=== PATIENT | male | born 1985 | race Caucasian/White ===

== ENCOUNTER 2018-04-30 00:55 | Inpatient (IN) ==
[2018-04-30] MEDS ORDERED: Sod Chloride 0.9% Inj 1,000 ML IV.SIG ONE (01:22)
[2018-04-30] MEDS ORDERED: Vancomycin Inj 1 GM/200 ML PIGGYBACK IV.SIG ONE (02:00)
[2018-04-30] MEDS ORDERED: Piperacil/Tazo 3.375 GM Premix 50 ML IV.SIG ONE (02:00)
[2018-04-30 02:09] LABS: Baso % (Auto) 0.2 % (0.0-2.0); Eos % (Auto) 0.1 % (0.0-4.0); Hematocrit 26.9 % (39.0-51.0); Hemoglobin 9.3 gm/dL (13.0-17.0); Lymph # (Auto) 0.7 th/mm3 (1.0-4.8); Mean Corpuscular HGB Conc 34.5 % (32.0-36.0); Mean Platelet Volume 7.9 fL (7.0-11.0); Mono # (Auto) 0.4 th/mm3 (0.0-0.9); Mono % (Auto) 4.8 % (0.0-8.0); Neut # (Auto) 7.7 th/mm3 (1.8-7.7); Neut % (Auto) 86.9 % (16.0-70.0); Platelet Count 139 th/mm3 (150-450); Red Blood Count 3.32 mil/mm3 (4.50-5.90); Red Cell Distribution Width 17.1 % (11.6-17.2); White Blood Count 8.9 th/mm3 (4.0-11.0)
--- NOTE | 2018-04-30 02:09 | ED ---
HPI General Chief complaint: Back Pain/Injury Stated complaint: back pain Time Seen by Provider: 04/30/18 01:20 Source: patient Mode of arrival: EMS Limitations: no limitations History of Present Illness HPI narrative: The patient is a 32 year old male who presents to the [facility] emergency department with a history of right-sided chest pain, left- sided low back pain that he reports began at approximately the same time, 2-3 days after detoxing from opiate use in [facility]. He reports that he was in incarcerated on April 11 and last used heroin and opiates on April 10. He reports that approximately 2 days into his incarceration he began to have detox symptoms which mainly included numerous episodes of diarrhea. Since then he developed this right-sided lower chest wall pain anteriorly and left-sided low back pain just above the left buttock. He reports that he has had a cough productive of green sputum. He reports that he has had fevers with a T-max in alf of 101. He is not currently on any antibiotic. He has been taking ibuprofen and Flexeril at the alf. He denies having any prior history of hepatitis or HIV. He denies having any prior history of endocarditis. He reports that he has had skin infections and abscesses in the past related to staph from IV drug use. He denies having any rashes currently. On review of systems otherwise, the patient denies having any neck pain, shortness of breath , abdominal pain, vomiting,urinary symptoms, or neurologic symptoms. The patient last moved his bowels earlier today with a formed stool. He denies having any numbness or tingling to his extremities. He denies having any weakness of his extremities. He reports that he has generalized weakness. He was also noted at the alf to have incontinence of urine. Related Data Home Medications Medication Instructions Recorded Confirmed cyclobenzaprine 10 mg PO BID 04/30/18 04/30/18 ibuprofen 600 mg PO BID 04/30/18 04/30/18 Allergies Allergy/AdvReac Type Severity Reaction Status Date / Time acetaminophen Allergy Intermediate STOMACH Verified 07/08/17 16:38 UPSET Review of Systems ROS: all other systems reviewed are negative (Except for that which was mentioned in the HPI) [facility] Medical History Medical History Back pain (Acute) IV drug abuse (Acute) Right foot injury (Acute) Surgical History Surgical History H/O foot surgery (Acute) Social History Social History Substance History: Past History Second Hand Smoke Exposure: No Smoking Status: Current every day smoker Tobacco Type: Cigarettes Packs Per Day: 1 Cigarettes Per Day: 20.0 How Often Do You Have a Drink Containing Alcohol: Never Recent Travel in [facility] within the Last 8 Weeks: No Recent Out of Country Travel within the Last 8 Weeks: No Immunization History Tetanus Immunization: <5 Years Hx Influenza Vaccine This Season: No Exam Const General: cooperative, no acute distress and well developed Nutritional Appearance: well nourished Orientation: alert, awake and oriented x3 HENMT Head: normocephalic and atraumatic Nose: no nasal discharge and no epistaxis Mouth: moist mucous membranes Throat: posterior oropharynx normal and uvula midline Eyes Sclera: normal sclerae Pupils: PERRL Neck Neck: no meningeal signs, trachea midline and no JVD Chest Chest: normal inspection of the chest Resp Effort & Inspection: no use of accessory muscles Auscultation: other (The patient has decreased breath sounds in the right posterior lung field. No rhonchi or crackles. No wheezes audible. No accessory muscle use noted. No tripoding. No conversational dyspnea.) Cardio Rate: tachycardic (Sinus tachycardia in the low 100s, no pulse deficits to the extremities on simultaneous auscultation and palpation of his radial artery) Rhythm: regular rhythm Heart Sounds: no gallops, no murmurs and no rubs GI Inspection: non-distended Palpation: soft, no hepatosplenomegaly, no guarding, not rigid and tender in the epigastrum; not in the LLQ, not in the RLQ, not in the LUQ, not in the RUQ, not at McBurney's point, not suprapubicly, Ramirez's sign negative and with no rebound tenderness Auscultation: normal bowel sounds Back/Spine/Pelvis Back: no CVA tenderness Cervical Spine: No cervical spinal tenderness Thoracic/Lumbar Spine: No thoracic spinal tenderness and No lumbar spinal tenderness Skin General: dry skin (warm) Neuro General: alert, awake and oriented x3 Cranial Nerves: CN's II-XI intact bilaterally Speech: speech normal Motor: no movement abnormalities noted and strength abnormal (Strength is 4/5 in all 4 extremities with visualized generalized weakness.) Sensory Exam: no sensory deficits noted Extrem General: normal to inspection (No calf tenderness on palpation. 2+ pulses in all 4 extremities.), no clubbing, no cyanosis and no edema Psych Mood: congruent mood Affect: normal affect Judgment: judgment good Course Reevaluation(s) Reevaluation #1: The patient on reexamination was resting comfortably. The patient appeared to be in no acute distress. Consultations Consultation #1: The patient's case including history, pertinent physical examination findings, and laboratory studies were discussed with Dr. Hale. It was agreed that the patient would be admitted to the petrophysicist's service. Initial Documented Vital Signs Temperature 98.9 F 04/30/18 01:14 Pulse Rate 114 H 04/30/18 01:14 Respiratory Rate 18 04/30/18 01:14 Blood Pressure 114/67 04/30/18 01:14 Pulse Oximetry 97 04/30/18 01:14 Last Documented Vital Signs Temperature 98.9 F 04/30/18 01:14 Pulse Rate 97 H 04/30/18 03:20 Respiratory Rate 16 04/30/18 03:20 Blood Pressure 102/64 04/30/18 03:20 Pulse Oximetry 97 04/30/18 03:20 Critical Care Time Critical Care Time: Yes Total Critical Care Time: 41 Attestation: Aggregate critical care time was 41 minutes. Time to perform other separately billable procedures was not included in the critical care time. My time did not include minutes spent treating any other patients simultaneously or on activities that did not directly contribute to the patient's treatment. The services I provided to this patient were to treat and/or prevent clinically significant deterioration that could result in: Cardiovascular collapse related to sepsis, versus fluid overload from crystalloid resuscitation, versus cardiac arrhythmia I provided critical care services requiring my management, as noted below: Chart data review, documentation time, medication orders and management, vital sign assessments/reviewing monitor data, ordering and reviewing lab tests, ordering and interpreting/reviewing x-rays and diagnostic studies, care of the patient and discussion of the patient with the admitting physicians. Medical Decision Making MDM Narrative Medical decision making narrative: 27.1, chemistry is remarkable forDuring the course of the patient's emergency department visit, the patient's history, examination, and differential diagnosis were reviewed with the patient. The patient was placed on a cardiac cath technologist with oximetry and frequent blood pressure monitoring. The patient had IV access obtained and blood work sent for analysis. A diagnostic evaluation has been started regarding the patient's right-sided chest pain, back pain on the left side, fever, with cough. The patient was initially provided normal saline 1 L IV fluid bolus, broad- spectrum antibiotic was started due to a concern for sepsis in this patient with a history of IV drug use. The patient's diagnostic evaluation is remarkable for a white count of 8.9 with a left shift, neutrophil percent 78, platelets were low at 139, hemoglobin was noted to be 9.3. PT 12.7, INR 1.3, PTT 27.1. Chemistries are remarkable for troponin I of 7.33, given the patient's elevated troponin the patient was given nitroglycerin 1 inch to the chest wall, aspirin 324 mg p.o. 1. Chemistries were otherwise remarkable for a total protein 5.7, sodium 134, protein corrected calcium 7.7, GFR 76, CK-MB percent is 3.1, C-reactive protein elevated at 15.8, BUN 27, AST 103, albumin 1.4. Chest x-ray revealed a right basilar pleural-parenchymal density. CT scan with IV contrast was ordered to evaluate for possible septic emboli as an underlying cause. CT scan of the chest with IV contrast reveals numerous bilateral pulmonary nodules many of which are cavitated likely septic emboli. Small moderate right pleural effusion with partial loculation, CT scan of the abdomen and pelvis shows areas of low density that are seen in the spleen which could be lacerations versus infarctions. No hemoperitoneum, bilateral renal low- densities are seen, likely benign, right pleural effusion. Based on the patient 's examination and lack of trauma, splenic lacerations are unlikely, however septic embolization with infarcts are likely the cause of the patient's splenic abnormalities. CT scan of the T-spine and L-spine showed no acute abnormality other than disc bulges at L3-4 L4-5 L5-S1. The patient's case was discussed with Dr. Hale, the petrophysicist who did agree to admit the patient for continued evaluation and treatment. Medical Screen Exam Complete: Yes Emergency Medical Condition: Yes Differential Diagnosis Differential Diagnosis: Discitis, versus osteomyelitis, versus pneumonia, versus septic emboli, versus endocarditis, versus, versus pyelonephritis Medical Records Medical records reviewed: Yes I reviewed the patient's medical records. Lab Data Lab results reviewed: Yes I reviewed the patient's lab results. Result diagrams: 04/30/18 01:55 04/30/18 01:55 Lab Results 04/30/18 04/30/18 04/30/18 Range/Units 01:55 01:55 01:55 WBC 8.9 (4.0-11.0) th/mm3 RBC 3.32 L (4.50-5.90) mil/mm3 Hgb 9.3 L (13.0-17.0) gm/dL Hct 26.9 L (39.0-51.0) % MCV 81.0 (80.0-100.0) fL MCH 28.0 (27.0-34.0) pg MCHC 34.5 (32.0-36.0) % RDW 17.1 (11.6-17.2) % Plt Count 139 L (150-450) th/mm3 MPV 7.9 (7.0-11.0) fL Prelim Diff (Auto) Slide review pending Neut % (Auto) 86.9 H (16.0-70.0) % Lymph % (Auto) 8.0 L (9.0-44.0) % Candler % (Auto) 4.8 (0.0-8.0) % Eos % (Auto) 0.1 (0.0-4.0) % Baso % (Auto) 0.2 (0.0-2.0) % Neut # (Auto) 7.7 (1.8-7.7) th/mm3 Lymph # (Auto) 0.7 L (1.0-4.8) th/mm3 Candler # (Auto) 0.4 (0.0-0.9) th/mm3 Eos # (Auto) 0.0 (0.0-0.4) th/mm3 Baso # (Auto) 0.0 (0.0-0.2) th/mm3 WBC Differential Manual diff final Seg Neuts % (Manual) 78 H (16-70) % Band Neuts % (Manual) 12 H (0-6) % Lymphocytes % (Manual) 5 L (9-44) % Monocytes % (Manual) 5 (0-8) % Abs Neuts (Manual) 8.0 H (1.8-7.7) th/mm3 Differential Comment . Platelet Estimate Low L (Normal) Platelet Morphology Normal (Normal) Ovalocytes 1+ H (None) Helmet Cells Occ H (None) ESR 43 H (0-15) mm/hr PT 12.7 H (9.8-11.6) sec INR 1.3 Ratio APTT 27.1 (24.3-30.1) sec Sodium (136-145) meq/L Potassium (3.5-5.1) meq/L Chloride (98-107) meq/L Carbon Dioxide (21.0-32.0) meq/L Anion Gap (5-15) meq/L BUN (7-18) mg/dL Creatinine (0.60-1.30) mg/dL Estimated GFR (>89) mL/min Random Glucose (74-106) mg/dL Lactic Acid (0.4-2.0) mmol/L Calcium (8.5-10.1) mg/dL Prot Corrected Calcium (8.5-10.1) mg/dL Magnesium 2.2 (1.5-2.5) mg/dL Total Bilirubin (0.2-1.0) mg/dL AST (15-37) U/L ALT (12-78) U/L Alkaline Phosphatase (45-117) U/L Total Creatine Kinase 242 (39-308) U/L CK-MB (CK-2) 7.5 H (0.5-3.6) ng/mL CK-MB (CK-2) % 3.1 (0.0-4.0) % Troponin I 7.33 H* (0.02-0.05) ng/mL C-Reactive Protein 15.80 H (0.00-0.30) mg/dL B-Natriuretic Peptide (0-100) pg/mL Total Protein (6.4-8.2) g/dL Albumin (3.4-5.0) g/dL Lipase 85 (73-393) U/L 04/30/18 04/30/18 04/30/18 Range/Units 01:55 01:55 01:55 WBC (4.0-11.0) th/mm3 RBC (4.50-5.90) mil/mm3 Hgb (13.0-17.0) gm/dL Hct (39.0-51.0) % MCV (80.0-100.0) fL MCH (27.0-34.0) pg MCHC (32.0-36.0) % RDW (11.6-17.2) % Plt Count (150-450) th/mm3 MPV (7.0-11.0) fL Prelim Diff (Auto) Neut % (Auto) (16.0-70.0) % Lymph % (Auto) (9.0-44.0) % Candler % (Auto) (0.0-8.0) % Eos % (Auto) (0.0-4.0) % Baso % (Auto) (0.0-2.0) % Neut # (Auto) (1.8-7.7) th/mm3 Lymph # (Auto) (1.0-4.8) th/mm3 Candler # (Auto) (0.0-0.9) th/mm3 Eos # (Auto) (0.0-0.4) th/mm3 Baso # (Auto) (0.0-0.2) th/mm3 WBC Differential Seg Neuts % (Manual) (16-70) % Band Neuts % (Manual) (0-6) % Lymphocytes % (Manual) (9-44) % Monocytes % (Manual) (0-8) % Abs Neuts (Manual) (1.8-7.7) th/mm3 Differential Comment Platelet Estimate (Normal) Platelet Morphology (Normal) Ovalocytes (None) Helmet Cells (None) ESR (0-15) mm/hr PT (9.8-11.6) sec INR Ratio APTT (24.3-30.1) sec Sodium 134 L (136-145) meq/L Potassium 3.9 (3.5-5.1) meq/L Chloride 103 (98-107) meq/L Carbon Dioxide 20.5 L (21.0-32.0) meq/L Anion Gap 11 (5-15) meq/L BUN 27 H (7-18) mg/dL Creatinine 1.11 (0.60-1.30) mg/dL Estimated GFR 76 L (>89) mL/min Random Glucose 90 (74-106) mg/dL Lactic Acid 1.1 (0.4-2.0) mmol/L Calcium 7.0 L* (8.5-10.1) mg/dL Prot Corrected Calcium 7.7 L (8.5-10.1) mg/dL Magnesium (1.5-2.5) mg/dL Total Bilirubin 0.6 (0.2-1.0) mg/dL AST 103 H (15-37) U/L ALT 43 (12-78) U/L Alkaline Phosphatase 79 (45-117) U/L Total Creatine Kinase (39-308) U/L CK-MB (CK-2) (0.5-3.6) ng/mL CK-MB (CK-2) % (0.0-4.0) % Troponin I (0.02-0.05) ng/mL C-Reactive Protein (0.00-0.30) mg/dL B-Natriuretic Peptide 87 (0-100) pg/mL Total Protein 5.7 L (6.4-8.2) g/dL Albumin 1.4 L (3.4-5.0) g/dL Lipase (73-393) U/L Imaging Data Radiologist's impression: Chest X-Ray 04/30/18 01:23 CONCLUSION: Right basilar pleural-parenchymal density. Abdomen/Pelvis CT 04/30/18 01:58 CONCLUSION: 1. Areas of low-density are seen in the spleen could be lacerations versus infarcts. No hemoperitoneum. 2. Bilateral renal low-density likely benign. 3. Right pleural effusion. Lumbar Spine CT 04/30/18 01:58 CONCLUSION: 1. Disc bulges at L3-4, L4-5 and L5-S1 levels. No canal stenosis. 2. No fracture or spondylolisthesis. Thoracic Spine CT 04/30/18 01:58 CONCLUSION: 1. Unremarkable thoracic spine. Chest CT 04/30/18 03:09 CONCLUSION: 1. Numerous bilateral pulmonary nodules many of which are cavitated, likely septic emboli. 2. Small moderate right pleural effusion with partial loculation. ECG Data Attestation: I personally reviewed and interpreted this ECG as follows: Interpretation: The patient had an EKG done on arrival that shows a sinus tachycardia rate of 116, QRS duration 85 ms, QTC [address] segment elevation. Nonspecific ST-T wave abnormalities noted, T waves are inverted in lead III. Discharge Plan Discharge Disposition Patient Disposition: 30 Still Patient Discharge Details Diagnosis: Acute septic pulmonary embolism Physicians Team ED Provider: Lorrie Orozco Primary Care Provider: Primary Care Tammie Peña Attending Provider: Aurelio Hale Other Providers: Zia Mesa ; Zena Raines ; Daljit Centeno Discharge Interventions Interventions: ED Discharge Assessment Last Done: 04/30/18 05:49 Status ED Status: Left Department Discharge Information Discharge Date/Time: 04/30/18 05:50
[2018-04-30 02:23] LABS: Activated Partial Thrombo Time 27.1 sec (24.3-30.1); INR 1.3 Ratio; Prothrombin Time 12.7 sec (9.8-11.6)
[2018-04-30 02:25] LABS: C-Reactive Protein 15.8 mg/dL (0.00-0.30); Magnesium 2.2 mg/dL (1.5-2.5)
--- NOTE | 2018-04-30 02:26 | XR ---
EXAM DATE: 04/30/2018 1:58 AM EDT AGE/SEX: 32 years / Male INDICATIONS: Chest pain, fever, and shortness of breath. CLINICAL DATA: This is the patient's initial encounter. Patient reports that signs and symptoms have been present for 2 days and indicates a pain score of 5/10. MEDICAL/SURGICAL HISTORY: None. None. COMPARISON: No prior exams available for comparison. FINDINGS: A single AP view of the chest demonstrates right basilar pleural-parenchymal density noted laterally. Left lung clear. Heart normal in size. The cardiomediastinal contours are unremarkable. Osseous st ructures are intact. CONCLUSION: Right basilar pleural-parenchymal density. Electronically signed by: Austen Alejandra MD 04/30/2018 2:24 AM EDT
[2018-04-30 02:30] LABS: Erythrocyte Sedimentation Rate 43 mm/hr (0-15)
[2018-04-30] MEDS ORDERED: Vancomycin Inj 1,000 MG in Sodium Chlor 0.9% Inj 250 ML IV.SIG ONE (02:45)
[2018-04-30 02:55] LABS: Lymphocytes 5 % (9-44); Monocytes 5 % (0-8); Platelet Morphology Normal (Normal)
[2018-04-30 02:57] LABS: Helmet Cells Occ; Ovalocytes 1+
[2018-04-30 03:14] LABS: Troponin I 7.33 ng/mL (0.02-0.05)
[2018-04-30 03:34] LABS: Creatine Kinase MB 7.5 ng/mL (0.5-3.6)
[2018-04-30 03:36] LABS: Albumin 1.4 g/dL (3.4-5.0); Carbon Dioxide 20.5 meq/L (21.0-32.0); Potassium 3.9 meq/L (3.5-5.1); Total Protein 5.7 g/dL (6.4-8.2)
[2018-04-30 03:43] LABS: CKMB Percent 3.1 % (0.0-4.0)
--- NOTE | 2018-04-30 04:25 | P.HPCC ---
History of Present Illness Primary Care Physician: No Primary Care Physician History of Present Illness: 32 year old male presents with a history of right-sided chest pain, left-sided low back pain that he reports began at approximately the same time, 2-3 days after detoxing from heroin/opiate use in care home. He reports that he was in incarcerated on April 11 and last used heroin and opiates on April 10. He reports that approximately 2 days into his incarceration he began to have detox symptoms which mainly included numerous episodes of diarrhea. Since then he developed this right-sided lower chest wall pain anteriorly and left-sided low back pain just above the left buttock. He reports that he has had a cough productive of green sputum. He also has had fevers with a T-max in care home of 101. He is not currently on any antibiotic. He has been taking ibuprofen and Flexeril at the care home. He denies having any prior history of hepatitis or HIV. He denies having any prior history of endocarditis. He reports that he has had skin infections and abscesses in the past related to staph from IV drug use. He denies having any rashes currently. On review of systems otherwise, the patient denies having any neck pain, shortness of breath, abdominal pain, vomiting,urinary symptoms, or neurologic symptoms. The patient last moved his bowels earlier today with a formed stool. He denies having any numbness or tingling to his extremities. He denies having any weakness of his extremities. He reports that he has generalized weakness. He was also noted at the care home to have incontinence of urine. Inpatient Certification: I certify that the inpatient services were ordered in accordance with Medicare regulations governing the order. 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 - Medical History Medical History: Medical History (Last Reviewed 04/30/18 @ 02:05 by Lorrie Orozco MD) Back pain IV drug abuse Right foot injury - Surgical History Surgical History: Surgical History (Last Updated 04/30/18 @ 02:05 by Lorrie Orozco MD) H/O foot surgery - Tobacco History Second Hand Smoke Exposure: No Tobacco Use In Past 30 Days: Yes Smoking Status: Current every day smoker Tobacco Type: Cigarettes Packs Per Day: 1 Cigarettes Per Day: 20.0 - Alcohol History How Often Do You Have a Drink Containing Alcohol: Never - Substance Use History Substance History: Past History - Travel History Recent Travel in the [place] Within the Last 8 Weeks: No Recent Travel Out of the Country Within the Last 8 Weeks: No - Immunization History Tetanus Immunization: <5 Years Hx Influenza Vaccine This Season: No Medications and Allergies Allergies Allergy/AdvReac Type Severity Reaction Status Date / Time acetaminophen Allergy Intermediate STOMACH Verified 07/08/17 16:38 UPSET Home Medications Medication Instructions Recorded Confirmed Type cyclobenzaprine 10 mg PO BID 04/30/18 04/30/18 History ibuprofen 600 mg PO BID 04/30/18 04/30/18 History Results - Labs CBC & Chem 7: 04/30/18 01:55 04/30/18 01:55 Labs: Short CBC 04/30/18 Range/Units 01:55 WBC 8.9 (4.0-11.0) th/mm3 Hgb 9.3 L (13.0-17.0) gm/dL Hct 26.9 L (39.0-51.0) % Plt Count 139 L (150-450) th/mm3 BMP 04/30/18 01:35 Sodium 134 L Potassium 3.9 Chloride 103 Carbon Dioxide 20.5 L BUN 27 H Creatinine 1.11 Calcium 7.0 L* Cardiac Enzymes 04/30/18 Range/Units 01:55 Total Creatine Kinase 242 (39-308) U/L CK-MB (CK-2) 7.5 H (0.5-3.6) ng/mL Troponin I 7.33 H* (0.02-0.05) ng/mL Liver Function 04/30/18 Range/Units 01:35 Total Bilirubin 0.6 (0.2-1.0) mg/dL AST 103 H (15-37) U/L ALT 43 (12-78) U/L Alkaline Phosphatase 79 (45-117) U/L Albumin 1.4 L (3.4-5.0) g/dL - Imaging Impressions Chest X-Ray 04/30/18 01:23 CONCLUSION: Right basilar pleural-parenchymal density. Exam Vital signs: Vital Signs 04/30/18 01:14 04/30/18 02:01 Temperature 98.9 F Pulse Rate 114 H 102 H Respiratory Rate 18 Blood Pressure 114/67 Pulse Oximetry 97 97 Intake & Output 04/29/18 04/29/18 04/30/18 06:59 18:59 06:59 Weight 58.967 kg - Constitutional mild distress - Routine HEENT Exam Head: Present: normocephalic, atraumatic Eye: Present: PERRL ENT: Present: mucous membranes moist - Routine Neck Exam Present: supple, full ROM. Absent: JVD, carotid bruit - Routine Respiratory Exam Present: rhonchi, crackles. Absent: accessory muscle use, respiratory distress , stridor, wheezes - Routine Cardiovascular Exam Present: RRR, S1, S2, murmur - Routine Abdominal Exam Present: soft, normoactive bowel sounds. Absent: tenderness, distended, rebound - Routine Extremities Exam Absent: cyanosis, clubbing, edema - Routine Skin Exam Present: intact. Absent: cyanosis, erythema - Routine Neurological Exam Present: alert, oriented X3, CN II-XII intact. Absent: sensory deficit, motor deficit Caprini VTE Risk Assessment Caprini VTE Risk Assessment: Moderate/High Risk (score >= 2) Caprini Risk Assessment Model: Point Value = 1 Point Value = 2 Point Value = 3 Point Value = 5 Age 41-60 Minor surgery BMI > 25 kg/m2 Swollen legs Varicose veins or History of unexplained or recurrent spontaneous Oral contraceptives or hormone replacement Sepsis (< 1 month) Serious lung disease, including pneumonia (< 1 month) Abnormal pulmonary function Acute myocardial infarction Congestive heart failure (< 1 month) History of inflammatory bowel disease Medical patient at bed rest Age 61-74 Arthroscopic surgery Major open surgery (> 45 min) Laparoscopic surgery (> 45 min) Malignancy Confined to bed (> 72 hours) Immobilizing plaster cast Central venous access Age >= 75 History of VTE Family history of VTE Factor V Leiden Prothrombin [id number] Lupus anticoagulant Anticardiolipin antibodies Elevated serum homocysteine Heparin-induced thrombocytopenia Other congenital or acquired thrombophilia Stroke (< 1 month) Elective arthroplasty Hip, pelvis, or leg fracture Acute spinal cord injury (< 1 month) Prophylaxis Regimen: Total Risk Factor Score Risk Level Prophylaxis Regimen 0-1 Low Early ambulation 2 Moderate Order ONE of the following: *Sequential Compression Device (SCD) *Heparin 5000 units SQ BID 3-4 Higher Order ONE of the following medications: *Heparin 5000 units SQ TID *Enoxaparin/Lovenox 40 mg SQ daily (WT < 150 kg, CrCl > 30 mL/min) *Enoxaparin/Lovenox 30 mg SQ daily (WT < 150 kg, CrCl > 10-29 mL/min) *Enoxaparin/Lovenox 30 mg SQ BID (WT < 150 kg, CrCl > 30 mL/min) AND/OR *Sequential Compression Device (SCD) 5 or more Highest Order ONE of the following medications: *Heparin 5000 units SQ TID (Preferred with Epidurals) *Enoxaparin/Lovenox 40 mg SQ daily (WT < 150 kg, CrCl > 30 mL/min) *Enoxaparin/Lovenox 30 mg SQ daily (WT < 150 kg, CrCl > 10-29 mL/min) *Enoxaparin/Lovenox 30 mg SQ BID (WT < 150 kg, CrCl > 30 mL/min) AND *Sequential Compression Device (SCD) Assessment and Plan - Assessment and Plan Plan: Elevated troponin with atypical chest pain -Possible endocarditis -Consult cardiology and infectious disease -SARAH pending -Blood cultures to follow -Vancomycin, gentamicin, Zosyn empirically -Unable to use anticoagulation due to severe thrombocytopenia -Follow-up series of troponins and EKGs Elevated LFTs -History of IVDU -Hepatitis profile -Gastroenterology consultation IVDU -Opiate dependency -Status post successful detoxification at [facility] facility -Avoid opioids and narcotics -Tylenol as needed for pain or fever Pulmonary emboli -Broad-spectrum antibiotic Multiple infarcts of spleen -Likely infectious emboli -IV antibiotics Thrombocytopenia -Due to sepsis and liver failure -Monitor trend and transfuse for platelet count less than 20 or if any signs of bleeding DVT GI prophylaxis -Teds SCDs -No pharmacological DVT prophylaxis due to thrombocytopenia -IV Pepcid Critical Care: The total critical care time was 35 minutes. Time to perform other separately billable procedures was not included in the critical care time.
[2018-04-30] MEDS ORDERED: Bisacodyl 10 MG Supp RECTAL PRN (04:41)
[2018-04-30] MEDS ORDERED: Vancomycin Consult Pharmacy OTHER ONE (04:49)
[2018-04-30] MEDS ORDERED: Gentamicin Consult Pharmacy OTHER ONE (04:49)
--- NOTE | 2018-04-30 04:50 | CT ---
EXAM DATE: 04/30/2018 4:09 AM EDT AGE/SEX: 32 years / Male INDICATIONS: Abdomen pain. CLINICAL DATA: This is the patient's initial encounter. Patient reports that signs and symptoms have been present for 1 day and indicates a pain score of 6/10. MEDICAL/SURGICAL HISTORY: . IV drug use. None. ORAL CONTRAST: No oral contrast ingested. RADIATION DOSE: 9.96 CTDI (mGy) ; Combined studies COMPARISON: No prior exams available for comparison. TECHNIQUE: Multiple contiguous axial images were obtained through the abdomen and pelvis following b olus infusion of 100 ml Omnipaque 350 (iohexol) nonionic water-soluble contrast as a cumulative dos e for multiple exams. No oral contrast ingested. Using automated exposure control and adjustment of the mA and/or kV according to patient size, radiation dose was kept as low as reasonably achievable t o obtain optimal diagnostic quality images. DICOM format image data is available electronically for review and comparison. FINDINGS: Lower Lungs: There is right pleural effusion. Liver: The liver has a homogeneous density without space-occupying lesion. There is no dilation of th e biliary tree. Spleen: There is a low-density in the spleen are seen in several locations.. Pancreas: Unremarkable without mass or calcification. Kidneys: Normal in size and shape. No evidence of mass or hydronephrosis. Bilateral renal low densit ies are seen Adrenal Glands: Unremarkable. Aorta: The aorta and proximal iliac vessels are grossly unremarkable without aneurysmal dilation. Bowel/Mesentery: The bowel loops are grossly unremarkable. The cecum and sigmoid colon have a normal configuration. Abdominal Wall: Intact. Retroperitoneum: No evidence of adenopathy in the retrocrural, para-aortic, or deep pelvic regions. Bladder: Contours are smooth. Reproductive Organs: No abnormal masses or calcifications seen. Inguinal: The inguinal region is unremarkable without evidence of adenopathy. Bony Structures: Unremarkable. CONCLUSION: 1. Areas of low-density are seen in the spleen could be lacerations versus infarcts. No hemoperitone um. 2. Bilateral renal low-density likely benign. 3. Right pleural effusion. Electronically signed by: Austen Alejandra MD 04/30/2018 4:49 AM EDT
--- NOTE | 2018-04-30 04:53 | CT ---
EXAM DATE: 04/30/2018 4:13 AM EDT AGE/SEX: 32 years / Male INDICATIONS: Back pain. CLINICAL DATA: This is the patient's initial encounter. Patient reports that signs and symptoms have been present for 1 day and indicates a pain score of 6/10. MEDICAL/SURGICAL HISTORY: . IV Drug use. None. RADIATION DOSE: 0 CTDI (mGy) ; Reconstructed from previous dataset, no dose COMPARISON: No prior exams available for comparison. TECHNIQUE: Contiguous axial images were acquired with a multirow detector CT scanner after intraveno us administration of 100 ml Omnipaque 350 (iohexol) nonionic water-soluble contrast as a cumulative dose for multiple exams. Multiplanar reconstructions in the sagittal and coronal plane were also per formed. Using automated exposure control and adjustment of the mA and/or kV according to patient size , radiation dose was kept as low as reasonably achievable to obtain optimal diagnostic quality images . DICOM format image data is available electronically for review and comparison. FINDINGS: Vertebrae: Normal vertebral body height. Disc spaces are maintained. Bilateral renal low densities. Alignment: Normal. No subluxation. Post Contrast: No abnormal areas of enhancement are seen in the cord, dural or paraspinal regions. T12-L1: The thecal sac has a normal diameter. No evidence of disc bulge or protrusion. The neural foramina are patent bilaterally. L1-L2: The thecal sac has a normal diameter. No evidence of disc bulge or protrusion. The neural f oramina are patent bilaterally. L2-L3: The thecal sac has a normal diameter. No evidence of disc bulge or protrusion. The neural f oramina are patent bilaterally. L3-L4: Mild broad-based disc bulge abuts ventral thecal sac without canal stenosis. The neural fora carmina are patent bilaterally. L4-L5: Mild broad-based disc bulge abuts ventral thecal sac without canal stenosis. The neural fora carmina are patent bilaterally. L5-S1: Mild broad-based disc bulge abuts ventral thecal sac without canal stenosis. The neural fora carmina are patent bilaterally. CONCLUSION: 1. Disc bulges at L3-4, L4-5 and L5-S1 levels. No canal stenosis. 2. No fracture or spondylolisthesis. Electronically signed by: Austen Alejandra MD 04/30/2018 4:52 AM EDT
--- NOTE | 2018-04-30 04:55 | CT ---
EXAM DATE: 04/30/2018 4:07 AM EDT AGE/SEX: 32 years / Male INDICATIONS: Chest pain. CLINICAL DATA: This is the patient's initial encounter. Patient reports that signs and symptoms have been present for 1 day and indicates a pain score of 10/10. MEDICAL/SURGICAL HISTORY: . IV Drug use. None. RADIATION DOSE: 9.96 CTDI (mGy) COMPARISON: No prior exams available for comparison. TECHNIQUE: Multiple contiguous axial images were obtained through the chest during bolus infusion of 100 ml Omnipaque 350 (iohexol) nonionic water-soluble contrast as a cumulative dose for multiple ex ams. Images were obtained in suspended respiration using multiple row detector helical technique. Using automated exposure control and adjustment of the mA and/or kV according to patient size, radiat ion dose was kept as low as reasonably achievable to obtain optimal diagnostic quality images. DICOM format image data is available electronically for review and comparison. FINDINGS: Lungs: Numerous bilateral pulmonary nodules many of which are cavitated. These range in size from 3 mm to 24 mm.. Mediastinum: There is good visualization of the great vessels of the middle mediastinum. No evidenc e of mediastinal or hilar adenopathy/mass. Pleurae: No evidence of focal thickening or pleural effusion on the left. Bxbvo-[id number] partiall y loculated right pleural effusion.. Axillae: Unremarkable. Bony Structures: Unremarkable. Miscellaneous: The examination was extended to include the upper abdomen, and both adrenal glands ar e normal in size and configuration. CONCLUSION: 1. Numerous bilateral pulmonary nodules many of which are cavitated, likely septic emboli. 2. Small moderate right pleural effusion with partial loculation. Electronically signed by: Austen Alejandra MD 04/30/2018 4:54 AM EDT
--- NOTE | 2018-04-30 04:57 | CT ---
EXAM DATE: 04/30/2018 4:15 AM EDT AGE/SEX: 32 years / Male INDICATIONS: Back pain CLINICAL DATA: This is the patient's initial encounter. Patient reports that signs and symptoms have been present for 1 day and indicates a pain score of 6/10. MEDICAL/SURGICAL HISTORY: . IV Drug Abuse. None. RADIATION DOSE: 0 CTDI (mGy) ; Reconstructed from previous dataset, no dose COMPARISON: No prior exams available for comparison. TECHNIQUE: Contiguous axial images were acquired using a multirow detector CT scanner after intraven ous administration of 100 ml Omnipaque 350 (iohexol) nonionic water-soluble contrast as a cumulative dose for multiple exams. Multiplanar reconstruction in the sagittal and coronal planes was perform ed. Using automated exposure control and adjustment of the mA and/or kV according to patient size, r adiation dose was kept as low as reasonably achievable to obtain optimal diagnostic quality images. DICOM format image data is available electronically for review and comparison. FINDINGS: Vertebrae: Normal vertebral body height. Right pleural effusion and bilateral cavitary nodules. Alignment: Normal. No subluxation. Post Contrast: No abnormal areas of enhancement are seen in the cord, dural or paraspinal regions. T1 - T2: Normal. T2 - T3: The thecal sac has a normal diameter. No evidence of disc bulge or protrusion. T3 - T4: The thecal sac has a normal diameter. No evidence of disc bulge or protrusion. T4 - T5: The thecal sac has a normal diameter. No evidence of disc bulge or protrusion. T5 - T6: The thecal sac has a normal diameter. No evidence of disc bulge or protrusion. T6 - T7: The thecal sac has a normal diameter. No evidence of disc bulge or protrusion. T7 - T8: The thecal sac has a normal diameter. No evidence of disc bulge or protrusion. T8 - T9: The thecal sac has a normal diameter. No evidence of disc bulge or protrusion. T9 - T10: The thecal sac has a normal diameter. No evidence of disc bulge or protrusion. T10 - T11: The thecal sac has a normal diameter. No evidence of disc bulge or protrusion. T11 - T12: The thecal sac has a normal diameter. No evidence of disc bulge or protrusion. T12 - L1: The thecal sac has a normal diameter. No evidence of disc bulge or protrusion. CONCLUSION: 1. Unremarkable thoracic spine. Electronically signed by: Austen Alejandra MD 04/30/2018 4:56 AM EDT
[2018-04-30] MEDS ORDERED: HYDROmorphone PF Inj 2 MG/ML Vial IV.PUSH PRN (05:15)
[2018-04-30] MEDS ORDERED: Vancomycin Consult Pharmacy OTHER PRN (05:34)
[2018-04-30] MEDS ORDERED: Gentamicin Consult Pharmacy OTHER PRN (05:35)
[2018-04-30] MEDS ORDERED: GENTAMICIN IV.SIG ONE (06:00)
[2018-04-30] MEDS ORDERED: SODIUM CHLOR 0.9% IV.SIG ONE (06:00)
[2018-04-30] MEDS: Sod Chloride 0.9% Inj 1,000 ML IV.CONT SCH ×2 (07:29→16:33)
[2018-04-30 07:37] LABS: Bacteria,Urine Rare /hpf; Bilirubin,Urine Negative (Negative); Clarity,Urine Clear (Clear); Color,Urine Yellow (Yellw/Straw); Glucose,Urine (UA) Negative (Negative); Leukocyte Esterase,Urine Negative (Negative); Nitrite,Urine Negative (Negative); Specific Gravity,Urine 1.033 (1.002-1.035)
[2018-04-30] MEDS ORDERED: Piperacil/Tazo 4.5 GM Premix 4.5 GM/100 ML BAG IV.SIG SCH (08:00)
--- NOTE | 2018-04-30 08:41 | ECG ---
Date Performed: 04/30/2018 Time Performed: 01:05:00 PTAGE: 32 years EKG: SINUS TACHYCARDIA POSSIBLE LEFT ATRIAL ENLARGEMENT NONSPECIFIC T-WAVE ABNORMALITY ABNORMAL ECG NO PREVIOUS TRACING DOCTOR: Zia Mesa Interpretating Date/Time 04/30/2018 08:40:32
--- NOTE | 2018-04-30 08:52 | P.CONGI ---
History of Present Illness Consult date: 04/30/18 Consult reason: ? Hepatitis C Chief complaint: Pneumonia, Elevated Troponin, r/o Endocarditis History of Present Illness: This is a 32 yo M who was incarcerated on April 11 and was undergoing detox from heroin and opiate use while in the facility. Pt reports during his detoxification he experienced nausea, vomiting, abdominal cramping and diarrhea. At this time he denies any continuation of those symptoms. Denies noticing any BRB in his stool, melena, hematemesis, or coffee ground emesis. Pt currently admitted to [facility] with complaints of chest pain secondary to suspected endocarditis. Our service has been consulted to evaluate pt for possible Hepatitis C. Pt denies any known history of liver issues or hepatitis. Pt does report IV drug use, last use was on April 10 but states that he was very careful not to share needles. Pt also has over 10 tattoos, states all of them were done in tattoo parlors. Admits to high risk sexual behaviors. Denies any known family history of liver issues. Denies ETOH in over 8 years. Only medication pt currently takes is Flexeril, denies taking anything OTC including herbs and supplements. 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 - Medical History Medical History: Medical History (Last Updated 04/30/18 @ 10:21 by Zena Raines MD) Back pain IV drug abuse Right foot injury Skin abscess - Surgical History Surgical History: Surgical History (Last Reviewed 04/30/18 @ 06:32 by Maria Fernanda Russo) H/O foot surgery - Tobacco History Second Hand Smoke Exposure: Yes Tobacco Use In Past 30 Days: Yes Smoking Status: Current every day smoker Tobacco Type: Cigarettes Packs Per Day: 1 Cigarettes Per Day: 20.0 - Alcohol History How Often Do You Have a Drink Containing Alcohol: Never - Substance Use History Substance History: Past History - Travel History Recent Travel in the [facility] Within the Last 8 Weeks: No Recent Travel Out of the Country Within the Last 8 Weeks: No - Immunization History Tetanus Immunization: <5 Years Hx Influenza Vaccine This Season: No <HermelindoCee bishop - Last Filed: 04/30/18 14:25> - Medical History Medical History: Medical History (Last Updated 04/30/18 @ 10:21 by Zena Raines MD) Back pain IV drug abuse Right foot injury Skin abscess - Surgical History Surgical History: Surgical History (Last Reviewed 04/30/18 @ 06:32 by Maria Fernanda Russo) H/O foot surgery <Daljit Centeno - Last Filed: 05/01/18 12:05> Medications and Allergies Active Medications: Active Medications Acetaminophen (Tylenol) 650 mg PO Q6H PRN PRN Reason: FEVER >101F Al Hydroxide/Mg Hydroxide (Milk Of Magnesia Liq) 30 ml PO Q12H PRN PRN Reason: Mild Constipation Albuterol (Duoneb Neb (Prn)) 1 ampul NEB Q2HR NEB PRN PRN Reason: WHEEZING Bisacodyl (Dulcolax Supp) 10 mg RECTAL DAILY PRN PRN Reason: SEVERE CONSITIPATION Chlorhexidine Gluconate (Chlorhexidine 2% Cloth) 3 pack TOPICAL DAILY@0400 [facility] Stop: 05/06/18 03:59 Chlorhexidine Gluconate (Chlorhexidine 2% Cloth) 3 pack TOPICAL DAILY@0400 PRN PRN Reason: Extra cloth needed Stop: 05/06/18 03:59 Famotidine (Pepcid Pf Inj) 20 mg IV.PUSH Q12HR [facility] Sodium Chloride (Ns Inj) 1,000 mls @ 84 mls/hr IV.CONT .[id number] [facility] Last Admin: 04/30/18 07:29 Dose: 84 mls/hr Piperacillin/Tazobactam/Dextrose (Zosyn 4.5 Gm Premix) 4.5 gm in 100 mls @ 200 mls/hr IV.SIG Q6H [facility] Lactulose (Lactulose Liq) 30 ml PO DAILY PRN PRN Reason: SEVERE CONSITIPATION Metoclopramide HCl (Reglan Inj) 5 mg IV.PUSH Q6HR [facility]; Protocol Last Admin: 04/30/18 06:30 Dose: 5 mg Ondansetron HCl (Zofran Inj) 4 mg IV.PUSH Q6H PRN PRN Reason: NAUSEA OR VOMITING Pharmacy Profile Note (Vancomycin Consult Pharmacy) 1 each OTHER UNSCH PRN PRN Reason: CONSULT Pharmacy Profile Note (Gentamicin Consult Pharmacy) 1 each OTHER UNSCH PRN PRN Reason: CONSULT Senna/Docusate Sodium (Magi-Colace) 1 tab PO BID [facility] Sennosides (Senokot) 17.2 mg PO Q12H PRN PRN Reason: Moderate Constipation Sodium Chloride (Ns Flush) 2 ml IV.FLUSH BID [facility] Sodium Chloride (Ns Flush) 2 ml IV.FLUSH PRN PRN PRN Reason: FLUSH AFTER USING IV ACCESS Temazepam (Restoril) 15 mg PO HS PRN PRN Reason: INSOMNIA <Cee Sales - Last Filed: 04/30/18 14:25> Active Medications: Active Medications Acetaminophen (Tylenol) 650 mg PO Q6H PRN PRN Reason: FEVER >101F Last Admin: 05/01/18 01:28 Dose: 650 mg Al Hydroxide/Mg Hydroxide (Milk Of [place]) 30 ml PO Q12H PRN PRN Reason: Mild Constipation Albuterol (Duoneb Neb (Prn)) 1 ampul NEB Q2HR NEB PRN PRN Reason: WHEEZING Bisacodyl (Dulcolax Supp) 10 mg RECTAL DAILY PRN PRN Reason: SEVERE CONSITIPATION Chlorhexidine Gluconate (Chlorhexidine 2% Cloth) 3 pack TOPICAL DAILY@0400 [facility] Stop: 05/06/18 03:59 Last Admin: 05/01/18 03:15 Dose: 3 pack Chlorhexidine Gluconate (Chlorhexidine 2% Cloth) 3 pack TOPICAL DAILY@0400 PRN PRN Reason: Extra cloth needed Stop: 05/06/18 03:59 Famotidine (Pepcid Pf Inj) 20 mg IV.PUSH Q12HR [facility] Last Admin: 05/01/18 09:35 Dose: 20 mg Sodium Chloride (Ns Inj) 1,000 mls @ 84 mls/hr IV.CONT .[id number] [facility] Last Admin: 05/01/18 05:24 Dose: 84 mls/hr Vancomycin HCl 1,250 mg/ (Sodium Chloride) 262.5 mls @ 250 mls/hr IV.SIG Q12H [facility] Last Infusion: 05/01/18 04:15 Dose: Infused Cefepime HCl 2,000 mg/ Sodium (Chloride) 100 mls @ 200 mls/hr IV.SIG Q8H [facility] Last Admin: 05/01/18 11:13 Dose: 200 mls/hr Lactulose (Lactulose Liq) 30 ml PO DAILY PRN PRN Reason: SEVERE CONSITIPATION Metoclopramide HCl (Reglan Inj) 5 mg IV.PUSH Q6HR [facility]; Protocol Last Admin: 05/01/18 11:13 Dose: 5 mg Miscellaneous Information ([facility] [place] [place] Pharmacy Ordered Lab Info) 0 each OTHER ONCE ONE Stop: 05/01/18 14:46 Ondansetron HCl (Zofran Inj) 4 mg IV.PUSH Q6H PRN PRN Reason: NAUSEA OR VOMITING Pharmacy Profile Note (Vancomycin Consult Pharmacy) 1 each OTHER UNSCH PRN PRN Reason: CONSULT Senna/Docusate Sodium (Magi-Colace) 1 tab PO BID [facility] Last Admin: 05/01/18 09:35 Dose: 1 tab Sennosides (Senokot) 17.2 mg PO Q12H PRN PRN Reason: Moderate Constipation Sodium Chloride (Ns Flush) 2 ml IV.FLUSH BID [facility] Last Admin: 05/01/18 09:35 Dose: 2 ml Sodium Chloride (Ns Flush) 2 ml IV.FLUSH PRN PRN PRN Reason: FLUSH AFTER USING IV ACCESS Temazepam (Restoril) 15 mg PO HS PRN PRN Reason: INSOMNIA Last Admin: 04/30/18 21:01 Dose: 15 mg <Daljit Centeno - Last Filed: 05/01/18 12:05> Allergies Allergy/AdvReac Type Severity Reaction Status Date / Time acetaminophen Allergy Intermediate STOMACH Verified 07/08/17 16:38 UPSET Home Medications Medication Instructions Recorded Confirmed Type cyclobenzaprine 10 mg PO BID 04/30/18 04/30/18 History ibuprofen 600 mg PO BID 04/30/18 04/30/18 History Exam Vital signs: Vital Signs 04/30/18 01:14 04/30/18 02:01 04/30/18 03:20 Temperature 98.9 F Pulse Rate 114 H 102 H 97 H Respiratory Rate 18 16 Blood Pressure 114/67 102/64 Pulse Oximetry 97 97 97 04/30/18 06:59 Temperature 97.8 F Pulse Rate 101 H Respiratory Rate 16 Blood Pressure 97/55 L Pulse Oximetry 99 Intake & Output 04/29/18 04/30/18 04/30/18 18:59 06:59 18:59 Output Total 500 / 500 Balance -500 / -500 Weight 61.7 kg Output: Urine 500 / 500 Other: # Voids 1 Weight On Admission 27.987 kg - Constitutional no acute distress - Routine HEENT Exam Head: Present: normocephalic, atraumatic - Routine Respiratory Exam Absent: accessory muscle use - Routine Abdominal Exam Present: soft, normoactive bowel sounds. Absent: tenderness, distended Comments: splenomegaly - Routine Skin Exam Present: dry, warm - Routine Neurological Exam Present: alert, oriented X3 <Cee Sales - Last Filed: 04/30/18 14:25> Vital signs: Vital Signs 04/30/18 16:00 04/30/18 17:45 04/30/18 20:00 Temperature 102.4 F H 103.3 F H Pulse Rate 130 H 133 H Respiratory Rate 22 Blood Pressure 138/83 Pulse Oximetry 99 05/01/18 00:00 05/01/18 04:00 05/01/18 08:00 Temperature 102.3 F H 97.7 F Pulse Rate 136 H 108 H 102 H Respiratory Rate 24 23 Blood Pressure 138/81 115/71 Pulse Oximetry 94 L 98 05/01/18 09:00 Temperature Pulse Rate 102 H Respiratory Rate Blood Pressure Pulse Oximetry Intake & Output 04/30/18 05/01/18 05/01/18 18:59 06:59 18:59 Intake Total 3402.5 / 3402.5 1462.5 / 1462.5 Output Total 1100 / 1100 825 / 825 Balance 2302.5 / 2302.5 637.5 / 637.5 Weight 65.6 kg Intake: IV 1962.5 / 1962.5 1462.5 / 1462.5 NS Inj 1,000 ML @ 84 mls/hr IV. 1000 / 1000 1100 / 1100 CONT .[id number] [facility] Rx#:[id number] Maxipime Inj 2,000 MG In NS Inj 200 / 200 100 / 100 100 ML @ 200 mls/hr IV.SIG Q8H [facility] Rx#:[id number] NS Inj 500 ML @ Wide Open IV. 500 / 500 SIG BOLUS ONE Rx#:[id number] Vancomycin Inj 1,250 MG In NS 262.5 / 262.5 262.5 / 262.5 Inj 250 ML @ 250 mls/hr IV.SIG Q12H [facility] Rx#:[id number] Oral 1440 / 1440 Output: Urine 1100 / 1100 825 / 825 Other: # Voids 2 # Bowel Movements 0 <Daljit Centeno - Last Filed: 05/01/18 12:05> Results - Labs CBC & Chem 7: 04/30/18 01:55 04/30/18 01:55 Labs: Laboratory Results - last 24 hr 04/30/18 04/30/18 04/30/18 01:55 01:55 01:55 WBC 8.9 RBC 3.32 L Hgb 9.3 L Hct 26.9 L MCV 81.0 MCH 28.0 MCHC 34.5 RDW 17.1 Plt Count 139 L MPV 7.9 Prelim Diff (Auto) Slide review pending Neut % (Auto) 86.9 H Lymph % (Auto) 8.0 L [place] % (Auto) 4.8 Eos % (Auto) 0.1 Baso % (Auto) 0.2 Neut # (Auto) 7.7 Lymph # (Auto) 0.7 L [place] # (Auto) 0.4 Eos # (Auto) 0.0 Baso # (Auto) 0.0 WBC Differential Manual diff final Seg Neuts % (Manual) 78 H Band Neuts % (Manual) 12 H Lymphocytes % (Manual) 5 L Monocytes % (Manual) 5 Abs Neuts (Manual) 8.0 H Differential Comment . Platelet Estimate Low L Platelet Morphology Normal Ovalocytes 1+ H Helmet Cells Occ H ESR 43 H PT 12.7 H INR 1.3 APTT 27.1 Sodium Potassium Chloride Carbon Dioxide Anion Gap BUN Creatinine Estimated GFR Random Glucose Lactic Acid Calcium Prot Corrected Calcium Magnesium 2.2 Total Bilirubin AST ALT Alkaline Phosphatase Total Creatine Kinase 242 CK-MB (CK-2) 7.5 H CK-MB (CK-2) % 3.1 Troponin I 7.33 H* C-Reactive Protein 15.80 H B-Natriuretic Peptide Total Protein Albumin Lipase 85 Urine Color Urine Clarity Urine pH Ur Specific [place] Urine Protein Urine Glucose (UA) Urine Ketones Urine Occult Blood Urine Nitrate Urine Bilirubin Urine Urobilinogen Ur Leukocyte Esterase Urine RBC Urine WBC Urine Bacteria Micro UA Comment Urine Culture Comments 04/30/18 04/30/18 04/30/18 01:55 01:55 01:55 WBC RBC Hgb Hct MCV MCH MCHC RDW Plt Count MPV Prelim Diff (Auto) Neut % (Auto) Lymph % (Auto) [place] % (Auto) Eos % (Auto) Baso % (Auto) Neut # (Auto) Lymph # (Auto) [place] # (Auto) Eos # (Auto) Baso # (Auto) WBC Differential Seg Neuts % (Manual) Band Neuts % (Manual) Lymphocytes % (Manual) Monocytes % (Manual) Abs Neuts (Manual) Differential Comment Platelet Estimate Platelet Morphology Ovalocytes Helmet Cells ESR PT INR APTT Sodium 134 L Potassium 3.9 Chloride 103 Carbon Dioxide 20.5 L Anion Gap 11 BUN 27 H Creatinine 1.11 Estimated GFR 76 L Random Glucose 90 Lactic Acid 1.1 Calcium 7.0 L* Prot Corrected Calcium 7.7 L Magnesium Total Bilirubin 0.6 AST 103 H ALT 43 Alkaline Phosphatase 79 Total Creatine Kinase CK-MB (CK-2) CK-MB (CK-2) % Troponin I C-Reactive Protein B-Natriuretic Peptide 87 Total Protein 5.7 L Albumin 1.4 L Lipase Urine Color Urine Clarity Urine pH Ur Specific [place] Urine Protein Urine Glucose (UA) Urine Ketones Urine Occult Blood Urine Nitrate Urine Bilirubin Urine Urobilinogen Ur Leukocyte Esterase Urine RBC Urine WBC Urine Bacteria Micro UA Comment Urine Culture Comments 04/30/18 06:15 WBC RBC Hgb Hct MCV MCH MCHC RDW Plt Count MPV Prelim Diff (Auto) Neut % (Auto) Lymph % (Auto) [place] % (Auto) Eos % (Auto) Baso % (Auto) Neut # (Auto) Lymph # (Auto) [place] # (Auto) Eos # (Auto) Baso # (Auto) WBC Differential Seg Neuts % (Manual) Band Neuts % (Manual) Lymphocytes % (Manual) Monocytes % (Manual) Abs Neuts (Manual) Differential Comment Platelet Estimate Platelet Morphology Ovalocytes Helmet Cells ESR PT INR APTT Sodium Potassium Chloride Carbon Dioxide Anion Gap BUN Creatinine Estimated GFR Random Glucose Lactic Acid Calcium Prot Corrected Calcium Magnesium Total Bilirubin AST ALT Alkaline Phosphatase Total Creatine Kinase CK-MB (CK-2) CK-MB (CK-2) % Troponin I C-Reactive Protein B-Natriuretic Peptide Total Protein Albumin Lipase Urine Color Yellow Urine Clarity Clear Urine pH 5.0 Ur Specific [place] 1.033 Urine Protein Negative Urine Glucose (UA) Negative Urine Ketones Negative Urine Occult Blood Small H Urine Nitrate Negative Urine Bilirubin Negative Urine Urobilinogen 2.0 H Ur Leukocyte Esterase Negative Urine RBC 2 Urine WBC 3 Urine Bacteria Rare H Micro UA Comment Culture not ind Urine Culture Comments Culture not ind - Imaging Impressions Chest X-Ray 04/30/18 01:23 CONCLUSION: Right basilar pleural-parenchymal density. Abdomen/Pelvis CT 04/30/18 01:58 CONCLUSION: 1. Areas of low-density are seen in the spleen could be lacerations versus infarcts. No hemoperitoneum. 2. Bilateral renal low-density likely benign. 3. Right pleural effusion. Lumbar Spine CT 04/30/18 01:58 CONCLUSION: 1. Disc bulges at L3-4, L4-5 and L5-S1 levels. No canal stenosis. 2. No fracture or spondylolisthesis. Thoracic Spine CT 04/30/18 01:58 CONCLUSION: 1. Unremarkable thoracic spine. Chest CT 04/30/18 03:09 CONCLUSION: 1. Numerous bilateral pulmonary nodules many of which are cavitated, likely septic emboli. 2. Small moderate right pleural effusion with partial loculation. <Cee Sales - Last Filed: 04/30/18 14:25> - Labs CBC & Chem 7: 05/01/18 04:43 05/01/18 04:43 Labs: Laboratory Results - last 24 hr 04/30/18 04/30/18 04/30/18 11:41 11:41 19:15 WBC RBC Hgb Hct MCV MCH MCHC RDW Plt Count MPV Neut % (Auto) Lymph % (Auto) [place] % (Auto) Eos % (Auto) Baso % (Auto) Neut # (Auto) Lymph # (Auto) [place] # (Auto) Eos # (Auto) Baso # (Auto) WBC Differential Differential Comment PT INR APTT Sodium Potassium Chloride Carbon Dioxide Anion Gap BUN Creatinine Estimated GFR Random Glucose Lactic Acid Calcium Prot Corrected Calcium Phosphorus Magnesium Total Bilirubin AST ALT Alkaline Phosphatase Troponin I 3.85 H* 3.50 H* Total Protein Albumin Hepatitis A IgM Ab Nonreactive Hep Bs Antigen Nonreactive Hep B Core IgM Ab Nonreactive Hep C IgG Ab Reactive H 05/01/18 05/01/18 05/01/18 04:43 04:43 04:43 WBC 10.2 RBC 3.42 L Hgb 9.4 L Hct 28.1 L MCV 82.2 MCH 27.4 MCHC 33.4 RDW 16.9 Plt Count 149 L MPV 8.0 Neut % (Auto) 84.8 H Lymph % (Auto) 9.2 [place] % (Auto) 5.6 Eos % (Auto) 0.1 Baso % (Auto) 0.3 Neut # (Auto) 8.7 H Lymph # (Auto) 0.9 L [place] # (Auto) 0.6 Eos # (Auto) 0.0 Baso # (Auto) 0.0 WBC Differential . Differential Comment Auto diff final PT 12.3 H INR 1.2 APTT 30.0 Sodium 134 L Potassium 3.8 Chloride 105 Carbon Dioxide 21.1 Anion Gap 8 BUN 20 H Creatinine 0.87 Estimated GFR Greater than 89 Random Glucose 88 Lactic Acid Calcium 7.0 L* Prot Corrected Calcium 7.6 L Phosphorus 2.8 Magnesium 2.0 Total Bilirubin 0.9 AST 77 H ALT 38 Alkaline Phosphatase 85 Troponin I Total Protein 5.9 L Albumin 1.2 L Hepatitis A IgM Ab Hep Bs Antigen Hep B Core IgM Ab Hep C IgG Ab 05/01/18 04:43 WBC RBC Hgb Hct MCV MCH MCHC RDW Plt Count MPV Neut % (Auto) Lymph % (Auto) [place] % (Auto) Eos % (Auto) Baso % (Auto) Neut # (Auto) Lymph # (Auto) [place] # (Auto) Eos # (Auto) Baso # (Auto) WBC Differential Differential Comment PT INR APTT Sodium Potassium Chloride Carbon Dioxide Anion Gap BUN Creatinine Estimated GFR Random Glucose Lactic Acid 1.1 Calcium Prot Corrected Calcium Phosphorus Magnesium Total Bilirubin AST ALT Alkaline Phosphatase Troponin I Total Protein Albumin Hepatitis A IgM Ab Hep Bs Antigen Hep B Core IgM Ab Hep C IgG Ab <Daljit Centeno - Last Filed: 05/01/18 12:05> Assessment and Plan - Plan Assessment: - Elevated LFTs (04/30) AST-103 ALT-43 Alk phos-79 T bili-0.6 Pt denies any known history of liver issues or hepatitis. Pt does report IV drug use, last use was on April 10 but states that he was very careful not to share needles. Pt also has over 10 tattoos, states all of them were done in tattoo parlors. Admits to high risk sexual behaviors. Denies any known family history of liver issues. Denies ETOH in over 8 years. Only medication pt currently takes is Flexeril, denies taking anything OTC including herbs and supplements. CT abdomen and pelvis W IV contrast (04/30) Areas of low-density are seen in the spleen could be lacerations versus infarcts. No hemoperitoneum. Bilateral renal low-density likely benign. Right pleural effusion. Mild thrombocytopenia (plts-139) hypoalbuminemia (albumin-1.4) No coagulopathy (INR-1.3) Incarcerated on April 11 and was undergoing detox from heroin and opiate use while in the facility. Pt reports during his detoxification he experienced nausea, vomiting, abdominal cramping and diarrhea. At this time he denies any continuation of those symptoms. Denies noticing any BRB in his stool, melena, hematemesis, or coffee ground emesis. - Chest pain, elevated troponin- suspected endocarditis chart reviewed later in the day, hepatitis profile is back, Hep C genotype positive, will add quant and genotype Plan: Hep C genotype and quant Avoid hepatotoxins Endocarditis work up per cardiology and ID Further recommendations to follow Pt has been seen and examined by myself and Dr. 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
[2018-04-30] MEDS ORDERED: GENTAMICIN IV.SIG SCH (10:00)
[2018-04-30] MEDS ORDERED: SODIUM CHLOR 0.9% IV.SIG SCH (10:00)
[2018-04-30] MEDS: Famotidine PF Inj 20 MG/2 ML Vial IV.PUSH SCH ×2 (10:05→21:01)
[2018-04-30] MEDS: Senna/Docusate Sodium 8.6/50 MG Tablet PO SCH ×2 (10:06→21:01)
--- NOTE | 2018-04-30 10:09 | P.CONID ---
History of Present Illness Service: Infectious disease Consult date: 04/30/18 Requesting Physician: Aurelio Hale Reason for Consult: Evaluate patient with possible endocarditis Primary Care Provider: No Primary Care Physician Family Provider: No Primary Care Physician History of Present Illness: Patient seen and examined. Records reviewed. Patient is a 32-year-old male, brought into the hospital for further evaluation of chest pain. Patient is under custody and has been in [facility] since [facility]. According to the patient several days into his incarceration, he started experiencing lower chest pain that is pleuritic in nature. He also started complaining of pain on his lumbar region more on the left side. He has not been coughing. He apparently has been having fevers. Patient has known IV drug use, and the last time he used it was the day before he got incarcerated. Has not any nausea or vomiting. Denies any diarrhea or urinary complaints. He has no prior history of endocarditis, but has had problem with skin abscesses. There is also mention that he has had previous HIV and hepatitis testing and they were both negative and this was from last year. Patient is afebrile. His hemodynamics are stable. His WBC is normal. Patient had CT of the chest which is showing multiple bilateral pulmonary nodules some of which are cavitating. CT of the abdomen and pelvis is showing some findings possibly of splenic infarcts. His blood cultures are currently pending. Infectious disease consultation has been requested to evaluate the patient with possible endocarditis. Review of Systems Constitutional: Reports chills, Reports fever(s), Reports night sweats Eyes: Denies discharge Ears, Nose, Mouth, and Throat: Denies difficulty swallowing, Denies ear pain, Denies nasal discharge, Denies sore throat Cardiovascular: Reports chest pain, Denies shortness of breath Respiratory: Reports pain on inspiration, Denies chest congestion, Denies cough , Denies shortness of breath Gastrointestinal: Denies abdominal pain, Denies difficulty swallowing, Denies loose stools, Denies nausea, Denies pain with swallowing, Denies vomiting Genitourinary: Denies painful urination Musculoskeletal: Reports back pain, Denies joint pain, Denies joint swelling Skin/Breast: Denies rash Neurologic: Denies headache(s), Denies localized weakness Psychiatric: Denies confusion PMF - History History Provided By: Patient, Community Health 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 / EMT - Medical History Medical History: Medical History (Last Updated 04/30/18 @ 10:21 by Zena Raines MD) Back pain IV drug abuse Right foot injury Skin abscess - Surgical History Surgical History: Surgical History (Last Reviewed 04/30/18 @ 06:32 by Maria Fernanda Russo) H/O foot surgery - Tobacco History Second Hand Smoke Exposure: Yes Tobacco Use In Past 30 Days: Yes Smoking Status: Current every day smoker Tobacco Type: Cigarettes Packs Per Day: 1 Cigarettes Per Day: 20.0 - Alcohol History How Often Do You Have a Drink Containing Alcohol: Never - Substance Use History Substance History: Past History - Travel History Recent Travel in the [facility] Within the Last 8 Weeks: No Recent Travel Out of the Country Within the Last 8 Weeks: No - Immunization History Tetanus Immunization: <5 Years Hx Influenza Vaccine This Season: No Medications and Allergies Active Medications: Active Medications Acetaminophen (Tylenol) 650 mg PO Q6H PRN PRN Reason: FEVER >101F Al Hydroxide/Mg Hydroxide (Milk Of Jose Liq) 30 ml PO Q12H PRN PRN Reason: Mild Constipation Albuterol (Duoneb Neb (Prn)) 1 ampul NEB Q2HR NEB PRN PRN Reason: WHEEZING Bisacodyl (Dulcolax Supp) 10 mg RECTAL DAILY PRN PRN Reason: SEVERE CONSITIPATION Chlorhexidine Gluconate (Chlorhexidine 2% Cloth) 3 pack TOPICAL DAILY@0400 FORD Stop: 05/06/18 03:59 Chlorhexidine Gluconate (Chlorhexidine 2% Cloth) 3 pack TOPICAL DAILY@0400 PRN PRN Reason: Extra cloth needed Stop: 05/06/18 03:59 Famotidine (Pepcid Pf Inj) 20 mg IV.PUSH Q12HR [facility] Last Admin: 04/30/18 10:05 Dose: 20 mg Sodium Chloride (Ns Inj) 1,000 mls @ 84 mls/hr IV.CONT .[id number] [facility] Last Admin: 04/30/18 07:29 Dose: 84 mls/hr Piperacillin/Tazobactam/Dextrose (Zosyn 4.5 Gm Premix) 4.5 gm in 100 mls @ 200 mls/hr IV.SIG Q6H FORD Last Admin: 04/30/18 10:06 Dose: 200 mls/hr Gentamicin Sulfate 60 mg/ (Sodium Chloride) 101.5 mls @ 100 mls/hr IV.SIG Q8H [facility] Last Admin: 04/30/18 10:05 Dose: 100 mls/hr Vancomycin HCl 1,250 mg/ (Sodium Chloride) 262.5 mls @ 250 mls/hr IV.SIG Q12H [facility] Lactulose (Lactulose Liq) 30 ml PO DAILY PRN PRN Reason: SEVERE CONSITIPATION Metoclopramide HCl (Reglan Inj) 5 mg IV.PUSH Q6HR [facility]; Protocol Last Admin: 04/30/18 06:30 Dose: 5 mg Miscellaneous Information ([facility] Ordered Lab Info) 0 each OTHER ONCE ONE Stop: 05/01/18 14:46 Miscellaneous Information ([facility] Ordered Lab Info) 0 each OTHER ONCE ONE Stop: 05/01/18 09:46 Miscellaneous Information ([facility] Ordered Lab Info) 0 each OTHER ONCE ONE Stop: 05/01/18 11:31 Ondansetron HCl (Zofran Inj) 4 mg IV.PUSH Q6H PRN PRN Reason: NAUSEA OR VOMITING Pharmacy Profile Note (Vancomycin Consult Pharmacy) 1 each OTHER UNSCH PRN PRN Reason: CONSULT Pharmacy Profile Note (Gentamicin Consult Pharmacy) 1 each OTHER UNSCH PRN PRN Reason: CONSULT Senna/Docusate Sodium (Magi-Colace) 1 tab PO BID [facility] Last Admin: 04/30/18 10:06 Dose: Not Given Sennosides (Senokot) 17.2 mg PO Q12H PRN PRN Reason: Moderate Constipation Sodium Chloride (Ns Flush) 2 ml IV.FLUSH BID [facility] Last Admin: 04/30/18 10:06 Dose: 2 ml Sodium Chloride (Ns Flush) 2 ml IV.FLUSH PRN PRN PRN Reason: FLUSH AFTER USING IV ACCESS Temazepam (Restoril) 15 mg PO HS PRN PRN Reason: INSOMNIA Allergies Allergy/AdvReac Type Severity Reaction Status Date / Time acetaminophen Allergy Intermediate STOMACH Verified 07/08/17 16:38 UPSET Home Medications Medication Instructions Recorded Confirmed Type cyclobenzaprine 10 mg PO BID 04/30/18 04/30/18 History ibuprofen 600 mg PO BID 04/30/18 04/30/18 History Exam Vital signs: Vital Signs 04/30/18 01:14 04/30/18 02:01 04/30/18 03:20 Temperature 98.9 F Pulse Rate 114 H 102 H 97 H Respiratory Rate 18 16 Blood Pressure 114/67 102/64 Pulse Oximetry 97 97 97 04/30/18 06:59 04/30/18 08:00 Temperature 97.8 F 97.9 F Pulse Rate 101 H 104 H Respiratory Rate 16 25 H Blood Pressure 97/55 L 108/67 Pulse Oximetry 99 98 Intake & Output 04/29/18 04/30/18 04/30/18 18:59 06:59 18:59 Output Total 500 / 500 Balance -500 / -500 Weight 61.7 kg Output: Urine 500 / 500 Other: # Voids 1 Weight On Admission 27.987 kg Narrative: Physical Examination GENERAL: Patient is a thin, well-developed patient, awake and alert, not in respiratory distress. SKIN: Warm and dry. No generalized rash, no ecchymoses and no evidence of embolic lesions. HEAD: Atraumatic. Normocephalic. No temporal wasting, or tenderness. EYES: [place] conjunctiva. Has small petechia L lower eyelid. Pupils equal, round and reactive to light. Extraocular movements full and intact. No scleral icterus. No injection or drainage. EARS, NOSE AND THROAT: Nose without bleeding or purulent nasal discharge. No sinus tenderness. Mucous membranes pink and moist. No oral lesions noted. NECK: Trachea midline. Supple and not tender, no meningeal signs CARDIOVASCULAR: Regular rate and rhythm. Tachycardic. No murmurs, rubs or gallops heard RESPIRATORY: Clear to auscultation. Breath sounds equal bilaterally. No rales , wheezing or rhonchi ABDOMEN: Soft, flat, non-tender, nondistended. Bowel sounds present and normoactive. No guarding. No rebound. No organomegaly. EXTREMITIES: No clubbing, cyanosis, or edema. Has some mild ankle edema. Has good ROM. No calf tenderness. Well perfused and warm. NEUROLOGICAL: Awake and alert. Cranial nerves grossly intact. Motor grossly within normal limits. PSYCHIATRIC: Normal affect, calm and cooperative. LINE: No evidence of infection Results - Labs CBC & Chem 7: 04/30/18 01:55 04/30/18 01:55 Labs: Laboratory Results - last 24 hr 04/30/18 04/30/18 04/30/18 01:55 01:55 01:55 WBC 8.9 RBC 3.32 L Hgb 9.3 L Hct 26.9 L MCV 81.0 MCH 28.0 MCHC 34.5 RDW 17.1 Plt Count 139 L MPV 7.9 Prelim Diff (Auto) Slide review pending Neut % (Auto) 86.9 H Lymph % (Auto) 8.0 L [place] % (Auto) 4.8 Eos % (Auto) 0.1 Baso % (Auto) 0.2 Neut # (Auto) 7.7 Lymph # (Auto) 0.7 L [place] # (Auto) 0.4 Eos # (Auto) 0.0 Baso # (Auto) 0.0 WBC Differential Manual diff final Seg Neuts % (Manual) 78 H Band Neuts % (Manual) 12 H Lymphocytes % (Manual) 5 L Monocytes % (Manual) 5 Abs Neuts (Manual) 8.0 H Differential Comment . Platelet Estimate Low L Platelet Morphology Normal Ovalocytes 1+ H Helmet Cells Occ H ESR 43 H PT 12.7 H INR 1.3 APTT 27.1 Sodium Potassium Chloride Carbon Dioxide Anion Gap BUN Creatinine Estimated GFR Random Glucose Lactic Acid Calcium Prot Corrected Calcium Magnesium 2.2 Total Bilirubin AST ALT Alkaline Phosphatase Total Creatine Kinase 242 CK-MB (CK-2) 7.5 H CK-MB (CK-2) % 3.1 Troponin I 7.33 H* C-Reactive Protein 15.80 H B-Natriuretic Peptide Total Protein Albumin Lipase 85 Urine Color Urine Clarity Urine pH Ur Specific [place] Urine Protein Urine Glucose (UA) Urine Ketones Urine Occult Blood Urine Nitrate Urine Bilirubin Urine Urobilinogen Ur Leukocyte Esterase Urine RBC Urine WBC Urine Bacteria Micro UA Comment Urine Culture Comments Nasal Screen MRSA (PCR) 04/30/18 04/30/18 04/30/18 01:55 01:55 01:55 WBC RBC Hgb Hct MCV MCH MCHC RDW Plt Count MPV Prelim Diff (Auto) Neut % (Auto) Lymph % (Auto) [place] % (Auto) Eos % (Auto) Baso % (Auto) Neut # (Auto) Lymph # (Auto) [place] # (Auto) Eos # (Auto) Baso # (Auto) WBC Differential Seg Neuts % (Manual) Band Neuts % (Manual) Lymphocytes % (Manual) Monocytes % (Manual) Abs Neuts (Manual) Differential Comment Platelet Estimate Platelet Morphology Ovalocytes Helmet Cells ESR PT INR APTT Sodium 134 L Potassium 3.9 Chloride 103 Carbon Dioxide 20.5 L Anion Gap 11 BUN 27 H Creatinine 1.11 Estimated GFR 76 L Random Glucose 90 Lactic Acid 1.1 Calcium 7.0 L* Prot Corrected Calcium 7.7 L Magnesium Total Bilirubin 0.6 AST 103 H ALT 43 Alkaline Phosphatase 79 Total Creatine Kinase CK-MB (CK-2) CK-MB (CK-2) % Troponin I C-Reactive Protein B-Natriuretic Peptide 87 Total Protein 5.7 L Albumin 1.4 L Lipase Urine Color Urine Clarity Urine pH Ur Specific [place] Urine Protein Urine Glucose (UA) Urine Ketones Urine Occult Blood Urine Nitrate Urine Bilirubin Urine Urobilinogen Ur Leukocyte Esterase Urine RBC Urine WBC Urine Bacteria Micro UA Comment Urine Culture Comments Nasal Screen MRSA (PCR) 04/30/18 04/30/18 06:15 06:15 WBC RBC Hgb Hct MCV MCH MCHC RDW Plt Count MPV Prelim Diff (Auto) Neut % (Auto) Lymph % (Auto) [place] % (Auto) Eos % (Auto) Baso % (Auto) Neut # (Auto) Lymph # (Auto) [place] # (Auto) Eos # (Auto) Baso # (Auto) WBC Differential Seg Neuts % (Manual) Band Neuts % (Manual) Lymphocytes % (Manual) Monocytes % (Manual) Abs Neuts (Manual) Differential Comment Platelet Estimate Platelet Morphology Ovalocytes Helmet Cells ESR PT INR APTT Sodium Potassium Chloride Carbon Dioxide Anion Gap BUN Creatinine Estimated GFR Random Glucose Lactic Acid Calcium Prot Corrected Calcium Magnesium Total Bilirubin AST ALT Alkaline Phosphatase Total Creatine Kinase CK-MB (CK-2) CK-MB (CK-2) % Troponin I C-Reactive Protein B-Natriuretic Peptide Total Protein Albumin Lipase Urine Color Yellow Urine Clarity Clear Urine pH 5.0 Ur Specific [place] 1.033 Urine Protein Negative Urine Glucose (UA) Negative Urine Ketones Negative Urine Occult Blood Small H Urine Nitrate Negative Urine Bilirubin Negative Urine Urobilinogen 2.0 H Ur Leukocyte Esterase Negative Urine RBC 2 Urine WBC 3 Urine Bacteria Rare H Micro UA Comment Culture not ind Urine Culture Comments Culture not ind Nasal Screen MRSA (PCR) Mrsa detected - Imaging Impressions Chest X-Ray 04/30/18 01:23 CONCLUSION: Right basilar pleural-parenchymal density. Abdomen/Pelvis CT 04/30/18 01:58 CONCLUSION: 1. Areas of low-density are seen in the spleen could be lacerations versus infarcts. No hemoperitoneum. 2. Bilateral renal low-density likely benign. 3. Right pleural effusion. Lumbar Spine CT 04/30/18 01:58 CONCLUSION: 1. Disc bulges at L3-4, L4-5 and L5-S1 levels. No canal stenosis. 2. No fracture or spondylolisthesis. Thoracic Spine CT 04/30/18 01:58 CONCLUSION: 1. Unremarkable thoracic spine. Chest CT 04/30/18 03:09 CONCLUSION: 1. Numerous bilateral pulmonary nodules many of which are cavitated, likely septic emboli. 2. Small moderate right pleural effusion with partial loculation. 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 CT lumbar spine ok, no evidence of infection Recommendation IV cefepime for GNR and PSAE coverage Continue IV Vanco Stop Zosyn and Gentamicin Patient is for SARAH today Follow C/S Repeat BC if he spikes a fever If back pain worsens, may need to do MRI Monitor progress I will determine course of Abx once work-up is completed I will follow along with you Thank you for this consultation D/W AVRIL
[2018-04-30] MEDS ORDERED: Phenylephrine/NS 1000 MCG/10ML Syringe IV.PUSH ONE (12:01)
[2018-04-30] MEDS ORDERED: Lidocaine PF 1% Inj 5 ML Syringe INFILTRATN ONE (12:01)
[2018-04-30 13:54] LABS: Hepatitis A IgM Antibody Nonreactive (Nonreactive); Hepatitits B Surface Antigen Nonreactive (Nonreactive)
[2018-04-30] MEDS: Vancomycin Inj 1,250 MG in Sodium Chlor 0.9% Inj 250 ML IV.SIG SCH (16:33)
[2018-04-30] MEDS: Acetaminophen 325 MG Tablet PO PRN (16:50)
[2018-04-30] MEDS ORDERED: Sodium Chlor 0.9% Inj 500 ML IV.SIG ONE (18:00)
[2018-04-30] MEDS: Temazepam 15 MG Capsule PO PRN (21:01)
--- NOTE | 2018-04-30 22:00 | ECHRPT ---
Indication: SEPSIS ENDOCARDITIS CONCLUSIONS The left ventricular systolic function is grossly normal on limited imaging. Moderate size mobile echodensity on the anterior mitral valve, consistent with endocarditis (1.3cm x 1.5cm). Mild mitral valve regurgitation. Large mobile density on the tricuspid valve, consistent with endocarditis (3.5cm x 2.3cm) Diffucult to determine, but at least moderate tricuspid regurgitation. BP: / HR: Rhythm: Sinus MEASUREMENTS (Male / Female) Normal Values Technical Quality:Good DOPPLER TR Peak Velocity 306.0 cm/s TR Peak Gradient 37.5 mmHg Medications Complications Proc. Components Anesthesia at bedside for sedation FINDINGS LEFT VENTRICLE Normal left ventricular size. The left ventricular systolic function is grossly normal on limited imaging. RIGHT VENTRICLE The right ventricular size is normal. The right ventricular systoilc function is normal. LEFT ATRIUM The left atrial size is upper limits of normal. RIGHT ATRIUM The right atrium is not well visualized. ATRIAL APPENDAGES Normal left atrial appendage size with no evidence of thrombus formation. ATRIAL SEPTUM Normal atrial septal thickness without atrial level shunting by limited color doppler interrogation. AORTA Descending aorta with no dissections noted MITRAL VALVE Structurally normal mitral valve. Mild mitral valve regurgitation. Moderate size mobile echodensity on the anterior mitral valve, consistent with endocarditis (1.3cm x 1.5cm) AORTIC VALVE Trileaflet aortic valve. No aortic valve stenosis or regurgitation. TRICUSPID VALVE Large mobile density on the tricuspid valve, consistent with endocarditis (3.5cm x 2.3cm) Diffucult to determine, but at least moderate tricuspid regurgitation. VESSELS The pulmonary valve is not well visualized. No pulmonary valve regurgitation or stenosis. Cruzito Espinal DO (Electronically Signed) Final Date:30 April 2018 21:59
[2018-05-01] MEDS: Acetaminophen 325 MG Tablet PO PRN ×3 (01:28→21:57)
[2018-05-01] MEDS: Vancomycin Inj 1,250 MG in Sodium Chlor 0.9% Inj 250 ML IV.SIG SCH ×2 (03:14→14:37)
[2018-05-01] MEDS: Chlorhexidine Gluconate 2% 1 Pack (2 Cloths) TOPICAL SCH (03:15)
[2018-05-01] MEDS ORDERED: Chlorhexidine Gluconate 2% 1 Pack (2 Cloths) TOPICAL PRN (04:00)
[2018-05-01 05:05] LABS: Baso % (Auto) 0.3 % (0.0-2.0); Eos % (Auto) 0.1 % (0.0-4.0); Hematocrit 28.1 % (39.0-51.0); Hemoglobin 9.4 gm/dL (13.0-17.0); Lymph # (Auto) 0.9 th/mm3 (1.0-4.8); Lymph % (Auto) 9.2 % (9.0-44.0); Mean Corpuscular HGB Conc 33.4 % (32.0-36.0); Mean Corpuscular Hemoglobin 27.4 pg (27.0-34.0); Mean Corpuscular Volume 82.2 fL (80.0-100.0); Mono # (Auto) 0.6 th/mm3 (0.0-0.9); Mono % (Auto) 5.6 % (0.0-8.0); Neut # (Auto) 8.7 th/mm3 (1.8-7.7); Neut % (Auto) 84.8 % (16.0-70.0); Platelet Count 149 th/mm3 (150-450); Red Blood Count 3.42 mil/mm3 (4.50-5.90); Red Cell Distribution Width 16.9 % (11.6-17.2); White Blood Count 10.2 th/mm3 (4.0-11.0)
[2018-05-01 05:13] LABS: INR 1.2 Ratio; Prothrombin Time 12.3 sec (9.8-11.6)
[2018-05-01] MEDS: Sod Chloride 0.9% Inj 1,000 ML IV.CONT SCH ×2 (05:24→18:11)
[2018-05-01 05:37] LABS: Alanine Aminotransferase 38 U/L (12-78); Albumin 1.2 g/dL (3.4-5.0); Alkaline Phosphatase 85 U/L (45-117); Anion Gap 8 meq/L (5-15); Aspartate Aminotransferase 77 U/L (15-37); Blood Urea Nitrogen 20 mg/dL (7-18); Carbon Dioxide 21.1 meq/L (21.0-32.0); Chloride 105 meq/L (98-107); Glomerular Filtration Rate Greater Than 89 mL/min (>89); Glucose,Random 88 mg/dL (74-106); Phosphorus 2.8 mg/dL (2.5-4.9); Potassium 3.8 meq/L (3.5-5.1); Sodium 134 meq/L (136-145); Total Protein 5.9 g/dL (6.4-8.2)
--- NOTE | 2018-05-01 08:36 | P.PN ---
Subjective Interval history: Medical Claims Specialist Notes: 32 year old male presents with a history of right-sided chest pain, left-sided low back pain that he reports began at approximately the same time, 2-3 days after detoxing from heroin/opiate use in [facility]. He reports that he was in incarcerated on April 11 and last used heroin and opiates on April 10. He reports that approximately 2 days into his incarceration he began to have detox symptoms which mainly included numerous episodes of diarrhea. Since then he developed this right-sided lower chest wall pain anteriorly and left-sided low back pain just above the left buttock. He reports that he has had a cough productive of green sputum. He also has had fevers with a T-max in [facility] of 101. He is not currently on any antibiotic. He has been taking ibuprofen and Flexeril at the [facility]. He denies having any prior history of hepatitis or HIV. He denies having any prior history of endocarditis. He reports that he has had skin infections and abscesses in the past related to staph from IV drug use. He denies having any rashes currently. On review of systems otherwise, the patient denies having any neck pain, shortness of breath, abdominal pain, vomiting,urinary symptoms, or neurologic symptoms. The patient last moved his bowels earlier today with a formed stool. He denies having any numbness or tingling to his extremities. He denies having any weakness of his extremities. He reports that he has generalized weakness. He was also noted at the [facility] to have incontinence of urine. Hospitalist Notes: 05/01: Seen in his bedroom, discussed with nurse, no complaint of generalized pain, has Endocarditis, ID specialist and real estate management specialist following. Physical Exam Vital signs: Vital Signs 04/30/18 09:00 04/30/18 12:00 04/30/18 16:00 Temperature 98.6 F 102.4 F H Pulse Rate 118 H 124 H 130 H Respiratory Rate 24 22 Blood Pressure 120/77 138/83 Pulse Oximetry 98 99 04/30/18 17:45 04/30/18 20:00 05/01/18 00:00 Temperature 103.3 F H 102.3 F H Pulse Rate 133 H 136 H Respiratory Rate 24 Blood Pressure 138/81 Pulse Oximetry 94 L 05/01/18 04:00 Temperature 97.7 F Pulse Rate 108 H Respiratory Rate 23 Blood Pressure 115/71 Pulse Oximetry 98 Intake & Output 04/30/18 05/01/18 05/01/18 18:59 06:59 18:59 Intake Total 3402.5 / 3402.5 1462.5 / 1462.5 Output Total 1100 / 1100 825 / 825 Balance 2302.5 / 2302.5 637.5 / 637.5 Weight 65.6 kg Intake: IV 1962.5 / 1962.5 1462.5 / 1462.5 NS Inj 1,000 ML @ 84 mls/hr IV. 1000 / 1000 1100 / 1100 CONT .[id number] FORD Rx#:[id number] Maxipime Inj 2,000 MG In NS Inj 200 / 200 100 / 100 100 ML @ 200 mls/hr IV.SIG Q8H FORD Rx#:[id number] NS Inj 500 ML @ Wide Open IV. 500 / 500 SIG BOLUS ONE Rx#:[id number] Vancomycin Inj 1,250 MG In NS 262.5 / 262.5 262.5 / 262.5 Inj 250 ML @ 250 mls/hr IV.SIG Q12H FORD Rx#:[id number] Oral 1440 / 1440 Output: Urine 1100 / 1100 825 / 825 Other: # Voids 2 # Bowel Movements 0 Narrative: GENERAL: NAD, AAOx3 SKIN: Warm and dry. HEAD: Atraumatic. Normocephalic. EYES: Pupils equal and round. No scleral icterus. No injection or drainage. ENT: No nasal bleeding or discharge. Mucous membranes pink and moist. NECK: Trachea midline. No JVD. CARDIOVASCULAR: Regular rhythm, tachycardic RESPIRATORY: breath sounds bilateral, no wheezing or crackles. GASTROINTESTINAL: Abdomen soft, non-tender MUSCULOSKELETAL: Extremities without clubbing, cyanosis, or edema. NEUROLOGICAL: Awake and alert. No obvious cranial nerve deficits. PSYCHIATRIC: Appropriate mood and affect Results - Labs CBC & Chem 7: 05/01/18 04:43 05/01/18 04:43 Laboratory Results - last 24 hr 04/30/18 04/30/18 04/30/18 06:15 11:41 11:41 WBC RBC Hgb Hct MCV MCH MCHC RDW Plt Count MPV Neut % (Auto) Lymph % (Auto) [place] % (Auto) Eos % (Auto) Baso % (Auto) Neut # (Auto) Lymph # (Auto) [place] # (Auto) Eos # (Auto) Baso # (Auto) WBC Differential Differential Comment PT INR APTT Sodium Potassium Chloride Carbon Dioxide Anion Gap BUN Creatinine Estimated GFR Random Glucose Lactic Acid Calcium Prot Corrected Calcium Phosphorus Magnesium Total Bilirubin AST ALT Alkaline Phosphatase Troponin I 3.85 H* Total Protein Albumin Nasal Screen MRSA (PCR) Mrsa detected Hepatitis A IgM Ab Nonreactive Hep Bs Antigen Nonreactive Hep B Core IgM Ab Nonreactive Hep C IgG Ab Reactive H 04/30/18 05/01/18 05/01/18 19:15 04:43 04:43 WBC 10.2 RBC 3.42 L Hgb 9.4 L Hct 28.1 L MCV 82.2 MCH 27.4 MCHC 33.4 RDW 16.9 Plt Count 149 L MPV 8.0 Neut % (Auto) 84.8 H Lymph % (Auto) 9.2 [place] % (Auto) 5.6 Eos % (Auto) 0.1 Baso % (Auto) 0.3 Neut # (Auto) 8.7 H Lymph # (Auto) 0.9 L [place] # (Auto) 0.6 Eos # (Auto) 0.0 Baso # (Auto) 0.0 WBC Differential . Differential Comment Auto diff final PT 12.3 H INR 1.2 APTT 30.0 Sodium Potassium Chloride Carbon Dioxide Anion Gap BUN Creatinine Estimated GFR Random Glucose Lactic Acid Calcium Prot Corrected Calcium Phosphorus Magnesium Total Bilirubin AST ALT Alkaline Phosphatase Troponin I 3.50 H* Total Protein Albumin Nasal Screen MRSA (PCR) Hepatitis A IgM Ab Hep Bs Antigen Hep B Core IgM Ab Hep C IgG Ab 05/01/18 05/01/18 04:43 04:43 WBC RBC Hgb Hct MCV MCH MCHC RDW Plt Count MPV Neut % (Auto) Lymph % (Auto) [place] % (Auto) Eos % (Auto) Baso % (Auto) Neut # (Auto) Lymph # (Auto) [place] # (Auto) Eos # (Auto) Baso # (Auto) WBC Differential Differential Comment PT INR APTT Sodium 134 L Potassium 3.8 Chloride 105 Carbon Dioxide 21.1 Anion Gap 8 BUN 20 H Creatinine 0.87 Estimated GFR Greater than 89 Random Glucose 88 Lactic Acid 1.1 Calcium 7.0 L* Prot Corrected Calcium 7.6 L Phosphorus 2.8 Magnesium 2.0 Total Bilirubin 0.9 AST 77 H ALT 38 Alkaline Phosphatase 85 Troponin I Total Protein 5.9 L Albumin 1.2 L Nasal Screen MRSA (PCR) Hepatitis A IgM Ab Hep Bs Antigen Hep B Core IgM Ab Hep C IgG Ab Microbiology 04/30/18 01:55 Blood - Peripheral Aerobic Blood Culture - Preliminary Staphylococcus aureus 04/30/18 01:55 Blood - Peripheral Anaerobic Blood Culture - Preliminary gram positive cocci 04/30/18 02:00 Blood - Peripheral Aerobic Blood Culture - Preliminary gram positive cocci 04/30/18 02:00 Blood - Peripheral Anaerobic Blood Culture - Preliminary gram positive cocci - Imaging Chest X-Ray 04/30/18 01:23 CONCLUSION: Right basilar pleural-parenchymal density. Abdomen/Pelvis CT 04/30/18 01:58 CONCLUSION: 1. Areas of low-density are seen in the spleen could be lacerations versus infarcts. No hemoperitoneum. 2. Bilateral renal low-density likely benign. 3. Right pleural effusion. Lumbar Spine CT 04/30/18 01:58 CONCLUSION: 1. Disc bulges at L3-4, L4-5 and L5-S1 levels. No canal stenosis. 2. No fracture or spondylolisthesis. Thoracic Spine CT 04/30/18 01:58 CONCLUSION: 1. Unremarkable thoracic spine. Chest CT 04/30/18 03:09 CONCLUSION: 1. Numerous bilateral pulmonary nodules many of which are cavitated, likely septic emboli. 2. Small moderate right pleural effusion with partial loculation. Assessment and Plan - Plan 1. Elevated Troponin with atypical chest pain, Pleuritic in nature, findings suggestive of septic Emboli in the lungs, questionable Infective endocarditis, ID specialist following, patient is IDU, Prior history of MRSA, skin abscess, CT lumbar no evidence of lesion, recommended IV Cefepime for GNR and PSAE coverage, IV Vancomycin, awaiting SARAH result, complaint of Lumbar pain asked for MRI of the lumbar spine. was unable to anticoagulate due to severe thrombocytopenia 2. Elevated troponin Secondary to endocarditis, septic emboli and overall illness Cardiology following, has large vegetation on tricuspid valve and moderate to large on mitral valve, Moderate TR CT surgery consulted by real estate management specialist. 3. IDU, Opiate dependency, avoid opioids and narcotics, 4. AtOH dependence 5. Multiple infarcts of spleen likely infectious emboli, continue IV antibiotics. 6. Elevated LFTs history of IDU, CT abd and Pelvis with contrast, (04/30) Areas of low-density are seen in the spleen could be lacerations versus infarcts. No hemoperitoneum. Bilateral renal low-density likely benign. Hepatitis C genotype and quantitative, DVT GI prophylaxis -Teds SCDs -No pharmacological DVT prophylaxis due to thrombocytopenia -IV Pepcid Code Status: Full code. Discussed Condition With: Patient, Guard present all times while I was on the room. Discharge Planning: Once cleared by specialists.
[2018-05-01] MEDS: Senna/Docusate Sodium 8.6/50 MG Tablet PO SCH ×2 (09:35→20:44)
[2018-05-01] MEDS: Famotidine PF Inj 20 MG/2 ML Vial IV.PUSH SCH ×2 (09:35→20:44)
[2018-05-01] MEDS ORDERED: Pharmacy Ordered Lab Info OTHER ONE ×3 (09:45→14:45)
--- NOTE | 2018-05-01 12:15 | P.PNGI ---
Subjective Interval history: Pt with no GI complaints. Complaining of back pain and feels weak today. Physical Exam Vital signs: Vital Signs 04/30/18 16:00 04/30/18 17:45 04/30/18 20:00 Temperature 102.4 F H 103.3 F H Pulse Rate 130 H 133 H Respiratory Rate 22 Blood Pressure 138/83 Pulse Oximetry 99 05/01/18 00:00 05/01/18 04:00 05/01/18 08:00 Temperature 102.3 F H 97.7 F Pulse Rate 136 H 108 H 102 H Respiratory Rate 24 23 Blood Pressure 138/81 115/71 Pulse Oximetry 94 L 98 05/01/18 09:00 Temperature Pulse Rate 102 H Respiratory Rate Blood Pressure Pulse Oximetry Intake & Output 04/30/18 05/01/18 05/01/18 18:59 06:59 18:59 Intake Total 3402.5 / 3402.5 1462.5 / 1462.5 Output Total 1100 / 1100 825 / 825 Balance 2302.5 / 2302.5 637.5 / 637.5 Weight 65.6 kg Intake: IV 1962.5 / 1962.5 1462.5 / 1462.5 NS Inj 1,000 ML @ 84 mls/hr IV. 1000 / 1000 1100 / 1100 CONT .[id number] [facility] Rx#:[id number] Maxipime Inj 2,000 MG In NS Inj 200 / 200 100 / 100 100 ML @ 200 mls/hr IV.SIG Q8H [facility] Rx#:[id number] NS Inj 500 ML @ Wide Open IV. 500 / 500 SIG BOLUS ONE Rx#:[id number] Vancomycin Inj 1,250 MG In NS 262.5 / 262.5 262.5 / 262.5 Inj 250 ML @ 250 mls/hr IV.SIG Q12H [facility] Rx#:[id number] Oral 1440 / 1440 Output: Urine 1100 / 1100 825 / 825 Other: # Voids 2 # Bowel Movements 0 - Constitutional no acute distress - Routine HEENT Exam Head: Present: normocephalic, atraumatic - Routine Respiratory Exam Absent: accessory muscle use - Routine Abdominal Exam Present: soft, normoactive bowel sounds. Absent: tenderness, distended - Routine Skin Exam Present: dry, warm - Routine Neurological Exam Present: alert, oriented X3 Results - Labs CBC & Chem 7: 05/01/18 04:43 05/01/18 04:43 Laboratory Results - last 24 hr 04/30/18 04/30/18 04/30/18 11:41 11:41 19:15 WBC RBC Hgb Hct MCV MCH MCHC RDW Plt Count MPV Neut % (Auto) Lymph % (Auto) Traill % (Auto) Eos % (Auto) Baso % (Auto) Neut # (Auto) Lymph # (Auto) Traill # (Auto) Eos # (Auto) Baso # (Auto) WBC Differential Differential Comment PT INR APTT Sodium Potassium Chloride Carbon Dioxide Anion Gap BUN Creatinine Estimated GFR Random Glucose Lactic Acid Calcium Prot Corrected Calcium Phosphorus Magnesium Total Bilirubin AST ALT Alkaline Phosphatase Troponin I 3.85 H* 3.50 H* Total Protein Albumin Hepatitis A IgM Ab Nonreactive Hep Bs Antigen Nonreactive Hep B Core IgM Ab Nonreactive Hep C IgG Ab Reactive H 05/01/18 05/01/18 05/01/18 04:43 04:43 04:43 WBC 10.2 RBC 3.42 L Hgb 9.4 L Hct 28.1 L MCV 82.2 MCH 27.4 MCHC 33.4 RDW 16.9 Plt Count 149 L MPV 8.0 Neut % (Auto) 84.8 H Lymph % (Auto) 9.2 Traill % (Auto) 5.6 Eos % (Auto) 0.1 Baso % (Auto) 0.3 Neut # (Auto) 8.7 H Lymph # (Auto) 0.9 L Traill # (Auto) 0.6 Eos # (Auto) 0.0 Baso # (Auto) 0.0 WBC Differential . Differential Comment Auto diff final PT 12.3 H INR 1.2 APTT 30.0 Sodium 134 L Potassium 3.8 Chloride 105 Carbon Dioxide 21.1 Anion Gap 8 BUN 20 H Creatinine 0.87 Estimated GFR Greater than 89 Random Glucose 88 Lactic Acid Calcium 7.0 L* Prot Corrected Calcium 7.6 L Phosphorus 2.8 Magnesium 2.0 Total Bilirubin 0.9 AST 77 H ALT 38 Alkaline Phosphatase 85 Troponin I Total Protein 5.9 L Albumin 1.2 L Hepatitis A IgM Ab Hep Bs Antigen Hep B Core IgM Ab Hep C IgG Ab 05/01/18 04:43 WBC RBC Hgb Hct MCV MCH MCHC RDW Plt Count MPV Neut % (Auto) Lymph % (Auto) Traill % (Auto) Eos % (Auto) Baso % (Auto) Neut # (Auto) Lymph # (Auto) Traill # (Auto) Eos # (Auto) Baso # (Auto) WBC Differential Differential Comment PT INR APTT Sodium Potassium Chloride Carbon Dioxide Anion Gap BUN Creatinine Estimated GFR Random Glucose Lactic Acid 1.1 Calcium Prot Corrected Calcium Phosphorus Magnesium Total Bilirubin AST ALT Alkaline Phosphatase Troponin I Total Protein Albumin Hepatitis A IgM Ab Hep Bs Antigen Hep B Core IgM Ab Hep C IgG Ab Microbiology 04/30/18 02:00 Blood - Peripheral Aerobic Blood Culture - Preliminary Staphylococcus aureus 04/30/18 02:00 Blood - Peripheral Anaerobic Blood Culture - Preliminary Staphylococcus aureus 04/30/18 01:55 Blood - Peripheral Aerobic Blood Culture - Preliminary Staphylococcus aureus 04/30/18 01:55 Blood - Peripheral Anaerobic Blood Culture - Preliminary Staphylococcus aureus Assessment and Plan - Plan Assessment: - Elevated LFTs (04/30) AST-103 ALT-43 Alk phos-79 T bili-0.6 Hepatitis C antibody positive Pt denies any known history of liver issues or hepatitis. Pt does report IV drug use, last use was on April 10 but states that he was very careful not to share needles. Pt also has over 10 tattoos, states all of them were done in tattoo parlors. Admits to high risk sexual behaviors. Denies any known family history of liver issues. Denies ETOH in over 8 years. Only medication pt currently takes is Flexeril, denies taking anything OTC including herbs and supplements. CT abdomen and pelvis W IV contrast (04/30) Areas of low-density are seen in the spleen could be lacerations versus infarcts. No hemoperitoneum. Bilateral renal low-density likely benign. Right pleural effusion. Mild thrombocytopenia (plts-139) hypoalbuminemia (albumin-1.4) No coagulopathy (INR-1.3) Incarcerated on April 11 and was undergoing detox from heroin and opiate use while in the facility. Pt reports during his detoxification he experienced nausea, vomiting, abdominal cramping and diarrhea. At this time he denies any continuation of those symptoms. Denies noticing any BRB in his stool, melena, hematemesis, or coffee ground emesis. - Chest pain, elevated troponin- suspected endocarditis (05/01) Pt with no GI complaints. Complaining of back pain and weakness. AST trending down some today. Hep C genotype and quant pending. Discussed with pt will need outpatient treatment and needs to be free of drugs and alcohol Plan: Hep C genotype and quant Avoid hepatotoxins Endocarditis work up per cardiology and ID Our service will sign off Have pt follow up OP for Hep C treatment Pt has been seen and examined by myself and Dr. Centeno and this note is written on his behalf
[2018-05-01] MEDS ORDERED: Metoprolol Inj 5 MG/5 ML Vial ONE (13:11)
--- NOTE | 2018-05-01 13:18 | P.PNID ---
Subjective Remarks: Patient is a 32-year-old male, brought into the hospital for further evaluation of chest pain. Patient is under custody and has been in long term since April 11. According to the patient several days into his incarceration, he started experiencing lower chest pain that is pleuritic in nature. He also started complaining of pain on his lumbar region more on the left side. He has not been coughing. He apparently has been having fevers. Patient has known IV drug use, and the last time he used it was the day before he got incarcerated. Has not any nausea or vomiting. Denies any diarrhea or urinary complaints. He has no prior history of endocarditis, but has had problem with skin abscesses. There is also mention that he has had previous HIV and hepatitis testing and they were both negative and this was from last year. Patient is afebrile. His hemodynamics are stable. His WBC is normal. Patient had CT of the chest which is showing multiple bilateral pulmonary nodules some of which are cavitating. CT of the abdomen and pelvis is showing some findings possibly of splenic infarcts. His blood cultures are currently pending. Infectious disease consultation has been requested to evaluate the patient with possible endocarditis. Notes reviewed D/W RN Currently having rigors Tmax 103.3 last night BP ok Tachycardic Still with CP BC with Staph aureus SARAH with MV vegetations and large TV vegetation, and possible mod TR Antibiotics: Cefepime Vancomycin Past Medical History: Back pain IV drug abuse Right foot injury Skin abscess H/O foot surgery Allergies/Adverse Reactions: Allergies acetaminophen Allergy (Intermediate, Verified 07/08/17 16:38) STOMACH UPSET Objective Vital Signs 04/30/18 16:00 04/30/18 17:45 04/30/18 20:00 Temperature 102.4 F H 103.3 F H Pulse Rate 130 H 133 H Respiratory Rate 22 Blood Pressure 138/83 Pulse Oximetry 99 05/01/18 00:00 05/01/18 04:00 05/01/18 08:00 Temperature 102.3 F H 97.7 F Pulse Rate 136 H 108 H 102 H Respiratory Rate 24 23 Blood Pressure 138/81 115/71 Pulse Oximetry 94 L 98 05/01/18 09:00 05/01/18 12:00 Temperature Pulse Rate 102 H Respiratory Rate 24 Blood Pressure Pulse Oximetry Intake & Output 04/30/18 05/01/18 05/01/18 18:59 06:59 18:59 Intake Total 3402.5 / 3402.5 1462.5 / 1462.5 Output Total 1100 / 1100 825 / 825 Balance 2302.5 / 2302.5 637.5 / 637.5 Weight 65.6 kg Intake: IV 1962.5 / 1962.5 1462.5 / 1462.5 NS Inj 1,000 ML @ 84 mls/hr IV. 1000 / 1000 1100 / 1100 CONT .[id number] [facility] Rx#:[id number] Maxipime Inj 2,000 MG In NS Inj 200 / 200 100 / 100 100 ML @ 200 mls/hr IV.SIG Q8H [facility] Rx#:[id number] NS Inj 500 ML @ Wide Open IV. 500 / 500 SIG BOLUS ONE Rx#:[id number] Vancomycin Inj 1,250 MG In NS 262.5 / 262.5 262.5 / 262.5 Inj 250 ML @ 250 mls/hr IV.SIG Q12H [facility] Rx#:[id number] Oral 1440 / 1440 Output: Urine 1100 / 1100 825 / 825 Other: # Voids 2 # Bowel Movements 0 04/30/18 02:00 Blood - Peripheral Aerobic Blood Culture - Preliminary Staphylococcus aureus 04/30/18 02:00 Blood - Peripheral Anaerobic Blood Culture - Preliminary Staphylococcus aureus 04/30/18 01:55 Blood - Peripheral Aerobic Blood Culture - Preliminary Staphylococcus aureus 04/30/18 01:55 Blood - Peripheral Anaerobic Blood Culture - Preliminary Staphylococcus aureus Lab - Hematology Results 04/30/18 05/01/18 01:55 04:43 WBC 8.9 10.2 RBC 3.32 L 3.42 L Hgb 9.3 L 9.4 L Hct 26.9 L 28.1 L MCV 81.0 82.2 MCH 28.0 27.4 MCHC 34.5 33.4 RDW 17.1 16.9 Plt Count 139 L 149 L MPV 7.9 8.0 Prelim Diff (Auto) Slide review pending Neut % (Auto) 86.9 H 84.8 H Lymph % (Auto) 8.0 L 9.2 Esmeralda % (Auto) 4.8 5.6 Eos % (Auto) 0.1 0.1 Baso % (Auto) 0.2 0.3 Neut # (Auto) 7.7 8.7 H Lymph # (Auto) 0.7 L 0.9 L Esmeralda # (Auto) 0.4 0.6 Eos # (Auto) 0.0 0.0 Baso # (Auto) 0.0 0.0 WBC Differential Manual diff final . Seg Neuts % (Manual) 78 H Band Neuts % (Manual) 12 H Lymphocytes % (Manual) 5 L Monocytes % (Manual) 5 Abs Neuts (Manual) 8.0 H Differential Comment . Auto diff final Platelet Estimate Low L Platelet Morphology Normal Ovalocytes 1+ H Helmet Cells Occ H ESR 43 H Lab - Chemistry Results 04/30/18 04/30/18 04/30/18 01:55 01:55 01:55 Sodium 134 L Potassium 3.9 Chloride 103 Carbon Dioxide 20.5 L Anion Gap 11 BUN 27 H Creatinine 1.11 Estimated GFR 76 L Random Glucose 90 Lactic Acid 1.1 Calcium 7.0 L* Prot Corrected Calcium 7.7 L Phosphorus Magnesium 2.2 Total Bilirubin 0.6 AST 103 H ALT 43 Alkaline Phosphatase 79 Total Creatine Kinase 242 CK-MB (CK-2) 7.5 H CK-MB (CK-2) % 3.1 Troponin I 7.33 H* C-Reactive Protein 15.80 H B-Natriuretic Peptide Total Protein 5.7 L Albumin 1.4 L Lipase 85 04/30/18 04/30/18 04/30/18 01:55 11:41 19:15 Sodium Potassium Chloride Carbon Dioxide Anion Gap BUN Creatinine Estimated GFR Random Glucose Lactic Acid Calcium Prot Corrected Calcium Phosphorus Magnesium Total Bilirubin AST ALT Alkaline Phosphatase Total Creatine Kinase CK-MB (CK-2) CK-MB (CK-2) % Troponin I 3.85 H* 3.50 H* C-Reactive Protein B-Natriuretic Peptide 87 Total Protein Albumin Lipase 05/01/18 05/01/18 04:43 04:43 Sodium 134 L Potassium 3.8 Chloride 105 Carbon Dioxide 21.1 Anion Gap 8 BUN 20 H Creatinine 0.87 Estimated GFR Greater than 89 Random Glucose 88 Lactic Acid 1.1 Calcium 7.0 L* Prot Corrected Calcium 7.6 L Phosphorus 2.8 Magnesium 2.0 Total Bilirubin 0.9 AST 77 H ALT 38 Alkaline Phosphatase 85 Total Creatine Kinase CK-MB (CK-2) CK-MB (CK-2) % Troponin I C-Reactive Protein B-Natriuretic Peptide Total Protein 5.9 L Albumin 1.2 L Lipase Imaging: ITS Impressions Chest X-Ray 04/30/18 01:23 CONCLUSION: Right basilar pleural-parenchymal density. Abdomen/Pelvis CT 04/30/18 01:58 CONCLUSION: 1. Areas of low-density are seen in the spleen could be lacerations versus infarcts. No hemoperitoneum. 2. Bilateral renal low-density likely benign. 3. Right pleural effusion. Lumbar Spine CT 04/30/18 01:58 CONCLUSION: 1. Disc bulges at L3-4, L4-5 and L5-S1 levels. No canal stenosis. 2. No fracture or spondylolisthesis. Thoracic Spine CT 04/30/18 01:58 CONCLUSION: 1. Unremarkable thoracic spine. Chest CT 04/30/18 03:09 CONCLUSION: 1. Numerous bilateral pulmonary nodules many of which are cavitated, likely septic emboli. 2. Small moderate right pleural effusion with partial loculation. Physical Exam: GENERAL: Patient is a thin, well-developed patient, awake and alert, in distress haviing severe rigors SKIN: Warm and dry. No generalized rash HEAD: Atraumatic. Normocephalic. No temporal wasting, or tenderness. EYES: [place] conjunctiva. Has small petechia L lower eyelid. Pupils equal, round and reactive to light. Extraocular movements full and intact. No scleral icterus. No injection or drainage. EARS, NOSE AND THROAT: Nose without bleeding or purulent nasal discharge. Mucous membranes pink and moist. No oral lesions noted. NECK: Trachea midline. Supple and not tender, no meningeal signs CARDIOVASCULAR: Tachycardic. No murmurs, rubs or gallops heard RESPIRATORY: Clear to auscultation. Breath sounds equal bilaterally. No rales , wheezing or rhonchi ABDOMEN: Soft, flat, non-tender, nondistended. Bowel sounds present and normoactive. No guarding. No rebound. No organomegaly. EXTREMITIES: No clubbing, cyanosis, or edema. Has some mild ankle edema. Has good ROM. No calf tenderness. Well perfused and warm. NEUROLOGICAL: Awake and alert. Cranial nerves grossly intact. Motor grossly within normal limits. PSYCHIATRIC: Normal affect, calm and cooperative. LINE: No evidence of infection Assessment and Plan - Plan Impressions Chest pain, pleuritic, with findings suggestive of septic emboli in lungs TV and MV IE, BC with Staph aureus Hx multiple skin abscesses Prior Hx MRSA infection in his skin abscess Active IVDU Back pain, CT lumbar spine ok, no evidence of infection Recommendation Change cefepime to IV Ancef Continue IV Vanco Repeat BC to document clearing Follow C/S, if not MRSA, stop IV vanco If back pain worsens, may need to do MRI Monitor progress D/W RN
[2018-05-01] MEDS ORDERED: Sod Chloride 0.9% Inj 1,000 ML IV.SIG ONE (13:23)
[2018-05-01] MEDS ORDERED: ceFAZolin Inj 2,000 MG in Sodium Chlor 0.9% Inj 80 ML IV.SIG SCH (14:00)
[2018-05-01] MEDS ORDERED: Metoprolol Inj 5 MG/5 ML Vial IV.PUSH ONE (14:00)
--- NOTE | 2018-05-01 14:46 | P.PNCA ---
Subjective Interval history: Consult done, not transcribed. Fever overnight Mildly tachycardiac, but hemodynamically stable Physical Exam Vital signs: Vital Signs 04/30/18 16:00 04/30/18 17:45 04/30/18 20:00 Temperature 102.4 F H 103.3 F H Pulse Rate 130 H 133 H Respiratory Rate 22 Blood Pressure 138/83 Pulse Oximetry 99 05/01/18 00:00 05/01/18 04:00 05/01/18 08:00 Temperature 102.3 F H 97.7 F 97.8 F Pulse Rate 136 H 108 H 96 H Respiratory Rate 24 23 19 Blood Pressure 138/81 115/71 125/85 Pulse Oximetry 94 L 98 100 05/01/18 09:00 05/01/18 12:00 Temperature 98.1 F Pulse Rate 102 H 116 H Respiratory Rate 29 H Blood Pressure 131/93 H Pulse Oximetry 98 Intake & Output 04/30/18 05/01/18 05/01/18 18:59 06:59 18:59 Intake Total 3402.5 / 3402.5 1462.5 / 1462.5 1100 / 1100 Output Total 1100 / 1100 825 / 825 Balance 2302.5 / 2302.5 637.5 / 637.5 1100 / 1100 Weight 65.6 kg Intake: IV 1962.5 / 1962.5 1462.5 / 1462.5 1100 / 1100 NS Inj 1,000 ML @ 84 mls/hr IV. 1000 / 1000 1100 / 1100 CONT .[id number] [facility] Rx#:[id number] Maxipime Inj 2,000 MG In NS Inj 200 / 200 100 / 100 100 / 100 100 ML @ 200 mls/hr IV.SIG Q8H [facility] Rx#:[id number] NS Inj 1,000 ML @ Wide Open IV. 1000 / 1000 SIG [facility]OL[facility] ONE Rx#:[id number] NS Inj 500 ML @ Wide Open IV. 500 / 500 SIG [facility]OLUS ONE Rx#:[id number] Vancomycin Inj 1,250 MG In NS 262.5 / 262.5 262.5 / 262.5 Inj 250 ML @ 250 mls/hr IV.SIG Q12H [facility] Rx#:[id number] Oral 1440 / 1440 Output: Urine 1100 / 1100 825 / 825 Other: # Voids 2 # Bowel Movements 0 Narrative: GENERAL: NAD, AAOx3 SKIN: Warm and dry. HEAD: Atraumatic. Normocephalic. EYES: Pupils equal and round. No scleral icterus. No injection or drainage. ENT: No nasal bleeding or discharge. Mucous membranes pink and moist. NECK: Trachea midline. No JVD. CARDIOVASCULAR: Regular rhythm, tachycardic RESPIRATORY: No accessory muscle use. Coarse breath sounds bilaterally GASTROINTESTINAL: Abdomen soft, non-tender, nondistended. Hepatic and splenic margins not palpable. MUSCULOSKELETAL: Extremities without clubbing, cyanosis, or edema. No obvious deformities. NEUROLOGICAL: Awake and alert. No obvious cranial nerve deficits. Motor grossly within normal limits. Five out of 5 muscle strength in the arms and legs. Normal speech. PSYCHIATRIC: Appropriate mood and affect; insight and judgment normal. Assessment and Plan - Assessment (1) Endocarditis Code(s): I38 - Endocarditis, valve unspecified Status: Acute (2) Elevated troponin Code(s): R74.8 - Abnormal levels of other serum enzymes Status: Acute (3) Acute septic pulmonary embolism Code(s): I26.90 - Septic pulmonary embolism without acute cor pulmonale Status : Acute - Plan 1) IVDA 2) Endocarditis Large vegetation on tricuspid valve and moderate to large on mitral valve Moderate TR at least Mild MR ID/CT surgery consulted 3) Elevated troponin Secondary to endocarditis, septic emboli and overall illness No plan for ischemic evaluation at this time 4) Will be out of town, please call the office for covering physician if any questions
[2018-05-01] MEDS ORDERED: ceFAZolin 2 GM Premix Inj 2 GM/100 ML BAG IV.SIG SCH (15:00)
[2018-05-01] MEDS ORDERED: Gadobutrol PF 7.5 MMOL/7.5 ML Vial (for RAD) IV.SIG ONE (16:10)
--- NOTE | 2018-05-01 16:30 | MR ---
EXAM DATE: 05/01/2018 4:23 PM EDT AGE/SEX: 32 years / Male INDICATIONS: Discitis. Evaluate discitis, infectious process, or spine pathology. CLINICAL DATA: This is the patient's initial encounter. Patient reports that signs and symptoms have been present for 1 day and indicates a pain score of 8/10. MEDICAL/SURGICAL HISTORY: None. None. COMPARISON: [facility] – [place], CT LUMBAR SPINE W CONTRAST, 04/30/2018. . TECHNIQUE: Multiplanar, multisequence MRI examination of the lumbar spine was performed without and with 7 ml Gadavist (gadobutrol) contrast as a single exam dose. FINDINGS: The most caudal-appearing lumbar vertebra is numbered as L5. Vertebra: Homogeneous signal. Normal alignment. Conus: Normal level and configuration. Post Contrast: No abnormal areas of contrast enhancement are seen. T12-L1: The thecal sac has a normal diameter. No evidence of disc bulge or protrusion. The neural foramina are patent bilaterally. L1-L2: The thecal sac has a normal diameter. No evidence of disc bulge or protrusion. The neural foramina are patent bilaterally. L2-L3: The thecal sac has a normal diameter. No evidence of disc bulge or protrusion. The neural foramina are patent bilaterally. L3-L4: The thecal sac has a normal diameter. No evidence of disc bulge or protrusion. The neural foramina are patent bilaterally. L4-L5: Mild disc dehydration. Slight broad central disc protrusion mildly indenting ventral thecal sac. Canal and foramina are adequate. L5-S1: The thecal sac has a normal diameter. No evidence of disc bulge or protrusion. The neural foramina are patent bilaterally. CONCLUSION: 1. No evidence of discitis or other acute process in the lumbar spine. 2. Areas of focally altered peripheral signal intensity and enhancement in the kidneys which may be areas of focal pyelonephritis or renal cortical infarctions Electronically signed by: Iftikhar Valdez MD 05/01/2018 4:28 PM EDT
[2018-05-01] MEDS: ceFAZolin Inj 2,000 MG in Sodium Chlor 0.9% Inj 80 ML IV.SIG SCH ×2 (16:36→20:43)
[2018-05-02] MEDS: ceFAZolin Inj 2,000 MG in Sodium Chlor 0.9% Inj 80 ML IV.SIG SCH ×4 (02:35→21:42)
[2018-05-02] MEDS ORDERED: Pharmacy Ordered Lab Info OTHER ONE (02:45)
[2018-05-02] MEDS: Chlorhexidine Gluconate 2% 1 Pack (2 Cloths) TOPICAL SCH (04:30)
[2018-05-02] MEDS: Vancomycin Inj 1,250 MG in Sodium Chlor 0.9% Inj 250 ML IV.SIG SCH (04:30)
[2018-05-02] MEDS: Sod Chloride 0.9% Inj 1,000 ML IV.CONT SCH ×3 (07:11→21:43)
[2018-05-02] MEDS: Senna/Docusate Sodium 8.6/50 MG Tablet PO SCH ×2 (08:43→21:43)
[2018-05-02] MEDS: Famotidine PF Inj 20 MG/2 ML Vial IV.PUSH SCH ×2 (08:43→21:41)
--- NOTE | 2018-05-02 09:57 | MB ---
cc: Allison Lizarraga DATE: 05/02/2012 HISTORY OF PRESENT ILLNESS: A 32-year-old male with longstanding history of illicit drug use, recently incarcerated on 04/11/2018. He states his last use was either that day or the day before where he shot up some heroin into his forearms and also was on opiates. During the incarceration, he started having detoxification symptoms which included diarrhea. Then, he developed some right-sided chest discomfort, pain over his diaphragm. Also had a cough and fever of 101. The patient's blood cultures grew Staphylococcus aureus on 04/30/2018. He is being currently treated with cefazolin and vancomycin. The patient underwent transesophageal echocardiogram on 04/30/2018 which showed a moderate size mobile echodensity in the anterior mitral valve consistent with endocarditis. Also, a large mobile density in the tricuspid valve consistent with endocarditis. We were consulted in regard to endocarditis and mitral and tricuspid valve endocarditis. PAST MEDICAL HISTORY: The patient has no past medical history. PAST SURGICAL HISTORY: Only includes reconstructive surgery on his right foot as a child from a lawnmower accident. ALLERGIES: INCLUDE ACETAMINOPHEN. MEDICATIONS: No home medications. FAMILY HISTORY: His mother , unknown causes. Father still alive. He is not aware of his health factors. SOCIAL HISTORY: The patient is single. He does have 1 child. He has been smoking 1 pack of cigarettes for the past 20 years, occasional alcohol. He has used any type of drugs that have been available, but he started using IV drugs 2-3 years ago and he injects them in the forearms, and he has been doing illicit drugs for over 20 years. REVIEW OF SYSTEMS: GENERAL: Positive for recent night sweats, fever, chills. HEENT: No blurred vision, hearing loss. RESPIRATORY: Positive for shortness of breath with exertion. \ CARDIOVASCULAR: He has got chest discomfort, mainly when taking a deep breath. GASTROINTESTINAL: He has had recent diarrhea. GENITOURINARY: No burning, frequency, urgency. CENTRAL NERVOUS SYSTEM: No history of TIA, CVA or seizure disorder. ENDOCRINOLOGY: No history of diabetes or hypothyroidism. PHYSICAL EXAMINATION: VITAL SIGNS: Blood pressure 130/80, temp max last night was 102.3, heart rate of 122. GENERAL: The patient is awake, alert, slightly tachypneic. HEENT: Head is normocephalic, atraumatic. Pupils are equal and reactive. Oral mucosa pink, moist. NECK: Supple. No JVD. No audible rubs or gallops. LUNGS: Diminished in the bases, equal. Slight expiratory wheeze. ABDOMEN: Soft, flat, nontender. No masses or organomegaly. EXTREMITIES: No cyanosis, clubbing, or edema. No Janeway lesions. NEUROLOGIC: Awake and alert. PSYCHIATRIC: Normal affect, calm. Note that he has 2 guards at the bedside. LABORATORY DATA: Shows hemoglobin 9.4, hematocrit of 28, white cell count of 10, platelet count of 149. Sodium 134, potassium 3.8, BUN of 20, creatinine 0.87, magnesium 2.0. Troponin 3.85. Albumin 1.2. INR 1.2. Urinalysis unremarkable. Nasal screen, MRSA detected. He is hepatitis C positive. 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 I discussed in detail risk factors, including his continued illicit drug use and ongoing lifestyle, where he has again recently been incarcerated. The patient is not a candidate for surgery at this time with his ongoing use of IV drug use. Recommend the patient continued on IV antibiotics. Evaluated with a drug rehabilitation program and to remain free of drugs greater than 6 months with a urine drug screen and then can be evaluated in our office for reevaluation for potential candidate for possible surgery. PATRICIA John/anuradha , 08:57 AM , 09:06 AM
--- NOTE | 2018-05-02 11:09 | P.PN ---
Subjective Interval history: 32 year old male presents with a history of right-sided chest pain, left-sided low back pain that he reports began at approximately the same time, 2-3 days after detoxing from [facility]opiate [facility] in [facility]. He reports that he was in incarcerated on April 11 and last used heroin and opiates on April 10. He reports that approximately 2 days into his incarceration he began to have detox symptoms which mainly included numerous episodes of diarrhea. Since then he developed this right-sided lower chest wall pain anteriorly and left-sided low back pain just above the left buttock. He reports that he has had a cough productive of green sputum. He also has had fevers with a T-max in [facility] of 101. He is not currently on any antibiotic. He has been taking ibuprofen and Flexeril at the [facility]. He denies having any prior history of hepatitis or HIV. He denies having any prior history of endocarditis. He reports that he has had skin infections and abscesses in the past related to staph from IV drug use. He denies having any rashes currently. On review of systems otherwise, the patient denies having any neck pain, shortness of breath, abdominal pain, vomiting,urinary symptoms, or neurologic symptoms. The patient last moved his bowels earlier today with a formed stool. He denies having any numbness or tingling to his extremities. He denies having any weakness of his extremities. He reports that he has generalized weakness. He was also noted at the [facility] to have incontinence of urine. Hospitalist Notes: 05/01: Seen in his bedroom, discussed with nurse, no complaint of generalized pain, has Endocarditis, ID specialist and surgical instrument repair specialist following. 05/02: Seen in his bedroom in the presence of two [employer], as per ID switch from Cefepime to Ancef and continued IV Vancomycin, following Blood cultures if no MRSA to remove Vancomycin. complaint of generalized pain, not eating well. NO nausea, vomit or diarrhea. Physical Exam Vital signs: Vital Signs 05/01/18 12:00 05/01/18 16:00 05/01/18 20:00 Temperature 98.1 F 99.3 F 98.4 F Pulse Rate 116 H 112 H 118 H Respiratory Rate 29 H 28 H 32 H Blood Pressure 131/93 H 114/71 132/82 Pulse Oximetry 98 97 95 05/02/18 00:00 05/02/18 04:00 Temperature 102.3 F H 100.1 F H Pulse Rate 122 H 116 H Respiratory Rate 30 H 33 H Blood Pressure 141/89 H 130/82 Pulse Oximetry 95 94 L Intake & Output 05/01/18 05/02/18 05/02/18 18:59 06:59 18:59 Intake Total 3182.5 / 3182.5 2160 / 2160 1501.5 / 1501.5 Output Total 1175 / 1175 1900 / 1900 Balance 2006.5 / 2006.5 260 / 260 1501.5 / 1501.5 Weight 67 kg Intake: IV 2462.5 / 2462.5 1200 / 1200 1501.5 / 1501.5 NS Inj 1,000 ML @ 84 mls/hr IV. 1000 / 1000 1000 / 1000 CONT .[id number] [facility] Rx#:[id number] Maxipime Inj 2,000 MG In NS Inj 100 / 100 100 ML @ 200 mls/hr IV.SIG Q8H [facility] Rx#:[id number] NS Inj 1,000 ML @ Wide Open IV. 1000 / 1000 SIG BOLUS ONE Rx#:[id number] Vancomycin Inj 1,250 MG In NS 262.5 / 262.5 Inj 250 ML @ 250 mls/hr IV.SIG Q12H [facility] Rx#:[id number] Ancef Inj 2,000 MG In NS Inj 80 100 / 100 200 / 200 100 / 100 ML @ 200 mls/hr IV.SIG Q6H [facility] Rx#:[id number] Oral 720 / 720 960 / 960 Output: Urine 1175 / 1175 1900 / 1900 Other: # Voids 2 Narrative: GENERAL: NAD, AAOx3 SKIN: Warm and dry. HEAD: Atraumatic. Normocephalic. EYES: Pupils equal and round. No scleral icterus. No injection or drainage. ENT: No nasal bleeding or discharge. Mucous membranes pink and moist. NECK: Trachea midline. No JVD. CARDIOVASCULAR: Regular rhythm, tachycardic RESPIRATORY: breath sounds bilateral, no wheezing or crackles. GASTROINTESTINAL: Abdomen soft, non-tender MUSCULOSKELETAL: Extremities without clubbing, cyanosis, or edema. NEUROLOGICAL: Awake and alert. No obvious cranial nerve deficits. PSYCHIATRIC: Appropriate mood and affect Results - Labs CBC & Chem 7: 05/01/18 04:43 05/01/18 04:43 Laboratory Results - last 24 hr 05/02/18 03:30 Vancomycin Trough 9.5 Microbiology 05/01/18 14:25 Blood - Peripheral Aerobic Blood Culture - Preliminary gram positive cocci 05/01/18 14:25 Blood - Peripheral Anaerobic Blood Culture - Preliminary No growth in 1 day 05/01/18 14:15 Blood - Peripheral Aerobic Blood Culture - Preliminary gram positive cocci 05/01/18 14:15 Blood - Peripheral Anaerobic Blood Culture - Preliminary No growth in 1 day 04/30/18 01:55 Blood - Peripheral Aerobic Blood Culture - Final Staphylococcus aureus Staphylococcus coag negative 04/30/18 01:55 Blood - Peripheral Anaerobic Blood Culture - Final Staphylococcus aureus Staphylococcus coag negative 04/30/18 02:00 Blood - Peripheral Aerobic Blood Culture - Final Staphylococcus aureus 04/30/18 02:00 Blood - Peripheral Anaerobic Blood Culture - Final Staphylococcus aureus - Imaging Impressions Lumbar Spine MRI 05/01/18 00:00 CONCLUSION: 1. No evidence of discitis or other acute process in the lumbar spine. 2. Areas of focally altered peripheral signal intensity and enhancement in the kidneys which may be areas of focal pyelonephritis or renal cortical infarctions Assessment and Plan - Plan 1. Elevated Troponin with atypical chest pain, Pleuritic in nature, findings suggestive of septic Emboli in the lungs, questionable Infective endocarditis, ID specialist following, patient is IDU, Prior history of MRSA, skin abscess, CT lumbar no evidence of lesion, recommended IV Cefepime for GNR and PSAE coverage, IV Vancomycin, awaiting SARAH result, due to Lumbar pain that continued was performed Lumbar MRI as recommended by ID specialist no evidence of discitis or other acute process, areas of focally altered peripheral signal intensity and enhancement in the kidneys which may be areas of focal Pyelonephritis or renal cortical infarctions. was unable to anticoagulate due to severe thrombocytopenia 2. Elevated troponin Secondary to endocarditis, septic emboli and overall illness Cardiology following, has large vegetation on tricuspid valve and moderate to large on mitral valve, Moderate TR CT surgery consulted by surgical instrument repair specialist. 3. IDU, Opiate dependency, avoid opioids and narcotics, 4. AtOH dependence 5. Multiple infarcts of spleen likely infectious emboli, continue IV antibiotics. 6. Elevated LFTs history of IDU, CT abd and Pelvis with contrast, (04/30) Areas of low-density are seen in the spleen could be lacerations versus infarcts. No hemoperitoneum. Bilateral renal low-density likely benign. Hepatitis C genotype and quantitative, DVT GI prophylaxis -Teds SCDs -No pharmacological DVT prophylaxis due to thrombocytopenia -IV Pepcid Code Status: Full Code. Discussed Condition With: Patient and Guards in the room. Discharge Planning: Once cleared by specialists.
--- NOTE | 2018-05-02 13:01 | ECG ---
Date Performed: 04/30/2018 Time Performed: 10:42:16 PTAGE: 32 years EKG: SINUS TACHYCARDIA ABNORMAL ECG Compared to PREVIOUS TRACING , nonspecific ST-T wave changes are more prominent. PREVIOUS TRACING DOCTOR: Keny Orozco Interpretating Date/Time 05/02/2018 12:59:55
[2018-05-02] MEDS ORDERED: Gentamicin Inj 300 MG in Sodium Chlor 0.9% Inj 100 ML IV.SIG ONE (13:32)
--- NOTE | 2018-05-02 13:40 | P.PNID ---
Subjective Remarks: Patient is a 32-year-old male, brought into the hospital for further evaluation of chest pain. Patient is under custody and has been in [facility] since April 11. According to the patient several days into his incarceration, he started experiencing lower chest pain that is pleuritic in nature. He also started complaining of pain on his lumbar region more on the left side. He has not been coughing. He apparently has been having fevers. Patient has known IV drug use, and the last time he used it was the day before he got incarcerated. Has not any nausea or vomiting. Denies any diarrhea or urinary complaints. He has no prior history of endocarditis, but has had problem with skin abscesses. There is also mention that he has had previous HIV and hepatitis testing and they were both negative and this was from last year. Patient is afebrile. His hemodynamics are stable. His WBC is normal. Patient had CT of the chest which is showing multiple bilateral pulmonary nodules some of which are cavitating. CT of the abdomen and pelvis is showing some findings possibly of splenic infarcts. His blood cultures are currently pending. Infectious disease consultation has been requested to evaluate the patient with possible endocarditis. Notes reviewed Still having fevers C/O multiple joint pains but mostly in his L knee All BC with MSSA BP ok Tachycardic Still with CP SARAH with MV vegetations and large TV vegetation, and possible mod TR CTS evaluation noted Antibiotics: Ancef Vancomycin Past Medical History: Back pain IV drug abuse Right foot injury Skin abscess H/O foot surgery Allergies/Adverse Reactions: Allergies acetaminophen Allergy (Intermediate, Verified 07/08/17 16:38) STOMACH UPSET Objective Vital Signs 05/01/18 16:00 05/01/18 20:00 05/02/18 00:00 Temperature 99.3 F 98.4 F 102.3 F H Pulse Rate 112 H 118 H 122 H Respiratory Rate 28 H 32 H 30 H Blood Pressure 114/71 132/82 141/89 H Pulse Oximetry 97 95 95 05/02/18 04:00 Temperature 100.1 F H Pulse Rate 116 H Respiratory Rate 33 H Blood Pressure 130/82 Pulse Oximetry 94 L Intake & Output 05/01/18 05/02/18 05/02/18 18:59 06:59 18:59 Intake Total 3182.5 / 3182.5 2160 / 2160 1501.5 / 1501.5 Output Total 1175 / 1175 1900 / 1900 Balance 2006. / 2006. 260 / 260 1501.5 / 1501.5 Weight 67 kg Intake: IV 2462.5 / 2462.5 1200 / 1200 1501.5 / 1501.5 NS Inj 1,000 ML @ 84 mls/hr IV. 1000 / 1000 1000 / 1000 CONT .[id number] [facility] Rx#:[id number] Maxipime Inj 2,000 MG In NS Inj 100 / 100 100 ML @ 200 mls/hr IV.SIG Q8H [facility] Rx#:[id number] NS Inj 1,000 ML @ Wide Open IV. 1000 / 1000 SIG BOLUS ONE Rx#:[id number] Vancomycin Inj 1,250 MG In NS 262.5 / 262.5 Inj 250 ML @ 250 mls/hr IV.SIG Q12H [facility] Rx#:[id number] Ancef Inj 2,000 MG In NS Inj 80 100 / 100 200 / 200 100 / 100 ML @ 200 mls/hr IV.SIG Q6H [facility] Rx#:[id number] Oral 720 / 720 960 / 960 Output: Urine 1175 / 1175 1900 / 1900 Other: # Voids 2 05/01/18 14:25 Blood - Peripheral Aerobic Blood Culture - Preliminary gram positive cocci 05/01/18 14:25 Blood - Peripheral Anaerobic Blood Culture - Preliminary No growth in 1 day 05/01/18 14:15 Blood - Peripheral Aerobic Blood Culture - Preliminary gram positive cocci 05/01/18 14:15 Blood - Peripheral Anaerobic Blood Culture - Preliminary No growth in 1 day 04/30/18 01:55 Blood - Peripheral Aerobic Blood Culture - Final Staphylococcus aureus Staphylococcus coag negative 04/30/18 01:55 Blood - Peripheral Anaerobic Blood Culture - Final Staphylococcus aureus Staphylococcus coag negative 04/30/18 02:00 Blood - Peripheral Aerobic Blood Culture - Final Staphylococcus aureus 04/30/18 02:00 Blood - Peripheral Anaerobic Blood Culture - Final Staphylococcus aureus 05/02/18 04:46 Blood - Peripheral Aerobic Blood Culture - Pending 05/02/18 04:46 Blood - Peripheral Anaerobic Blood Culture - Pending Lab - Hematology Results 05/01/18 04:43 WBC 10.2 RBC 3.42 L Hgb 9.4 L Hct 28.1 L MCV 82.2 MCH 27.4 MCHC 33.4 RDW 16.9 Plt Count 149 L MPV 8.0 Neut % (Auto) 84.8 H Lymph % (Auto) 9.2 [place] % (Auto) 5.6 Eos % (Auto) 0.1 Baso % (Auto) 0.3 Neut # (Auto) 8.7 H Lymph # (Auto) 0.9 L [place] # (Auto) 0.6 Eos # (Auto) 0.0 Baso # (Auto) 0.0 WBC Differential . Differential Comment Auto diff final Lab - Chemistry Results 04/30/18 05/01/18 05/01/18 19:15 04:43 04:43 Sodium 134 L Potassium 3.8 Chloride 105 Carbon Dioxide 21.1 Anion Gap 8 BUN 20 H Creatinine 0.87 Estimated GFR Greater than 89 Random Glucose 88 Lactic Acid 1.1 Calcium 7.0 L* Prot Corrected Calcium 7.6 L Phosphorus 2.8 Magnesium 2.0 Total Bilirubin 0.9 AST 77 H ALT 38 Alkaline Phosphatase 85 Troponin I 3.50 H* Total Protein 5.9 L Albumin 1.2 L Imaging: ITS Impressions Chest X-Ray 04/30/18 01:23 CONCLUSION: Right basilar pleural-parenchymal density. Abdomen/Pelvis CT 04/30/18 01:58 CONCLUSION: 1. Areas of low-density are seen in the spleen could be lacerations versus infarcts. No hemoperitoneum. 2. Bilateral renal low-density likely benign. 3. Right pleural effusion. Lumbar Spine CT 04/30/18 01:58 CONCLUSION: 1. Disc bulges at L3-4, L4-5 and L5-S1 levels. No canal stenosis. 2. No fracture or spondylolisthesis. Thoracic Spine CT 04/30/18 01:58 CONCLUSION: 1. Unremarkable thoracic spine. Chest CT 04/30/18 03:09 CONCLUSION: 1. Numerous bilateral pulmonary nodules many of which are cavitated, likely septic emboli. 2. Small moderate right pleural effusion with partial loculation. Lumbar Spine MRI 05/01/18 00:00 CONCLUSION: 1. No evidence of discitis or other acute process in the lumbar spine. 2. Areas of focally altered peripheral signal intensity and enhancement in the kidneys which may be areas of focal pyelonephritis or renal cortical infarctions Physical Exam: GENERAL: Patient is a thin, well-developed patient, awake and alert, in distress haviing severe rigors SKIN: Warm and dry. No generalized rash HEAD: Atraumatic. Normocephalic. No temporal wasting, or tenderness. EYES: [place] conjunctiva. Has small petechia L lower eyelid. Pupils equal, round and reactive to light. Extraocular movements full and intact. No scleral icterus. No injection or drainage. EARS, NOSE AND THROAT: Nose without bleeding or purulent nasal discharge. Mucous membranes pink and moist. No oral lesions noted. NECK: Trachea midline. Supple and not tender, no meningeal signs CARDIOVASCULAR: Tachycardic. No murmurs, rubs or gallops heard RESPIRATORY: Clear to auscultation. Breath sounds equal bilaterally. No rales , wheezing or rhonchi ABDOMEN: Soft, flat, non-tender, nondistended. Bowel sounds present and normoactive. No guarding. No rebound. No organomegaly. EXTREMITIES: No clubbing, cyanosis. Seems to have suprapatellar effusion. Pain on flexion both knee joints worse on L than R. No calf tenderness. Well perfused and warm. NEUROLOGICAL: Awake and alert. Cranial nerves grossly intact. Motor grossly within normal limits. PSYCHIATRIC: Normal affect, calm and cooperative. LINE: No evidence of infection Assessment and Plan - Plan Impressions Chest pain, pleuritic, with findings suggestive of septic emboli in lungs TV and MV IE, BC with Staph aureus MSSA Knee pain, ?seeding Hx multiple skin abscesses Prior Hx MRSA infection in his skin abscess Active IVDU Back pain, CT lumbar spine ok, no evidence of infection Recommendation Continue IV Ancef Stop IV Vanco Add Gentamicin for synergy - follow creatinine Xray both knees, may need MRI L knee Repeat BC to document clearing If back pain worsens, MRI back lumbar spine Follow C/S Monitor progress Dr Abraham Arce covering this weekend
[2018-05-02] MEDS ORDERED: Gentamicin Consult Pharmacy 1 EACH OTHER SCH (14:00)
[2018-05-02] MEDS: Gentamicin/NS 80 mg Premix 100 ML IV.SIG SCH ×2 (14:44→21:41)
[2018-05-02] MEDS ORDERED: Vancomycin Inj 1,500 MG in Sodium Chlor 0.9% Inj 500 ML IV.SIG SCH (15:00)
--- NOTE | 2018-05-02 16:14 | XR ---
EXAM DATE: 05/02/2018 3:48 PM EDT AGE/SEX: 32 years / Male INDICATIONS: Right knee pain. CLINICAL DATA: This is the patient's initial encounter. Patient reports that signs and symptoms have been present for 1 day and indicates a pain score of 7/10. MEDICAL/SURGICAL HISTORY: None. None. COMPARISON: No prior exams available for comparison. FINDINGS: Bony structures are intact and in normal alignment. Joints are intact without dislocation or signifi cant arthropathy. Osseous density is normal. Soft tissues are unremarkable. No radiopaque foreign bodies seen. CONCLUSION: Negative examination Electronically signed by: Morales Umanzor MD 05/02/2018 4:13 PM EDT
--- NOTE | 2018-05-02 16:17 | XR ---
EXAM DATE: 05/02/2018 3:49 PM EDT AGE/SEX: 32 years / Male INDICATIONS: Left knee pain. CLINICAL DATA: This is the patient's initial encounter. Patient reports that signs and symptoms have been present for 1 day and indicates a pain score of 7/10. MEDICAL/SURGICAL HISTORY: None. None. COMPARISON: No prior exams available for comparison. FINDINGS: No acute fracture or dislocation. No bony destructive changes. No significant joint effusion. CONCLUSION: No acute findings. Electronically signed by: Max Garcia MD 05/02/2018 4:16 PM EDT
[2018-05-02] MEDS: Acetaminophen 325 MG Tablet PO PRN (20:12)
[2018-05-02] MEDS: Temazepam 15 MG Capsule PO PRN (21:50)
[2018-05-03] MEDS: ceFAZolin Inj 2,000 MG in Sodium Chlor 0.9% Inj 80 ML IV.SIG SCH ×4 (04:20→20:17)
[2018-05-03] MEDS: Chlorhexidine Gluconate 2% 1 Pack (2 Cloths) TOPICAL SCH (05:24)
[2018-05-03] MEDS ORDERED: [UNRECOGNIZED DRUG - OTHER] OTHER ONE (05:45)
[2018-05-03 05:47] LABS: Anion Gap 10 meq/L (5-15); Blood Urea Nitrogen 16 mg/dL (7-18); Calcium 7.4 mg/dL (8.5-10.1); Chloride 102 meq/L (98-107); Glomerular Filtration Rate Greater Than 89 mL/min (>89); Glucose,Random 86 mg/dL (74-106); Potassium 4.3 meq/L (3.5-5.1); Sodium 133 meq/L (136-145)
[2018-05-03] MEDS: Gentamicin/NS 80 mg Premix 100 ML IV.SIG SCH ×3 (05:49→21:34)
[2018-05-03 06:00] LABS: Total Protein 6.2 g/dL (6.4-8.2)
[2018-05-03] MEDS ORDERED: [UNRECOGNIZED DRUG - OTHER] OTHER ONE (07:00)
[2018-05-03] MEDS: Sod Chloride 0.9% Inj 1,000 ML IV.CONT SCH ×2 (08:06→17:00)
[2018-05-03] MEDS: Senna/Docusate Sodium 8.6/50 MG Tablet PO SCH ×2 (09:40→20:18)
[2018-05-03] MEDS: Famotidine PF Inj 20 MG/2 ML Vial IV.PUSH SCH ×2 (09:40→20:18)
--- NOTE | 2018-05-03 10:23 | P.PN ---
Subjective Interval history: 32 year old male presents with a history of right-sided chest pain, left-sided low back pain that he reports began at approximately the same time, 2-3 days after detoxing from heroin/opiate use in [facility]. He reports that he was in incarcerated on April 11 and last used heroin and opiates on April 10. He reports that approximately 2 days into his incarceration he began to have detox symptoms which mainly included numerous episodes of diarrhea. Since then he developed this right-sided lower chest wall pain anteriorly and left-sided low back pain just above the left buttock. He reports that he has had a cough productive of green sputum. He also has had fevers with a T-max in [facility] of 101. He is not currently on any antibiotic. He has been taking ibuprofen and Flexeril at the [facility]. He denies having any prior history of hepatitis or HIV. He denies having any prior history of endocarditis. He reports that he has had skin infections and abscesses in the past related to staph from IV drug use. He denies having any rashes currently. On review of systems otherwise, the patient denies having any neck pain, shortness of breath, abdominal pain, vomiting,urinary symptoms, or neurologic symptoms. The patient last moved his bowels earlier today with a formed stool. He denies having any numbness or tingling to his extremities. He denies having any weakness of his extremities. He reports that he has generalized weakness. He was also noted at the [facility] to have incontinence of urine. Hospitalist Notes: 05/01: Seen in his bedroom, discussed with nurse, no complaint of generalized pain, has Endocarditis, ID specialist and office services specialist following. 05/02: Seen in his bedroom in the presence of two [employer], as per ID switch from Cefepime to Ancef and continued IV Vancomycin, following Blood cultures if no MRSA to remove Vancomycin. complaint of generalized pain, not eating well. 05/03: Stable in his bedroom in the presence of two Guards, seen by ID specialist question about the possibility of Knee pain seeding, to continue Ancef, stopped Vancomycin, Added Gentamicin for synergy, X ray of both knees and may need MRI of the Knees, continue present care, no nausea, vomit or diarrhea. discussed with nurse Miss Javier and Miss Huffman he continue with some tachycardia she will contact Cardiology for recommendations. Physical Exam Vital signs: Vital Signs 05/02/18 12:00 05/02/18 16:00 05/02/18 20:00 Temperature 100.6 F H 98.2 F 102.8 F H Pulse Rate 122 H 133 H 140 H Respiratory Rate 31 H 32 H 35 H Blood Pressure 130/82 133/83 136/74 Pulse Oximetry 93 L 96 95 05/02/18 21:25 05/03/18 00:00 05/03/18 04:00 Temperature 98.8 F 98.9 F 99.0 F Pulse Rate 116 H 127 H Respiratory Rate 33 H 30 H Blood Pressure 126/82 159/90 H Pulse Oximetry 98 98 Intake & Output 05/02/18 05/03/18 05/03/18 18:59 06:59 18:59 Intake Total 2921.5 / 2921.5 2247 / 2247 Output Total 1800 / 1800 2049 Balance 1121.5 / 1121.5 197 / 197 Weight 66.9 kg Intake: IV 2201.5 / 2201.5 1767 / 1767 NS Inj 1,000 ML @ 84 mls/hr IV. 500 / 500 1367 / 1367 CONT .[id number] [facility] Rx#:[id number] Gentamicin/NS 80 mg Premix 100 100 / 100 200 / 200 ML @ 200 mls/hr IV.SIG Q8H [facility] Rx#:[id number] Ancef Inj 2,000 MG In NS Inj 80 200 / 200 200 / 200 ML @ 200 mls/hr IV.SIG Q6H [facility] Rx#:[id number] Oral 720 / 720 480 / 480 Output: Urine 1800 / 1800 2049 Other: # Voids 4 Date of Last Bowel Movement 05/02/18 05/02/18 # Bowel Movements 1 1 Narrative: GENERAL: NAD, AAOx3 SKIN: Warm and dry. HEAD: Atraumatic. Normocephalic. EYES: Pupils equal and round. No scleral icterus. No injection or drainage. ENT: No nasal bleeding or discharge. Mucous membranes pink and moist. NECK: Trachea midline. No JVD. CARDIOVASCULAR: Regular rhythm, tachycardic RESPIRATORY: breath sounds bilateral, no wheezing or crackles. GASTROINTESTINAL: Abdomen soft, non-tender MUSCULOSKELETAL: Extremities without clubbing, cyanosis, or edema. NEUROLOGICAL: Awake and alert. No obvious cranial nerve deficits. PSYCHIATRIC: Appropriate mood and affect Results - Labs CBC & Chem 7: 05/01/18 04:43 05/03/18 04:42 Laboratory Results - last 24 hr 05/03/18 05/03/18 05/03/18 04:42 05:30 06:50 Sodium 133 L Potassium 4.3 Chloride 102 Carbon Dioxide 21.0 Anion Gap 10 BUN 16 Creatinine 0.82 Estimated GFR Greater than 89 Random Glucose 86 Calcium 7.4 L* Prot Corrected Calcium 7.9 L Total Protein 6.2 L Gentamicin Peak 2.8 L Gentamicin Trough 0.7 Microbiology 05/01/18 14:25 Blood - Peripheral Aerobic Blood Culture - Preliminary gram positive cocci 05/01/18 14:25 Blood - Peripheral Anaerobic Blood Culture - Preliminary No growth in 1 day 05/01/18 14:15 Blood - Peripheral Aerobic Blood Culture - Preliminary gram positive cocci 05/01/18 14:15 Blood - Peripheral Anaerobic Blood Culture - Preliminary No growth in 1 day 04/30/18 01:55 Blood - Peripheral Aerobic Blood Culture - Final Staphylococcus aureus Staphylococcus coag negative 04/30/18 01:55 Blood - Peripheral Anaerobic Blood Culture - Final Staphylococcus aureus Staphylococcus coag negative 04/30/18 02:00 Blood - Peripheral Aerobic Blood Culture - Final Staphylococcus aureus 04/30/18 02:00 Blood - Peripheral Anaerobic Blood Culture - Final Staphylococcus aureus - Imaging Impressions Knee X-Ray 05/02/18 00:00 CONCLUSION: Negative examination Knee X-Ray 05/02/18 00:00 CONCLUSION: No acute findings. Assessment and Plan - Plan 1. Elevated Troponin with atypical chest pain, Pleuritic in nature, findings suggestive of septic Emboli in the lungs, questionable Infective endocarditis, ID specialist following, patient is IDU, Prior history of MRSA, skin abscess, CT lumbar no evidence of lesion, recommended IV Cefepime for GNR and PSAE coverage, IV Vancomycin, awaiting SARAH result, due to Lumbar pain that continued was performed Lumbar MRI as recommended by ID specialist no evidence of discitis or other acute process, areas of focally altered peripheral signal intensity and enhancement in the kidneys which may be areas of focal Pyelonephritis or renal cortical infarctions. was unable to anticoagulate due to severe thrombocytopenia 2. Infective Endocarditis and Bacteremia secondary to MSSA seen by ID specialist question about the possibility of Knee pain seeding, to continue Ancef, stopped Vancomycin, Added Gentamicin for synergy, X ray of both knees and may need MRI of the Knees. 3. Elevated troponin continue with Tachycardia Cardiology following. Secondary to endocarditis, septic emboli and overall illness Cardiology following, has large vegetation on tricuspid valve and moderate to large on mitral valve, Moderate TR CT surgery consulted by office services specialist. 4. IDU, Opiate dependency, avoid opioids and narcotics, 5. AtOH dependence 6. Multiple infarcts of spleen likely infectious emboli, continue IV antibiotics. 7. Elevated LFTs history of IDU, CT abd and Pelvis with contrast, (/) Areas of low-density are seen in the spleen could be lacerations versus infarcts. No hemoperitoneum. Bilateral renal low-density likely benign. Hepatitis C genotype and quantitative, DVT GI prophylaxis -Teds SCDs -No pharmacological DVT prophylaxis due to thrombocytopenia -IV Pepcid Code Status: Full code. Discussed Condition With: Patient, nurse Miss Huffman and Miss Javier, also two [employer] in the room. Discharge Planning: Once cleared by specialists.
--- NOTE | 2018-05-03 12:19 | P.PNID ---
Subjective Remarks: Patient is a 32-year-old male, brought into the hospital for further evaluation of chest pain. Patient is under custody and has been in prison since April 11. According to the patient several days into his incarceration, he started experiencing lower chest pain that is pleuritic in nature. He also started complaining of pain on his lumbar region more on the left side. He has not been coughing. He apparently has been having fevers. Patient has known IV drug use, and the last time he used it was the day before he got incarcerated. Has not any nausea or vomiting. Denies any diarrhea or urinary complaints. He has no prior history of endocarditis, but has had problem with skin abscesses. There is also mention that he has had previous HIV and hepatitis testing and they were both negative and this was from last year. Patient is afebrile. His hemodynamics are stable. His WBC is normal. Patient had CT of the chest which is showing multiple bilateral pulmonary nodules some of which are cavitating. CT of the abdomen and pelvis is showing some findings possibly of splenic infarcts. His blood cultures are currently pending. Infectious disease consultation has been requested to evaluate the patient with possible endocarditis. Overnight events reviewed. Notes reviewed Still having fevers despite Vanco IV stopped and directed therapy. Concern for ongoing septic emboli and coag neg staph as additional bacteremia. C/O multiple joint pains but mostly in his L knee All BC with MSSA BP ok Tachycardic Still with CP SARAH with MV vegetations and large TV vegetation, and possible mod TR CTS evaluation noted Denies B/B incontinence. Reports LE priscilla thigh weakness since 2 weeks. MRI L spine noted. Denies any back pain or neck pain. Using a walker. Antibiotics: Ancef Vancomycin Past Medical History: Back pain IV drug abuse Right foot injury Skin abscess H/O foot surgery Allergies/Adverse Reactions: Allergies acetaminophen Allergy (Intermediate, Verified 07/08/17 16:38) STOMACH UPSET Objective Vital Signs 05/02/18 16:00 05/02/18 20:00 05/02/18 21:25 Temperature 98.2 F 102.8 F H 98.8 F Pulse Rate 133 H 140 H Respiratory Rate 32 H 35 H Blood Pressure 133/83 136/74 Pulse Oximetry 96 95 05/03/18 00:00 05/03/18 04:00 05/03/18 08:00 Temperature 98.9 F 99.0 F Pulse Rate 116 H 127 H 119 H Respiratory Rate 33 H 30 H Blood Pressure 126/82 159/90 H Pulse Oximetry 98 98 05/03/18 09:00 Temperature Pulse Rate 112 H Respiratory Rate Blood Pressure Pulse Oximetry Intake & Output 05/02/18 05/03/18 05/03/18 18:59 06:59 18:59 Intake Total 2921.5 / 2921.5 2247 / 2247 100 / 100 Output Total 1800 / 1800 2049 Balance 1121.5 / 1121.5 197 / 197 100 / 100 Weight 66.9 kg Intake: IV 2201.5 / 2201.5 1767 / 1767 100 / 100 NS Inj 1,000 ML @ 84 mls/hr IV. 500 / 500 1367 / 1367 CONT .[id number] [facility] Rx#:[id number] Gentamicin/NS 80 mg Premix 100 100 / 100 200 / 200 ML @ 200 mls/hr IV.SIG Q8H [facility] Rx#:[id number] Ancef Inj 2,000 MG In NS Inj 80 200 / 200 200 / 200 100 / 100 ML @ 200 mls/hr IV.SIG Q6H [facility] Rx#:[id number] Oral 720 / 720 480 / 480 Output: Urine 1800 / 1800 2049 Other: # Voids 4 Date of Last Bowel Movement 05/02/18 05/02/18 # Bowel Movements 1 1 05/02/18 04:46 Blood - Peripheral Aerobic Blood Culture - Preliminary No growth in 1 day 05/02/18 04:46 Blood - Peripheral Anaerobic Blood Culture - Preliminary No growth in 1 day 05/01/18 14:25 Blood - Peripheral Aerobic Blood Culture - Preliminary gram positive cocci 05/01/18 14:25 Blood - Peripheral Anaerobic Blood Culture - Preliminary No growth in 2 days 05/01/18 14:15 Blood - Peripheral Aerobic Blood Culture - Preliminary gram positive cocci 05/01/18 14:15 Blood - Peripheral Anaerobic Blood Culture - Preliminary No growth in 2 days 05/03/18 04:42 Blood - Peripheral Aerobic Blood Culture - Pending 05/03/18 04:42 Blood - Peripheral Anaerobic Blood Culture - Pending 04/30/18 01:55 Blood - Peripheral Aerobic Blood Culture - Final Staphylococcus aureus Staphylococcus coag negative 04/30/18 01:55 Blood - Peripheral Anaerobic Blood Culture - Final Staphylococcus aureus Staphylococcus coag negative 04/30/18 02:00 Blood - Peripheral Aerobic Blood Culture - Final Staphylococcus aureus 04/30/18 02:00 Blood - Peripheral Anaerobic Blood Culture - Final Staphylococcus aureus Lab - Chemistry Results 05/03/18 04:42 Sodium 133 L Potassium 4.3 Chloride 102 Carbon Dioxide 21.0 Anion Gap 10 BUN 16 Creatinine 0.82 Estimated GFR Greater than 89 Random Glucose 86 Calcium 7.4 L* Prot Corrected Calcium 7.9 L Total Protein 6.2 L Imaging: ITS Impressions Chest X-Ray 04/30/18 01:23 CONCLUSION: Right basilar pleural-parenchymal density. Abdomen/Pelvis CT 04/30/18 01:58 CONCLUSION: 1. Areas of low-density are seen in the spleen could be lacerations versus infarcts. No hemoperitoneum. 2. Bilateral renal low-density likely benign. 3. Right pleural effusion. Lumbar Spine CT 04/30/18 01:58 CONCLUSION: 1. Disc bulges at L3-4, L4-5 and L5-S1 levels. No canal stenosis. 2. No fracture or spondylolisthesis. Thoracic Spine CT 04/30/18 01:58 CONCLUSION: 1. Unremarkable thoracic spine. Chest CT 04/30/18 03:09 CONCLUSION: 1. Numerous bilateral pulmonary nodules many of which are cavitated, likely septic emboli. 2. Small moderate right pleural effusion with partial loculation. Lumbar Spine MRI 05/01/18 00:00 CONCLUSION: 1. No evidence of discitis or other acute process in the lumbar spine. 2. Areas of focally altered peripheral signal intensity and enhancement in the kidneys which may be areas of focal pyelonephritis or renal cortical infarctions Knee X-Ray 05/02/18 00:00 CONCLUSION: No acute findings. Physical Exam: GENERAL: Patient is a thin, well-developed patient, awake and alert, in distress haviing severe rigors SKIN: Warm and dry. No generalized rash HEAD: Atraumatic. Normocephalic. No temporal wasting, or tenderness. EYES: [place] conjunctiva. Has small petechia L lower eyelid. Pupils equal, round and reactive to light. Extraocular movements full and intact. No scleral icterus. No injection or drainage. EARS, NOSE AND THROAT: Nose without bleeding or purulent nasal discharge. Mucous membranes pink and moist. No oral lesions noted. NECK: Trachea midline. Supple and not tender, no meningeal signs CARDIOVASCULAR: Tachycardic. No murmurs, rubs or gallops heard RESPIRATORY: Clear to auscultation. Breath sounds equal bilaterally. No rales , wheezing or rhonchi ABDOMEN: Soft, flat, non-tender, nondistended. Bowel sounds present and normoactive. No guarding. No rebound. No organomegaly. EXTREMITIES: No clubbing, cyanosis. Seems to have suprapatellar effusion. Pain on flexion both knee joints worse on L than R. No calf tenderness. Well perfused and warm. Left ankle with edema but no erythema, pain or effusion. NEUROLOGICAL: Awake and alert. Cranial nerves grossly intact. LE moves at ankle joint, power bilateral thigh muscles 2 ? element of pain. PSYCHIATRIC: Normal affect, calm and cooperative. LINE: No evidence of infection Assessment and Plan - Plan Impressions Chest pain, pleuritic, with findings suggestive of septic emboli in lungs TV and MV IE, BC with Staph aureus MSSA ? Infective discitis. Bilateral renal infarcts ? pyelo. Knee pain, ?seeding Hx multiple skin abscesses Prior Hx MRSA infection in his skin abscess Active IVDU Back pain, CT lumbar spine ok, no evidence of infection Recommendation Continue IV Ancef Start Teflaro IV (covers CGNS bacteremia if real and causative. Will avoid vanco as had fevers on Vanco would like to sort out if vanco fever or fever from sepsis) Continue IV Gentamicin for synergy - follow creatinine, UO. X rays both knees with no effusions. Clinically not swollen or erythematous follow clinically. MRI L spine with no discitis at present time but may need repeat imaging if symptoms persist or worsen. LE weakness is concerning for discitis infectious. Repeat BC to document clearing If back pain worsens, MRI back lumbar spine Follow C/S Monitor progress dw Patient in presence of prison personnel. Patient was shackled. He was made aware of his diagnosis of sepsis, endocarditis and concern for ongoing seeding of septic emboli.
[2018-05-03] MEDS: Acetaminophen 325 MG Tablet PO PRN (17:43)
[2018-05-04] MEDS ORDERED: Pharmacy Ordered Lab Info OTHER ONE (02:45)
[2018-05-04] MEDS: Chlorhexidine Gluconate 2% 1 Pack (2 Cloths) TOPICAL SCH (03:35)
[2018-05-04] MEDS: ceFAZolin Inj 2,000 MG in Sodium Chlor 0.9% Inj 80 ML IV.SIG SCH ×4 (03:39→22:43)
[2018-05-04 03:49] LABS: Hepatitis C RNA (PCR) IUs/ml 173000 IU/mL; Hepatitis C RNA (PCR) log IUs 5.24
[2018-05-04] MEDS: Gentamicin/NS 80 mg Premix 100 ML IV.SIG SCH ×3 (05:18→22:44)
[2018-05-04] MEDS: Sod Chloride 0.9% Inj 1,000 ML IV.CONT SCH ×2 (05:18→18:09)
[2018-05-04] MEDS: Famotidine PF Inj 20 MG/2 ML Vial IV.PUSH SCH ×2 (09:38→22:42)
[2018-05-04] MEDS: Senna/Docusate Sodium 8.6/50 MG Tablet PO SCH ×2 (09:38→22:44)
--- NOTE | 2018-05-04 13:24 | P.PNID ---
Subjective Remarks: Patient is a 32-year-old male, brought into the hospital for further evaluation of chest pain. Patient is under custody and has been in [facility] since April 11. According to the patient several days into his incarceration, he started experiencing lower chest pain that is pleuritic in nature. He also started complaining of pain on his lumbar region more on the left side. He has not been coughing. He apparently has been having fevers. Patient has known IV drug use, and the last time he used it was the day before he got incarcerated. Has not any nausea or vomiting. Denies any diarrhea or urinary complaints. He has no prior history of endocarditis, but has had problem with skin abscesses. There is also mention that he has had previous HIV and hepatitis testing and they were both negative and this was from last year. Patient is afebrile. His hemodynamics are stable. His WBC is normal. Patient had CT of the chest which is showing multiple bilateral pulmonary nodules some of which are cavitating. CT of the abdomen and pelvis is showing some findings possibly of splenic infarcts. His blood cultures are currently pending. Infectious disease consultation has been requested to evaluate the patient with possible endocarditis. Overnight events reviewed. Notes reviewed Still having low grade fevers despite Vanco IV stopped but now defervescing since Teflaro IV added. Concern for ongoing septic emboli and coag neg staph as additional bacteremia. C/O multiple joint pains but mostly in his L knee All BC with MSSA BP ok Tachycardic Still with CP SARAH with MV vegetations and large TV vegetation, and possible mod TR CTS evaluation noted Denies B/B incontinence. Reports LE priscilla thigh weakness since 2 weeks. MRI L spine noted. Denies any back pain or neck pain. Using a walker. Antibiotics: Ancef Teflaro IV Genta IV Past Medical History: Back pain IV drug abuse Right foot injury Skin abscess H/O foot surgery Allergies/Adverse Reactions: Allergies acetaminophen Allergy (Intermediate, Verified 07/08/17 16:38) STOMACH UPSET Objective Vital Signs 05/03/18 16:00 05/03/18 20:00 05/04/18 00:00 Temperature 100.2 F H 97.7 F 99.8 F H Pulse Rate 120 H 119 H 124 H Respiratory Rate 30 H 26 H 26 H Blood Pressure 138/87 123/67 151/93 H Pulse Oximetry 98 95 95 05/04/18 04:00 Temperature 98.1 F Pulse Rate 123 H Respiratory Rate 26 H Blood Pressure 145/81 H Pulse Oximetry 94 L Intake & Output 05/03/18 05/04/18 05/04/18 18:59 06:59 18:59 Intake Total 2473 / 2473 1500 / 1500 Output Total 2950 / 2950 1999 Balance -477 / -477 -500 / -500 Weight 68.7 kg Intake: IV 1033 / 1033 500 / 500 NS Inj 1,000 ML @ 84 mls/hr IV. 633 / 633 CONT .[id number] [facility] Rx#:[id number] Teflaro Inj 600 MG In NS Inj 100 / 100 200 / 200 100 ML @ 100 mls/hr IV.SIG Q8H [facility] Rx#:[id number] Gentamicin/NS 80 mg Premix 100 100 / 100 100 / 100 ML @ 200 mls/hr IV.SIG Q8H [facility] Rx#:[id number] Ancef Inj 2,000 MG In NS Inj 80 200 / 200 200 / 200 ML @ 200 mls/hr IV.SIG Q6H [facility] Rx#:[id number] Oral 1440 / 1440 1000 / 1000 Output: Urine 2950 / 2950 1999 Other: Date of Last Bowel Movement 05/02/18 05/02/18 05/03/18 04:42 Blood - Peripheral Aerobic Blood Culture - Preliminary No growth in 1 day 05/03/18 04:42 Blood - Peripheral Anaerobic Blood Culture - Preliminary No growth in 1 day 05/02/18 04:46 Blood - Peripheral Aerobic Blood Culture - Preliminary gram positive cocci 05/02/18 04:46 Blood - Peripheral Anaerobic Blood Culture - Preliminary No growth in 2 days 05/01/18 14:25 Blood - Peripheral Aerobic Blood Culture - Final Staphylococcus aureus 05/01/18 14:25 Blood - Peripheral Anaerobic Blood Culture - Preliminary No growth in 3 days 05/01/18 14:15 Blood - Peripheral Aerobic Blood Culture - Final Staphylococcus aureus 05/01/18 14:15 Blood - Peripheral Anaerobic Blood Culture - Preliminary No growth in 3 days 04/30/18 01:55 Blood - Peripheral Aerobic Blood Culture - Final Staphylococcus aureus Staphylococcus coag negative 04/30/18 01:55 Blood - Peripheral Anaerobic Blood Culture - Final Staphylococcus aureus Staphylococcus coag negative 04/30/18 02:00 Blood - Peripheral Aerobic Blood Culture - Final Staphylococcus aureus 04/30/18 02:00 Blood - Peripheral Anaerobic Blood Culture - Final Staphylococcus aureus Lab - Chemistry Results 05/03/18 04:42 Sodium 133 L Potassium 4.3 Chloride 102 Carbon Dioxide 21.0 Anion Gap 10 BUN 16 Creatinine 0.82 Estimated GFR Greater than 89 Random Glucose 86 Calcium 7.4 L* Prot Corrected Calcium 7.9 L Total Protein 6.2 L Imaging: ITS Impressions Chest X-Ray 04/30/18 01:23 CONCLUSION: Right basilar pleural-parenchymal density. Abdomen/Pelvis CT 04/30/18 01:58 CONCLUSION: 1. Areas of low-density are seen in the spleen could be lacerations versus infarcts. No hemoperitoneum. 2. Bilateral renal low-density likely benign. 3. Right pleural effusion. Lumbar Spine CT 04/30/18 01:58 CONCLUSION: 1. Disc bulges at L3-4, L4-5 and L5-S1 levels. No canal stenosis. 2. No fracture or spondylolisthesis. Thoracic Spine CT 04/30/18 01:58 CONCLUSION: 1. Unremarkable thoracic spine. Chest CT 04/30/18 03:09 CONCLUSION: 1. Numerous bilateral pulmonary nodules many of which are cavitated, likely septic emboli. 2. Small moderate right pleural effusion with partial loculation. Lumbar Spine MRI 05/01/18 00:00 CONCLUSION: 1. No evidence of discitis or other acute process in the lumbar spine. 2. Areas of focally altered peripheral signal intensity and enhancement in the kidneys which may be areas of focal pyelonephritis or renal cortical infarctions Knee X-Ray 05/02/18 00:00 CONCLUSION: No acute findings. Physical Exam: GENERAL: Patient is a thin, well-developed patient, awake and alert, in distress haviing severe rigors SKIN: Warm and dry. No generalized rash HEAD: Atraumatic. Normocephalic. No temporal wasting, or tenderness. EYES: [employer] [employer] conjunctiva. Has small petechia L lower eyelid. Pupils equal, round and reactive to light. Extraocular movements full and intact. No scleral icterus. No injection or drainage. EARS, NOSE AND THROAT: Nose without bleeding or purulent nasal discharge. Mucous membranes pink and moist. No oral lesions noted. NECK: Trachea midline. Supple and not tender, no meningeal signs CARDIOVASCULAR: Tachycardic. No murmurs, rubs or gallops heard RESPIRATORY: Clear to auscultation. Breath sounds equal bilaterally. No rales , wheezing or rhonchi ABDOMEN: Soft, flat, non-tender, nondistended. Bowel sounds present and normoactive. No guarding. No rebound. No organomegaly. EXTREMITIES: No clubbing, cyanosis. Seems to have suprapatellar effusion. Pain on flexion both knee joints worse on L than R. No calf tenderness. Well perfused and warm. Left ankle with edema but no erythema, pain or effusion. NEUROLOGICAL: Awake and alert. Cranial nerves grossly intact. LE moves at ankle joint, power bilateral thigh muscles 2 ? element of pain. PSYCHIATRIC: Normal affect, calm and cooperative. LINE: No evidence of infection Assessment and Plan - Plan Impressions Chest pain, pleuritic, with findings suggestive of septic emboli in lungs TV and MV IE, BC with Staph aureus MSSA ? Infective discitis. Bilateral renal infarcts ? pyelo. Knee pain, ?seeding Hx multiple skin abscesses Prior Hx MRSA infection in his skin abscess Active IVDU Back pain, CT lumbar spine ok, no evidence of infection Recommendation Continue IV Ancef Continue Teflaro IV (covers CGNS bacteremia if real and causative. Will avoid vanco as had fevers on Vanco would like to sort out if vanco fever or fever from sepsis) Continue IV Gentamicin for synergy - follow creatinine, UO. X rays both knees with no effusions. Clinically not swollen or erythematous follow clinically. MRI L spine with no discitis at present time but may need repeat imaging if symptoms persist or worsen. LE weakness is concerning for discitis infectious. Repeat BC to document clearing If back pain worsens, MRI back lumbar spine Follow C/S Monitor progress dw Patient to resume care in am.
[2018-05-04 13:28] LABS: Baso % (Auto) 0.2 % (0.0-2.0); Eos % (Auto) 0.3 % (0.0-4.0); Hematocrit 26.7 % (39.0-51.0); Hemoglobin 8.9 gm/dL (13.0-17.0); Lymph # (Auto) 1.2 th/mm3 (1.0-4.8); Lymph % (Auto) 7.5 % (9.0-44.0); Mean Corpuscular HGB Conc 33.3 % (32.0-36.0); Mean Corpuscular Hemoglobin 27.6 pg (27.0-34.0); Mean Corpuscular Volume 83.1 fL (80.0-100.0); Mean Platelet Volume 7.2 fL (7.0-11.0); Mono # (Auto) 0.9 th/mm3 (0.0-0.9); Mono % (Auto) 5.6 % (0.0-8.0); Neut % (Auto) 86.4 % (16.0-70.0); Platelet Count 250 th/mm3 (150-450); Red Blood Count 3.22 mil/mm3 (4.50-5.90); Red Cell Distribution Width 16.4 % (11.6-17.2); White Blood Count 16.2 th/mm3 (4.0-11.0)
[2018-05-04 14:02] LABS: Alanine Aminotransferase 36 U/L (12-78); Albumin 1.2 g/dL (3.4-5.0); Alkaline Phosphatase 87 U/L (45-117); Anion Gap 8 meq/L (5-15); Aspartate Aminotransferase 74 U/L (15-37); Blood Urea Nitrogen 15 mg/dL (7-18); Calcium 7.3 mg/dL (8.5-10.1); Carbon Dioxide 22.3 meq/L (21.0-32.0); Chloride 99 meq/L (98-107); Glomerular Filtration Rate Greater Than 89 mL/min (>89); Glucose,Random 87 mg/dL (74-106); Potassium 4.2 meq/L (3.5-5.1); Sodium 129 meq/L (136-145); Total Protein 6.6 g/dL (6.4-8.2)
--- NOTE | 2018-05-04 17:49 | P.PN ---
Subjective Interval history: 32 year old male presents with a history of right-sided chest pain, left-sided low back pain that he reports began at approximately the same time, 2-3 days after detoxing from heroin/opiate use in long-term. He reports that he was in incarcerated on April 11 and last used heroin and opiates on April 10. He reports that approximately 2 days into his incarceration he began to have detox symptoms which mainly included numerous episodes of diarrhea. Since then he developed this right-sided lower chest wall pain anteriorly and left-sided low back pain just above the left buttock. He reports that he has had a cough productive of green sputum. He also has had fevers with a T-max in long-term of 101. He is not currently on any antibiotic. He has been taking ibuprofen and Flexeril at the long-term. He denies having any prior history of hepatitis or HIV. He denies having any prior history of endocarditis. He reports that he has had skin infections and abscesses in the past related to staph from IV drug use. He denies having any rashes currently. On review of systems otherwise, the patient denies having any neck pain, shortness of breath, abdominal pain, vomiting,urinary symptoms, or neurologic symptoms. The patient last moved his bowels earlier today with a formed stool. He denies having any numbness or tingling to his extremities. He denies having any weakness of his extremities. He reports that he has generalized weakness. He was also noted at the long-term to have incontinence of urine. Hospitalist Notes: 05/01: Seen in his bedroom, discussed with nurse, no complaint of generalized pain, has Endocarditis, ID specialist and agronomy specialist following. 05/02: Seen in his bedroom in the presence of two Assisted Guards, as per ID switch from Cefepime to Ancef and continued IV Vancomycin, following Blood cultures if no MRSA to remove Vancomycin. complaint of generalized pain, not eating well. 05/03: Stable in his bedroom in the presence of two Guards, seen by ID specialist question about the possibility of Knee pain seeding, to continue Ancef, stopped Vancomycin, Added Gentamicin for synergy, X ray of both knees and may need MRI of the Knees, continue present care, no nausea, vomit or diarrhea. discussed with nurse Miss Javier and Miss Huffman he continue with some tachycardia she will contact Cardiology for recommendations. 05/04: Seen in his bedroom, two Assisted Guards present on my examination and took my Identification, nurse present also no nausea, vomit or diarrhea, continue with Generalized pain and difficulty to move his legs. No nausea, vomit or diarrhea. Physical Exam Vital signs: Vital Signs 05/03/18 20:00 05/04/18 00:00 05/04/18 04:00 Temperature 97.7 F 99.8 F H 98.1 F Pulse Rate 119 H 124 H 123 H Respiratory Rate 26 H 26 H 26 H Blood Pressure 123/67 151/93 H 145/81 H Pulse Oximetry 95 95 94 L 05/04/18 08:00 05/04/18 09:00 05/04/18 12:00 Temperature 99.8 F H 98.3 F Pulse Rate 121 H 117 H 119 H Respiratory Rate 26 H 24 Blood Pressure 136/81 134/81 Pulse Oximetry 94 L 94 L 05/04/18 14:00 Temperature Pulse Rate Respiratory Rate 23 Blood Pressure Pulse Oximetry Intake & Output 05/03/18 05/04/18 05/04/18 18:59 06:59 18:59 Intake Total 2473 / 2473 1600 / 1600 540 / 540 Output Total 2950 / 2950 1999 Balance -477 / -477 -400 / -400 -1460 / -1460 Weight 68.7 kg Intake: IV 1033 / 1033 600 / 600 100 / 100 NS Inj 1,000 ML @ 84 mls/hr IV. 633 / 633 CONT .[id number] [facility] Rx#:[id number] Teflaro Inj 600 MG In NS Inj 100 / 100 200 / 200 100 ML @ 100 mls/hr IV.SIG Q8H [facility] Rx#:[id number] Gentamicin/NS 80 mg Premix 100 100 / 100 200 / 200 ML @ 200 mls/hr IV.SIG Q8H [facility] Rx#:[id number] Ancef Inj 2,000 MG In NS Inj 80 200 / 200 200 / 200 100 / 100 ML @ 200 mls/hr IV.SIG Q6H [facility] Rx#:[id number] Oral 1440 / 1440 1000 / 1000 440 / 440 Output: Urine 2950 / 2950 1999 Other: Date of Last Bowel Movement 05/02/18 05/02/18 05/02/18 Narrative: GENERAL: NAD, AAOx3 SKIN: Warm and dry. HEAD: Atraumatic. Normocephalic. EYES: Pupils equal and round. No scleral icterus. No injection or drainage. ENT: No nasal bleeding or discharge. Mucous membranes pink and moist. NECK: Trachea midline. No JVD. CARDIOVASCULAR: Regular rhythm, tachycardic RESPIRATORY: breath sounds bilateral, no wheezing or crackles. GASTROINTESTINAL: Abdomen soft, non-tender MUSCULOSKELETAL: Extremities without clubbing, cyanosis, or edema. NEUROLOGICAL: Awake and alert. No obvious cranial nerve deficits. PSYCHIATRIC: Appropriate mood and affect Results - Labs CBC & Chem 7: 05/04/18 12:41 05/04/18 12:41 Laboratory Results - last 24 hr 04/30/18 05/04/18 05/04/18 19:15 12:41 12:41 WBC 16.2 H RBC 3.22 L Hgb 8.9 L Hct 26.7 L MCV 83.1 MCH 27.6 MCHC 33.3 RDW 16.4 Plt Count 250 D MPV 7.2 Neut % (Auto) 86.4 H Lymph % (Auto) 7.5 L [place] % (Auto) 5.6 Eos % (Auto) 0.3 Baso % (Auto) 0.2 Neut # (Auto) 14.0 H Lymph # (Auto) 1.2 [place] # (Auto) 0.9 Eos # (Auto) 0.0 Baso # (Auto) 0.0 WBC Differential . Differential Comment Auto diff final Sodium 129 L Potassium 4.2 Chloride 99 Carbon Dioxide 22.3 Anion Gap 8 BUN 15 Creatinine 0.78 Estimated GFR Greater than 89 Random Glucose 87 Calcium 7.3 L* Prot Corrected Calcium 7.6 L Total Bilirubin 0.3 AST 74 H ALT 36 Alkaline Phosphatase 87 Total Protein 6.6 Albumin 1.2 L HCV RNA (PCR) IUs/ml 181203 H HCV RNA PCR log IUs/ml 5.24 H Microbiology 05/03/18 04:42 Blood - Peripheral Aerobic Blood Culture - Preliminary No growth in 1 day 05/03/18 04:42 Blood - Peripheral Anaerobic Blood Culture - Preliminary No growth in 1 day 05/02/18 04:46 Blood - Peripheral Aerobic Blood Culture - Preliminary gram positive cocci 05/02/18 04:46 Blood - Peripheral Anaerobic Blood Culture - Preliminary No growth in 2 days 05/01/18 14:25 Blood - Peripheral Aerobic Blood Culture - Final Staphylococcus aureus 05/01/18 14:25 Blood - Peripheral Anaerobic Blood Culture - Preliminary No growth in 3 days 05/01/18 14:15 Blood - Peripheral Aerobic Blood Culture - Final Staphylococcus aureus 05/01/18 14:15 Blood - Peripheral Anaerobic Blood Culture - Preliminary No growth in 3 days Assessment and Plan - Plan 1. Elevated Troponin with atypical chest pain, Pleuritic in nature, findings suggestive of septic Emboli in the lungs, questionable Infective endocarditis, ID specialist following, patient is IDU, Prior history of MRSA, skin abscess, CT lumbar no evidence of lesion, recommended IV Cefepime for GNR and PSAE coverage, IV Vancomycin, awaiting SARAH result, due to Lumbar pain that continued was performed Lumbar MRI as recommended by ID specialist no evidence of discitis or other acute process, areas of focally altered peripheral signal intensity and enhancement in the kidneys which may be areas of focal Pyelonephritis or renal cortical infarctions. was unable to anticoagulate due to severe thrombocytopenia 2. 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 LE weakness is concerning for discitis infectious. Repeat BC to document clearing 3. Elevated troponin continue with Tachycardia Cardiology following. Secondary to endocarditis, septic emboli and overall illness Cardiology following, has large vegetation on tricuspid valve and moderate to large on mitral valve, Moderate TR CT surgery consulted by agronomy specialist. 4. IDU, Opiate dependency, avoid opioids and narcotics, 5. AtOH dependence no signs of withdrawal. 6. Multiple infarcts of spleen likely infectious emboli, continue IV antibiotics. 7. Elevated LFTs history of IDU, CT abd and Pelvis with contrast, (04/30) Areas of low-density are seen in the spleen could be lacerations versus infarcts. No hemoperitoneum. Bilateral renal low-density likely benign. Hepatitis C genotype and quantitative, ID following. DVT GI prophylaxis -Teds SCDs -No pharmacological DVT prophylaxis due to thrombocytopenia -IV Pepcid Code Status: Full Code. Discussed Condition With: patient, Guards present to hear discussion with patient and nurse present. Discharge Planning: Once cleared by specialists.
[2018-05-04] MEDS ORDERED: Morphine Inj 4 MG/ML Vial IV.PUSH ONE (21:58)
[2018-05-05] MEDS: ceFAZolin Inj 2,000 MG in Sodium Chlor 0.9% Inj 80 ML IV.SIG SCH ×4 (03:31→22:04)
[2018-05-05 03:51] LABS: HCV Genotype 1a (Not Detecte)
[2018-05-05] MEDS: Chlorhexidine Gluconate 2% 1 Pack (2 Cloths) TOPICAL SCH (04:02)
[2018-05-05] MEDS: Sod Chloride 0.9% Inj 1,000 ML IV.CONT SCH ×4 (04:02→21:56)
[2018-05-05] MEDS: Gentamicin/NS 80 mg Premix 100 ML IV.SIG SCH ×2 (06:03→13:41)
--- NOTE | 2018-05-05 08:21 | P.PN ---
Subjective Interval history: 32 year old male presents with a history of right-sided chest pain, left-sided low back pain that he reports began at approximately the same time, 2-3 days after detoxing from heroin/opiate use in [facility]. He reports that he was in incarcerated on April 11 and last used heroin and opiates on April 10. He reports that approximately 2 days into his incarceration he began to have detox symptoms which mainly included numerous episodes of diarrhea. Since then he developed this right-sided lower chest wall pain anteriorly and left-sided low back pain just above the left buttock. He reports that he has had a cough productive of green sputum. He also has had fevers with a T-max in [facility] of 101. He is not currently on any antibiotic. He has been taking ibuprofen and Flexeril at the [facility]. He denies having any prior history of hepatitis or HIV. He denies having any prior history of endocarditis. He reports that he has had skin infections and abscesses in the past related to staph from IV drug use. He denies having any rashes currently. On review of systems otherwise, the patient denies having any neck pain, shortness of breath, abdominal pain, vomiting,urinary symptoms, or neurologic symptoms. The patient last moved his bowels earlier today with a formed stool. He denies having any numbness or tingling to his extremities. He denies having any weakness of his extremities. He reports that he has generalized weakness. He was also noted at the [facility] to have incontinence of urine. Hospitalist Notes: 05/01: Seen in his bedroom, discussed with nurse, no complaint of generalized pain, has Endocarditis, ID specialist and counseling specialist following. 05/02: Seen in his bedroom in the presence of two [facility], as per ID switch from Cefepime to Ancef and continued IV Vancomycin, following Blood cultures if no MRSA to remove Vancomycin. complaint of generalized pain, not eating well. 05/03: Stable in his bedroom in the presence of two Guards, seen by ID specialist question about the possibility of Knee pain seeding, to continue Ancef, stopped Vancomycin, Added Gentamicin for synergy, X ray of both knees and may need MRI of the Knees, continue present care, no nausea, vomit or diarrhea. discussed with nurse Miss Javier and Miss Huffman he continue with some tachycardia she will contact Cardiology for recommendations. 05/04: Seen in his bedroom, two [facility] present on my examination and took my Identification, continue with Generalized pain and difficulty to move his legs. 05/05: Patient today more conversant, better mood, discussed with him about the need for antibiotics probable for some weeks, awaiting final recommendations by ID specialist, no nausea, vomit or diarrhea. Physical Exam Vital signs: Vital Signs 05/04/18 09:00 05/04/18 12:00 05/04/18 14:00 Temperature 98.3 F Pulse Rate 117 H 119 H Respiratory Rate 24 23 Blood Pressure 134/81 Pulse Oximetry 94 L 05/04/18 16:00 05/04/18 20:00 05/05/18 00:00 Temperature 97.8 F 98.5 F 102.1 F H Pulse Rate 120 H 125 H 126 H Respiratory Rate 19 17 18 Blood Pressure 142/99 H 150/75 H 142/74 H Pulse Oximetry 97 94 L 93 L 05/05/18 04:00 Temperature 100.0 F H Pulse Rate 120 H Respiratory Rate 17 Blood Pressure 135/81 Pulse Oximetry 94 L Intake & Output 05/04/18 05/05/18 05/05/18 18:59 06:59 18:59 Intake Total 1840 / 1840 400 / 400 200 / 200 Output Total 1999 2700 / 2700 Balance -160 / -160 -2300 / -2300 200 / 200 Weight 68 kg Intake: IV 1400 / 1400 400 / 400 200 / 200 NS Inj 1,000 ML @ 84 mls/hr IV. 1000 / 1000 CONT .[id number] [facility] Rx#:[id number] Teflaro Inj 600 MG In NS Inj 100 / 100 100 / 100 100 / 100 100 ML @ 100 mls/hr IV.SIG Q8H [facility] Rx#:[id number] Gentamicin/NS 80 mg Premix 100 100 / 100 100 / 100 100 / 100 ML @ 200 mls/hr IV.SIG Q8H [facility] Rx#:[id number] Ancef Inj 2,000 MG In NS Inj 80 200 / 200 200 / 200 ML @ 200 mls/hr IV.SIG Q6H [facility] Rx#:[id number] Oral 440 / 440 Output: Urine 1999 2700 / 2700 Other: Date of Last Bowel Movement 05/03/18 Narrative: GENERAL: NAD, AAOx3 SKIN: Warm and dry. HEAD: Atraumatic. Normocephalic. EYES: Pupils equal and round. No scleral icterus. No injection or drainage. ENT: No nasal bleeding or discharge. Mucous membranes pink and moist. NECK: Trachea midline. No JVD. CARDIOVASCULAR: Regular rhythm, tachycardic RESPIRATORY: breath sounds bilateral, no wheezing or crackles. GASTROINTESTINAL: Abdomen soft, non-tender MUSCULOSKELETAL: Extremities without clubbing, cyanosis, or edema. NEUROLOGICAL: Awake and alert. No obvious cranial nerve deficits. PSYCHIATRIC: Appropriate mood and affect Results - Labs CBC & Chem 7: 05/04/18 12:41 05/04/18 12:41 Laboratory Results - last 24 hr 04/30/18 05/04/18 05/04/18 19:15 12:41 12:41 WBC 16.2 H RBC 3.22 L Hgb 8.9 L Hct 26.7 L MCV 83.1 MCH 27.6 MCHC 33.3 RDW 16.4 Plt Count 250 D MPV 7.2 Neut % (Auto) 86.4 H Lymph % (Auto) 7.5 L [place] % (Auto) 5.6 Eos % (Auto) 0.3 Baso % (Auto) 0.2 Neut # (Auto) 14.0 H Lymph # (Auto) 1.2 [place] # (Auto) 0.9 Eos # (Auto) 0.0 Baso # (Auto) 0.0 WBC Differential . Differential Comment Auto diff final Sodium 129 L Potassium 4.2 Chloride 99 Carbon Dioxide 22.3 Anion Gap 8 BUN 15 Creatinine 0.78 Estimated GFR Greater than 89 Random Glucose 87 Calcium 7.3 L* Prot Corrected Calcium 7.6 L Total Bilirubin 0.3 AST 74 H ALT 36 Alkaline Phosphatase 87 Total Protein 6.6 Albumin 1.2 L HCV RNA Genotype 1a Microbiology 05/03/18 04:42 Blood - Peripheral Aerobic Blood Culture - Preliminary No growth in 1 day 05/03/18 04:42 Blood - Peripheral Anaerobic Blood Culture - Preliminary No growth in 1 day 05/02/18 04:46 Blood - Peripheral Aerobic Blood Culture - Preliminary gram positive cocci 05/02/18 04:46 Blood - Peripheral Anaerobic Blood Culture - Preliminary No growth in 2 days 05/01/18 14:25 Blood - Peripheral Aerobic Blood Culture - Final Staphylococcus aureus 05/01/18 14:25 Blood - Peripheral Anaerobic Blood Culture - Preliminary No growth in 3 days 05/01/18 14:15 Blood - Peripheral Aerobic Blood Culture - Final Staphylococcus aureus 05/01/18 14:15 Blood - Peripheral Anaerobic Blood Culture - Preliminary No growth in 3 days Assessment and Plan - Plan 1. Elevated Troponin with atypical chest pain, Pleuritic in nature, findings suggestive of septic Emboli in the lungs, questionable Infective endocarditis, ID specialist following, patient is IDU, Prior history of MRSA, skin abscess, CT lumbar no evidence of lesion, recommended IV Cefepime for GNR and PSAE coverage, IV Vancomycin, awaiting SARAH result, due to Lumbar pain that continued was performed Lumbar MRI as recommended by ID specialist no evidence of discitis or other acute process, areas of focally altered peripheral signal intensity and enhancement in the kidneys which may be areas of focal Pyelonephritis or renal cortical infarctions. was unable to anticoagulate due to severe thrombocytopenia 2. 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 LE weakness is concerning for discitis infectious. Repeat BC to document clearing 3. Elevated troponin continue with Tachycardia Cardiology following. Secondary to endocarditis, septic emboli and overall illness Cardiology following, has large vegetation on tricuspid valve and moderate to large on mitral valve, Moderate TR CT surgery consulted by counseling specialist. 4. IDU, Opiate dependency, avoid opioids and narcotics, 5. AtOH dependence no signs of withdrawal. 6. Multiple infarcts of spleen likely infectious emboli, continue IV antibiotics. 7. Elevated LFTs history of IDU, CT abd and Pelvis with contrast, (04/30) Areas of low-density are seen in the spleen could be lacerations versus infarcts. No hemoperitoneum. Bilateral renal low-density likely benign. Hepatitis C genotype and quantitative, ID following. DVT GI prophylaxis -Teds SCDs -No pharmacological DVT prophylaxis due to thrombocytopenia -IV Pepcid No changes to anterior assessment. Code Status: Full code Discussed Condition With: Patient and nurse. Discharge Planning: Once cleared by specialists.
[2018-05-05] MEDS: Famotidine PF Inj 20 MG/2 ML Vial IV.PUSH SCH ×2 (08:32→21:46)
[2018-05-05] MEDS: Senna/Docusate Sodium 8.6/50 MG Tablet PO SCH ×2 (08:32→21:53)
[2018-05-05] MEDS: GENTAMICIN IV.SIG SCH (21:47)
[2018-05-05] MEDS: SODIUM CHLOR 0.9% IV.SIG SCH (21:47)
[2018-05-05] MEDS: Acetaminophen 325 MG Tablet PO PRN (23:00)
[2018-05-06] MEDS: ceFAZolin Inj 2,000 MG in Sodium Chlor 0.9% Inj 80 ML IV.SIG SCH ×4 (03:55→22:06)
[2018-05-06] MEDS: Sod Chloride 0.9% Inj 1,000 ML IV.CONT SCH ×2 (04:28→14:46)
[2018-05-06 05:07] LABS: Baso % (Auto) 0.2 % (0.0-2.0); Eos # (Auto) 0.1 th/mm3 (0.0-0.4); Eos % (Auto) 0.7 % (0.0-4.0); Hematocrit 28.2 % (39.0-51.0); Hemoglobin 9.2 gm/dL (13.0-17.0); Lymph # (Auto) 1.3 th/mm3 (1.0-4.8); Lymph % (Auto) 8.4 % (9.0-44.0); Mean Corpuscular HGB Conc 32.7 % (32.0-36.0); Mean Corpuscular Hemoglobin 27.4 pg (27.0-34.0); Mean Corpuscular Volume 83.7 fL (80.0-100.0); Mean Platelet Volume 6.9 fL (7.0-11.0); Mono # (Auto) 0.9 th/mm3 (0.0-0.9); Mono % (Auto) 5.9 % (0.0-8.0); Neut # (Auto) 12.9 th/mm3 (1.8-7.7); Neut % (Auto) 84.8 % (16.0-70.0); Platelet Count 347 th/mm3 (150-450); Red Blood Count 3.37 mil/mm3 (4.50-5.90); Red Cell Distribution Width 16.7 % (11.6-17.2); White Blood Count 15.3 th/mm3 (4.0-11.0)
[2018-05-06 05:30] LABS: Anion Gap 7 meq/L (5-15); Blood Urea Nitrogen 16 mg/dL (7-18); Calcium 8.1 mg/dL (8.5-10.1); Carbon Dioxide 23.5 meq/L (21.0-32.0); Chloride 102 meq/L (98-107); Glomerular Filtration Rate Greater Than 89 mL/min (>89); Glucose,Random 94 mg/dL (74-106); Potassium 4.2 meq/L (3.5-5.1); Sodium 132 meq/L (136-145)
[2018-05-06] MEDS: SODIUM CHLOR 0.9% IV.SIG SCH ×3 (05:34→22:06)
[2018-05-06] MEDS: GENTAMICIN IV.SIG SCH ×3 (05:34→22:06)
[2018-05-06] MEDS: Senna/Docusate Sodium 8.6/50 MG Tablet PO SCH ×2 (08:14→22:07)
[2018-05-06] MEDS: Famotidine PF Inj 20 MG/2 ML Vial IV.PUSH SCH ×2 (08:14→22:06)
--- NOTE | 2018-05-06 10:58 | P.PN ---
Subjective Interval history: 32 year old male presents with a history of right-sided chest pain, left-sided low back pain that he reports began at approximately the same time, 2-3 days after detoxing from heroin[facility]opiate use in [facility]. He reports that he was in incarcerated on April 11 and last used heroin and opiates on April 10. He reports that approximately 2 days into his incarceration he began to have detox symptoms which mainly included numerous episodes of diarrhea. Since then he developed this right-sided lower chest wall pain anteriorly and left-sided low back pain just above the left buttock. He reports that he has had a cough productive of green sputum. He also has had fevers with a T-max in [facility] of 101. He is not currently on any antibiotic. He has been taking ibuprofen and Flexeril at the [facility]. He denies having any prior history of hepatitis or HIV. He denies having any prior history of endocarditis. He reports that he has had skin infections and abscesses in the past related to staph from IV drug use. He denies having any rashes currently. On review of systems otherwise, the patient denies having any neck pain, shortness of breath, abdominal pain, vomiting,urinary symptoms, or neurologic symptoms. The patient last moved his bowels earlier today with a formed stool. He denies having any numbness or tingling to his extremities. He denies having any weakness of his extremities. He reports that he has generalized weakness. He was also noted at the [facility] to have incontinence of urine. Hospitalist Notes: 05/01: Seen in his bedroom, discussed with nurse, no complaint of generalized pain, has Endocarditis, ID specialist and market development specialist following. 05/02: Seen in his bedroom in the presence of two Long-Term Guards, as per ID switch from Cefepime to Ancef and continued IV Vancomycin, following Blood cultures if no MRSA to remove Vancomycin. complaint of generalized pain, not eating well. 05/03: Stable in his bedroom in the presence of two Guards, seen by ID specialist question about the possibility of Knee pain seeding, to continue Ancef, stopped Vancomycin, Added Gentamicin for synergy, X ray of both knees and may need MRI of the Knees, continue present care, no nausea, vomit or diarrhea. discussed with nurse Miss Javier and Miss Huffman he continue with some tachycardia she will contact Cardiology for recommendations. 05/04: Seen in his bedroom, two [employer]-Term Guards present on my examination and took my Identification, continue with Generalized pain and difficulty to move his legs. 05/05: Patient today more conversant, better mood, discussed with him about the need for antibiotics probable for some weeks, awaiting final recommendations by ID specialist. 05/06: Patient continue to complaint of generalized pain, but encourage to increase activity, no nausea, vomit or diarrhea continue antibiotics. latest blood culture no growth in 2 days from 05/03 and last one from 05/05. Physical Exam Vital signs: Vital Signs 05/05/18 12:00 05/05/18 16:00 05/05/18 20:00 Temperature 97.9 F 98.6 F 98.8 F Pulse Rate 113 H 122 H 123 H Respiratory Rate 17 17 17 Blood Pressure 138/75 123/99 H 139/69 Pulse Oximetry 94 L 94 L 95 05/06/18 00:00 05/06/18 00:31 05/06/18 04:00 Temperature 101.1 F H 99.8 F H 97.9 F Pulse Rate 120 H 99 H Respiratory Rate 17 17 Blood Pressure 143/79 H 130/78 Pulse Oximetry 93 L 97 05/06/18 08:00 Temperature 99.2 F Pulse Rate 115 H Respiratory Rate 18 Blood Pressure 133/71 Pulse Oximetry 95 Intake & Output 05/05/18 05/06/18 05/06/18 18:59 06:59 18:59 Intake Total 300 / 300 2604.250 / 2604.250 100 / 100 Output Total 3000 / 3000 Balance 300 / 300 -395.750 / -395.750 100 / 100 Intake: IV 300 / 300 2004.250 / 2004.250 100 / 100 NS Inj 1,000 ML @ 84 mls/hr IV. 1000 / 1000 CONT .[id number] FORD Rx#:[id number] Teflaro Inj 600 MG In NS Inj 100 / 100 300 / 300 100 ML @ 100 mls/hr IV.SIG Q8H FORD Rx#:[id number] Gentamicin Inj 85 MG In NS Inj 204.250 / 204.250 100 ML @ 200 mls/hr IV.SIG Q8H FORD Rx#:[id number] Gentamicin/NS 80 mg Premix 100 100 / 100 100 / 100 ML @ 200 mls/hr IV.SIG Q8H FORD Rx#:[id number] Ancef Inj 2,000 MG In NS Inj 80 100 / 100 300 / 300 100 / 100 ML @ 200 mls/hr IV.SIG Q6H FORD Rx#:[id number] Oral 600 / 600 Output: Urine 3000 / 3000 Other: Date of Last Bowel Movement 05/03/18 05/04/18 Narrative: GENERAL: NAD, AAOx3 SKIN: Warm and dry. HEAD: Atraumatic. Normocephalic. EYES: Pupils equal and round. No scleral icterus. No injection or drainage. ENT: No nasal bleeding or discharge. Mucous membranes pink and moist. NECK: Trachea midline. No JVD. CARDIOVASCULAR: Regular rhythm, tachycardic RESPIRATORY: breath sounds bilateral, no wheezing or crackles. GASTROINTESTINAL: Abdomen soft, non-tender MUSCULOSKELETAL: Extremities without clubbing, cyanosis, or edema. NEUROLOGICAL: Awake and alert. No obvious cranial nerve deficits. PSYCHIATRIC: Appropriate mood and affect Results - Labs CBC & Chem 7: 05/06/18 03:55 05/06/18 03:55 Laboratory Results - last 24 hr 05/06/18 05/06/18 03:55 03:55 WBC 15.3 H RBC 3.37 L Hgb 9.2 L Hct 28.2 L MCV 83.7 MCH 27.4 MCHC 32.7 RDW 16.7 Plt Count 347 D MPV 6.9 L Neut % (Auto) 84.8 H Lymph % (Auto) 8.4 L [place] % (Auto) 5.9 Eos % (Auto) 0.7 Baso % (Auto) 0.2 Neut # (Auto) 12.9 H Lymph # (Auto) 1.3 [place] # (Auto) 0.9 Eos # (Auto) 0.1 Baso # (Auto) 0.0 WBC Differential . Differential Comment Auto diff final Sodium 132 L Potassium 4.2 Chloride 102 Carbon Dioxide 23.5 Anion Gap 7 BUN 16 Creatinine 0.83 Estimated GFR Greater than 89 Random Glucose 94 Calcium 8.1 L D Microbiology 05/02/18 04:46 Blood - Peripheral Aerobic Blood Culture - Final Staphylococcus aureus 05/02/18 04:46 Blood - Peripheral Anaerobic Blood Culture - Preliminary No growth in 3 days 05/03/18 04:42 Blood - Peripheral Aerobic Blood Culture - Preliminary No growth in 2 days 05/03/18 04:42 Blood - Peripheral Anaerobic Blood Culture - Preliminary No growth in 2 days 05/01/18 14:25 Blood - Peripheral Aerobic Blood Culture - Final Staphylococcus aureus 05/01/18 14:25 Blood - Peripheral Anaerobic Blood Culture - Preliminary No growth in 4 days 05/01/18 14:15 Blood - Peripheral Aerobic Blood Culture - Final Staphylococcus aureus 05/01/18 14:15 Blood - Peripheral Anaerobic Blood Culture - Preliminary No growth in 4 days Assessment and Plan - Plan 1. Elevated Troponin with atypical chest pain, Pleuritic in nature, findings suggestive of septic Emboli in the lungs, questionable Infective endocarditis, ID specialist following, patient is IDU, Prior history of MRSA, skin abscess, CT lumbar no evidence of lesion, recommended IV Cefepime for GNR and PSAE coverage, IV Vancomycin, awaiting SARAH result, due to Lumbar pain that continued was performed Lumbar MRI as recommended by ID specialist no evidence of discitis or other acute process, areas of focally altered peripheral signal intensity and enhancement in the kidneys which may be areas of focal Pyelonephritis or renal cortical infarctions. was unable to anticoagulate due to severe thrombocytopenia 2. 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 LE weakness is concerning for discitis infectious. Repeat BC to document clearing, negative blood cultures from 05/03 and 05/05. 3. Elevated troponin continue with Tachycardia Cardiology following. Secondary to endocarditis, septic emboli and overall illness Cardiology following, has large vegetation on tricuspid valve and moderate to large on mitral valve, Moderate TR CT surgery consulted by market development specialist. 4. IDU, Opiate dependency, avoid opioids and narcotics, 5. AtOH dependence no signs of withdrawal. 6. Multiple infarcts of spleen likely infectious emboli, continue IV antibiotics. 7. Elevated LFTs history of IDU, CT abd and Pelvis with contrast, (04/30) Areas of low-density are seen in the spleen could be lacerations versus infarcts. No hemoperitoneum. Bilateral renal low-density likely benign. Hepatitis C genotype and quantitative, ID following. DVT GI prophylaxis -Teds SCDs -No pharmacological DVT prophylaxis due to thrombocytopenia -IV Pepcid Encourage activity. Code Status: Full code. Discussed Condition With: Patient, Nurse Miss Jhaveri and one guardian ad litem in the room. Discharge Planning: Once cleared by specialists.
--- NOTE | 2018-05-06 11:46 | MB ---
cc: Cruzito Espinal DO DATE: 04/30/2018 REASON FOR CONSULTATION: Septic emboli. HISTORY OF PRESENT ILLNESS: Dena Barrios is a 32-year-old male coming in complaining of chest pain and low back pain. He has been detoxing from heroin and opiate use while in [facility] for the past 2-3 days. He was incarcerated on 04/11/2018 and his last heroin and opiate use was 04/10/2018. He started going through symptoms of detoxification including numerous episodes of diarrhea. He started noticing chest wall pain as well as left-sided low back pain just above his buttocks. He has also had a cough productive of green sputum. While in [facility], he had a temperature of 101. On arrival here, a CTA was done showing possible septic emboli and I was asked to see him for consideration of a transesophageal echocardiogram to further evaluate for possible endocarditis. In seeing him, he is tachycardic, but otherwise hemodynamically stable. PAST MEDICAL HISTORY: 1. IV drug abuse. 2. Right foot injury. 3. Back pain. PAST SURGICAL HISTORY: Foot surgery. ALLERGIES: TYLENOL. MEDICATIONS: 1. Flexeril 10 mg b.i.d. 2. Ibuprofen 600 mg b.i.d. FAMILY HISTORY: Denies premature coronary artery disease or sudden cardiac within the family. SOCIAL HISTORY: The patient smokes a pack of cigarettes a day. He denies alcohol. He does use IV drugs with the last time being 04/10/2018. REVIEW OF SYSTEMS: Fourteen systems were reviewed including osteopathic. Pertinent positives and negatives above, otherwise negative. PHYSICAL EXAMINATION: VITAL SIGNS: Temperature 97.9, heart rate 104, blood pressure 108/67, respirations 25, pulse oximetry 98% on room air. GENERAL: The patient appears in no acute distress. Alert, awake and oriented x 3. HEENT: Extraocular muscles intact. Mucous membranes moist. NECK: Supple. No JVD at 45 degrees. No carotid bruits heard bilaterally. Carotid upstroke is brisk in nature. HEART: Tachycardic, but regular rhythm. There is a 2/6 holosystolic murmur along the right sternal border. LUNGS: Coarse breath sounds throughout. ABDOMEN: Soft, nontender, nondistended. No organomegaly noted. EXTREMITIES: Show no clubbing, cyanosis or edema. Femoral and distal pulses are intact bilaterally. NEUROLOGIC: No focal deficits. SKIN: Warm, dry and intact. OSTEOPATHIC: No kyphoscoliosis or lordosis. LABORATORY DATA: Hemoglobin 9.3, hematocrit 26.9, platelets 139, potassium 3.9, BUN 27, creatinine 1.11. Troponin 3.85. C-reactive protein 15.8. IMPRESSION: 1. IV drug abuse with heroin, last use 04/10/2018. 2. Elevated troponins. 3. Septic emboli. 4. Elevated liver function tests. 5. Tobacco abuse. RECOMMENDATIONS: 1. Mr. Barrios presented after IV drug abuse and symptoms concerning for possible septic emboli. 2. CT was done of his chest showing septic emboli throughout the lungs. There are also possible emboli seen in the spleen. 3. Because of this and the high risk of endocarditis, he will be recommended transesophageal echocardiogram. Risks, benefits and alternatives have been explained to him and he consented to such. 4. He does have an elevated troponin, but this is most likely secondary to his overall illness as well as probable endocarditis and septic emboli. 5. Further recommendations will be made after transesophageal echocardiogram. Thank you for allowing me to see Dena Hess. If there are any questions, please do not hesitate to call. DO SAW CaceresP/juan , 09:37 PM , 09:49 PM
--- NOTE | 2018-05-06 13:46 | P.PNID ---
Subjective Remarks: Patient is a 32-year-old male, brought into the hospital for further evaluation of chest pain. Patient is under custody and has been in long term since April 11. According to the patient several days into his incarceration, he started experiencing lower chest pain that is pleuritic in nature. He also started complaining of pain on his lumbar region more on the left side. He has not been coughing. He apparently has been having fevers. Patient has known IV drug use, and the last time he used it was the day before he got incarcerated. Has not any nausea or vomiting. Denies any diarrhea or urinary complaints. He has no prior history of endocarditis, but has had problem with skin abscesses. There is also mention that he has had previous HIV and hepatitis testing and they were both negative and this was from last year. Patient is afebrile. His hemodynamics are stable. His WBC is normal. Patient had CT of the chest which is showing multiple bilateral pulmonary nodules some of which are cavitating. CT of the abdomen and pelvis is showing some findings possibly of splenic infarcts. His blood cultures are currently pending. Infectious disease consultation has been requested to evaluate the patient with possible endocarditis. Notes reviewed Still with intermittent fevers No new (+) BC NO new complaint Joint pains better CP better No rash or itching No or GI complaints SARAH with MV vegetations and large TV vegetation, and possible mod TR CTS evaluation noted. MRI L spine noted. Denies any back pain or neck pain. Antibiotics: Ancef Teflaro IV Genta IV Past Medical History: Back pain IV drug abuse Right foot injury Skin abscess H/O foot surgery Allergies/Adverse Reactions: Allergies acetaminophen Allergy (Intermediate, Verified 07/08/17 16:38) STOMACH UPSET Objective Vital Signs 05/05/18 16:00 05/05/18 20:00 05/06/18 00:00 Temperature 98.6 F 98.8 F 101.1 F H Pulse Rate 122 H 123 H 120 H Respiratory Rate 17 17 17 Blood Pressure 123/99 H 139/69 143/79 H Pulse Oximetry 94 L 95 93 L 05/06/18 00:31 05/06/18 04:00 05/06/18 08:00 Temperature 99.8 F H 97.9 F 99.2 F Pulse Rate 99 H 115 H Respiratory Rate 17 18 Blood Pressure 130/78 133/71 Pulse Oximetry 97 95 05/06/18 12:00 Temperature 99.3 F Pulse Rate 111 H Respiratory Rate 22 Blood Pressure 135/71 Pulse Oximetry 95 Intake & Output 05/05/18 05/06/18 05/06/18 18:59 06:59 18:59 Intake Total 300 / 300 2604.250 / 2604.250 1100 / 1100 Output Total 3000 / 3000 Balance 300 / 300 -395.750 / -847.532 6149 / 1100 Intake: IV 300 / 300 2004.250 / 2004.250 1100 / 1100 NS Inj 1,000 ML @ 84 mls/hr IV. 1000 / 1000 1000 / 1000 CONT .[id number] [facility] Rx#:[id number] Teflaro Inj 600 MG In NS Inj 100 / 100 300 / 300 100 ML @ 100 mls/hr IV.SIG Q8H FORD Rx#:[id number] Gentamicin Inj 85 MG In NS Inj 204.250 / 204.250 100 ML @ 200 mls/hr IV.SIG Q8H FORD Rx#:[id number] Gentamicin/NS 80 mg Premix 100 100 / 100 100 / 100 ML @ 200 mls/hr IV.SIG Q8H FORD Rx#:[id number] Ancef Inj 2,000 MG In NS Inj 80 100 / 100 300 / 300 100 / 100 ML @ 200 mls/hr IV.SIG Q6H FORD Rx#:[id number] Oral 600 / 600 Output: Urine 3000 / 3000 Other: Date of Last Bowel Movement 05/03/18 05/04/18 05/05/18 14:55 Blood - Peripheral Aerobic Blood Culture - Preliminary No growth in 1 day 05/05/18 14:55 Blood - Peripheral Anaerobic Blood Culture - Preliminary No growth in 1 day 05/03/18 04:42 Blood - Peripheral Aerobic Blood Culture - Preliminary No growth in 3 days 05/03/18 04:42 Blood - Peripheral Anaerobic Blood Culture - Preliminary No growth in 3 days 05/02/18 04:46 Blood - Peripheral Aerobic Blood Culture - Final Staphylococcus aureus 05/02/18 04:46 Blood - Peripheral Anaerobic Blood Culture - Preliminary No growth in 4 days 05/01/18 14:25 Blood - Peripheral Aerobic Blood Culture - Final Staphylococcus aureus 05/01/18 14:25 Blood - Peripheral Anaerobic Blood Culture - Final No growth in 5 days 05/01/18 14:15 Blood - Peripheral Aerobic Blood Culture - Final Staphylococcus aureus 05/01/18 14:15 Blood - Peripheral Anaerobic Blood Culture - Final No growth in 5 days Lab - Hematology Results 05/06/18 03:55 WBC 15.3 H RBC 3.37 L Hgb 9.2 L Hct 28.2 L MCV 83.7 MCH 27.4 MCHC 32.7 RDW 16.7 Plt Count 347 D MPV 6.9 L Neut % (Auto) 84.8 H Lymph % (Auto) 8.4 L [place] % (Auto) 5.9 Eos % (Auto) 0.7 Baso % (Auto) 0.2 Neut # (Auto) 12.9 H Lymph # (Auto) 1.3 [place] # (Auto) 0.9 Eos # (Auto) 0.1 Baso # (Auto) 0.0 WBC Differential . Differential Comment Auto diff final Lab - Chemistry Results 05/04/18 05/06/18 12:41 03:55 Sodium 129 L 132 L Potassium 4.2 4.2 Chloride 99 102 Carbon Dioxide 22.3 23.5 Anion Gap 8 7 BUN 15 16 Creatinine 0.78 0.83 Estimated GFR Greater than 89 Greater than 89 Random Glucose 87 94 Calcium 7.3 L* 8.1 L D Prot Corrected Calcium 7.6 L Total Bilirubin 0.3 AST 74 H ALT 36 Alkaline Phosphatase 87 Total Protein 6.6 Albumin 1.2 L Imaging: ITS Impressions Chest X-Ray 04/30/18 01:23 CONCLUSION: Right basilar pleural-parenchymal density. Abdomen/Pelvis CT 04/30/18 01:58 CONCLUSION: 1. Areas of low-density are seen in the spleen could be lacerations versus infarcts. No hemoperitoneum. 2. Bilateral renal low-density likely benign. 3. Right pleural effusion. Lumbar Spine CT 04/30/18 01:58 CONCLUSION: 1. Disc bulges at L3-4, L4-5 and L5-S1 levels. No canal stenosis. 2. No fracture or spondylolisthesis. Thoracic Spine CT 04/30/18 01:58 CONCLUSION: 1. Unremarkable thoracic spine. Chest CT 04/30/18 03:09 CONCLUSION: 1. Numerous bilateral pulmonary nodules many of which are cavitated, likely septic emboli. 2. Small moderate right pleural effusion with partial loculation. Lumbar Spine MRI 05/01/18 00:00 CONCLUSION: 1. No evidence of discitis or other acute process in the lumbar spine. 2. Areas of focally altered peripheral signal intensity and enhancement in the kidneys which may be areas of focal pyelonephritis or renal cortical infarctions Knee X-Ray 05/02/18 00:00 CONCLUSION: No acute findings. Physical Exam: GENERAL: awake and alert, NAD SKIN: Warm and dry. No generalized rash HEAD: Atraumatic. Normocephalic. No temporal wasting, or tenderness. EYES: [place] conjunctiva. Has small petechia L lower eyelid. Pupils equal, round and reactive to light. Extraocular movements full and intact. No scleral icterus. No injection or drainage. EARS, NOSE AND THROAT: Nose without bleeding or purulent nasal discharge. Mucous membranes pink and moist. No oral lesions noted. NECK: Trachea midline. Supple and not tender, no meningeal signs CARDIOVASCULAR: Tachycardic. No murmurs, rubs or gallops heard RESPIRATORY: Clear to auscultation. Breath sounds equal bilaterally. No rales , wheezing or rhonchi ABDOMEN: Soft, flat, non-tender, nondistended. Bowel sounds present and normoactive. No guarding. No rebound. No organomegaly. EXTREMITIES: No clubbing, cyanosis. Swelling in both knees better. Good ROM No calf tenderness. Well perfused and warm. NEUROLOGICAL: Awake and alert. Cranial nerves grossly intact. Motor symmetrical PSYCHIATRIC: Normal affect, calm and cooperative. LINE: No evidence of infection Assessment and Plan - Plan Impressions Chest pain, pleuritic, with findings suggestive of septic emboli in lungs TV and MV IE, BC with Staph aureus MSSA ? Infective discitis. Bilateral renal infarcts ? pyelo. Knee pain, ?seeding Hx multiple skin abscesses Prior Hx MRSA infection in his skin abscess Active IVDU Back pain, CT lumbar spine ok, no evidence of infection Fevers Recommendation Continue IV Ancef Stop Teflaro IV Continue IV Gentamicin for synergy - follow creatinine, UO. Follow C/S Follow temps Repeat UA and C/S Monitor progress
[2018-05-06 16:48] LABS: Bacteria,Urine Occasional /hpf; Bilirubin,Urine Negative (Negative); Clarity,Urine Hazy (Clear); Color,Urine Yellow (Yellw/Straw); Glucose,Urine (UA) Negative (Negative); Leukocyte Esterase,Urine Negative (Negative); Nitrite,Urine Negative (Negative); Specific Gravity,Urine 1.013 (1.002-1.035)
[2018-05-06] MEDS ORDERED: Pharmacy Ordered Lab Info OTHER ONE ×2 (21:45→23:00)
[2018-05-07] MEDS: ceFAZolin Inj 2,000 MG in Sodium Chlor 0.9% Inj 80 ML IV.SIG SCH ×4 (05:11→23:43)
[2018-05-07] MEDS: SODIUM CHLOR 0.9% IV.SIG SCH ×2 (05:12→14:15)
[2018-05-07] MEDS: Sod Chloride 0.9% Inj 1,000 ML IV.CONT SCH ×3 (05:12→15:50)
[2018-05-07] MEDS: GENTAMICIN IV.SIG SCH ×2 (05:12→14:15)
[2018-05-07] MEDS: Famotidine PF Inj 20 MG/2 ML Vial IV.PUSH SCH ×2 (10:37→23:40)
[2018-05-07] MEDS: Senna/Docusate Sodium 8.6/50 MG Tablet PO SCH ×2 (10:38→23:53)
--- NOTE | 2018-05-07 11:56 | P.PN ---
Subjective Interval history: 32 year old male presents with a history of right-sided chest pain, left-sided low back pain that he reports began at approximately the same time, 2-3 days after detoxing from heroin/opiate use in [facility]. He reports that he was in incarcerated on April 11 and last used heroin and opiates on April 10. He reports that approximately 2 days into his incarceration he began to have detox symptoms which mainly included numerous episodes of diarrhea. Since then he developed this right-sided lower chest wall pain anteriorly and left-sided low back pain just above the left buttock. He reports that he has had a cough productive of green sputum. He also has had fevers with a T-max in [facility] of 101. He is not currently on any antibiotic. He has been taking ibuprofen and Flexeril at the [facility]. He denies having any prior history of hepatitis or HIV. He denies having any prior history of endocarditis. He reports that he has had skin infections and abscesses in the past related to staph from IV drug use. He denies having any rashes currently. On review of systems otherwise, the patient denies having any neck pain, shortness of breath, abdominal pain, vomiting,urinary symptoms, or neurologic symptoms. The patient last moved his bowels earlier today with a formed stool. He denies having any numbness or tingling to his extremities. He denies having any weakness of his extremities. He reports that he has generalized weakness. He was also noted at the [facility] to have incontinence of urine. Hospitalist Notes: 05/01: Seen in his bedroom, discussed with nurse, no complaint of generalized pain, has Endocarditis, ID specialist and provisioning specialist following. 05/02: Seen in his bedroom in the presence of two [employer], as per ID switch from Cefepime to Ancef and continued IV Vancomycin, following Blood cultures if no MRSA to remove Vancomycin. complaint of generalized pain, not eating well. 05/03: Stable in his bedroom in the presence of two Guards, seen by ID specialist question about the possibility of Knee pain seeding, to continue Ancef, stopped Vancomycin, Added Gentamicin for synergy, X ray of both knees and may need MRI of the Knees, continue present care, no nausea, vomit or diarrhea. discussed with nurse Miss Javier and Miss Huffman he continue with some tachycardia she will contact Cardiology for recommendations. 05/04: Seen in his bedroom, two [employer] present on my examination and took my Identification, continue with Generalized pain and difficulty to move his legs. 05/05: Patient today more conversant, better mood, discussed with him about the need for antibiotics probable for some weeks, awaiting final recommendations by ID specialist. 05/06: Patient continue to complaint of generalized pain, but encourage to increase activity, continue antibiotics. latest blood culture no growth in 2 days from 05/03 and last one from 05/05. 05/07: Seen by ID specialist recommended to continue Ancef, Stopped Teflaro, continue IV Gentamicin for Synergy, seen in his bedroom, continue same complaint of generalized pain, encourage ambulation. Physical Exam Vital signs: Vital Signs 05/06/18 12:00 05/06/18 16:00 05/06/18 20:00 Temperature 99.3 F 98.9 F 98.8 F Pulse Rate 111 H 120 H 119 H Respiratory Rate 22 20 21 Blood Pressure 135/71 136/76 127/73 Pulse Oximetry 95 93 L 94 L 05/07/18 00:00 05/07/18 01:39 05/07/18 04:00 Temperature 100.9 F H 99.3 F Pulse Rate 111 H 104 H Respiratory Rate 20 17 19 Blood Pressure 138/47 L 131/77 Pulse Oximetry 95 94 L 05/07/18 08:00 Temperature 99.1 F Pulse Rate 111 H Respiratory Rate 22 Blood Pressure 125/77 Pulse Oximetry 96 Intake & Output 05/06/18 05/07/18 05/07/18 18:59 06:59 18:59 Intake Total 4610.125 / 4610.125 2904.250 / 2904.250 100 / 100 Output Total 1400 / 1400 Balance 3210.125 / 3210.125 2904.250 / 2904.250 100 / 100 Weight 68.4 kg Intake: IV 1302.125 / 0837.300 2899.250 / 1404.250 100 / 100 NS Inj 1,000 ML @ 84 mls/hr IV. 1000 / 1000 1000 / 1000 CONT .[id number] [facility] Rx#:[id number] Gentamicin Inj 85 MG In NS Inj 102.125 / 102.125 204.250 / 204.250 100 ML @ 200 mls/hr IV.SIG Q8H [facility] Rx#:[id number] Ancef Inj 2,000 MG In NS Inj 80 200 / 200 200 / 200 100 / 100 ML @ 200 mls/hr IV.SIG Q6H [facility] Rx#:[id number] Oral 1800 / 1800 1500 / 1500 Other 1508 / 1508 Output: Urine 1400 / 1400 Other: Other Intake Source Saline Solution # Voids 4 Date of Last Bowel Movement 05/06/18 05/05/18 Narrative: GENERAL: NAD, AAOx3 SKIN: Warm and dry. HEAD: Atraumatic. Normocephalic. EYES: Pupils equal and round. No scleral icterus. No injection or drainage. ENT: No nasal bleeding or discharge. Mucous membranes pink and moist. NECK: Trachea midline. No JVD. CARDIOVASCULAR: Regular rhythm, tachycardic RESPIRATORY: breath sounds bilateral, no wheezing or crackles. GASTROINTESTINAL: Abdomen soft, non-tender MUSCULOSKELETAL: Extremities without clubbing, cyanosis, or edema. NEUROLOGICAL: Awake and alert. No obvious cranial nerve deficits. PSYCHIATRIC: Appropriate mood and affect Results - Labs CBC & Chem 7: 05/06/18 03:55 05/06/18 03:55 Laboratory Results - last 24 hr 05/06/18 05/06/18 05/06/18 15:00 21:45 23:20 Urine Color Yellow Urine Clarity Hazy H Urine pH 5.0 Ur Specific Wilson 1.013 Urine Protein Negative Urine Glucose (UA) Negative Urine Ketones Negative Urine Occult Blood Small H Urine Nitrate Negative Urine Bilirubin Negative Urine Urobilinogen Less than 2 Ur Leukocyte Esterase Negative Urine RBC 1 Urine WBC 9 H Urine WBC Clumps Rare H Urine Bacteria Occasional H Micro UA Comment Culture indicated Urine Culture Comments Culture indicated Gentamicin Peak 4.5 Gentamicin Trough 1.1 Microbiology 05/05/18 14:55 Blood - Peripheral Aerobic Blood Culture - Preliminary No growth in 2 days 05/05/18 14:55 Blood - Peripheral Anaerobic Blood Culture - Preliminary No growth in 2 days 05/03/18 04:42 Blood - Peripheral Aerobic Blood Culture - Preliminary No growth in 4 days 05/03/18 04:42 Blood - Peripheral Anaerobic Blood Culture - Preliminary No growth in 4 days 05/02/18 04:46 Blood - Peripheral Aerobic Blood Culture - Final Staphylococcus aureus 05/02/18 04:46 Blood - Peripheral Anaerobic Blood Culture - Final No growth in 5 days 05/01/18 14:25 Blood - Peripheral Aerobic Blood Culture - Final Staphylococcus aureus 05/01/18 14:25 Blood - Peripheral Anaerobic Blood Culture - Final No growth in 5 days 05/01/18 14:15 Blood - Peripheral Aerobic Blood Culture - Final Staphylococcus aureus 05/01/18 14:15 Blood - Peripheral Anaerobic Blood Culture - Final No growth in 5 days Assessment and Plan - Plan 1. Elevated Troponin with atypical chest pain, Pleuritic in nature, findings suggestive of septic Emboli in the lungs, questionable Infective endocarditis, ID specialist following, patient is IDU, Prior history of MRSA, skin abscess, CT lumbar no evidence of lesion, recommended IV Cefepime for GNR and PSAE coverage, IV Vancomycin, awaiting SARAH result, due to Lumbar pain that continued was performed Lumbar MRI as recommended by ID specialist no evidence of discitis or other acute process, areas of focally altered peripheral signal intensity and enhancement in the kidneys which may be areas of focal Pyelonephritis or renal cortical infarctions. was unable to anticoagulate due to severe thrombocytopenia 2. 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 LE weakness is concerning for discitis infectious. Repeat BC to document clearing, negative blood cultures from 05/03 and 05/05. ID specialist recommended to continue Ancef, Stopped Teflaro, continue IV Gentamicin for Synergy. 3. Elevated troponin continue with Tachycardia Cardiology following. Secondary to endocarditis, septic emboli and overall illness Cardiology following, has large vegetation on tricuspid valve and moderate to large on mitral valve, Moderate TR CT surgery consulted by provisioning specialist. 4. IDU, Opiate dependency, avoid opioids and narcotics, 5. AtOH dependence no signs of withdrawal. 6. Multiple infarcts of spleen likely infectious emboli, continue IV antibiotics. 7. Elevated LFTs history of IDU, CT abd and Pelvis with contrast, (04/30) Areas of low-density are seen in the spleen could be lacerations versus infarcts. No hemoperitoneum. Bilateral renal low-density likely benign. Hepatitis C genotype and quantitative, ID following. DVT GI prophylaxis -Teds SCDs -No pharmacological DVT prophylaxis due to thrombocytopenia -IV Pepcid Encourage activity. Code Status: Full Code Discussed Condition With: Patient and nurse and two [employer] in the room. Discharge Planning: Once cleared by specialists.
[2018-05-07] MEDS: Gentamicin/NS 80 mg Premix 100 ML IV.SIG SCH (23:53)
[2018-05-08] MEDS: ceFAZolin Inj 2,000 MG in Sodium Chlor 0.9% Inj 80 ML IV.SIG SCH ×4 (03:32→20:32)
[2018-05-08] MEDS: Sod Chloride 0.9% Inj 1,000 ML IV.CONT SCH ×3 (03:33→20:33)
[2018-05-08] MEDS: Gentamicin/NS 80 mg Premix 100 ML IV.SIG SCH ×3 (05:36→22:50)
[2018-05-08] MEDS: Famotidine PF Inj 20 MG/2 ML Vial IV.PUSH SCH ×2 (09:44→20:35)
[2018-05-08] MEDS: Senna/Docusate Sodium 8.6/50 MG Tablet PO SCH ×2 (09:44→20:41)
--- NOTE | 2018-05-08 12:53 | P.PNID ---
Subjective Remarks: Patient is a 32-year-old male, brought into the hospital for further evaluation of chest pain. Patient is under custody and has been in [facility] since April 11. According to the patient several days into his incarceration, he started experiencing lower chest pain that is pleuritic in nature. He also started complaining of pain on his lumbar region more on the left side. He has not been coughing. He apparently has been having fevers. Patient has known IV drug use, and the last time he used it was the day before he got incarcerated. Has not any nausea or vomiting. Denies any diarrhea or urinary complaints. He has no prior history of endocarditis, but has had problem with skin abscesses. There is also mention that he has had previous HIV and hepatitis testing and they were both negative and this was from last year. Patient is afebrile. His hemodynamics are stable. His WBC is normal. Patient had CT of the chest which is showing multiple bilateral pulmonary nodules some of which are cavitating. CT of the abdomen and pelvis is showing some findings possibly of splenic infarcts. His blood cultures are currently pending. Infectious disease consultation has been requested to evaluate the patient with possible endocarditis. Notes reviewed Temps better Last (+) BC 05/02 NO new complaint Not getting pain meds No rash or itching No or GI complaints SARAH with MV vegetations and large TV vegetation, and possible mod TR CTS evaluation noted. MRI L spine noted. Denies any back pain or neck pain. Antibiotics: Ancef Genta IV Past Medical History: Back pain IV drug abuse Right foot injury Skin abscess H/O foot surgery Allergies/Adverse Reactions: Allergies acetaminophen Allergy (Intermediate, Verified 07/08/17 16:38) STOMACH UPSET Objective Vital Signs 05/07/18 16:00 05/07/18 20:00 05/08/18 00:00 Temperature 98.7 F 98.0 F 98.8 F Pulse Rate 112 H 118 H 119 H Respiratory Rate 24 21 20 Blood Pressure 130/75 131/71 135/74 Pulse Oximetry 94 L 95 94 L 05/08/18 00:35 05/08/18 03:29 05/08/18 04:00 Temperature 98.4 F Pulse Rate 119 H 114 H Respiratory Rate 22 18 20 Blood Pressure 136/71 Pulse Oximetry 95 05/08/18 08:00 Temperature 98.6 F Pulse Rate 111 H Respiratory Rate 18 Blood Pressure 127/76 Pulse Oximetry 95 Intake & Output 05/07/18 05/08/18 05/08/18 18:59 06:59 18:59 Intake Total 2702.125 / 2702.125 1999 100 / 100 Output Total 3100 / 3100 Balance -397.875 / -157.916 0521 / 2000 100 / 100 Weight 68.8 kg Intake: IV 1302.125 / 1302.125 400 / 400 100 / 100 NS Inj 1,000 ML @ 84 mls/hr IV. 1000 / 1000 CONT .[id number] [facility] Rx#:[id number] Gentamicin Inj 85 MG In NS Inj 102.125 / 102.125 100 ML @ 200 mls/hr IV.SIG Q8H [facility] Rx#:[id number] Gentamicin/NS 80 mg Premix 100 200 / 200 ML @ 200 mls/hr IV.SIG Q8H [facility] Rx#:[id number] Ancef Inj 2,000 MG In NS Inj 80 200 / 200 200 / 200 100 / 100 ML @ 200 mls/hr IV.SIG Q6H [facility] Rx#:[id number] Oral 1400 / 1400 1600 / 1600 Output: Urine 3100 / 3100 Other: # Voids 2 1,800 Date of Last Bowel Movement 05/05/18 05/06/18 05/05/18 14:55 Blood - Peripheral Aerobic Blood Culture - Preliminary No growth in 3 days 05/05/18 14:55 Blood - Peripheral Anaerobic Blood Culture - Preliminary No growth in 3 days 05/03/18 04:42 Blood - Peripheral Aerobic Blood Culture - Final No growth in 5 days 05/03/18 04:42 Blood - Peripheral Anaerobic Blood Culture - Final No growth in 5 days 05/06/18 15:00 Clean Catch Urine Urine Culture - Final No growth in 48 hours 05/02/18 04:46 Blood - Peripheral Aerobic Blood Culture - Final Staphylococcus aureus 05/02/18 04:46 Blood - Peripheral Anaerobic Blood Culture - Final No growth in 5 days 05/01/18 14:25 Blood - Peripheral Aerobic Blood Culture - Final Staphylococcus aureus 05/01/18 14:25 Blood - Peripheral Anaerobic Blood Culture - Final No growth in 5 days 05/01/18 14:15 Blood - Peripheral Aerobic Blood Culture - Final Staphylococcus aureus 05/01/18 14:15 Blood - Peripheral Anaerobic Blood Culture - Final No growth in 5 days Imaging: ITS Impressions Chest X-Ray 04/30/18 01:23 CONCLUSION: Right basilar pleural-parenchymal density. Abdomen/Pelvis CT 04/30/18 01:58 CONCLUSION: 1. Areas of low-density are seen in the spleen could be lacerations versus infarcts. No hemoperitoneum. 2. Bilateral renal low-density likely benign. 3. Right pleural effusion. Lumbar Spine CT 04/30/18 01:58 CONCLUSION: 1. Disc bulges at L3-4, L4-5 and L5-S1 levels. No canal stenosis. 2. No fracture or spondylolisthesis. Thoracic Spine CT 04/30/18 01:58 CONCLUSION: 1. Unremarkable thoracic spine. Chest CT 04/30/18 03:09 CONCLUSION: 1. Numerous bilateral pulmonary nodules many of which are cavitated, likely septic emboli. 2. Small moderate right pleural effusion with partial loculation. Lumbar Spine MRI 05/01/18 00:00 CONCLUSION: 1. No evidence of discitis or other acute process in the lumbar spine. 2. Areas of focally altered peripheral signal intensity and enhancement in the kidneys which may be areas of focal pyelonephritis or renal cortical infarctions Knee X-Ray 05/02/18 00:00 CONCLUSION: No acute findings. Physical Exam: GENERAL: awake and alert, NAD SKIN: Warm and dry. No generalized rash HEAD: Atraumatic. Normocephalic. No temporal wasting, or tenderness. EYES: [place] conjunctiva. Has small petechia L lower eyelid. Pupils equal, round and reactive to light. Extraocular movements full and intact. No scleral icterus. No injection or drainage. EARS, NOSE AND THROAT: Nose without bleeding or purulent nasal discharge. Mucous membranes pink and moist. No oral lesions noted. NECK: Trachea midline. Supple and not tender, no meningeal signs CARDIOVASCULAR: Tachycardic. No murmurs, rubs or gallops heard RESPIRATORY: Clear to auscultation. Breath sounds equal bilaterally. No rales , wheezing or rhonchi ABDOMEN: Soft, flat, non-tender, nondistended. Bowel sounds present and normoactive. No guarding. No rebound. No organomegaly. EXTREMITIES: No clubbing, cyanosis. Swelling in both knees better. Good ROM No calf tenderness. Well perfused and warm. NEUROLOGICAL: Awake and alert. Cranial nerves grossly intact. Motor symmetrical PSYCHIATRIC: Normal affect, calm and cooperative. LINE: No evidence of infection Assessment and Plan - Plan Impressions Chest pain, pleuritic, with findings suggestive of septic emboli in lungs TV and MV IE, BC with Staph aureus MSSA ? Infective discitis. Bilateral renal infarcts ? pyelo. Knee pain, ?seeding Hx multiple skin abscesses Prior Hx MRSA infection in his skin abscess Active IVDU Back pain, CT lumbar spine ok, no evidence of infection Fevers Recommendation Continue IV Ancef Continue IV Gentamicin for synergy - follow creatinine, UO. - give 7 days Follow C/S Follow temps Monitor progress Will need 6 weeks IV Abx from first neg BC
--- NOTE | 2018-05-08 16:56 | P.PN ---
Subjective Interval history: 32 year old male presents with a history of right-sided chest pain, left-sided low back pain that he reports began at approximately the same time, 2-3 days after detoxing [facility]op[place] use [place] [facility]. He reports that he was in incarcerated on April 11 and last used heroin and opiates on April 10. He reports that approximately 2 days into his incarceration he began to have detox symptoms which mainly included numerous episodes of diarrhea. Since then he developed this right-sided lower chest wall pain anteriorly and left-sided low back pain just above the left buttock. He reports that he has had a cough productive of green sputum. He also has had fevers with a T-max in [facility] of 101. He is not currently on any antibiotic. He has been taking ibuprofen and Flexeril at the [facility]. He denies having any prior history of hepatitis or HIV. He denies having any prior history of endocarditis. He reports that he has had skin infections and abscesses in the past related to staph from IV drug use. He denies having any rashes currently. On review of systems otherwise, the patient denies having any neck pain, shortness of breath, abdominal pain, vomiting,urinary symptoms, or neurologic symptoms. The patient last moved his bowels earlier today with a formed stool. He denies having any numbness or tingling to his extremities. He denies having any weakness of his extremities. He reports that he has generalized weakness. He was also noted at the [facility] to have incontinence of urine. Hospitalist Notes: 05/01: Seen in his bedroom, discussed with nurse, no complaint of generalized pain, has Endocarditis, ID specialist and landing support specialist following. 05/02: Seen in his bedroom in the presence of two [employer], as per ID switch from Cefepime to Ancef and continued IV Vancomycin, following Blood cultures if no MRSA to remove Vancomycin. complaint of generalized pain, not eating well. 05/03: Stable in his bedroom in the presence of two Guards, seen by ID specialist question about the possibility of Knee pain seeding, to continue Ancef, stopped Vancomycin, Added Gentamicin for synergy, X ray of both knees and may need MRI of the Knees, continue present care, no nausea, vomit or diarrhea. discussed with nurse Miss Javier and Miss Huffman he continue with some tachycardia she will contact Cardiology for recommendations. 05/04: Seen in his bedroom, two [employer] [employer] present on my examination and took my Identification, continue with Generalized pain and difficulty to move his legs. 05/05: Patient today more conversant, better mood, discussed with him about the need for antibiotics probable for some weeks, awaiting final recommendations by ID specialist. 05/06: Patient continue to complaint of generalized pain, but encourage to increase activity, continue antibiotics. latest blood culture no growth in 2 days from 05/03 and last one from 05/05. 05/07: Seen by ID specialist recommended to continue Ancef, Stopped Teflaro, continue IV Gentamicin for Synergy, seen in his bedroom, continue same complaint of generalized pain, encourage ambulation. 05/08: Stable in his bedroom, seen in the presence of guardian ad litem, no nausea, vomit or diarrhea, ID specialist asking to continue antibiotics six weeks from first negative blood culture will try to get everything set starting tomorrow for transfer to his facility if okay with ID specialist. Physical Exam Vital signs: Vital Signs 05/07/18 20:00 05/08/18 00:00 05/08/18 00:35 Temperature 98.0 F 98.8 F Pulse Rate 118 H 119 H 119 H Respiratory Rate 21 20 22 Blood Pressure 131/71 135/74 Pulse Oximetry 95 94 L 05/08/18 03:29 05/08/18 04:00 05/08/18 08:00 Temperature 98.4 F 98.6 F Pulse Rate 114 H 111 H Respiratory Rate 18 20 18 Blood Pressure 136/71 127/76 Pulse Oximetry 95 95 05/08/18 12:00 Temperature 97.5 F L Pulse Rate 112 H Respiratory Rate 18 Blood Pressure 139/77 Pulse Oximetry 96 Intake & Output 05/07/18 05/08/18 05/08/18 18:59 06:59 18:59 Intake Total 2702.125 / 2702.125 1999 200 / 200 Output Total 3100 / 3100 800 / 800 Balance -397.875 / -363.144 4138 / 2000 -600 / -600 Weight 68.8 kg Intake: IV 1302.125 / 1302.125 400 / 400 200 / 200 NS Inj 1,000 ML @ 84 mls/hr IV. 1000 / 1000 CONT .[id number] [facility] Rx#:[id number] Gentamicin Inj 85 MG In NS Inj 102.125 / 102.125 100 ML @ 200 mls/hr IV.SIG Q8H [facility] Rx#:[id number] Gentamicin/NS 80 mg Premix 100 200 / 200 100 / 100 ML @ 200 mls/hr IV.SIG Q8H [facility] Rx#:[id number] Ancef Inj 2,000 MG In NS Inj 80 200 / 200 200 / 200 100 / 100 ML @ 200 mls/hr IV.SIG Q6H [facility] Rx#:[id number] Oral 1400 / 1400 1600 / 1600 Output: Urine 3100 / 3100 800 / 800 Other: # Voids 2 1,800 2 Date of Last Bowel Movement 05/05/18 05/06/18 Narrative: GENERAL: NAD, AAOx3 SKIN: Warm and dry. HEAD: Atraumatic. Normocephalic. EYES: Pupils equal and round. No scleral icterus. No injection or drainage. ENT: No nasal bleeding or discharge. Mucous membranes pink and moist. NECK: Trachea midline. No JVD. CARDIOVASCULAR: Regular rhythm, tachycardic RESPIRATORY: breath sounds bilateral, no wheezing or crackles. GASTROINTESTINAL: Abdomen soft, non-tender MUSCULOSKELETAL: Extremities without clubbing, cyanosis, or edema. left foot drop NEUROLOGICAL: Awake and alert. No obvious cranial nerve deficits. left foot drop and pain on palpation. PSYCHIATRIC: Appropriate mood and affect Results - Labs CBC & Chem 7: 05/06/18 03:55 05/06/18 03:55 Microbiology 05/05/18 14:55 Blood - Peripheral Aerobic Blood Culture - Preliminary No growth in 3 days 05/05/18 14:55 Blood - Peripheral Anaerobic Blood Culture - Preliminary No growth in 3 days 05/03/18 04:42 Blood - Peripheral Aerobic Blood Culture - Final No growth in 5 days 05/03/18 04:42 Blood - Peripheral Anaerobic Blood Culture - Final No growth in 5 days 05/06/18 15:00 Clean Catch Urine Urine Culture - Final No growth in 48 hours Assessment and Plan - Plan 1. Elevated Troponin with atypical chest pain, Pleuritic in nature, findings suggestive of septic Emboli in the lungs, questionable Infective endocarditis, ID specialist following, patient is IDU, Prior history of MRSA, skin abscess, CT lumbar no evidence of lesion, recommended IV Cefepime for GNR and PSAE coverage, IV Vancomycin, awaiting SARAH result, due to Lumbar pain that continued was performed Lumbar MRI as recommended by ID specialist no evidence of discitis or other acute process, areas of focally altered peripheral signal intensity and enhancement in the kidneys which may be areas of focal Pyelonephritis or renal cortical infarctions. was unable to anticoagulate due to severe thrombocytopenia 2. 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 LE weakness is concerning for discitis infectious. Repeat BC to document clearing, negative blood cultures from 05/03 and 05/05. ID specialist recommended to continue Ancef, Stopped Teflaro, continue IV Gentamicin for Synergy. for six weeks starting with the first blood culture negative. 3. Elevated troponin continue with Tachycardia Cardiology following. Secondary to endocarditis, septic emboli and overall illness Cardiology following, has large vegetation on tricuspid valve and moderate to large on mitral valve, Moderate TR CT surgery consulted by landing support specialist. Non surgical candidate. 4. IDU, Opiate dependency, avoid opioids and narcotics, 5. AtOH dependence no signs of withdrawal. 6. Multiple infarcts of spleen likely infectious emboli, continue IV antibiotics. 7. Elevated LFTs history of IDU, CT abd and Pelvis with contrast, (04/30) Areas of low-density are seen in the spleen could be lacerations versus infarcts. No hemoperitoneum. Bilateral renal low-density likely benign. Hepatitis C genotype and quantitative, ID following. DVT GI prophylaxis -Teds SCDs -No pharmacological DVT prophylaxis due to thrombocytopenia -IV Pepcid Encourage activity. Code Status: Full code. Discussed Condition With: Patient, nurse, MDR and horticultural manager. Discharge Planning: Expected by tomorrow.
[2018-05-08] MEDS ORDERED: Pharmacy Ordered Lab Info OTHER ONE ×2 (21:45→23:00)
[2018-05-09] MEDS: ceFAZolin Inj 2,000 MG in Sodium Chlor 0.9% Inj 80 ML IV.SIG SCH ×4 (02:56→21:58)
[2018-05-09] MEDS: Gentamicin/NS 80 mg Premix 100 ML IV.SIG SCH ×3 (06:16→21:58)
[2018-05-09] MEDS: Sod Chloride 0.9% Inj 1,000 ML IV.CONT SCH ×2 (06:18→15:42)
[2018-05-09 07:41] LABS: Glomerular Filtration Rate Greater Than 89 mL/min (>89)
[2018-05-09] MEDS: Famotidine PF Inj 20 MG/2 ML Vial IV.PUSH SCH ×2 (08:45→21:58)
[2018-05-09] MEDS: Senna/Docusate Sodium 8.6/50 MG Tablet PO SCH ×2 (08:47→21:58)
--- NOTE | 2018-05-09 10:15 | P.PN ---
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 He reports that he was in incarcerated on April 11 and last used heroin and opiates on April 10. He reports that approximately 2 days into his incarceration he began to have detox symptoms which mainly included numerous episodes of diarrhea. Since then he developed this right-sided lower chest wall pain anteriorly and left-sided low back pain just above the left buttock. He reports that he has had a cough productive of green sputum. He also has had fevers with a T-max in retirement of 101. He is not currently on any antibiotic. He has been taking ibuprofen and Flexeril at the retirement. He denies having any prior history of hepatitis or HIV. He denies having any prior history of endocarditis. He reports that he has had skin infections and abscesses in the past related to staph from IV drug use. He denies having any rashes currently. On review of systems otherwise, the patient denies having any neck pain, shortness of breath, abdominal pain, vomiting,urinary symptoms, or neurologic symptoms. The patient last moved his bowels earlier today with a formed stool. He denies having any numbness or tingling to his extremities. He denies having any weakness of his extremities. He reports that he has generalized weakness. He was also noted at the retirement to have incontinence of urine. Hospitalist Notes: 05/01: Seen in his bedroom, discussed with nurse, no complaint of generalized pain, has Endocarditis, ID specialist and program research specialist following. 05/02: Seen in his bedroom in the presence of two Assisted Guards, as per ID switch from Cefepime to Ancef and continued IV Vancomycin, following Blood cultures if no MRSA to remove Vancomycin. complaint of generalized pain, not eating well. 05/03: Stable in his bedroom in the presence of two Guards, seen by ID specialist question about the possibility of Knee pain seeding, to continue Ancef, stopped Vancomycin, Added Gentamicin for synergy, X ray of both knees and may need MRI of the Knees, continue present care, no nausea, vomit or diarrhea. discussed with nurse Miss Javier and Miss Huffman he continue with some tachycardia she will contact Cardiology for recommendations. 05/04: Seen in his bedroom, two Assisted Guards present on my examination and took my Identification, continue with Generalized pain and difficulty to move his legs. 05/05: Patient today more conversant, better mood, discussed with him about the need for antibiotics probable for some weeks, awaiting final recommendations by ID specialist. 05/06: Patient continue to complaint of generalized pain, but encourage to increase activity, continue antibiotics. latest blood culture no growth in 2 days from 05/03 and last one from 05/05. 05/07: Seen by ID specialist recommended to continue Ancef, Stopped Teflaro, continue IV Gentamicin for Synergy, seen in his bedroom, continue same complaint of generalized pain, encourage ambulation. 05/08: Stable in his bedroom, seen in the presence of school crossing guard, no nausea, vomit or diarrhea, ID specialist asking to continue antibiotics six weeks from first negative blood culture will try to get everything set starting tomorrow for transfer to his facility if okay with ID specialist. 05/09: Awaiting final today for transfer of the patient to his Facility, at this time as per ID specialist okay to discharge on Cefazolin 2 grams q six hours for six weeks since his last negative blood cultures on 05/03 will continue straight until June 13 No nausea, vomit or diarrhea. Physical Exam Vital signs: Vital Signs 05/08/18 12:00 05/08/18 16:00 05/08/18 17:00 Temperature 97.5 F L 97.9 F Pulse Rate 112 H 114 H 109 H Respiratory Rate 18 20 Blood Pressure 139/77 135/89 Pulse Oximetry 96 97 05/08/18 20:00 05/09/18 00:00 05/09/18 04:00 Temperature 99.0 F 99.1 F 99.9 F H Pulse Rate 119 H 114 H 116 H Respiratory Rate 17 18 17 Blood Pressure 128/86 126/78 131/67 Pulse Oximetry 96 95 95 05/09/18 08:00 Temperature 97.6 F Pulse Rate 115 H Respiratory Rate 17 Blood Pressure 128/69 Pulse Oximetry 96 Intake & Output 05/08/18 05/09/18 05/09/18 18:59 06:59 18:59 Intake Total 1040 / 1040 1300 / 1300 1100 / 1100 Output Total 2950 / 2950 1275 / 1275 Balance -1910 / -1910 25 1100 / 1100 Weight 68.8 kg Intake: IV 300 / 300 300 / 300 1100 / 1100 NS Inj 1,000 ML @ 84 mls/hr IV. 1000 / 1000 CONT .[id number] [facility] Rx#:[id number] Gentamicin/NS 80 mg Premix 100 100 / 100 100 / 100 100 / 100 ML @ 200 mls/hr IV.SIG Q8H [facility] Rx#:[id number] Ancef Inj 2,000 MG In NS Inj 80 200 / 200 200 / 200 ML @ 200 mls/hr IV.SIG Q6H [facility] Rx#:[id number] Oral 740 / 740 1000 / 1000 Output: Urine 2950 / 2950 1275 / 1275 Other: # Voids 2 Date of Last Bowel Movement 05/07/18 # Bowel Movements 0 Narrative: GENERAL: NAD, AAOx3 SKIN: Warm and dry. HEAD: Atraumatic. Normocephalic. EYES: Pupils equal and round. No scleral icterus. No injection or drainage. ENT: No nasal bleeding or discharge. Mucous membranes pink and moist. NECK: Trachea midline. No JVD. CARDIOVASCULAR: Regular rhythm, tachycardic RESPIRATORY: breath sounds bilateral, no wheezing or crackles. GASTROINTESTINAL: Abdomen soft, non-tender MUSCULOSKELETAL: Extremities without clubbing, cyanosis, or edema. left foot drop NEUROLOGICAL: Awake and alert. No obvious cranial nerve deficits. left foot drop and pain on palpation. PSYCHIATRIC: Appropriate mood and affect Results - Labs CBC & Chem 7: 05/06/18 03:55 05/09/18 06:07 Laboratory Results - last 24 hr 05/08/18 05/09/18 05/09/18 22:40 00:40 06:07 Creatinine 0.79 Estimated GFR Greater than 89 Gentamicin Peak 4.5 Gentamicin Trough 0.9 Microbiology 05/05/18 14:55 Blood - Peripheral Aerobic Blood Culture - Preliminary No growth in 3 days 05/05/18 14:55 Blood - Peripheral Anaerobic Blood Culture - Preliminary No growth in 3 days 05/03/18 04:42 Blood - Peripheral Aerobic Blood Culture - Final No growth in 5 days 05/03/18 04:42 Blood - Peripheral Anaerobic Blood Culture - Final No growth in 5 days 05/06/18 15:00 Clean Catch Urine Urine Culture - Final No growth in 48 hours Assessment and Plan - Plan 1. Elevated Troponin with atypical chest pain, Pleuritic in nature, findings suggestive of septic Emboli in the lungs, questionable Infective endocarditis, ID specialist following, patient is IDU, Prior history of MRSA, skin abscess, CT lumbar no evidence of lesion, recommended IV Cefepime for GNR and PSAE coverage, IV Vancomycin, awaiting SARAH result, due to Lumbar pain that continued was performed Lumbar MRI as recommended by ID specialist no evidence of discitis or other acute process, areas of focally altered peripheral signal intensity and enhancement in the kidneys which may be areas of focal Pyelonephritis or renal cortical infarctions. was unable to anticoagulate due to severe thrombocytopenia 2. 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 LE weakness is concerning for discitis infectious. Repeat BC to document clearing, negative blood cultures from 05/03 and 05/05. ID specialist recommended to continue Ancef, Stopped Teflaro, continue IV Gentamicin for Synergy. for six weeks starting with the first blood culture negative. will continue Cefazolin 2 grams every six hours until June 13 and Gentamicin to be removed, PICC line placement today 3. Elevated troponin continue with Tachycardia Cardiology following. Secondary to endocarditis, septic emboli and overall illness Cardiology following, has large vegetation on tricuspid valve and moderate to large on mitral valve, Moderate TR CT surgery consulted by program research specialist. Non surgical candidate. 4. IDU, Opiate dependency, avoid opioids and narcotics, 5. AtOH dependence no signs of withdrawal. 6. Multiple infarcts of spleen likely infectious emboli, continue IV antibiotics. 7. Elevated LFTs history of IDU, CT abd and Pelvis with contrast, (04/30) Areas of low-density are seen in the spleen could be lacerations versus infarcts. No hemoperitoneum. Bilateral renal low-density likely benign. Hepatitis C genotype and quantitative, ID following. DVT GI prophylaxis -Teds SCDs -No pharmacological DVT prophylaxis due to thrombocytopenia -IV Pepcid Encourage activity. Code Status: full Code. Discussed Condition With: Patient seen with two guards in his room, okay to discharge to his facility tomorrow Discharge Planning: as per finance and administration manager not able to discharge today because his facility does not has the antibiotics in Stock today.
[2018-05-09] MEDS ORDERED: Heparin Central Flush 100 UNIT/ML 5 ML Vial IV.FLUSH PRN (19:35)
[2018-05-09] MEDS: Temazepam 15 MG Capsule PO PRN (21:58)
[2018-05-10] MEDS: ceFAZolin Inj 2,000 MG in Sodium Chlor 0.9% Inj 80 ML IV.SIG SCH ×4 (02:58→20:51)
[2018-05-10] MEDS: Sod Chloride 0.9% Inj 1,000 ML IV.CONT SCH ×2 (02:59→14:26)
[2018-05-10] MEDS: Gentamicin/NS 80 mg Premix 100 ML IV.SIG SCH (05:48)
--- NOTE | 2018-05-10 08:51 | P.PN ---
Subjective Interval history: 32 year old male presents with a history of right-sided chest pain, left-sided low back pain that he reports began at approximately the same time, 2-3 days after detoxing from heroin/opiate use in [facility]. He reports that he was in incarcerated on April 11 and last used heroin and opiates on April 10. He reports that approximately 2 days into his incarceration he began to have detox symptoms which mainly included numerous episodes of diarrhea. Since then he developed this right-sided lower chest wall pain anteriorly and left-sided low back pain just above the left buttock. He reports that he has had a cough productive of green sputum. He also has had fevers with a T-max in [facility] of 101. He is not currently on any antibiotic. He has been taking ibuprofen and Flexeril at the [facility]. He denies having any prior history of hepatitis or HIV. He denies having any prior history of endocarditis. He reports that he has had skin infections and abscesses in the past related to staph from IV drug use. He denies having any rashes currently. On review of systems otherwise, the patient denies having any neck pain, shortness of breath, abdominal pain, vomiting,urinary symptoms, or neurologic symptoms. The patient last moved his bowels earlier today with a formed stool. He denies having any numbness or tingling to his extremities. He denies having any weakness of his extremities. He reports that he has generalized weakness. He was also noted at the [facility] to have incontinence of urine. Hospitalist Notes: 05/01: Seen in his bedroom, discussed with nurse, no complaint of generalized pain, has Endocarditis, ID specialist and document preparation specialist following. 05/02: Seen in his bedroom in the presence of two [employer] Guards, as per ID switch from Cefepime to Ancef and continued IV Vancomycin, following Blood cultures if no MRSA to remove Vancomycin. complaint of generalized pain, not eating well. 05/03: Stable in his bedroom in the presence of two Guards, seen by ID specialist question about the possibility of Knee pain seeding, to continue Ancef, stopped Vancomycin, Added Gentamicin for synergy, X ray of both knees and may need MRI of the Knees, continue present care, no nausea, vomit or diarrhea. discussed with nurse Miss Javier and Miss Huffman he continue with some tachycardia she will contact Cardiology for recommendations. 05/04: Seen in his bedroom, two [employer] present on my examination and took my Identification, continue with Generalized pain and difficulty to move his legs. 05/05: Patient today more conversant, better mood, discussed with him about the need for antibiotics probable for some weeks, awaiting final recommendations by ID specialist. 05/06: Patient continue to complaint of generalized pain, but encourage to increase activity, continue antibiotics. latest blood culture no growth in 2 days from 05/03 and last one from 05/05. 05/07: Seen by ID specialist recommended to continue Ancef, Stopped Teflaro, continue IV Gentamicin for Synergy, seen in his bedroom, continue same complaint of generalized pain, encourage ambulation. 05/08: Stable in his bedroom, seen in the presence of lan administrator, no nausea, vomit or diarrhea, ID specialist asking to continue antibiotics six weeks from first negative blood culture will try to get everything set starting tomorrow for transfer to his facility if okay with ID specialist. 05/09: Awaiting final today for transfer of the patient to his Facility, at this time as per ID specialist okay to discharge on Cefazolin 2 grams q six hours for six weeks since his last negative blood cultures on 05/03 will continue straight until June 1305/10: Seen in his bedroom, discussed with nurse Miss Jack the patient developed fever during the night, held discharge for today Seen by ID specialist recommended to continue Ancef and stop Gentamicin today, asked for blood cultures, Urine culture, ultrasound of the LLE to rule out DVT and following. no nausea, vomit or diarrhea. Physical Exam Vital signs: Vital Signs 05/09/18 12:00 05/09/18 16:00 05/09/18 20:00 Temperature 98.6 F 97.8 F 98.8 F Pulse Rate 110 H 109 H 118 H Respiratory Rate 17 17 20 Blood Pressure 119/69 122/69 125/79 Pulse Oximetry 97 97 96 05/10/18 00:00 05/10/18 04:00 05/10/18 08:00 Temperature 101.7 F H 99.1 F 99.2 F Pulse Rate 126 H 123 H 117 H Respiratory Rate 20 20 19 Blood Pressure 141/86 H 128/79 128/79 Pulse Oximetry 96 96 96 Intake & Output 05/09/18 05/10/18 05/10/18 18:59 06:59 18:59 Intake Total 2700 / 2700 1780 / 1780 100 / 100 Output Total 2700 / 2700 2099 / 2100 Balance 0 / 0 -320 / -320 100 / 100 Intake: IV 1400 / 1400 1300 / 1300 100 / 100 NS Inj 1,000 ML @ 84 mls/hr IV. 1000 / 1000 1000 / 1000 CONT .[id number] [facility] Rx#:[id number] Gentamicin/NS 80 mg Premix 100 200 / 200 200 / 200 ML @ 200 mls/hr IV.SIG Q8H [facility] Rx#:[id number] Ancef Inj 2,000 MG In NS Inj 80 200 / 200 100 / 100 100 / 100 ML @ 200 mls/hr IV.SIG Q6H [facility] Rx#:[id number] Oral 1300 / 1300 480 / 480 Output: Urine 2700 / 2700 2099 / 2099 Other: Date of Last Bowel Movement 05/07/18 Narrative: GENERAL: NAD, AAOx3 SKIN: Warm and dry. HEAD: Atraumatic. Normocephalic. EYES: Pupils equal and round. No scleral icterus. No injection or drainage. ENT: No nasal bleeding or discharge. Mucous membranes pink and moist. NECK: Trachea midline. No JVD. CARDIOVASCULAR: Regular rhythm, tachycardic RESPIRATORY: breath sounds bilateral, no wheezing or crackles. GASTROINTESTINAL: Abdomen soft, non-tender MUSCULOSKELETAL: Extremities without clubbing, cyanosis, or edema. left foot drop NEUROLOGICAL: Awake and alert. No obvious cranial nerve deficits. left foot drop and pain on palpation. PSYCHIATRIC: Appropriate mood and affect Results - Labs CBC & Chem 7: 05/10/18 11:41 05/10/18 11:41 Microbiology 05/05/18 14:55 Blood - Peripheral Aerobic Blood Culture - Preliminary No growth in 4 days 05/05/18 14:55 Blood - Peripheral Anaerobic Blood Culture - Preliminary No growth in 4 days Assessment and Plan - Plan 1. Elevated Troponin with atypical chest pain, Pleuritic in nature, findings suggestive of septic Emboli in the lungs, questionable Infective endocarditis, ID specialist following, patient is IDU, Prior history of MRSA, skin abscess, CT lumbar no evidence of lesion, recommended IV Cefepime for GNR and PSAE coverage, IV Vancomycin, awaiting SARAH result, due to Lumbar pain that continued was performed Lumbar MRI as recommended by ID specialist no evidence of discitis or other acute process, areas of focally altered peripheral signal intensity and enhancement in the kidneys which may be areas of focal Pyelonephritis or renal cortical infarctions. was unable to anticoagulate due to severe thrombocytopenia 2. 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 LE weakness is concerning for discitis infectious. Repeat BC to document clearing, negative blood cultures from 05/03 and 05/05. ID specialist recommended to continue Ancef, Stopped Teflaro, continue IV Gentamicin for Synergy. for six weeks starting with the first blood culture negative. will continue Cefazolin 2 grams every six hours until June 13 and Gentamicin to be removed, PICC line placement today, developed fever during the night 101.7F asked for new Blood cultures, UA and reflex to culture if indicated, CXR AP AND LAT. notify ID specialist. worsening Leukocytosis. 3. Elevated troponin continue with Tachycardia Cardiology following. Secondary to endocarditis, septic emboli and overall illness Cardiology following, has large vegetation on tricuspid valve and moderate to large on mitral valve, Moderate TR CT surgery consulted by document preparation specialist. Non surgical candidate. 4. IDU, Opiate dependency, avoid opioids and narcotics, 5. AtOH dependence no signs of withdrawal. 6. Multiple infarcts of spleen likely infectious emboli, continue IV antibiotics. 7. Elevated LFTs history of IDU, CT abd and Pelvis with contrast, (04/30) Areas of low-density are seen in the spleen could be lacerations versus infarcts. No hemoperitoneum. Bilateral renal low-density likely benign. Hepatitis C genotype and quantitative, ID following. DVT GI prophylaxis -Teds SCDs -No pharmacological DVT prophylaxis due to thrombocytopenia -IV Pepcid Encourage activity. Code Status: Full Code Discussed Condition With: Patient, nurse Miss Jack, one lan administrator in the room and ID specialist. Discharge Planning: as per manager urgent care not able to discharge today because his facility does not has the antibiotics in Stock today.
[2018-05-10] MEDS: Famotidine PF Inj 20 MG/2 ML Vial IV.PUSH SCH ×2 (09:22→20:51)
[2018-05-10] MEDS: Heparin Central Flush 100 UNIT/ML 5 ML Vial IV.FLUSH SCH (09:22)
[2018-05-10] MEDS: Senna/Docusate Sodium 8.6/50 MG Tablet PO SCH ×2 (09:23→20:51)
--- NOTE | 2018-05-10 10:08 | XR ---
EXAM DATE: 05/10/2018 9:57 AM EDT AGE/SEX: 32 years / Male INDICATIONS: . Chest Pain CLINICAL DATA: This is the patient's subsequent encounter. Patient reports that signs and symptoms h ave been present for 2 days and indicates a pain score of 6/10. MEDICAL/SURGICAL HISTORY: None. None. COMPARISON: [facility] – [place], CHEST 1V SINGLE AP, 04/30/2018. . FINDINGS: AP and lateral views of the chest demonstrate small right lateral pleural parenchymal density. Left l kimberly relatively clear. Heart normal in size. Right-sided PICC line tip in the right atrium. The cardi omediastinal contours are unremarkable. Osseous structures are intact. CONCLUSION: Small right pleural parenchymal density, less prominent compared to previous study Electronically signed by: Austen Alejandra MD 05/10/2018 10:07 AM EDT
--- NOTE | 2018-05-10 11:44 | P.PNID ---
Subjective Remarks: Patient is a 32-year-old male, brought into the hospital for further evaluation of chest pain. Patient is under custody and has been in shelter since April 11. According to the patient several days into his incarceration, he started experiencing lower chest pain that is pleuritic in nature. He also started complaining of pain on his lumbar region more on the left side. He has not been coughing. He apparently has been having fevers. Patient has known IV drug use, and the last time he used it was the day before he got incarcerated. Has not any nausea or vomiting. Denies any diarrhea or urinary complaints. He has no prior history of endocarditis, but has had problem with skin abscesses. There is also mention that he has had previous HIV and hepatitis testing and they were both negative and this was from last year. Patient is afebrile. His hemodynamics are stable. His WBC is normal. Patient had CT of the chest which is showing multiple bilateral pulmonary nodules some of which are cavitating. CT of the abdomen and pelvis is showing some findings possibly of splenic infarcts. His blood cultures are currently pending. Infectious disease consultation has been requested to evaluate the patient with possible endocarditis. Notes reviewed Temps up again today CP better Back pain same, not worse States that he is hurting on L side of body LLE pain worse RLE pain better Last (+) BC 05/02 No rash or itching No or GI complaints SARAH with MV vegetations and large TV vegetation, and possible mod TR CTS evaluation noted. MRI L spine noted. Denies any back pain or neck pain. Antibiotics: Ancef Genta IV Lines: PICC Past Medical History: Back pain IV drug abuse Right foot injury Skin abscess H/O foot surgery Allergies/Adverse Reactions: Allergies acetaminophen Allergy (Intermediate, Verified 07/08/17 16:38) STOMACH UPSET Objective Vital Signs 05/09/18 12:00 05/09/18 16:00 05/09/18 20:00 Temperature 98.6 F 97.8 F 98.8 F Pulse Rate 110 H 109 H 118 H Respiratory Rate 17 17 20 Blood Pressure 119/69 122/69 125/79 Pulse Oximetry 97 97 96 05/10/18 00:00 05/10/18 04:00 05/10/18 08:00 Temperature 101.7 F H 99.1 F 99.2 F Pulse Rate 126 H 123 H 117 H Respiratory Rate 20 20 19 Blood Pressure 141/86 H 128/79 128/79 Pulse Oximetry 96 96 96 Intake & Output 05/09/18 05/10/18 05/10/18 18:59 06:59 18:59 Intake Total 2700 / 2700 1780 / 1780 1200 / 1200 Output Total 2700 / 2700 2100 / 2100 Balance 0 / 0 -320 / -320 1200 / 1200 Intake: IV 1400 / 1400 1300 / 1300 1200 / 1200 NS Inj 1,000 ML @ 84 mls/hr IV. 1000 / 1000 1000 / 1000 1000 / 1000 CONT .[id number] FORD Rx#:[id number] Gentamicin/NS 80 mg Premix 100 200 / 200 200 / 200 ML @ 200 mls/hr IV.SIG Q8H FORD Rx#:[id number] Ancef Inj 2,000 MG In NS Inj 80 200 / 200 100 / 100 200 / 200 ML @ 200 mls/hr IV.SIG Q6H FORD Rx#:[id number] Oral 1300 / 1300 480 / 480 Output: Urine 2700 / 2700 2099 / 2100 Other: Date of Last Bowel Movement 05/07/18 05/07/18 05/05/18 14:55 Blood - Peripheral Aerobic Blood Culture - Final No growth in 5 days 05/05/18 14:55 Blood - Peripheral Anaerobic Blood Culture - Final No growth in 5 days 05/03/18 04:42 Blood - Peripheral Aerobic Blood Culture - Final No growth in 5 days 05/03/18 04:42 Blood - Peripheral Anaerobic Blood Culture - Final No growth in 5 days 05/06/18 15:00 Clean Catch Urine Urine Culture - Final No growth in 48 hours 05/02/18 04:46 Blood - Peripheral Aerobic Blood Culture - Final Staphylococcus aureus 05/02/18 04:46 Blood - Peripheral Anaerobic Blood Culture - Final No growth in 5 days Lab - Chemistry Results 05/09/18 06:07 Creatinine 0.79 Estimated GFR Greater than 89 Imaging: ITS Impressions Abdomen/Pelvis CT 04/30/18 01:58 CONCLUSION: 1. Areas of low-density are seen in the spleen could be lacerations versus infarcts. No hemoperitoneum. 2. Bilateral renal low-density likely benign. 3. Right pleural effusion. Lumbar Spine CT 04/30/18 01:58 CONCLUSION: 1. Disc bulges at L3-4, L4-5 and L5-S1 levels. No canal stenosis. 2. No fracture or spondylolisthesis. Thoracic Spine CT 04/30/18 01:58 CONCLUSION: 1. Unremarkable thoracic spine. Chest CT 04/30/18 03:09 CONCLUSION: 1. Numerous bilateral pulmonary nodules many of which are cavitated, likely septic emboli. 2. Small moderate right pleural effusion with partial loculation. Lumbar Spine MRI 05/01/18 00:00 CONCLUSION: 1. No evidence of discitis or other acute process in the lumbar spine. 2. Areas of focally altered peripheral signal intensity and enhancement in the kidneys which may be areas of focal pyelonephritis or renal cortical infarctions Knee X-Ray 05/02/18 00:00 CONCLUSION: No acute findings. Chest X-Ray 05/10/18 00:00 CONCLUSION: Small right pleural parenchymal density, less prominent compared to previous study Physical Exam: GENERAL: awake and alert, NAD SKIN: Warm and dry. No generalized rash HEAD: Atraumatic. Normocephalic. No temporal wasting, or tenderness. EYES: [place] conjunctiva. Has small petechia L lower eyelid. Pupils equal, round and reactive to light. Extraocular movements full and intact. No scleral icterus. No injection or drainage. EARS, NOSE AND THROAT: Nose without bleeding or purulent nasal discharge. Mucous membranes pink and moist. No oral lesions noted. NECK: Trachea midline. Supple and not tender, no meningeal signs CARDIOVASCULAR: Tachycardic. No murmurs, rubs or gallops heard RESPIRATORY: Clear to auscultation. Breath sounds equal bilaterally. No rales , wheezing or rhonchi ABDOMEN: Soft, flat, non-tender, nondistended. Bowel sounds present and normoactive. No guarding. No rebound. No organomegaly. EXTREMITIES: LLE seems larger compared to the RLE. Pain with any movement of his LLE, no erythema noted. L knee looks more swollen NEUROLOGICAL: Awake and alert. Cranial nerves grossly intact. Motor symmetrical PSYCHIATRIC: Normal affect, calm and cooperative. LINE: No evidence of infection Assessment and Plan - Plan Impressions Chest pain, pleuritic, with findings suggestive of septic emboli in lungs TV and MV IE, BC with Staph aureus MSSA ? Infective discitis. Bilateral renal infarcts ? pyelo. Knee pain, ?seeding Hx multiple skin abscesses Prior Hx MRSA infection in his skin abscess Active IVDU Back pain, CT lumbar spine ok, no evidence of infection Fevers, recurrent Recommendation Continue IV Ancef Continue IV Gentamicin for synergy - follow creatinine, UO. - give 7 days - to finish today Agree with BC and UC US LLE to R/O DVT Follow C/S Follow temps Monitor progress Will need 6 weeks IV Abx from first neg BC
[2018-05-10 12:32] LABS: Baso # (Auto) 0.1 th/mm3 (0.0-0.2); Baso % (Auto) 0.4 % (0.0-2.0); Eos # (Auto) 0.1 th/mm3 (0.0-0.4); Eos % (Auto) 0.7 % (0.0-4.0); Hematocrit 29.9 % (39.0-51.0); Hemoglobin 9.5 gm/dL (13.0-17.0); Lymph # (Auto) 1.2 th/mm3 (1.0-4.8); Lymph % (Auto) 6.4 % (9.0-44.0); Mean Corpuscular HGB Conc 31.7 % (32.0-36.0); Mean Corpuscular Hemoglobin 26.1 pg (27.0-34.0); Mean Corpuscular Volume 82.3 fL (80.0-100.0); Mean Platelet Volume 6.7 fL (7.0-11.0); Mono # (Auto) 1.1 th/mm3 (0.0-0.9); Neut # (Auto) 16.2 th/mm3 (1.8-7.7); Neut % (Auto) 86.5 % (16.0-70.0); Platelet Count 606 th/mm3 (150-450); Red Blood Count 3.63 mil/mm3 (4.50-5.90); Red Cell Distribution Width 16.4 % (11.6-17.2); White Blood Count 18.8 th/mm3 (4.0-11.0)
[2018-05-10 12:41] LABS: Alanine Aminotransferase 131 U/L (12-78); Albumin 1.4 g/dL (3.4-5.0); Anion Gap 10 meq/L (5-15); Aspartate Aminotransferase 162 U/L (15-37); Blood Urea Nitrogen 26 mg/dL (7-18); Calcium 8.1 mg/dL (8.5-10.1); Carbon Dioxide 22.1 meq/L (21.0-32.0); Chloride 97 meq/L (98-107); Glomerular Filtration Rate 72 mL/min (>89); Glucose,Random 106 mg/dL (74-106); Potassium 4.2 meq/L (3.5-5.1); Sodium 129 meq/L (136-145)
[2018-05-10 12:44] LABS: Alkaline Phosphatase 134 U/L (45-117); Total Protein 7.8 g/dL (6.4-8.2)
[2018-05-10 15:30] LABS: Bacteria,Urine Rare /hpf; Bilirubin,Urine Negative (Negative); Clarity,Urine Hazy (Clear); Color,Urine Yellow (Yellw/Straw); Glucose,Urine (UA) 50 mg/dL (Negative); Hyaline Casts,Urine 1 /lpf (0-3); Leukocyte Esterase,Urine Negative (Negative); Nitrite,Urine Negative (Negative); Specific Gravity,Urine 1.013 (1.002-1.035); Squamous Epithelial Cell,Urine <1 /hpf (0-5)
--- NOTE | 2018-05-10 16:32 | US ---
EXAM DATE: 05/10/2018 4:26 PM EDT AGE/SEX: 32 years / Male INDICATIONS: Left leg swelling. CLINICAL DATA: This is the patient's initial encounter. Patient reports that signs and symptoms have been present for 2 weeks and indicates a pain score of 8/10. MEDICAL/SURGICAL HISTORY: . Back pain. IV drug abuse. Right foot injury. Skin abscess. . Right foot surgery. COMPARISON: No prior exams available for comparison. TECHNIQUE: Venous ultrasound of both lower extremities was performed from the inguinal ligament to t he proximal calf. Real-time, color Doppler and spectral tracing, compression and augmentation techni ques were used. FINDINGS: Normal compression of the deep venous system from the inguinal region to the proximal calf . No echogenic clot is seen. Normal response of the venous system to augmentation and respiration. CONCLUSION: No venous thrombosis is identified in the left lower extremity. Electronically signed by: Iftikhar Wilson MD 05/10/2018 4:31 PM EDT
[2018-05-10] MEDS: Temazepam 15 MG Capsule PO PRN (20:51)
[2018-05-11] MEDS: Sod Chloride 0.9% Inj 1,000 ML IV.CONT SCH ×3 (00:56→14:13)
[2018-05-11] MEDS: ceFAZolin Inj 2,000 MG in Sodium Chlor 0.9% Inj 80 ML IV.SIG SCH ×5 (00:56→21:24)
[2018-05-11] MEDS: Famotidine PF Inj 20 MG/2 ML Vial IV.PUSH SCH ×2 (08:19→21:25)
[2018-05-11] MEDS: Heparin Central Flush 100 UNIT/ML 5 ML Vial IV.FLUSH SCH (08:19)
[2018-05-11] MEDS: Senna/Docusate Sodium 8.6/50 MG Tablet PO SCH ×2 (08:20→21:28)
--- NOTE | 2018-05-11 13:18 | P.PN ---
Subjective Interval history: 32 year old male presents with a history of right-sided chest pain, left-sided low back pain that he reports began at approximately the same time, 2-3 days after detoxing from heroin/opiate use in shelter. He reports that he was in incarcerated on April 11 and last used heroin and opiates on April 10. He reports that approximately 2 days into his incarceration he began to have detox symptoms which mainly included numerous episodes of diarrhea. Since then he developed this right-sided lower chest wall pain anteriorly and left-sided low back pain just above the left buttock. He reports that he has had a cough productive of green sputum. He also has had fevers with a T-max in shelter of 101. He is not currently on any antibiotic. He has been taking ibuprofen and Flexeril at the shelter. He denies having any prior history of hepatitis or HIV. He denies having any prior history of endocarditis. He reports that he has had skin infections and abscesses in the past related to staph from IV drug use. He denies having any rashes currently. On review of systems otherwise, the patient denies having any neck pain, shortness of breath, abdominal pain, vomiting,urinary symptoms, or neurologic symptoms. The patient last moved his bowels earlier today with a formed stool. He denies having any numbness or tingling to his extremities. He denies having any weakness of his extremities. He reports that he has generalized weakness. He was also noted at the shelter to have incontinence of urine. Hospitalist Notes: 05/01: Seen in his bedroom, discussed with nurse, no complaint of generalized pain, has Endocarditis, ID specialist and meat specialist following. 05/02: Seen in his bedroom in the presence of two Snf Guards, as per ID switch from Cefepime to Ancef and continued IV Vancomycin, following Blood cultures if no MRSA to remove Vancomycin. complaint of generalized pain, not eating well. 05/03: Stable in his bedroom in the presence of two Guards, seen by ID specialist question about the possibility of Knee pain seeding, to continue Ancef, stopped Vancomycin, Added Gentamicin for synergy, X ray of both knees and may need MRI of the Knees, continue present care, no nausea, vomit or diarrhea. discussed with nurse Miss Javier and Miss Huffman he continue with some tachycardia she will contact Cardiology for recommendations. 05/04: Seen in his bedroom, two Snf Guards present on my examination and took my Identification, continue with Generalized pain and difficulty to move his legs. 05/05: Patient today more conversant, better mood, discussed with him about the need for antibiotics probable for some weeks, awaiting final recommendations by ID specialist. 05/06: Patient continue to complaint of generalized pain, but encourage to increase activity, continue antibiotics. latest blood culture no growth in 2 days from 05/03 and last one from 05/05. 05/07: Seen by ID specialist recommended to continue Ancef, Stopped Teflaro, continue IV Gentamicin for Synergy, seen in his bedroom, continue same complaint of generalized pain, encourage ambulation. 05/08: Stable in his bedroom, seen in the presence of deputy sheriff building guard, no nausea, vomit or diarrhea, ID specialist asking to continue antibiotics six weeks from first negative blood culture will try to get everything set starting tomorrow for transfer to his facility if okay with ID specialist. 05/09: Awaiting final today for transfer of the patient to his Facility, at this time as per ID specialist okay to discharge on Cefazolin 2 grams q six hours for six weeks since his last negative blood cultures on 05/03 will continue straight until June 1305/10: Seen in his bedroom, discussed with nurse Miss Jack the patient developed fever during the night, held discharge for today Seen by ID specialist recommended to continue Ancef and stop Gentamicin today, asked for blood cultures, Urine culture, ultrasound of the LLE to rule out DVT and following. 05/11: Stable in his bedroom sleeping, discussed with nurse Miss Jack and with two Snf Guards in the room, had 99.9 F yesterday at 20 Hours. no nausea, vomit or diarrhea. Physical Exam Vital signs: Vital Signs 05/10/18 15:57 05/10/18 20:00 05/11/18 00:00 Temperature 98.7 F 99.9 F H 99.6 F Pulse Rate 118 H 117 H 113 H Respiratory Rate 19 20 20 Blood Pressure 133/87 132/78 128/73 Pulse Oximetry 96 98 97 05/11/18 04:00 05/11/18 08:00 Temperature 99.3 F 98.9 F Pulse Rate 114 H 113 H Respiratory Rate 20 18 Blood Pressure 128/81 131/79 Pulse Oximetry 98 97 Intake & Output 08/25/18 08/26/18 08/26/18 18:59 06:59 18:59 Intake Total 2260 / 2260 1440 / 1440 1100 / 1100 Output Total 600 / 600 750 / 750 Balance 1660 / 1660 690 / 690 1100 / 1100 Weight 50 kg Intake: IV 1300 / 1300 1200 / 1200 1100 / 1100 NS Inj 1,000 ML @ 84 mls/hr IV. 1000 / 1000 1000 / 1000 1000 / 1000 CONT .[id number] [facility] Rx#:[id number] Ancef Inj 2,000 MG In NS Inj 80 300 / 300 200 / 200 100 / 100 ML @ 200 mls/hr IV.SIG Q6H [facility] Rx#:[id number] Oral 960 / 960 240 / 240 Output: Urine 600 / 600 750 / 750 Other: Date of Last Bowel Movement 05/07/18 05/10/18 Narrative: GENERAL: NAD, AAOx3 SKIN: Warm and dry. HEAD: Atraumatic. Normocephalic. EYES: Pupils equal and round. No scleral icterus. No injection or drainage. ENT: No nasal bleeding or discharge. Mucous membranes pink and moist. NECK: Trachea midline. No JVD. CARDIOVASCULAR: Regular rhythm, tachycardic RESPIRATORY: breath sounds bilateral, no wheezing or crackles. GASTROINTESTINAL: Abdomen soft, non-tender MUSCULOSKELETAL: Extremities without clubbing, cyanosis, or edema. left foot drop NEUROLOGICAL: Awake and alert. No obvious cranial nerve deficits. PSYCHIATRIC: Appropriate mood and affect Results - Labs CBC & Chem 7: 05/10/18 11:41 05/11/18 05:50 Laboratory Results - last 24 hr 05/10/18 05/11/18 14:21 05:50 Creatinine 1.31 H Estimated GFR 63 L Urine Color Yellow Urine Clarity Hazy H Urine pH 6.0 Ur Specific [place] 1.013 Urine Protein 30 H Urine Glucose (UA) 50 Urine Ketones Negative Urine Occult Blood Small H Urine Nitrate Negative Urine Bilirubin Negative Urine Urobilinogen Less than 2 Ur Leukocyte Esterase Negative Urine RBC 5 H Urine WBC 9 H Ur Squamous Epith Cells <1 Urine Bacteria Rare H Hyaline Casts 1 Urine Yeast Rare H Micro UA Comment Culture indicated Ur Microscopic Review Not Reportable Urine Culture Comments Culture indicated Microbiology 05/10/18 11:41 Blood - Peripheral Aerobic Blood Culture - Preliminary No growth in 1 day 05/10/18 11:41 Blood - Peripheral Anaerobic Blood Culture - Preliminary No growth in 1 day 05/10/18 14:21 Clean Catch Urine Urine Culture - Preliminary Immature growth - reincubate 05/05/18 14:55 Blood - Peripheral Aerobic Blood Culture - Final No growth in 5 days 05/05/18 14:55 Blood - Peripheral Anaerobic Blood Culture - Final No growth in 5 days - Imaging Impressions Venous Doppler Study 05/10/18 00:00 CONCLUSION: No venous thrombosis is identified in the left lower extremity. Assessment and Plan - Plan 1. Elevated Troponin with atypical chest pain, Pleuritic in nature, findings suggestive of septic Emboli in the lungs, questionable Infective endocarditis, ID specialist following, patient is IDU, Prior history of MRSA, skin abscess, CT lumbar no evidence of lesion, recommended IV Cefepime for GNR and PSAE coverage, IV Vancomycin, awaiting SARAH result, due to Lumbar pain that continued was performed Lumbar MRI as recommended by ID specialist no evidence of discitis or other acute process, areas of focally altered peripheral signal intensity and enhancement in the kidneys which may be areas of focal Pyelonephritis or renal cortical infarctions. was unable to anticoagulate due to severe thrombocytopenia 2. 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 LE weakness is concerning for discitis infectious. Repeat BC to document clearing, negative blood cultures from 05/03 and 05/05. ID specialist recommended to continue Ancef, Stopped Teflaro, continue IV Gentamicin for Synergy. for six weeks starting with the first blood culture negative. will continue Cefazolin 2 grams every six hours until June 13 and Gentamicin to be removed, PICC line placement today, due to that developed Fever had multiple repeated tests, did not found difference improving his fever, continue same management following final recommendations by ID specialist. 3. Elevated troponin continue with Tachycardia Cardiology following. Secondary to endocarditis, septic emboli and overall illness Cardiology following, has large vegetation on tricuspid valve and moderate to large on mitral valve, Moderate TR CT surgery consulted by meat specialist. Non surgical candidate. Poor prognosis. 4. IDU, Opiate dependency, avoid opioids and narcotics, 5. AtOH dependence no signs of withdrawal. 6. Multiple infarcts of spleen likely infectious emboli, continue IV antibiotics. 7. Elevated LFTs history of IDU, CT abd and Pelvis with contrast, (8/15) Areas of low-density are seen in the spleen could be lacerations versus infarcts. No hemoperitoneum. Bilateral renal low-density likely benign. Hepatitis C genotype and quantitative, ID following. DVT GI prophylaxis -Teds SCDs -No pharmacological DVT prophylaxis due to thrombocytopenia -IV Pepcid Encourage activity. Code Status: Full code. Discussed Condition With: Patient, Nurse Miss Jack and two Snf guards in the room. Discharge Planning: once cleared again by ID specialist.
--- NOTE | 2018-05-11 15:19 | P.PNID ---
Subjective Remarks: Patient is a 32-year-old male, brought into the hospital for further evaluation of chest pain. Patient is under custody and has been in care home since April 11. According to the patient several days into his incarceration, he started experiencing lower chest pain that is pleuritic in nature. He also started complaining of pain on his lumbar region more on the left side. He has not been coughing. He apparently has been having fevers. Patient has known IV drug use, and the last time he used it was the day before he got incarcerated. Has not any nausea or vomiting. Denies any diarrhea or urinary complaints. He has no prior history of endocarditis, but has had problem with skin abscesses. There is also mention that he has had previous HIV and hepatitis testing and they were both negative and this was from last year. Patient is afebrile. His hemodynamics are stable. His WBC is normal. Patient had CT of the chest which is showing multiple bilateral pulmonary nodules some of which are cavitating. CT of the abdomen and pelvis is showing some findings possibly of splenic infarcts. His blood cultures are currently pending. Infectious disease consultation has been requested to evaluate the patient with possible endocarditis. Notes reviewed D/W RN Highest temp 99 Patient has not gotten out of bed, uses bed dougherty and urinal Does not want to get out of bed due to pain on his LLE, and back CP better He does not complain of bed - as long as he stays still in bed LLE pain worse RLE pain better Last (+) 05/02 US no DVT UA with mild pyuria No rash or itching No or GI complaints SARAH with MV vegetations and large TV vegetation, and possible mod TR CTS evaluation noted. MRI L spine noted. Denies any back pain or neck pain. Antibiotics: Ancef Lines: PICC Past Medical History: Back pain IV drug abuse Right foot injury Skin abscess H/O foot surgery Allergies/Adverse Reactions: Allergies acetaminophen Allergy (Intermediate, Verified 07/08/17 16:38) STOMACH UPSET Objective Vital Signs 05/10/18 15:57 05/10/18 20:00 05/11/18 00:00 Temperature 98.7 F 99.9 F H 99.6 F Pulse Rate 118 H 117 H 113 H Respiratory Rate 19 20 20 Blood Pressure 133/87 132/78 128/73 Pulse Oximetry 96 98 97 05/11/18 04:00 05/11/18 08:00 05/11/18 12:00 Temperature 99.3 F 98.9 F 99.0 F Pulse Rate 114 H 113 H 117 H Respiratory Rate 20 18 18 Blood Pressure 128/81 131/79 128/76 Pulse Oximetry 98 97 95 05/11/18 15:06 Temperature 97.8 F Pulse Rate 117 H Respiratory Rate 19 Blood Pressure 127/72 Pulse Oximetry 97 Intake & Output 05/10/18 05/11/18 05/11/18 18:59 06:59 18:59 Intake Total 2260 / 2260 1440 / 1440 1100 / 1100 Output Total 600 / 600 750 / 750 Balance 1660 / 1660 690 / 690 1100 / 1100 Weight 50 kg Intake: IV 1300 / 1300 1200 / 1200 1100 / 1100 NS Inj 1,000 ML @ 84 mls/hr IV. 1000 / 1000 1000 / 1000 1000 / 1000 CONT .[id number] [facility] Rx#:[id number] Ancef Inj 2,000 MG In NS Inj 80 300 / 300 200 / 200 100 / 100 ML @ 200 mls/hr IV.SIG Q6H [facility] Rx#:[id number] Oral 960 / 960 240 / 240 Output: Urine 600 / 600 750 / 750 Other: Date of Last Bowel Movement 05/07/18 05/10/18 05/11/18 10:40 Blood - Peripheral Aerobic Blood Culture - Pending 05/11/18 10:40 Blood - Peripheral Anaerobic Blood Culture - Pending 05/10/18 11:41 Blood - Peripheral Aerobic Blood Culture - Preliminary No growth in 1 day 05/10/18 11:41 Blood - Peripheral Anaerobic Blood Culture - Preliminary No growth in 1 day 05/10/18 14:21 Clean Catch Urine Urine Culture - Preliminary Immature growth - reincubate 05/05/18 14:55 Blood - Peripheral Aerobic Blood Culture - Final No growth in 5 days 05/05/18 14:55 Blood - Peripheral Anaerobic Blood Culture - Final No growth in 5 days Lab - Hematology Results 05/10/18 11:41 WBC 18.8 H RBC 3.63 L Hgb 9.5 L Hct 29.9 L MCV 82.3 MCH 26.1 L MCHC 31.7 L RDW 16.4 Plt Count 606 H D MPV 6.7 L Neut % (Auto) 86.5 H Lymph % (Auto) 6.4 L [place] % (Auto) 6.0 Eos % (Auto) 0.7 Baso % (Auto) 0.4 Neut # (Auto) 16.2 H Lymph # (Auto) 1.2 [place] # (Auto) 1.1 H Eos # (Auto) 0.1 Baso # (Auto) 0.1 WBC Differential . Differential Comment Auto diff final Lab - Chemistry Results 05/10/18 05/11/18 11:41 05:50 Sodium 129 L Potassium 4.2 Chloride 97 L Carbon Dioxide 22.1 Anion Gap 10 BUN 26 H Creatinine 1.16 1.31 H Estimated GFR 72 L 63 L Random Glucose 106 Calcium 8.1 L Total Bilirubin 0.2 AST 162 H ALT 131 H Alkaline Phosphatase 134 H Total Protein 7.8 D Albumin 1.4 L Imaging: ITS Impressions Abdomen/Pelvis CT 04/30/18 01:58 CONCLUSION: 1. Areas of low-density are seen in the spleen could be lacerations versus infarcts. No hemoperitoneum. 2. Bilateral renal low-density likely benign. 3. Right pleural effusion. Lumbar Spine CT 04/30/18 01:58 CONCLUSION: 1. Disc bulges at L3-4, L4-5 and L5-S1 levels. No canal stenosis. 2. No fracture or spondylolisthesis. Thoracic Spine CT 04/30/18 01:58 CONCLUSION: 1. Unremarkable thoracic spine. Chest CT 04/30/18 03:09 CONCLUSION: 1. Numerous bilateral pulmonary nodules many of which are cavitated, likely septic emboli. 2. Small moderate right pleural effusion with partial loculation. Lumbar Spine MRI 05/01/18 00:00 CONCLUSION: 1. No evidence of discitis or other acute process in the lumbar spine. 2. Areas of focally altered peripheral signal intensity and enhancement in the kidneys which may be areas of focal pyelonephritis or renal cortical infarctions Knee X-Ray 05/02/18 00:00 CONCLUSION: No acute findings. Chest X-Ray 05/10/18 00:00 CONCLUSION: Small right pleural parenchymal density, less prominent compared to previous study Venous Doppler Study 05/10/18 00:00 CONCLUSION: No venous thrombosis is identified in the left lower extremity. Physical Exam: GENERAL: awake and alert, NAD SKIN: Warm and dry. No generalized rash HEAD: Atraumatic. Normocephalic. No temporal wasting, or tenderness. EYES: [place] conjunctiva. Has small petechia L lower eyelid. Pupils equal, round and reactive to light. Extraocular movements full and intact. No scleral icterus. No injection or drainage. EARS, NOSE AND THROAT: Nose without bleeding or purulent nasal discharge. Mucous membranes pink and moist. No oral lesions noted. NECK: Trachea midline. Supple and not tender, no meningeal signs CARDIOVASCULAR: Tachycardic. No murmurs, rubs or gallops heard RESPIRATORY: Clear to auscultation. Breath sounds equal bilaterally. No rales , wheezing or rhonchi ABDOMEN: Soft, flat, non-tender, nondistended. Bowel sounds present and normoactive. No guarding. No rebound. No organomegaly. EXTREMITIES: LLE seems larger compared to the RLE. Pain with any movement of his LLE; severe pain when doing ROM on his L knee and L ankle, minimal with L hip. NO erythema seen on L knee, looks more swollen compared to his R knee. No spine tenderness. Has pain on palpation of SI joints worse on L than on R NEUROLOGICAL: Awake and alert. Cranial nerves grossly intact. Motor symmetrical PSYCHIATRIC: Normal affect, calm and cooperative. LINE: No evidence of infection Assessment and Plan - Plan Impressions Chest pain, pleuritic, with findings suggestive of septic emboli in lungs TV and MV IE, BC with Staph aureus MSSA ? Infective discitis. Bilateral renal infarcts ? pyelo. Pain on L knee, ankle, and buttocks - ?infection - L knee is swollen, but not red; L ankle not swollen - ?SI joints Hx multiple skin abscesses Prior Hx MRSA infection in his skin abscess Active IVDU Back pain, CT lumbar spine ok, no evidence of infection Fevers, recurrent Mild pyuria Recommendation Continue IV Ancef AddLevaquin MRI L knee and pelvis If no fevers, and MR ok, possibly go back to care home Agree with BC and UC Follow C/S Follow temps Monitor progress Will need 6 weeks IV Abx from first neg BC
[2018-05-11] MEDS: levoFLOXacin 750 MG Tablet PO SCH (16:27)
[2018-05-12] MEDS: Sod Chloride 0.9% Inj 1,000 ML IV.CONT SCH ×2 (02:16→15:30)
[2018-05-12] MEDS: ceFAZolin Inj 2,000 MG in Sodium Chlor 0.9% Inj 80 ML IV.SIG SCH ×4 (03:30→21:27)
[2018-05-12] MEDS: levoFLOXacin 750 MG Tablet PO SCH (09:26)
[2018-05-12] MEDS: Senna/Docusate Sodium 8.6/50 MG Tablet PO SCH ×2 (09:26→21:27)
[2018-05-12] MEDS: Famotidine PF Inj 20 MG/2 ML Vial IV.PUSH SCH ×2 (09:26→21:27)
[2018-05-12] MEDS: Heparin Central Flush 100 UNIT/ML 5 ML Vial IV.FLUSH SCH (09:33)
--- NOTE | 2018-05-12 10:55 | P.PN ---
Subjective Interval history: 32 year old male presents with a history of right-sided chest pain, left-sided low back pain that he reports began at approximately the same time, 2-3 days after detoxing from heroin/opiate use in care home. He reports that he was in incarcerated on April 11 and last used heroin and opiates on April 10. He reports that approximately 2 days into his incarceration he began to have detox symptoms which mainly included numerous episodes of diarrhea. Since then he developed this right-sided lower chest wall pain anteriorly and left-sided low back pain just above the left buttock. He reports that he has had a cough productive of green sputum. He also has had fevers with a T-max in care home of 101. He is not currently on any antibiotic. He has been taking ibuprofen and Flexeril at the care home. He denies having any prior history of hepatitis or HIV. He denies having any prior history of endocarditis. He reports that he has had skin infections and abscesses in the past related to staph from IV drug use. He denies having any rashes currently. On review of systems otherwise, the patient denies having any neck pain, shortness of breath, abdominal pain, vomiting,urinary symptoms, or neurologic symptoms. The patient last moved his bowels earlier today with a formed stool. He denies having any numbness or tingling to his extremities. He denies having any weakness of his extremities. He reports that he has generalized weakness. He was also noted at the care home to have incontinence of urine. Hospitalist Notes: 05/01: Seen in his bedroom, discussed with nurse, no complaint of generalized pain, has Endocarditis, ID specialist and imcu specialist following. 05/02: Seen in his bedroom in the presence of two Shelter Guards, as per ID switch from Cefepime to Ancef and continued IV Vancomycin, following Blood cultures if no MRSA to remove Vancomycin. complaint of generalized pain, not eating well. 05/03: Stable in his bedroom in the presence of two Guards, seen by ID specialist question about the possibility of Knee pain seeding, to continue Ancef, stopped Vancomycin, Added Gentamicin for synergy, X ray of both knees and may need MRI of the Knees, continue present care, no nausea, vomit or diarrhea. discussed with nurse Miss Javier and Miss Huffman he continue with some tachycardia she will contact Cardiology for recommendations. 05/04: Seen in his bedroom, two Shelter Guards present on my examination and took my Identification, continue with Generalized pain and difficulty to move his legs. 05/05: Patient today more conversant, better mood, discussed with him about the need for antibiotics probable for some weeks, awaiting final recommendations by ID specialist. 05/06: Patient continue to complaint of generalized pain, but encourage to increase activity, continue antibiotics. latest blood culture no growth in 2 days from 05/03 and last one from 05/05. 05/07: Seen by ID specialist recommended to continue Ancef, Stopped Teflaro, continue IV Gentamicin for Synergy, seen in his bedroom, continue same complaint of generalized pain, encourage ambulation. 05/08: Stable in his bedroom, seen in the presence of plant protection guard, no nausea, vomit or diarrhea, ID specialist asking to continue antibiotics six weeks from first negative blood culture will try to get everything set starting tomorrow for transfer to his facility if okay with ID specialist. 05/09: Awaiting final today for transfer of the patient to his Facility, at this time as per ID specialist okay to discharge on Cefazolin 2 grams q six hours for six weeks since his last negative blood cultures on 05/03 will continue straight until June 1305/10: Seen in his bedroom, discussed with nurse Miss Jack the patient developed fever during the night, held discharge for today Seen by ID specialist recommended to continue Ancef and stop Gentamicin today, asked for blood cultures, Urine culture, ultrasound of the LLE to rule out DVT and following. 05/11: Stable in his bedroom sleeping, discussed with nurse Miss Jack and with two Shelter Guards in the room, had 99.9 F yesterday at 20 Hours. 05/12: Patient without complaint today, discussed with nurse miss Nielson, ID specialist asking for MRI of the Pelvis and left knee no nausea, vomit or diarrhea, is been afebrile, new blood cultures negative, but Urine culture positive for Yeast. Physical Exam Vital signs: Vital Signs 05/11/18 12:00 05/11/18 15:06 05/11/18 20:00 Temperature 99.0 F 97.8 F 100.7 F H Pulse Rate 117 H 117 H 123 H Respiratory Rate 20 Blood Pressure 128/76 127/72 133/64 Pulse Oximetry 95 97 97 05/12/18 00:00 05/12/18 04:00 Temperature 100.3 F H 98.9 F Pulse Rate 111 H 115 H Respiratory Rate 20 18 Blood Pressure 130/75 131/80 Pulse Oximetry 97 97 Intake & Output 05/11/18 05/12/18 05/12/18 18:59 06:59 18:59 Intake Total 2400 / 2400 1200 / 1200 Output Total 1999 Balance 400 / 400 1200 / 1200 Intake: IV 1200 / 1200 1200 / 1200 NS Inj 1,000 ML @ 84 mls/hr IV. 1000 / 1000 1000 / 1000 CONT .[id number] FORD Rx#:[id number] Ancef Inj 2,000 MG In NS Inj 80 200 / 200 200 / 200 ML @ 200 mls/hr IV.SIG Q6H FORD Rx#:[id number] Oral 1200 / 1200 Output: Urine 1999 Other: Date of Last Bowel Movement 05/10/18 Narrative: GENERAL: NAD, AAOx3 SKIN: Warm and dry. HEAD: Atraumatic. Normocephalic. EYES: Pupils equal and round. No scleral icterus. No injection or drainage. ENT: No nasal bleeding or discharge. Mucous membranes pink and moist. NECK: Trachea midline. No JVD. CARDIOVASCULAR: Regular rhythm, tachycardic RESPIRATORY: breath sounds bilateral, no wheezing or crackles. GASTROINTESTINAL: Abdomen soft, non-tender MUSCULOSKELETAL: Extremities without clubbing, cyanosis, or edema. left foot drop NEUROLOGICAL: Awake and alert. No obvious cranial nerve deficits. PSYCHIATRIC: Appropriate mood and affect Results - Labs CBC & Chem 7: 05/10/18 11:41 05/11/18 05:50 Microbiology 05/10/18 14:21 Clean Catch Urine Urine Culture - Preliminary Yeast - ID to follow 05/10/18 11:41 Blood - Peripheral Aerobic Blood Culture - Preliminary No growth in 1 day 05/10/18 11:41 Blood - Peripheral Anaerobic Blood Culture - Preliminary No growth in 1 day Assessment and Plan - Plan 1. Elevated Troponin with atypical chest pain, Pleuritic in nature, findings suggestive of septic Emboli in the lungs, questionable Infective endocarditis, ID specialist following, patient is IDU, Prior history of MRSA, skin abscess, CT lumbar no evidence of lesion, recommended IV Cefepime for GNR and PSAE coverage, IV Vancomycin, awaiting SARAH result, due to Lumbar pain that continued was performed Lumbar MRI as recommended by ID specialist no evidence of discitis or other acute process, areas of focally altered peripheral signal intensity and enhancement in the kidneys which may be areas of focal Pyelonephritis or renal cortical infarctions. was unable to anticoagulate due to severe thrombocytopenia 2. 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 LE weakness is concerning for discitis infectious. Repeat BC to document clearing, negative blood cultures from 05/03 and 05/05. ID specialist recommended to continue Ancef, Stopped Teflaro, continue IV Gentamicin for Synergy. for six weeks starting with the first blood culture negative. will continue Cefazolin 2 grams every six hours until June 13 and Gentamicin to be removed, PICC line placement today, due to that developed Fever had multiple repeated tests, did not found difference improving his fever, as per ID to get MRI of the Pelvis and Left knee. 3. Elevated troponin continue with Tachycardia Cardiology following. Secondary to endocarditis, septic emboli and overall illness Cardiology following, has large vegetation on tricuspid valve and moderate to large on mitral valve, Moderate TR CT surgery consulted by imcu specialist. Non surgical candidate. Poor prognosis. 4. IDU, Opiate dependency, avoid opioids and narcotics, 5. AtOH dependence no signs of withdrawal. 6. Multiple infarcts of spleen likely infectious emboli, continue IV antibiotics. 7. Elevated LFTs history of IDU, CT abd and Pelvis with contrast, (04/30) Areas of low-density are seen in the spleen could be lacerations versus infarcts. No hemoperitoneum. Bilateral renal low-density likely benign. Hepatitis C genotype and quantitative, ID following. DVT GI prophylaxis -Teds SCDs -No pharmacological DVT prophylaxis due to thrombocytopenia -IV Pepcid Encourage activity. Code Status: Full Code. Discussed Condition With: Patient, nurse Miss Nielson and care home guards x 2 in the room. Discharge Planning: once cleared again by ID specialist.
[2018-05-12] MEDS: Fluconazole 100 MG Tablet PO SCH (11:34)
[2018-05-12] MEDS ORDERED: Gadobutrol PF 7.5 MMOL/7.5 ML Vial (for RAD) IV.SIG ONE (16:55)
--- NOTE | 2018-05-12 17:16 | MR ---
EXAM DATE: 05/12/2018 5:07 PM EDT AGE/SEX: 32 years / Male INDICATIONS: . Pain. History of IVDU. CLINICAL DATA: This is the patient's initial encounter. Patient reports that signs and symptoms have been present for 1 day and indicates a pain score of 5/10. MEDICAL/SURGICAL HISTORY: None. None. COMPARISON: No prior exams available for comparison. TECHNIQUE: Multiplanar, multisequence MRI examination of the pelvis was performed with [address] (gadobutrol) contrast and without contrast as a single exam dose. FINDINGS: There is generalized subcutaneous edema.. There is no free fluid in the pelvis.. There is trace fluid around both the right and left hips. There is enhancement about the left SI joint suspicious for an inflammatory process . The right SI joint appears normal. There is no synovial enhancement about either hip. There is no evidence for an osteomyelitis. CONCLUSION: 1. Abnormal left SI joint suspicious for inflammatory process 2. Trace joint effusion around both hips without synovial enhancement. 3. Generalized subcutaneous edema. Electronically signed by: Lele Umanzor MD 05/12/2018 5:15 PM EDT
--- NOTE | 2018-05-12 17:18 | MR ---
EXAM DATE: 05/12/2018 5:02 PM EDT AGE/SEX: 32 years / Male INDICATIONS: . Pain. History of IVDU. CLINICAL DATA: This is the patient's initial encounter. Patient reports that signs and symptoms have been present for 1 day and indicates a pain score of 5/10. MEDICAL/SURGICAL HISTORY: None. None. COMPARISON: No prior exams available for comparison. TECHNIQUE: Multiplanar, multisequence MRI examination was performed with contrast and after the intr avenous administration of 6 ml Gadavist (gadobutrol) contrast as a single exam dose. FINDINGS: There is a large joint effusion present. Marrow signal in the distal femur, proximal tibia and fibula are inhomogeneous. The anterior cruciate is intact from origin to insertion The posterior cruciate is intact Blas to insertion Signal intensity lateral meniscus is normal Signal intensity in medial meniscus is normal In the patellofemoral compartment large joint effusion is evident without chondral malacia patella. On the postcontrast images there is intense enhancement of the synovium around this joint effusion. T his can be seen with an active inflammatory process as well as inflammatory arthritis. There is no abnormal marrow signal to suggest osteomyelitis at this point.. CONCLUSION: 1. Large joint effusion with intense enhancement suspicious for inflammatory process. Electronically signed by: Lele Umanzor MD 05/12/2018 5:17 PM EDT
[2018-05-13] MEDS: Acetaminophen 325 MG Tablet PO PRN ×3 (01:14→22:05)
[2018-05-13] MEDS: Sod Chloride 0.9% Inj 1,000 ML IV.CONT SCH ×2 (04:32→17:08)
[2018-05-13] MEDS: ceFAZolin Inj 2,000 MG in Sodium Chlor 0.9% Inj 80 ML IV.SIG SCH ×4 (05:01→22:05)
--- NOTE | 2018-05-13 06:48 | P.PNOP ---
Subjective Interval history: s/p long hx of IV drug use. reports left knee pain and left ankle pain that has been getting worse Physical Exam Vital signs: Vital Signs 05/12/18 08:00 05/12/18 12:00 05/12/18 16:00 Temperature 98.2 F 98.0 F 98.1 F Pulse Rate 106 H 103 H 106 H Respiratory Rate 18 19 19 Blood Pressure 126/75 125/81 116/68 Pulse Oximetry 96 99 98 05/12/18 20:00 05/13/18 00:00 05/13/18 04:00 Temperature 98 F 100.8 F H 97.8 F Pulse Rate 126 H 122 H 99 H Respiratory Rate 20 20 20 Blood Pressure 134/81 142/73 H 132/88 Pulse Oximetry 99 96 98 Intake & Output 05/12/18 05/12/18 05/13/18 06:59 18:59 06:59 Intake Total 1200 / 1200 2200 / 2200 680 / 680 Output Total 1400 / 1400 800 / 800 Balance 1200 / 1200 800 / 800 -120 / -120 Weight 50 kg Intake: IV 1200 / 1200 1200 / 1200 200 / 200 NS Inj 1,000 ML @ 84 mls/hr IV. 1000 / 1000 1000 / 1000 0 / 0 CONT .[id number] FORD Rx#:[id number] Ancef Inj 2,000 MG In NS Inj 80 200 / 200 200 / 200 200 / 200 ML @ 200 mls/hr IV.SIG Q6H FORD Rx#:[id number] Oral 1000 / 1000 480 / 480 Output: Urine 1400 / 1400 800 / 800 Other: # Voids 3 # Incontinent Bowel Movements 1 Narrative: LLE: tender to touch over lateral hip, knee and ankle. limited motion of knee secondary to pain. limited swelling. tender to touch and motion of ankle with limited swelling. no erythema present Results - Labs CBC & Chem 7: 05/10/18 11:41 05/13/18 05:54 Laboratory Results - last 24 hr 05/13/18 05:54 Creatinine 1.60 H Estimated GFR 50 L Microbiology 05/11/18 10:40 Blood - Peripheral Aerobic Blood Culture - Preliminary No growth in 1 day 05/11/18 10:40 Blood - Peripheral Anaerobic Blood Culture - Preliminary No growth in 1 day 05/10/18 11:41 Blood - Peripheral Aerobic Blood Culture - Preliminary No growth in 2 days 05/10/18 11:41 Blood - Peripheral Anaerobic Blood Culture - Preliminary No growth in 2 days 05/10/18 14:21 Clean Catch Urine Urine Culture - Preliminary Yeast - ID to follow - Imaging Impressions Knee MRI 05/12/18 00:00 CONCLUSION: 1. Large joint effusion with intense enhancement suspicious for inflammatory process. Pelvis MRI 05/12/18 00:00 CONCLUSION: 1. Abnormal left SI joint suspicious for inflammatory process 2. Trace joint effusion around both hips without synovial enhancement. 3. Generalized subcutaneous edema. Assessment and Plan - Assessment and Plan 1) Left Knee Effusion -MRI shows fluid collection suspicious of infection -npo -plan for surgery today for I&D with Dr Valdez -sign consents
[2018-05-13] MEDS ORDERED: Chlorhexidine Gluconate 2% 1 Pack (2 Cloths) TOPICAL SCH (07:45)
[2018-05-13] MEDS ORDERED: Metoprolol Tartrate 25 MG Tablet PO SCH (07:45)
[2018-05-13] MEDS ORDERED: Sodium Chlor 0.9% Inj 500 ML IV.SIG SCH (08:00)
[2018-05-13] MEDS ORDERED: Ketamine Inj 50 MG/5 ML Syringe IV.PUSH ONE (08:32)
[2018-05-13] MEDS ORDERED: Morphine Inj 4 MG/ML Vial IV.PUSH PRN ×2 (09:40→11:39)
[2018-05-13] MEDS ORDERED: Post-op Orders (for Pharmacy) OTHER STA (09:40)
--- NOTE | 2018-05-13 09:51 | P.OP ---
- Preoperative Diagnosis (1) Infection of left knee Date of procedure: 05/13/18 Procedure: Left knee arthrotomy with irrigation and debridement for septic arthritis Anesthesia: GETA Surgeon: Davion Kapadia MD [employer] Bi Architect: TANA Chakraborty PA-C The surgical procedure was assisted by my physician conference assistant. My P.A. presence was necessary throughout this case for the manipulation and positioning of the surgical extremity. My P.A. was assisting me throughout the duration of this procedure. The skill set of a physician conference assistant was medically necessary to complete this procedure. During the surgical case the surgical aide was working at the back table and the physician conference assistant was directly assisting me. Operation and Findings: .Patient was seen and evaluated preoperatively. Patient was found to have probable infection of the left knee joint. Knee effusion and erythema were noted. MRI showed probable infection. He had elevated white blood cell count and elevated sedimentation rate. Informed consent was obtained after detailed discussion of risk and benefits of surgery. Operative site was marked. Patient was brought to the operating room. IV sedation and GETA were administered by anesthesiologist. Operative leg was prepped with alcohol followed by Hibiclens and draped in usual sterile fashion. Timeout procedure was performed. Procedure began with a 4 cm incision over the lateral knee. Subcutaneous tissue dissected with Bovie. Iliotibial band was opened in line with fibers. The joint was now opened through arthrotomy. A large volume of purulent fluid was found within the knee. Specimen was obtained for cultures and sensitivities. The knee joint was manipulated. The knee joint was palpated and loculations were manually debrided. A portion of the synovium was excised. After excisional debridement was complete, the wound was thoroughly irrigated with sterile saline. At this point the wound was clean. Capsule was closed with #1 PDS, Subcutaneous tissues closed with 3-0 PDS and skin was closed with 3 -0 nylon. A ERICH drain was placed into the wound. Sterile dressings were applied. Patient was awakened and transferred to recovery in stable condition. Needle and sponge counts were correct
[2018-05-13] MEDS ORDERED: fentaNYL Citrate Inj 100 MCG/2 ML Ampul ONE (10:00)
--- NOTE | 2018-05-13 10:32 | MB ---
cc: Davion Valdez MD DATE: 05/13/2018 REASON FOR CONSULTATION: Septic left knee arthritis. HISTORY OF PRESENT ILLNESS: Dena is an approximately 32-year-old male who is currently incarcerated. He has correctional officers at bedside. He has been hospitalized for approximately 2 weeks. He was using heroin and opium. He was incarcerated on 04/11/2018. He began having detoxification symptoms while incarcerated. He was subsequently brought to [facility]. The patient has currently been complaining of left knee pain for several days. His pain is worsening. He has pain with any knee motion. He has a history of endocarditis. He states the pain is worse with knee motion or weightbearing. He has had some subjective fevers and chills as well. PAST MEDICAL HISTORY: Illnesses: Back pain, IV drug use. PAST SURGICAL HISTORY: History of previous right foot surgery. ALLERGIES: ACETAMINOPHEN. MEDICATIONS: Please see EMR for complete list of inpatient medications. This was reviewed and is up to date. SOCIAL HISTORY: The patient smokes cigarettes. He denies alcohol use. He has a history of IV drug use. FAMILY HISTORY: The patient denies any familial medical problems. REVIEW OF SYSTEMS: The patient denies weight loss, headache, visual changes, hearing loss, chest pain, palpitations, shortness of breath, nausea, vomiting, urinary changes, diarrhea, bowel changes, neck pain, back pain, skin rashes, weakness or numbness of the extremities, anxiety or depression. He has had some minor fevers and chills. He complains of left knee pain. The pain is worse with movement. DIAGNOSTIC DATA: MRI of left knee was reviewed. MRI reveals a moderate knee joint effusion. MRI is suggestive of an infection process or inflammatory process. LABORATORY DATA: The patient has a white blood cell count of 18.8, hematocrit 29.9, platelet count of 606. INR is 1.2. Potassium is 4.2. PHYSICAL EXAMINATION: GENERAL: The patient is a thin, 32-year-old male. He is in no acute distress. He is awake and alert. He is currently shackled to the bed with a customer service security officer at bedside. VITAL SIGNS: Temperature 97.8, pulse 100, respirations 18, blood pressure 138/85, O2 saturations 98% on room air. HEENT: The patient is normocephalic; the pupils are equal. NECK: Soft, nontender. The trachea is in the midline. ABDOMEN: Soft, nontender, nondistended. EXTREMITIES: Examination of bilateral upper extremities reveals no significant pain with shoulder, elbow or wrist motion. He has sensation in all fingers. He has There is good capillary refill in all fingers. Skin is intact. Examination of the left leg reveals no tenderness around his hip. He has a small joint effusion present. He has pain with any knee motion. He is diffusely tender around his knee. Calf and thigh compartments are soft. Sensation is intact in the left foot. Dorsalis pedis pulses palpable. Examination of right leg reveals minimal pain with hip, knee or ankle motion. Skin is intact. Dorsalis pedis pulses palpable. IMPRESSION: 1. History of intravenous drug use. 2. Endocarditis. 3. Probable septic arthritis of left knee. PLAN: Treatment options were discussed with the patient. At this point I would recommend surgical irrigation and debridement with arthrotomy of left knee. Risks of surgery include bleeding, infection, injuries to arteries, nerves, blood vessels, wound infection, recurrence of infection, as well as medical complications including blood clot, stroke, heart attack and . All questions were answered. I will plan on surgery today. A mid-level provider in my office, nurse practitioner or PA, may see this patient on a follow-up basis and continue to implement the objective of this plan including: Starting or adjusting medications, injections of muscle, tendon, bursa or joints, cast application, orthotic or brace application, physical therapy, further radiographic studies including x-ray, MRI, CT, ultrasounds or bone scan, vascular studies, neurologic studies, or other specialist consultations, and proceeding with surgical management as appropriate. MD ИРИНА sEcobedo/edgar , 09:59 AM , 10:09 AM
--- NOTE | 2018-05-13 11:34 | P.PN ---
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 He reports that he was in incarcerated on April 11 and last used heroin and opiates on April 10. He reports that approximately 2 days into his incarceration he began to have detox symptoms which mainly included numerous episodes of diarrhea. Since then he developed this right-sided lower chest wall pain anteriorly and left-sided low back pain just above the left buttock. He reports that he has had a cough productive of green sputum. He also has had fevers with a T-max in retirement of 101. He is not currently on any antibiotic. He has been taking ibuprofen and Flexeril at the retirement. He denies having any prior history of hepatitis or HIV. He denies having any prior history of endocarditis. He reports that he has had skin infections and abscesses in the past related to staph from IV drug use. He denies having any rashes currently. On review of systems otherwise, the patient denies having any neck pain, shortness of breath, abdominal pain, vomiting,urinary symptoms, or neurologic symptoms. The patient last moved his bowels earlier today with a formed stool. He denies having any numbness or tingling to his extremities. He denies having any weakness of his extremities. He reports that he has generalized weakness. He was also noted at the retirement to have incontinence of urine. Hospitalist Notes: 05/01: Seen in his bedroom, discussed with nurse, no complaint of generalized pain, has Endocarditis, ID specialist and visual merchandising specialist following. 05/02: Seen in his bedroom in the presence of two [employer], as per ID switch from Cefepime to Ancef and continued IV Vancomycin, following Blood cultures if no MRSA to remove Vancomycin. complaint of generalized pain, not eating well. 05/03: Stable in his bedroom in the presence of two Guards, seen by ID specialist question about the possibility of Knee pain seeding, to continue Ancef, stopped Vancomycin, Added Gentamicin for synergy, X ray of both knees and may need MRI of the Knees, continue present care, no nausea, vomit or diarrhea. discussed with nurse Miss Javier and Miss Huffman he continue with some tachycardia she will contact Cardiology for recommendations. 05/04: Seen in his bedroom, two [employer] present on my examination and took my Identification, continue with Generalized pain and difficulty to move his legs. 05/05: Patient today more conversant, better mood, discussed with him about the need for antibiotics probable for some weeks, awaiting final recommendations by ID specialist. 05/06: Patient continue to complaint of generalized pain, but encourage to increase activity, continue antibiotics. latest blood culture no growth in 2 days from 05/03 and last one from 05/05. 05/07: Seen by ID specialist recommended to continue Ancef, Stopped Teflaro, continue IV Gentamicin for Synergy, seen in his bedroom, continue same complaint of generalized pain, encourage ambulation. 05/08: Stable in his bedroom, seen in the presence of security guard dispatcher, no nausea, vomit or diarrhea, ID specialist asking to continue antibiotics six weeks from first negative blood culture will try to get everything set starting tomorrow for transfer to his facility if okay with ID specialist. 05/09: Awaiting final today for transfer of the patient to his Facility, at this time as per ID specialist okay to discharge on Cefazolin 2 grams q six hours for six weeks since his last negative blood cultures on 05/03 will continue straight until June 1305/10: Seen in his bedroom, discussed with nurse Miss Jack the patient developed fever during the night, held discharge for today Seen by ID specialist recommended to continue Ancef and stop Gentamicin today, asked for blood cultures, Urine culture, ultrasound of the LLE to rule out DVT and following. 05/11: Stable in his bedroom sleeping, discussed with nurse Miss Jack and with two [employer] in the room, had 99.9 F yesterday at 20 Hours. 05/12: Patient without complaint today, discussed with nurse miss Nielson, ID specialist asking for MRI of the Pelvis and left knee no nausea, vomit or diarrhea, is been afebrile, new blood cultures negative, but Urine culture positive for Yeast. 05/13: Seen by Orthopedic Surgery status post MRI showed fluid collection suspicious of infection, left NPO and now status post Left knee arthrotomy with irrigation and debridement for septic arthritis, no nausea, vomit or diarrhea. Seen by ID specialist recommended to continue IV Ancef, Diflucan, will reevaluate antibiotics now with new infectious source identified. Physical Exam Vital signs: Vital Signs 05/12/18 12:00 05/12/18 16:00 05/12/18 20:00 Temperature 98.0 F 98.1 F 98 F Pulse Rate 103 H 106 H 126 H Respiratory Rate 19 19 20 Blood Pressure 125/81 116/68 134/81 Pulse Oximetry 99 98 99 05/13/18 00:00 05/13/18 04:00 05/13/18 07:56 Temperature 100.8 F H 97.8 F 97.8 F Pulse Rate 122 H 99 H 100 H Respiratory Rate 20 20 18 Blood Pressure 142/73 H 132/88 138/85 Pulse Oximetry 96 98 98 05/13/18 09:55 05/13/18 10:00 Temperature 97.7 F Pulse Rate 100 H 101 H Respiratory Rate 18 20 Blood Pressure 97/55 L 106/63 Pulse Oximetry 98 100 Intake & Output 05/12/18 05/13/18 05/13/18 18:59 06:59 18:59 Intake Total 2200 / 2200 680 / 680 600 / 600 Output Total 1400 / 1400 800 / 800 30 / 30 Balance 800 / 800 -120 / -120 570 / 570 Weight 50 kg Intake: IV 1200 / 1200 200 / 200 NS Inj 1,000 ML @ 84 mls/hr IV. 1000 / 1000 0 / 0 CONT .[id number] [facility] Rx#:[id number] Ancef Inj 2,000 MG In NS Inj 80 200 / 200 200 / 200 ML @ 200 mls/hr IV.SIG Q6H [facility] Rx#:[id number] Oral 1000 / 1000 480 / 480 Anesthesia Amount 600 / 600 Output: Urine 1400 / 1400 800 / 800 Estimated Blood Loss 30 / 30 Other: # Voids 3 # Incontinent Bowel Movements 1 Narrative: GENERAL: NAD, AAOx3 SKIN: Warm and dry. HEAD: Atraumatic. Normocephalic. EYES: Pupils equal and round. No scleral icterus. No injection or drainage. ENT: No nasal bleeding or discharge. Mucous membranes pink and moist. NECK: Trachea midline. No JVD. CARDIOVASCULAR: Regular rhythm, tachycardic RESPIRATORY: breath sounds bilateral, no wheezing or crackles. GASTROINTESTINAL: Abdomen soft, non-tender MUSCULOSKELETAL: Extremities without clubbing, cyanosis, or edema. left knee dressed. NEUROLOGICAL: Awake and alert. No obvious cranial nerve deficits. PSYCHIATRIC: Appropriate mood and affect Results - Labs CBC & Chem 7: 05/10/18 11:41 05/13/18 05:54 Laboratory Results - last 24 hr 05/13/18 05:54 Creatinine 1.60 H Estimated GFR 50 L Microbiology 05/11/18 10:40 Blood - Peripheral Aerobic Blood Culture - Preliminary No growth in 2 days 05/11/18 10:40 Blood - Peripheral Anaerobic Blood Culture - Preliminary No growth in 2 days 05/10/18 11:41 Blood - Peripheral Aerobic Blood Culture - Preliminary No growth in 3 days 05/10/18 11:41 Blood - Peripheral Anaerobic Blood Culture - Preliminary No growth in 3 days 05/10/18 14:21 Clean Catch Urine Urine Culture - Preliminary Yeast - ID to follow - Imaging Impressions Knee MRI 05/12/18 00:00 CONCLUSION: 1. Large joint effusion with intense enhancement suspicious for inflammatory process. Pelvis MRI 05/12/18 00:00 CONCLUSION: 1. Abnormal left SI joint suspicious for inflammatory process 2. Trace joint effusion around both hips without synovial enhancement. 3. Generalized subcutaneous edema. - Procedures Date: 05/13/18 09:47 Initialization Date: 05/13/18 09:47 - Preoperative Diagnosis (1) Infection of left knee Date of procedure: 05/13/18 Procedure: Left knee arthrotomy with irrigation and debridement for septic arthritis Anesthesia: GETA Surgeon: Davion Kapadia MD Assessment and Plan - Plan 1. Elevated Troponin with atypical chest pain, Pleuritic in nature, findings suggestive of septic Emboli in the lungs, questionable Infective endocarditis, ID specialist following, patient is IDU, Prior history of MRSA, skin abscess, CT lumbar no evidence of lesion, recommended IV Cefepime for GNR and PSAE coverage, IV Vancomycin, awaiting SARAH result, due to Lumbar pain that continued was performed Lumbar MRI as recommended by ID specialist no evidence of discitis or other acute process, areas of focally altered peripheral signal intensity and enhancement in the kidneys which may be areas of focal Pyelonephritis or renal cortical infarctions. was unable to anticoagulate due to severe thrombocytopenia 2. 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 LE weakness is concerning for discitis infectious. Repeat BC to document clearing, negative blood cultures from 05/03 and 05/05. ID specialist recommended to continue Ancef, Stopped Teflaro, continue IV Gentamicin for Synergy. for six weeks starting with the first blood culture negative. will continue Cefazolin 2 grams every six hours until June 13 and Gentamicin to be removed, PICC line placement today, due to that developed Fever had multiple repeated tests, did not found difference improving his fever, as per ID to get MRI of the Pelvis and Left knee. MRI showed fluid collection suspicious of infection, left NPO and now status post Left knee arthrotomy with irrigation and debridement for septic arthritis. continue Ancef, Diflucan. 3. Elevated troponin continue with Tachycardia Cardiology following. Secondary to endocarditis, septic emboli and overall illness Cardiology following, has large vegetation on tricuspid valve and moderate to large on mitral valve, Moderate TR CT surgery consulted by visual merchandising specialist. Non surgical candidate. Poor prognosis. 4. IDU, Opiate dependency, avoid opioids and narcotics, 5. AtOH dependence no signs of withdrawal. 6. Multiple infarcts of spleen likely infectious emboli, continue IV antibiotics. 7. Elevated LFTs history of IDU, CT abd and Pelvis with contrast, (04/30) Areas of low-density are seen in the spleen could be lacerations versus infarcts. No hemoperitoneum. Bilateral renal low-density likely benign. Hepatitis C genotype and quantitative, ID following. DVT GI prophylaxis -Teds SCDs -No pharmacological DVT prophylaxis due to thrombocytopenia -IV Pepcid Encourage activity. Code Status: Full Code. Discussed Condition With: Patient and nurse. Discharge Planning: once cleared again by ID specialist.
[2018-05-13] MEDS ORDERED: Lidocaine PF 1% Inj 5 ML Syringe INFILTRATN ONE (12:00)
[2018-05-13] MEDS ORDERED: Sodium Chlor 0.9% Inj 250 ML IV.SIG ONE (12:00)
[2018-05-13] MEDS: Fluconazole 100 MG Tablet PO SCH (12:07)
[2018-05-13] MEDS: Senna/Docusate Sodium 8.6/50 MG Tablet PO SCH ×2 (12:07→22:06)
[2018-05-13] MEDS: Heparin Central Flush 100 UNIT/ML 5 ML Vial IV.FLUSH SCH (12:07)
[2018-05-13] MEDS: Famotidine PF Inj 20 MG/2 ML Vial IV.PUSH SCH ×2 (12:08→22:06)
[2018-05-13] MEDS: levoFLOXacin 750 MG Tablet PO SCH (12:14)
--- NOTE | 2018-05-13 14:09 | P.PNID ---
Subjective Remarks: Patient is a 32-year-old male, brought into the hospital for further evaluation of chest pain. Patient is under custody and has been in longterm since April 11. According to the patient several days into his incarceration, he started experiencing lower chest pain that is pleuritic in nature. He also started complaining of pain on his lumbar region more on the left side. He has not been coughing. He apparently has been having fevers. Patient has known IV drug use, and the last time he used it was the day before he got incarcerated. Has not any nausea or vomiting. Denies any diarrhea or urinary complaints. He has no prior history of endocarditis, but has had problem with skin abscesses. There is also mention that he has had previous HIV and hepatitis testing and they were both negative and this was from last year. Patient is afebrile. His hemodynamics are stable. His WBC is normal. Patient had CT of the chest which is showing multiple bilateral pulmonary nodules some of which are cavitating. CT of the abdomen and pelvis is showing some findings possibly of splenic infarcts. His blood cultures are currently pending. Infectious disease consultation has been requested to evaluate the patient with possible endocarditis. Notes reviewed Temps up last night Spoke with radiologist yesterday - evidence of septic L knee and L SI joint abnormal (lumbar MRI 05/01 SI joint ok) Appreciate Dr Valdez's help Had OR this morning Last (+) BC 05/02 SARAH with MV vegetations and large TV vegetation, and possible mod TR Antibiotics: Ancef Diflucan Lines: PICC Past Medical History: Back pain IV drug abuse Right foot injury Skin abscess H/O foot surgery Allergies/Adverse Reactions: Allergies acetaminophen Allergy (Intermediate, Verified 07/08/17 16:38) STOMACH UPSET Objective Vital Signs 05/12/18 16:00 05/12/18 20:00 05/13/18 00:00 Temperature 98.1 F 98 F 100.8 F H Pulse Rate 106 H 126 H 122 H Respiratory Rate 19 20 20 Blood Pressure 116/68 134/81 142/73 H Pulse Oximetry 98 99 96 05/13/18 04:00 05/13/18 07:56 05/13/18 09:55 Temperature 97.8 F 97.8 F 97.7 F Pulse Rate 99 H 100 H 100 H Respiratory Rate 20 18 15 Blood Pressure 132/88 138/85 97/55 L Pulse Oximetry 98 98 98 08/28/18 10:00 05/13/18 10:15 05/13/18 10:30 Temperature 96.7 F L Pulse Rate 101 H 101 H 96 H Respiratory Rate 20 15 15 Blood Pressure 106/63 112/69 113/73 Pulse Oximetry 100 100 100 05/13/18 12:00 Temperature 97.4 F L Pulse Rate 103 H Respiratory Rate 18 Blood Pressure 123/76 Pulse Oximetry 97 Intake & Output 05/12/18 05/13/18 05/13/18 18:59 06:59 18:59 Intake Total 2200 / 2200 680 / 680 600 / 600 Output Total 1400 / 1400 800 / 800 30 / 30 Balance 800 / 800 -120 / -120 570 / 570 Weight 50 kg Intake: IV 1200 / 1200 200 / 200 NS Inj 1,000 ML @ 84 mls/hr IV. 1000 / 1000 0 / 0 CONT .[id number] [facility] Rx#:[id number] Ancef Inj 2,000 MG In NS Inj 80 200 / 200 200 / 200 ML @ 200 mls/hr IV.SIG Q6H [facility] Rx#:[id number] Oral 1000 / 1000 480 / 480 Anesthesia Amount 600 / 600 Output: Urine 1400 / 1400 800 / 800 Estimated Blood Loss 30 / 30 Other: # Voids 3 # Incontinent Bowel Movements 1 05/13/18 09:40 Fluid - Other Fungal Smear - Final No fungal elements seen 05/13/18 09:40 Fluid - Other Fungal Culture - Pending 05/13/18 09:40 Fluid - Other Gram Stain - Final 05/13/18 09:40 Fluid - Other Wound Culture - Pending 05/11/18 10:40 Blood - Peripheral Aerobic Blood Culture - Preliminary No growth in 2 days 05/11/18 10:40 Blood - Peripheral Anaerobic Blood Culture - Preliminary No growth in 2 days 05/10/18 11:41 Blood - Peripheral Aerobic Blood Culture - Preliminary No growth in 3 days 05/10/18 11:41 Blood - Peripheral Anaerobic Blood Culture - Preliminary No growth in 3 days 05/13/18 09:40 Fluid - Other Acid Fast Bacilli Smear - Pending 05/13/18 09:40 Fluid - Other Mycobacterial Culture - Pending 05/13/18 09:40 Tissue - Knee Fungal Smear - Pending 05/13/18 09:40 Tissue - Knee Fungal Culture - Pending 05/13/18 09:40 Tissue - Knee Acid Fast Bacilli Smear - Pending 05/13/18 09:40 Tissue - Knee Mycobacterial Culture - Pending 05/13/18 09:40 Tissue - Knee Gram Stain - Pending 05/13/18 09:40 Tissue - Knee Wound Culture - Pending 05/10/18 14:21 Clean Catch Urine Urine Culture - Preliminary Yeast - ID to follow 05/05/18 14:55 Blood - Peripheral Aerobic Blood Culture - Final No growth in 5 days 05/05/18 14:55 Blood - Peripheral Anaerobic Blood Culture - Final No growth in 5 days Lab - Chemistry Results 05/13/18 05:54 Creatinine 1.60 H Estimated GFR 50 L Imaging: ITS Impressions Abdomen/Pelvis CT 04/30/18 01:58 CONCLUSION: 1. Areas of low-density are seen in the spleen could be lacerations versus infarcts. No hemoperitoneum. 2. Bilateral renal low-density likely benign. 3. Right pleural effusion. Lumbar Spine CT 04/30/18 01:58 CONCLUSION: 1. Disc bulges at L3-4, L4-5 and L5-S1 levels. No canal stenosis. 2. No fracture or spondylolisthesis. Thoracic Spine CT 04/30/18 01:58 CONCLUSION: 1. Unremarkable thoracic spine. Chest CT 04/30/18 03:09 CONCLUSION: 1. Numerous bilateral pulmonary nodules many of which are cavitated, likely septic emboli. 2. Small moderate right pleural effusion with partial loculation. Lumbar Spine MRI 05/01/18 00:00 CONCLUSION: 1. No evidence of discitis or other acute process in the lumbar spine. 2. Areas of focally altered peripheral signal intensity and enhancement in the kidneys which may be areas of focal pyelonephritis or renal cortical infarctions Knee X-Ray 05/02/18 00:00 CONCLUSION: No acute findings. Chest X-Ray 05/10/18 00:00 CONCLUSION: Small right pleural parenchymal density, less prominent compared to previous study Venous Doppler Study 05/10/18 00:00 CONCLUSION: No venous thrombosis is identified in the left lower extremity. Knee MRI 05/12/18 00:00 CONCLUSION: 1. Large joint effusion with intense enhancement suspicious for inflammatory process. Pelvis MRI 05/12/18 00:00 CONCLUSION: 1. Abnormal left SI joint suspicious for inflammatory process 2. Trace joint effusion around both hips without synovial enhancement. 3. Generalized subcutaneous edema. Physical Exam: GENERAL: Resting, NAD SKIN: Warm and dry. No generalized rash HEAD: Atraumatic. Normocephalic. No temporal wasting, or tenderness. EYES: [place] conjunctiva. Has small petechia L lower eyelid. Pupils equal, round and reactive to light. Extraocular movements full and intact. No scleral icterus. No injection or drainage. EARS, NOSE AND THROAT: Nose without bleeding or purulent nasal discharge. Mucous membranes pink and moist. No oral lesions noted. NECK: Trachea midline. Supple and not tender, no meningeal signs CARDIOVASCULAR: Tachycardic. No murmurs, rubs or gallops heard RESPIRATORY: Clear to auscultation. Breath sounds equal bilaterally. No rales , wheezing or rhonchi ABDOMEN: Soft, flat, non-tender, nondistended. Bowel sounds present and normoactive. No guarding. No rebound. No organomegaly. EXTREMITIES: Has dressing on his L knee from OR this morning NEUROLOGICAL: Non-focal PSYCHIATRIC: calm and cooperative. LINE: No evidence of infection Assessment and Plan - Plan Impressions Chest pain, pleuritic, with findings suggestive of septic emboli in lungs TV and MV IE, BC with Staph aureus MSSA Septic L knee L SI joint inflammatory reaction on MTI, prob seeding as well Bilateral renal infarcts . Hx multiple skin abscesses Prior Hx MRSA infection in his skin abscess Active IVDU Fevers, recurrent Candiduria Recommendation Continue IV Ancef Follow new C/S Follow temps Continue Diflucan Monitor progress Will need to reevaluate course of Abx with new problems identified
[2018-05-14] MEDS: Sod Chloride 0.9% Inj 1,000 ML IV.CONT SCH ×2 (01:55→16:37)
[2018-05-14] MEDS: ceFAZolin Inj 2,000 MG in Sodium Chlor 0.9% Inj 80 ML IV.SIG SCH ×4 (04:27→21:54)
--- NOTE | 2018-05-14 08:02 | P.PNOP ---
Subjective Interval history: s/p I&D left knee doing well. no changes. reports soreness in knee Physical Exam Vital signs: Vital Signs 05/13/18 09:55 05/13/18 10:00 05/13/18 10:15 Temperature 97.7 F Pulse Rate 100 H 101 H 101 H Respiratory Rate 15 20 15 Blood Pressure 97/55 L 106/63 112/69 Pulse Oximetry 98 100 100 05/13/18 10:30 05/13/18 12:00 05/13/18 13:00 Temperature 96.7 F L 97.4 F L Pulse Rate 96 H 103 H Respiratory Rate 15 18 16 Blood Pressure 113/73 123/76 Pulse Oximetry 100 97 05/13/18 16:00 05/13/18 20:00 05/14/18 00:00 Temperature 97.5 F L 98.2 F 98.1 F Pulse Rate 106 H 99 H 100 H Respiratory Rate 19 22 22 Blood Pressure 121/84 117/73 130/76 Pulse Oximetry 97 97 97 05/14/18 04:00 Temperature 97.4 F L Pulse Rate 90 Respiratory Rate 20 Blood Pressure 124/78 Pulse Oximetry 98 Intake & Output 05/13/18 05/14/18 05/14/18 18:59 06:59 18:59 Intake Total 2520 / 2520 1680 / 1680 240 / 240 Output Total 30 / 30 1300 / 1300 0 / 0 Balance 2490 / 2490 380 / 380 240 / 240 Weight 50 kg Intake: IV 1100 / 1100 1200 / 1200 NS Inj 1,000 ML @ 84 mls/hr IV. 1000 / 1000 1000 / 1000 CONT .[id number] [facility] Rx#:[id number] Ancef Inj 2,000 MG In NS Inj 80 100 / 100 200 / 200 ML @ 200 mls/hr IV.SIG Q6H [facility] Rx#:[id number] Oral 820 / 820 480 / 480 240 / 240 Anesthesia Amount 600 / 600 Output: Urine 1300 / 1300 Estimated Blood Loss 30 / 30 Wound Drainage 0 / 0 # 1 Left Lateral Knee 0 / 0 Other: Date of Last Bowel Movement 05/13/18 # Bowel Movements 1 1 Narrative: LLE: dressings clean and dry.intact. NVI. +drain Results - Labs CBC & Chem 7: 05/10/18 11:41 05/13/18 05:54 Laboratory Results - last 24 hr 05/10/18 14:21 Urine Color Yellow Urine Clarity Hazy H Urine pH 6.0 Ur Specific [place] 1.013 Urine Protein 30 H Urine Glucose (UA) 50 Urine Ketones Negative Urine Occult Blood Small H Urine Nitrate Negative Urine Bilirubin Negative Urine Urobilinogen Less than 2 Ur Leukocyte Esterase Negative Urine RBC 5 H Urine WBC 9 H Ur Squamous Epith Cells <1 Urine Bacteria Rare H Hyaline Casts 1 Urine Yeast Rare H Micro UA Comment Culture indicated Urine Culture Comments Culture indicated Microbiology 05/10/18 14:21 Clean Catch Urine Urine Culture - Final Olga Lidia tropicalis Trichosporon beigelii 05/13/18 09:40 Tissue - Knee Fungal Smear - Final No fungal elements seen 05/13/18 09:40 Tissue - Knee Gram Stain - Final 05/13/18 09:40 Fluid - Other Fungal Smear - Final No fungal elements seen 05/13/18 09:40 Fluid - Other Gram Stain - Final 05/11/18 10:40 Blood - Peripheral Aerobic Blood Culture - Preliminary No growth in 2 days 05/11/18 10:40 Blood - Peripheral Anaerobic Blood Culture - Preliminary No growth in 2 days 05/10/18 11:41 Blood - Peripheral Aerobic Blood Culture - Preliminary No growth in 3 days 05/10/18 11:41 Blood - Peripheral Anaerobic Blood Culture - Preliminary No growth in 3 days - Procedures Date: 05/13/18 09:47 Initialization Date: 05/13/18 09:47 - Preoperative Diagnosis (1) Infection of left knee Date of procedure: 05/13/18 Procedure: Left knee arthrotomy with irrigation and debridement for septic arthritis Anesthesia: GETA Surgeon: Davion Kapadia MD Assessment and Plan - Assessment and Plan 1) Left Knee Effusion s/p I&D - POD 1 -WBAT -daily dressing changes POD 2 -maintain drain til POD 3 -will monitor cultures -->neg so far. Infectious Dz to manage Abx -ortho surgeries complete at this time
[2018-05-14] MEDS: Heparin Central Flush 100 UNIT/ML 5 ML Vial IV.FLUSH SCH (09:31)
[2018-05-14] MEDS: Senna/Docusate Sodium 8.6/50 MG Tablet PO SCH ×2 (09:31→21:40)
[2018-05-14] MEDS: Fluconazole 100 MG Tablet PO SCH (09:32)
[2018-05-14] MEDS: levoFLOXacin 750 MG Tablet PO SCH (09:32)
[2018-05-14] MEDS: Famotidine PF Inj 20 MG/2 ML Vial IV.PUSH SCH ×2 (09:34→21:39)
[2018-05-14] MEDS: Acetaminophen 325 MG Tablet PO PRN ×2 (10:03→16:25)
--- NOTE | 2018-05-14 10:10 | P.PNID ---
Subjective Remarks: Patient is a 32-year-old male, brought into the hospital for further evaluation of chest pain. Patient is under custody and has been in intermediate since April 11. According to the patient several days into his incarceration, he started experiencing lower chest pain that is pleuritic in nature. He also started complaining of pain on his lumbar region more on the left side. He has not been coughing. He apparently has been having fevers. Patient has known IV drug use, and the last time he used it was the day before he got incarcerated. Has not any nausea or vomiting. Denies any diarrhea or urinary complaints. He has no prior history of endocarditis, but has had problem with skin abscesses. There is also mention that he has had previous HIV and hepatitis testing and they were both negative and this was from last year. Patient is afebrile. His hemodynamics are stable. His WBC is normal. Patient had CT of the chest which is showing multiple bilateral pulmonary nodules some of which are cavitating. CT of the abdomen and pelvis is showing some findings possibly of splenic infarcts. His blood cultures are currently pending. Infectious disease consultation has been requested to evaluate the patient with possible endocarditis. Notes reviewed Temps better S/P I and D L knee yesterday Intraop C/S pending Creatinine rising Last (+) BC 05/02 SARAH with MV vegetations and large TV vegetation, and possible mod TR Antibiotics: Ancef Diflucan Lines: PICC Past Medical History: Back pain IV drug abuse Right foot injury Skin abscess H/O foot surgery Allergies/Adverse Reactions: Allergies acetaminophen Allergy (Intermediate, Verified 07/08/17 16:38) STOMACH UPSET Objective Vital Signs 05/13/18 10:15 05/13/18 10:30 05/13/18 12:00 Temperature 96.7 F L 97.4 F L Pulse Rate 101 H 96 H 103 H Respiratory Rate 15 15 18 Blood Pressure 112/69 113/73 123/76 Pulse Oximetry 100 100 97 05/13/18 13:00 05/13/18 16:00 05/13/18 20:00 Temperature 97.5 F L 98.2 F Pulse Rate 106 H 99 H Respiratory Rate 16 19 22 Blood Pressure 121/84 117/73 Pulse Oximetry 97 97 05/14/18 00:00 05/14/18 04:00 05/14/18 08:00 Temperature 98.1 F 97.4 F L 97.8 F Pulse Rate 100 H 90 103 H Respiratory Rate 22 20 18 Blood Pressure 130/76 124/78 124/73 Pulse Oximetry 97 98 97 Intake & Output 05/13/18 05/14/18 05/14/18 18:59 06:59 18:59 Intake Total 2520 / 2520 1680 / 1680 240 / 240 Output Total 30 / 30 1300 / 1300 0 / 0 Balance 2490 / 2490 380 / 380 240 / 240 Weight 50 kg Intake: IV 1100 / 1100 1200 / 1200 NS Inj 1,000 ML @ 84 mls/hr IV. 1000 / 1000 1000 / 1000 CONT .[id number] [facility] Rx#:[id number] Ancef Inj 2,000 MG In NS Inj 80 100 / 100 200 / 200 ML @ 200 mls/hr IV.SIG Q6H [facility] Rx#:[id number] Oral 820 / 820 480 / 480 240 / 240 Anesthesia Amount 600 / 600 Output: Urine 1300 / 1300 Estimated Blood Loss 30 / 30 Wound Drainage 0 / 0 # 1 Left Lateral Knee 0 / 0 Other: Date of Last Bowel Movement 05/13/18 # Bowel Movements 1 1 05/10/18 14:21 Clean Catch Urine Urine Culture - Final Olga Lidia tropicalis Trichosporon beigelii 05/13/18 09:40 Tissue - Knee Fungal Smear - Final No fungal elements seen 05/13/18 09:40 Tissue - Knee Fungal Culture - Pending 05/13/18 09:40 Tissue - Knee Gram Stain - Final 05/13/18 09:40 Tissue - Knee Wound Culture - Pending 05/13/18 09:40 Fluid - Other Fungal Smear - Final No fungal elements seen 05/13/18 09:40 Fluid - Other Fungal Culture - Pending 05/13/18 09:40 Fluid - Other Gram Stain - Final 05/13/18 09:40 Fluid - Other Wound Culture - Pending 05/11/18 10:40 Blood - Peripheral Aerobic Blood Culture - Preliminary No growth in 2 days 05/11/18 10:40 Blood - Peripheral Anaerobic Blood Culture - Preliminary No growth in 2 days 05/10/18 11:41 Blood - Peripheral Aerobic Blood Culture - Preliminary No growth in 3 days 05/10/18 11:41 Blood - Peripheral Anaerobic Blood Culture - Preliminary No growth in 3 days 05/13/18 09:40 Fluid - Other Acid Fast Bacilli Smear - Pending 05/13/18 09:40 Fluid - Other Mycobacterial Culture - Pending 05/13/18 09:40 Tissue - Knee Acid Fast Bacilli Smear - Pending 05/13/18 09:40 Tissue - Knee Mycobacterial Culture - Pending Lab - Chemistry Results 05/13/18 05:54 Creatinine 1.60 H Estimated GFR 50 L Imaging: ITS Impressions Abdomen/Pelvis CT 04/30/18 01:58 CONCLUSION: 1. Areas of low-density are seen in the spleen could be lacerations versus infarcts. No hemoperitoneum. 2. Bilateral renal low-density likely benign. 3. Right pleural effusion. Lumbar Spine CT 04/30/18 01:58 CONCLUSION: 1. Disc bulges at L3-4, L4-5 and L5-S1 levels. No canal stenosis. 2. No fracture or spondylolisthesis. Thoracic Spine CT 04/30/18 01:58 CONCLUSION: 1. Unremarkable thoracic spine. Chest CT 04/30/18 03:09 CONCLUSION: 1. Numerous bilateral pulmonary nodules many of which are cavitated, likely septic emboli. 2. Small moderate right pleural effusion with partial loculation. Lumbar Spine MRI 05/01/18 00:00 CONCLUSION: 1. No evidence of discitis or other acute process in the lumbar spine. 2. Areas of focally altered peripheral signal intensity and enhancement in the kidneys which may be areas of focal pyelonephritis or renal cortical infarctions Knee X-Ray 05/02/18 00:00 CONCLUSION: No acute findings. Chest X-Ray 05/10/18 00:00 CONCLUSION: Small right pleural parenchymal density, less prominent compared to previous study Venous Doppler Study 05/10/18 00:00 CONCLUSION: No venous thrombosis is identified in the left lower extremity. Knee MRI 05/12/18 00:00 CONCLUSION: 1. Large joint effusion with intense enhancement suspicious for inflammatory process. Pelvis MRI 05/12/18 00:00 CONCLUSION: 1. Abnormal left SI joint suspicious for inflammatory process 2. Trace joint effusion around both hips without synovial enhancement. 3. Generalized subcutaneous edema. Physical Exam: GENERAL: Resting, NAD SKIN: Warm and dry. No generalized rash HEAD: Atraumatic. Normocephalic. No temporal wasting, or tenderness. EYES: [place] conjunctiva. Has small petechia L lower eyelid. Pupils equal, round and reactive to light. Extraocular movements full and intact. No scleral icterus. No injection or drainage. EARS, NOSE AND THROAT: Nose without bleeding or purulent nasal discharge. Mucous membranes pink and moist. No oral lesions noted. NECK: Trachea midline. Supple and not tender, no meningeal signs CARDIOVASCULAR: Tachycardic. No murmurs, rubs or gallops heard RESPIRATORY: Clear to auscultation. Breath sounds equal bilaterally. No rales , wheezing or rhonchi ABDOMEN: Soft, flat, non-tender, nondistended. Bowel sounds present and normoactive. No guarding. No rebound. No organomegaly. EXTREMITIES: Has dressing on his L knee, dry and intact, drain in place, not a lot of output, bloody NEUROLOGICAL: Non-focal PSYCHIATRIC: calm and cooperative. LINE: No evidence of infection Assessment and Plan - Plan Impressions Chest pain, pleuritic, with findings suggestive of septic emboli in lungs TV and MV IE, BC with Staph aureus MSSA Septic L knee L SI joint inflammatory reaction on MTI, prob seeding as well Bilateral renal infarcts . Hx multiple skin abscesses Prior Hx MRSA infection in his skin abscess Active IVDU Fevers, recurrent Candiduria Renal insufficiency, creatinine rising - ?due to gent Recommendation Continue IV Ancef Follow new C/S Follow temps Continue Diflucan Monitor progress Check UA and urine for oes Follow creatinine Will need to reevaluate course of Abx with new problems identified
[2018-05-14 12:47] LABS: Calcium 8.1 mg/dL (8.5-10.1); Carbon Dioxide 22.4 meq/L (21.0-32.0); Potassium 3.8 meq/L (3.5-5.1)
--- NOTE | 2018-05-14 15:02 | P.PN ---
Subjective Interval history: 32 year old male presents with a history of right-sided chest pain, left-sided low back pain that he reports began at approximately the same time, 2-3 days after detoxing from heroin/opiate use in assisted. He reports that he was in incarcerated on April 11 and last used heroin and opiates on April 10. He reports that approximately 2 days into his incarceration he began to have detox symptoms which mainly included numerous episodes of diarrhea. Since then he developed this right-sided lower chest wall pain anteriorly and left-sided low back pain just above the left buttock. He reports that he has had a cough productive of green sputum. He also has had fevers with a T-max in assisted of 101. He is not currently on any antibiotic. He has been taking ibuprofen and Flexeril at the assisted. He denies having any prior history of hepatitis or HIV. He denies having any prior history of endocarditis. He reports that he has had skin infections and abscesses in the past related to staph from IV drug use. He denies having any rashes currently. On review of systems otherwise, the patient denies having any neck pain, shortness of breath, abdominal pain, vomiting,urinary symptoms, or neurologic symptoms. The patient last moved his bowels earlier today with a formed stool. He denies having any numbness or tingling to his extremities. He denies having any weakness of his extremities. He reports that he has generalized weakness. He was also noted at the assisted to have incontinence of urine. Hospitalist Notes: 05/01: Seen in his bedroom, discussed with nurse, no complaint of generalized pain, has Endocarditis, ID specialist and program eligibility specialist following. 05/02: Seen in his bedroom in the presence of two [facility] [employer], as per ID switch from Cefepime to Ancef and continued IV Vancomycin, following Blood cultures if no MRSA to remove Vancomycin. complaint of generalized pain, not eating well. 05/03: Stable in his bedroom in the presence of two Guards, seen by ID specialist question about the possibility of Knee pain seeding, to continue Ancef, stopped Vancomycin, Added Gentamicin for synergy, X ray of both knees and may need MRI of the Knees, continue present care, no nausea, vomit or diarrhea. discussed with nurse Miss Javier and Miss Huffman he continue with some tachycardia she will contact Cardiology for recommendations. 05/04: Seen in his bedroom, two [facility] [employer] present on my examination and took my Identification, continue with Generalized pain and difficulty to move his legs. 05/05: Patient today more conversant, better mood, discussed with him about the need for antibiotics probable for some weeks, awaiting final recommendations by ID specialist. 05/06: Patient continue to complaint of generalized pain, but encourage to increase activity, continue antibiotics. latest blood culture no growth in 2 days from 05/03 and last one from 05/05. 05/07: Seen by ID specialist recommended to continue Ancef, Stopped Teflaro, continue IV Gentamicin for Synergy, seen in his bedroom, continue same complaint of generalized pain, encourage ambulation. 05/08: Stable in his bedroom, seen in the presence of security guard supervisor, no nausea, vomit or diarrhea, ID specialist asking to continue antibiotics six weeks from first negative blood culture will try to get everything set starting tomorrow for transfer to his facility if okay with ID specialist. 05/09: Awaiting final today for transfer of the patient to his Facility, at this time as per ID specialist okay to discharge on Cefazolin 2 grams q six hours for six weeks since his last negative blood cultures on 05/03 will continue straight until June 1305/10: Seen in his bedroom, discussed with nurse Miss Jack the patient developed fever during the night, held discharge for today Seen by ID specialist recommended to continue Ancef and stop Gentamicin today, asked for blood cultures, Urine culture, ultrasound of the LLE to rule out DVT and following. 05/11: Stable in his bedroom sleeping, discussed with nurse Miss Jack and with two [facility] [employer] in the room, had 99.9 F yesterday at 20 Hours. 05/12: Patient without complaint today, discussed with nurse miss Nielson, ID specialist asking for MRI of the Pelvis and left knee no nausea, vomit or diarrhea, is been afebrile, new blood cultures negative, but Urine culture positive for Yeast. 05/13: Seen by Orthopedic Surgery status post MRI showed fluid collection suspicious of infection, left NPO and now status post Left knee arthrotomy with irrigation and debridement for septic arthritis, no nausea, vomit or diarrhea. Seen by ID specialist recommended to continue IV Ancef, Diflucan, will reevaluate antibiotics now with new infectious source identified. 05/14: Discussed with his bedroom at this time working with Physical Therapy, has edema on left ankle, has left knee with drainage in place will be removed in two days and then may be discharge to the [facility] again. no nausea, vomit or diarrhea. Physical Exam Vital signs: Vital Signs 05/13/18 16:00 05/13/18 20:00 05/14/18 00:00 Temperature 97.5 F L 98.2 F 98.1 F Pulse Rate 106 H 99 H 100 H Respiratory Rate 19 22 22 Blood Pressure 121/84 117/73 130/76 Pulse Oximetry 97 97 97 05/14/18 04:00 05/14/18 08:00 05/14/18 12:00 Temperature 97.4 F L 97.8 F 97.9 F Pulse Rate 90 103 H 93 H Respiratory Rate 18 18 Blood Pressure 124/78 124/73 138/81 Pulse Oximetry 98 97 98 Intake & Output 05/13/18 05/14/18 05/14/18 18:59 06:59 18:59 Intake Total 2520 / 2520 1680 / 1680 340 / 340 Output Total 30 / 30 1300 / 1300 0 / 0 Balance 2490 / 2490 380 / 380 340 / 340 Weight 50 kg Intake: IV 1100 / 1100 1200 / 1200 100 / 100 NS Inj 1,000 ML @ 84 mls/hr IV. 1000 / 1000 1000 / 1000 CONT .[id number] [facility] Rx#:[id number] Ancef Inj 2,000 MG In NS Inj 80 100 / 100 200 / 200 100 / 100 ML @ 200 mls/hr IV.SIG Q6H [facility] Rx#:[id number] Oral 820 / 820 480 / 480 240 / 240 Anesthesia Amount 600 / 600 Output: Urine 1300 / 1300 Estimated Blood Loss 30 / 30 Wound Drainage 0 / 0 # 1 Left Lateral Knee 0 / 0 Other: Date of Last Bowel Movement 05/13/18 # Bowel Movements 1 1 Narrative: GENERAL: NAD, AAOx3 SKIN: Warm and dry. HEAD: Atraumatic. Normocephalic. EYES: Pupils equal and round. No scleral icterus. No injection or drainage. ENT: No nasal bleeding or discharge. Mucous membranes pink and moist. NECK: Trachea midline. No JVD. CARDIOVASCULAR: Regular rhythm, tachycardic RESPIRATORY: breath sounds bilateral, no wheezing or crackles. GASTROINTESTINAL: Abdomen soft, non-tender MUSCULOSKELETAL: Extremities without clubbing, cyanosis, Edema on left ankle, left knee dressed and hemovac in place. NEUROLOGICAL: Awake and alert. No obvious cranial nerve deficits. PSYCHIATRIC: Appropriate mood and affect Results - Labs CBC & Chem 7: 05/10/18 11:41 05/14/18 12:00 Laboratory Results - last 24 hr 05/14/18 12:00 Sodium 134 L Potassium 3.8 Chloride 102 Carbon Dioxide 22.4 Anion Gap 10 BUN 30 H Creatinine 1.27 Estimated GFR 65 L Random Glucose 93 Calcium 8.1 L Microbiology 05/13/18 09:40 Fluid - Other Acid Fast Bacilli Smear - Final No acid fast bacilli seen 05/13/18 09:40 Tissue - Knee Acid Fast Bacilli Smear - Final No acid fast bacilli seen 05/13/18 09:40 Fluid - Other Gram Stain - Final 05/13/18 09:40 Fluid - Other Wound Culture - Preliminary No growth in 24 hours 05/13/18 09:40 Tissue - Knee Gram Stain - Final 05/13/18 09:40 Tissue - Knee Wound Culture - Preliminary No growth in 24 hours 05/11/18 10:40 Blood - Peripheral Aerobic Blood Culture - Preliminary No growth in 3 days 05/11/18 10:40 Blood - Peripheral Anaerobic Blood Culture - Preliminary No growth in 3 days 05/10/18 11:41 Blood - Peripheral Aerobic Blood Culture - Preliminary No growth in 4 days 05/10/18 11:41 Blood - Peripheral Anaerobic Blood Culture - Preliminary No growth in 4 days 05/10/18 14:21 Clean Catch Urine Urine Culture - Final Olga Lidia tropicalis Trichosporon beigelii 05/13/18 09:40 Tissue - Knee Fungal Smear - Final No fungal elements seen 05/13/18 09:40 Fluid - Other Fungal Smear - Final No fungal elements seen - Imaging Knee MRI 05/12/18 00:00 CONCLUSION: 1. Large joint effusion with intense enhancement suspicious for inflammatory process. Pelvis MRI 05/12/18 00:00 CONCLUSION: 1. Abnormal left SI joint suspicious for inflammatory process 2. Trace joint effusion around both hips without synovial enhancement. 3. Generalized subcutaneous edema. - Procedures Date: 05/13/18 09:47 Initialization Date: 05/13/18 09:47 - Preoperative Diagnosis (1) Infection of left knee Date of procedure: 05/13/18 Procedure: Left knee arthrotomy with irrigation and debridement for septic arthritis Anesthesia: GETA Surgeon: Davion Kpaadia MD Assessment and Plan - Plan 1. Elevated Troponin with atypical chest pain, Pleuritic in nature, findings suggestive of septic Emboli in the lungs, questionable Infective endocarditis, ID specialist following, patient is IDU, Prior history of MRSA, skin abscess, CT lumbar no evidence of lesion, recommended IV Cefepime for GNR and PSAE coverage, IV Vancomycin, awaiting SARAH result, due to Lumbar pain that continued was performed Lumbar MRI as recommended by ID specialist no evidence of discitis or other acute process, areas of focally altered peripheral signal intensity and enhancement in the kidneys which may be areas of focal Pyelonephritis or renal cortical infarctions. was unable to anticoagulate due to severe thrombocytopenia 2. 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 LE weakness is concerning for discitis infectious. Repeat BC to document clearing, negative blood cultures from 05/03 and 05/05. ID specialist recommended to continue Ancef, Stopped Teflaro, continue IV Gentamicin for Synergy. for six weeks starting with the first blood culture negative. will continue Cefazolin 2 grams every six hours until June 13 and Gentamicin to be removed, PICC line placement today, due to that developed Fever had multiple repeated tests, did not found difference improving his fever, as per ID to get MRI of the Pelvis and Left knee. MRI showed fluid collection suspicious of infection, left NPO and now status post Left knee arthrotomy with irrigation and debridement for septic arthritis. continue Ancef, Diflucan. Now worsening left ankle. 3. Elevated troponin continue with Tachycardia Cardiology following. Secondary to endocarditis, septic emboli and overall illness Cardiology following, has large vegetation on tricuspid valve and moderate to large on mitral valve, Moderate TR CT surgery consulted by program eligibility specialist. Non surgical candidate. Poor prognosis. 4. IDU, Opiate dependency, avoid opioids and narcotics, 5. AtOH dependence no signs of withdrawal. 6. Multiple infarcts of spleen likely infectious emboli, continue IV antibiotics. 7. Elevated LFTs history of IDU, CT abd and Pelvis with contrast, (8/15) Areas of low-density are seen in the spleen could be lacerations versus infarcts. No hemoperitoneum. Bilateral renal low-density likely benign. Hepatitis C genotype and quantitative, ID following. DVT GI prophylaxis -Teds SCDs -No pharmacological DVT prophylaxis due to thrombocytopenia -IV Pepcid Encourage activity. Code Status: Full code. Discussed Condition With: patient and nurse. Discharge Planning: once cleared again by ID specialist.
[2018-05-14 22:25] LABS: Bilirubin,Urine Negative (Negative); Clarity,Urine Clear (Clear); Color,Urine Straw (Yellw/Straw); Glucose,Urine (UA) Negative (Negative); Leukocyte Esterase,Urine Negative (Negative); Nitrite,Urine Negative (Negative); Specific Gravity,Urine 1.012 (1.002-1.035)
[2018-05-15] MEDS: ceFAZolin Inj 2,000 MG in Sodium Chlor 0.9% Inj 80 ML IV.SIG SCH ×4 (02:10→23:38)
[2018-05-15] MEDS: Sod Chloride 0.9% Inj 1,000 ML IV.CONT SCH ×2 (02:10→18:58)
[2018-05-15] MEDS: Acetaminophen 325 MG Tablet PO PRN ×3 (05:44→21:58)
[2018-05-15 06:45] LABS: Baso # (Auto) 0.1 th/mm3 (0.0-0.2); Baso % (Auto) 0.5 % (0.0-2.0); Eos # (Auto) 0.1 th/mm3 (0.0-0.4); Eos % (Auto) 0.5 % (0.0-4.0); Hematocrit 24.5 % (39.0-51.0); Hemoglobin 8.1 gm/dL (13.0-17.0); Lymph # (Auto) 1.7 th/mm3 (1.0-4.8); Lymph % (Auto) 13.4 % (9.0-44.0); Mean Corpuscular Hemoglobin 26.7 pg (27.0-34.0); Mono # (Auto) 0.8 th/mm3 (0.0-0.9); Neut # (Auto) 10.1 th/mm3 (1.8-7.7); Neut % (Auto) 79.6 % (16.0-70.0); Platelet Count 671 th/mm3 (150-450); Red Blood Count 3.03 mil/mm3 (4.50-5.90); White Blood Count 12.7 th/mm3 (4.0-11.0)
[2018-05-15] MEDS: levoFLOXacin 750 MG Tablet PO SCH (08:18)
[2018-05-15] MEDS: Fluconazole 100 MG Tablet PO SCH (08:18)
[2018-05-15] MEDS: Famotidine PF Inj 20 MG/2 ML Vial IV.PUSH SCH ×2 (08:19→21:51)
[2018-05-15] MEDS: Senna/Docusate Sodium 8.6/50 MG Tablet PO SCH ×2 (08:19→21:52)
[2018-05-15] MEDS: Heparin Central Flush 100 UNIT/ML 5 ML Vial IV.FLUSH SCH (08:20)
--- NOTE | 2018-05-15 12:17 | P.PN ---
Subjective Interval history: 32 year old male presents with a history of right-sided chest pain, left-sided low back pain that he reports began at approximately the same time, 2-3 days after detoxing from heroin/opiate use in detention. He reports that he was in incarcerated on April 11 and last used heroin and opiates on April 10. He reports that approximately 2 days into his incarceration he began to have detox symptoms which mainly included numerous episodes of diarrhea. Since then he developed this right-sided lower chest wall pain anteriorly and left-sided low back pain just above the left buttock. He reports that he has had a cough productive of green sputum. He also has had fevers with a T-max in detention of 101. He is not currently on any antibiotic. He has been taking ibuprofen and Flexeril at the detention. He denies having any prior history of hepatitis or HIV. He denies having any prior history of endocarditis. He reports that he has had skin infections and abscesses in the past related to staph from IV drug use. He denies having any rashes currently. On review of systems otherwise, the patient denies having any neck pain, shortness of breath, abdominal pain, vomiting,urinary symptoms, or neurologic symptoms. The patient last moved his bowels earlier today with a formed stool. He denies having any numbness or tingling to his extremities. He denies having any weakness of his extremities. He reports that he has generalized weakness. He was also noted at the detention to have incontinence of urine. Hospitalist Notes: 05/01: Seen in his bedroom, discussed with nurse, no complaint of generalized pain, has Endocarditis, ID specialist and foot specialist following. 05/02: Seen in his bedroom in the presence of two Prison Guards, as per ID switch from Cefepime to Ancef and continued IV Vancomycin, following Blood cultures if no MRSA to remove Vancomycin. complaint of generalized pain, not eating well. 05/03: Stable in his bedroom in the presence of two Guards, seen by ID specialist question about the possibility of Knee pain seeding, to continue Ancef, stopped Vancomycin, Added Gentamicin for synergy, X ray of both knees and may need MRI of the Knees, continue present care, no nausea, vomit or diarrhea. discussed with nurse Miss Javier and Miss Huffman he continue with some tachycardia she will contact Cardiology for recommendations. 05/04: Seen in his bedroom, two Prison Guards present on my examination and took my Identification, continue with Generalized pain and difficulty to move his legs. 05/05: Patient today more conversant, better mood, discussed with him about the need for antibiotics probable for some weeks, awaiting final recommendations by ID specialist. 05/06: Patient continue to complaint of generalized pain, but encourage to increase activity, continue antibiotics. latest blood culture no growth in 2 days from 05/03 and last one from 05/05. 05/07: Seen by ID specialist recommended to continue Ancef, Stopped Teflaro, continue IV Gentamicin for Synergy, seen in his bedroom, continue same complaint of generalized pain, encourage ambulation. 05/08: Stable in his bedroom, seen in the presence of range mechanic, no nausea, vomit or diarrhea, ID specialist asking to continue antibiotics six weeks from first negative blood culture will try to get everything set starting tomorrow for transfer to his facility if okay with ID specialist. 05/09: Awaiting final today for transfer of the patient to his Facility, at this time as per ID specialist okay to discharge on Cefazolin 2 grams q six hours for six weeks since his last negative blood cultures on 05/03 will continue straight until June 1305/10: Seen in his bedroom, discussed with nurse Miss Jack the patient developed fever during the night, held discharge for today Seen by ID specialist recommended to continue Ancef and stop Gentamicin today, asked for blood cultures, Urine culture, ultrasound of the LLE to rule out DVT and following. 05/11: Stable in his bedroom sleeping, discussed with nurse Miss Jack and with two Prison Guards in the room, had 99.9 F yesterday at 20 Hours. 05/12: Patient without complaint today, discussed with nurse miss Nielson, ID specialist asking for MRI of the Pelvis and left knee no nausea, vomit or diarrhea, is been afebrile, new blood cultures negative, but Urine culture positive for Yeast. 05/13: Seen by Orthopedic Surgery status post MRI showed fluid collection suspicious of infection, left NPO and now status post Left knee arthrotomy with irrigation and debridement for septic arthritis, no nausea, vomit or diarrhea. Seen by ID specialist recommended to continue IV Ancef, Diflucan, will reevaluate antibiotics now with new infectious source identified. 05/14: Discussed with his bedroom at this time working with Physical Therapy, has edema on left ankle, has left knee with drainage in place will be removed in two days and then may be discharge to the Prison again. 05/15: Stable in his bedroom, discussed with nurse and with patient in the room, also two detention guards present, no other complaint he states is sore and was working with Physical therapy. no nausea, vomit or diarrhea. Physical Exam Vital signs: Vital Signs 05/14/18 16:00 05/14/18 20:00 05/15/18 00:00 Temperature 97.8 F 97.3 F L 97.8 F Pulse Rate 107 H 104 H 98 H Respiratory Rate 19 20 20 Blood Pressure 130/81 131/86 135/92 H Pulse Oximetry 98 98 98 05/15/18 04:00 05/15/18 08:00 Temperature 97.6 F Pulse Rate 100 H 100 H Respiratory Rate 20 Blood Pressure 132/88 Pulse Oximetry 97 Intake & Output 05/14/18 05/15/18 05/15/18 18:59 06:59 18:59 Intake Total 1540 / 1540 300 / 300 580 / 580 Output Total 1500 / 1500 1900 / 1900 Balance 40 / 40 -1600 / -1600 580 / 580 Weight 53.4 kg Intake: IV 100 / 100 300 / 300 100 / 100 Ancef Inj 2,000 MG In NS Inj 80 100 / 100 300 / 300 100 / 100 ML @ 200 mls/hr IV.SIG Q6H FORD Rx#:[id number] Oral 1440 / 1440 480 / 480 Output: Urine 1500 / 1500 1900 / 1900 Wound Drainage 0 / 0 0 / 0 # 1 Left Lateral Knee 0 / 0 0 / 0 Other: Date of Last Bowel Movement 05/13/18 # Bowel Movements 0 Narrative: GENERAL: NAD, AAOx3 SKIN: Warm and dry. HEAD: Atraumatic. Normocephalic. EYES: Pupils equal and round. No scleral icterus. No injection or drainage. ENT: No nasal bleeding or discharge. Mucous membranes pink and moist. NECK: Trachea midline. No JVD. CARDIOVASCULAR: Regular rhythm, tachycardic RESPIRATORY: breath sounds bilateral, no wheezing or crackles. GASTROINTESTINAL: Abdomen soft, non-tender MUSCULOSKELETAL: Extremities without clubbing, cyanosis, Edema on left ankle, left knee dressed and hemovac in place. NEUROLOGICAL: Awake and alert. No obvious cranial nerve deficits. PSYCHIATRIC: Appropriate mood and affect Results - Labs CBC & Chem 7: 05/15/18 05:42 05/14/18 12:00 Laboratory Results - last 24 hr 05/14/18 05/14/18 05/14/18 12:00 21:35 21:35 WBC RBC Hgb Hct MCV MCH MCHC RDW Plt Count MPV Neut % (Auto) Lymph % (Auto) [place] % (Auto) Eos % (Auto) Baso % (Auto) Neut # (Auto) Lymph # (Auto) [place] # (Auto) Eos # (Auto) Baso # (Auto) WBC Differential Differential Comment Sodium 134 L Potassium 3.8 Chloride 102 Carbon Dioxide 22.4 Anion Gap 10 BUN 30 H Creatinine 1.27 Estimated GFR 65 L Random Glucose 93 Calcium 8.1 L Urine Color Straw Urine Clarity Clear Urine pH 6.0 Ur Specific [place] 1.012 Urine Protein Negative Urine Glucose (UA) Negative Urine Ketones Negative Urine Occult Blood Small H Urine Nitrate Negative Urine Bilirubin Negative Urine Urobilinogen Less than 2 Ur Leukocyte Esterase Negative Urine RBC 1 Urine WBC 3 Ur Microscopic Review Not Reportable Urine Eosinophils None seen 05/15/18 05:42 WBC 12.7 H RBC 3.03 L Hgb 8.1 L Hct 24.5 L MCV 81.0 MCH 26.7 L MCHC 33.0 RDW 16.0 Plt Count 671 H MPV 6.0 L Neut % (Auto) 79.6 H Lymph % (Auto) 13.4 [place] % (Auto) 6.0 Eos % (Auto) 0.5 Baso % (Auto) 0.5 Neut # (Auto) 10.1 H Lymph # (Auto) 1.7 [place] # (Auto) 0.8 Eos # (Auto) 0.1 Baso # (Auto) 0.1 WBC Differential . Differential Comment Auto diff final Sodium Potassium Chloride Carbon Dioxide Anion Gap BUN Creatinine Estimated GFR Random Glucose Calcium Urine Color Urine Clarity Urine pH Ur Specific [place] Urine Protein Urine Glucose (UA) Urine Ketones Urine Occult Blood Urine Nitrate Urine Bilirubin Urine Urobilinogen Ur Leukocyte Esterase Urine RBC Urine WBC Ur Microscopic Review Urine Eosinophils Microbiology 05/11/18 10:40 Blood - Peripheral Aerobic Blood Culture - Preliminary No growth in 4 days 05/11/18 10:40 Blood - Peripheral Anaerobic Blood Culture - Preliminary No growth in 4 days 05/10/18 11:41 Blood - Peripheral Aerobic Blood Culture - Final No growth in 5 days 05/10/18 11:41 Blood - Peripheral Anaerobic Blood Culture - Final No growth in 5 days 05/13/18 09:40 Fluid - Other Gram Stain - Final 05/13/18 09:40 Fluid - Other Wound Culture - Preliminary No growth in 48 hours 05/13/18 09:40 Tissue - Knee Gram Stain - Final 05/13/18 09:40 Tissue - Knee Wound Culture - Preliminary No growth in 48 hours 05/13/18 09:40 Fluid - Other Acid Fast Bacilli Smear - Final No acid fast bacilli seen 05/13/18 09:40 Tissue - Knee Acid Fast Bacilli Smear - Final No acid fast bacilli seen - Procedures Date: 05/13/18 09:47 Initialization Date: 05/13/18 09:47 - Preoperative Diagnosis (1) Infection of left knee Date of procedure: 05/13/18 Procedure: Left knee arthrotomy with irrigation and debridement for septic arthritis Anesthesia: GETA Surgeon: Davion Kapadia MD Assessment and Plan - Plan 1. Elevated Troponin with atypical chest pain, Pleuritic in nature, findings suggestive of septic Emboli in the lungs, questionable Infective endocarditis, ID specialist following, patient is IDU, Prior history of MRSA, skin abscess, CT lumbar no evidence of lesion, recommended IV Cefepime for GNR and PSAE coverage, IV Vancomycin, awaiting SARAH result, due to Lumbar pain that continued was performed Lumbar MRI as recommended by ID specialist no evidence of discitis or other acute process, areas of focally altered peripheral signal intensity and enhancement in the kidneys which may be areas of focal Pyelonephritis or renal cortical infarctions. was unable to anticoagulate due to severe thrombocytopenia 2. 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 LE weakness is concerning for discitis infectious. Repeat BC to document clearing, negative blood cultures from 05/03 and 05/05. ID specialist recommended to continue Ancef, Stopped Teflaro, continue IV Gentamicin for Synergy. for six weeks starting with the first blood culture negative. will continue Cefazolin 2 grams every six hours until June 13 and Gentamicin to be removed, PICC line placement today, due to that developed Fever had multiple repeated tests, did not found difference improving his fever, as per ID to get MRI of the Pelvis and Left knee. MRI showed fluid collection suspicious of infection, left NPO and now status post Left knee arthrotomy with irrigation and debridement for septic arthritis. continue Ancef, Diflucan. Continue Hemovac in place on left knee, improving left ankle edema. 3. Elevated troponin continue with Tachycardia Cardiology following. Secondary to endocarditis, septic emboli and overall illness Cardiology following, has large vegetation on tricuspid valve and moderate to large on mitral valve, Moderate TR CT surgery consulted by foot specialist. Non surgical candidate. Poor prognosis. 4. IDU, Opiate dependency, avoid opioids and narcotics, 5. AtOH dependence no signs of withdrawal. 6. Multiple infarcts of spleen likely infectious emboli, continue IV antibiotics. 7. Elevated LFTs history of IDU, CT abd and Pelvis with contrast, (04/30) Areas of low-density are seen in the spleen could be lacerations versus infarcts. No hemoperitoneum. Bilateral renal low-density likely benign. Hepatitis C genotype and quantitative, ID following. DVT GI prophylaxis -Teds SCDs -No pharmacological DVT prophylaxis due to thrombocytopenia -IV Pepcid Encourage activity. No changes to anterior assessment. Code Status: Full Code. Discussed Condition With: Patient, nurse Miss Torres and two Prison guards in the room. Discharge Planning: once cleared again by ID specialist.
[2018-05-16] MEDS: Sod Chloride 0.9% Inj 1,000 ML IV.CONT SCH (04:59)
[2018-05-16] MEDS: Acetaminophen 325 MG Tablet PO PRN ×3 (05:30→21:12)
[2018-05-16] MEDS: Fluconazole 100 MG Tablet PO SCH (09:22)
[2018-05-16] MEDS: Famotidine PF Inj 20 MG/2 ML Vial IV.PUSH SCH ×2 (09:22→21:13)
[2018-05-16] MEDS: ceFAZolin Inj 2,000 MG in Sodium Chlor 0.9% Inj 80 ML IV.SIG SCH ×2 (09:22→17:01)
[2018-05-16] MEDS: Heparin Central Flush 100 UNIT/ML 5 ML Vial IV.FLUSH SCH (09:22)
[2018-05-16] MEDS: levoFLOXacin 750 MG Tablet PO SCH (09:22)
[2018-05-16] MEDS: Senna/Docusate Sodium 8.6/50 MG Tablet PO SCH ×2 (09:23→21:12)
--- NOTE | 2018-05-16 13:53 | P.PN ---
Subjective Interval history: 32 year old male presents with a history of right-sided chest pain, left-sided low back pain that he reports began at approximately the same time, 2-3 days after detoxing from heroin/opiate use in [facility]. He reports that he was in incarcerated on April 11 and last used heroin and opiates on April 10. He reports that approximately 2 days into his incarceration he began to have detox symptoms which mainly included numerous episodes of diarrhea. Since then he developed this right-sided lower chest wall pain anteriorly and left-sided low back pain just above the left buttock. He reports that he has had a cough productive of green sputum. He also has had fevers with a T-max in [facility] of 101. He is not currently on any antibiotic. He has been taking ibuprofen and Flexeril at the [facility]. He denies having any prior history of hepatitis or HIV. He denies having any prior history of endocarditis. He reports that he has had skin infections and abscesses in the past related to staph from IV drug use. He denies having any rashes currently. On review of systems otherwise, the patient denies having any neck pain, shortness of breath, abdominal pain, vomiting,urinary symptoms, or neurologic symptoms. The patient last moved his bowels earlier today with a formed stool. He denies having any numbness or tingling to his extremities. He denies having any weakness of his extremities. He reports that he has generalized weakness. He was also noted at the [facility] to have incontinence of urine. Hospitalist Notes: 05/01: Seen in his bedroom, discussed with nurse, no complaint of generalized pain, has Endocarditis, ID specialist and employment training specialist following. 05/02: Seen in his bedroom in the presence of two Assisted Guards, as per ID switch from Cefepime to Ancef and continued IV Vancomycin, following Blood cultures if no MRSA to remove Vancomycin. complaint of generalized pain, not eating well. 05/03: Stable in his bedroom in the presence of two Guards, seen by ID specialist question about the possibility of Knee pain seeding, to continue Ancef, stopped Vancomycin, Added Gentamicin for synergy, X ray of both knees and may need MRI of the Knees, continue present care, no nausea, vomit or diarrhea. discussed with nurse Miss Javier and Miss Huffman he continue with some tachycardia she will contact Cardiology for recommendations. 05/04: Seen in his bedroom, two Assisted Guards present on my examination and took my Identification, continue with Generalized pain and difficulty to move his legs. 05/05: Patient today more conversant, better mood, discussed with him about the need for antibiotics probable for some weeks, awaiting final recommendations by ID specialist. 05/06: Patient continue to complaint of generalized pain, but encourage to increase activity, continue antibiotics. latest blood culture no growth in 2 days from 05/03 and last one from 05/05. 05/07: Seen by ID specialist recommended to continue Ancef, Stopped Teflaro, continue IV Gentamicin for Synergy, seen in his bedroom, continue same complaint of generalized pain, encourage ambulation. 05/08: Stable in his bedroom, seen in the presence of plant guard, no nausea, vomit or diarrhea, ID specialist asking to continue antibiotics six weeks from first negative blood culture will try to get everything set starting tomorrow for transfer to his facility if okay with ID specialist. 05/09: Awaiting final today for transfer of the patient to his Facility, at this time as per ID specialist okay to discharge on Cefazolin 2 grams q six hours for six weeks since his last negative blood cultures on 05/03 will continue straight until June 1305/10: Seen in his bedroom, discussed with nurse Miss Jack the patient developed fever during the night, held discharge for today Seen by ID specialist recommended to continue Ancef and stop Gentamicin today, asked for blood cultures, Urine culture, ultrasound of the LLE to rule out DVT and following. 05/11: Stable in his bedroom sleeping, discussed with nurse Miss Jack and with two Assisted Guards in the room, had 99.9 F yesterday at 20 Hours. 05/12: Patient without complaint today, discussed with nurse miss Nielson, ID specialist asking for MRI of the Pelvis and left knee no nausea, vomit or diarrhea, is been afebrile, new blood cultures negative, but Urine culture positive for Yeast. 05/13: Seen by Orthopedic Surgery status post MRI showed fluid collection suspicious of infection, left NPO and now status post Left knee arthrotomy with irrigation and debridement for septic arthritis, no nausea, vomit or diarrhea. Seen by ID specialist recommended to continue IV Ancef, Diflucan, will reevaluate antibiotics now with new infectious source identified. 05/14: Discussed with his bedroom at this time working with Physical Therapy, has edema on left ankle, has left knee with drainage in place will be removed in two days and then may be discharge to the [facility] again. 05/15: Stable in his bedroom, discussed with nurse and with patient in the room, also two [facility] guards present, no other complaint he states is sore and was working with Physical therapy. no nausea, vomit or diarrhea. 05/16 In bed . Plan for MRI if left foot. Patient says he has pain and doesn't want to move the leg due to pain. No fever o rr chills overnight. No n/v/d/c. Physical Exam Vital signs: Vital Signs 05/15/18 16:00 05/15/18 20:00 05/16/18 00:00 Temperature 97.7 F 97.6 F 98.2 F Pulse Rate 103 H 107 H 108 H Respiratory Rate 18 20 20 Blood Pressure 133/82 129/87 130/82 Pulse Oximetry 99 98 98 05/16/18 04:00 05/16/18 08:00 05/16/18 09:21 Temperature 97.8 F 98.5 F Pulse Rate 106 H 102 H 83 Respiratory Rate 20 19 Blood Pressure 136/87 129/89 Pulse Oximetry 97 99 05/16/18 12:00 Temperature 97.4 F L Pulse Rate 99 H Respiratory Rate 19 Blood Pressure 131/84 Pulse Oximetry 98 Intake & Output 05/15/18 05/16/18 05/16/18 18:59 06:59 18:59 Intake Total 2420 / 2420 300 / 300 100 / 100 Output Total 950 / 950 2785 / 2785 Balance 1470 / 1470 -2485 / -2485 100 / 100 Weight 51.5 kg Intake: IV 1200 / 1200 300 / 300 100 / 100 NS Inj 1,000 ML @ 84 mls/hr IV. 1000 / 1000 0 / 0 CONT .[id number] FOR[facility] Rx#:[id number] LR 1000 mL Inj 1,000 ML @ 30 200 / 200 mls/hr IV.SIG .Q24H [facility] Rx#: [id number] Ancef Inj 2,000 MG In NS Inj 80 200 / 200 100 / 100 100 / 100 ML @ 200 mls/hr IV.SIG Q8H [facility] Rx#:[id number] Oral 1220 / 1220 Output: Urine 950 / 950 2775 / 2775 Wound Drainage # 1 Left Lateral Knee Other: Date of Last Bowel Movement 05/13/18 05/15/18 05/16/18 # Bowel Movements 0 # Incontinent Bowel Movements 1 Narrative: GENERAL: NAD, AAOx3 SKIN: Warm and dry. HEAD: Atraumatic. Normocephalic. EYES: Pupils equal and round. No scleral icterus. No injection or drainage. ENT: No nasal bleeding or discharge. Mucous membranes pink and moist. NECK: Trachea midline. No JVD. CARDIOVASCULAR: Regular rhythm, tachycardic RESPIRATORY: breath sounds bilateral, no wheezing or crackles. GASTROINTESTINAL: Abdomen soft, non-tender MUSCULOSKELETAL: Extremities without clubbing, cyanosis, Edema on left ankle, left knee dressed and hemovac in place. NEUROLOGICAL: Awake and alert. No obvious cranial nerve deficits. PSYCHIATRIC: Appropriate mood and affect Results - Labs CBC & Chem 7: 05/15/18 05:42 05/14/18 12:00 Microbiology 05/11/18 10:40 Blood - Peripheral Aerobic Blood Culture - Final No growth in 5 days 05/11/18 10:40 Blood - Peripheral Anaerobic Blood Culture - Final No growth in 5 days 05/13/18 09:40 Fluid - Other Gram Stain - Final 05/13/18 09:40 Fluid - Other Wound Culture - Final No growth in 72 hours (aerobically and anaerobically ) 05/13/18 09:40 Tissue - Knee Gram Stain - Final 05/13/18 09:40 Tissue - Knee Wound Culture - Final No growth in 72 hours (aerobically and anaerobically ) 05/10/18 11:41 Blood - Peripheral Aerobic Blood Culture - Final No growth in 5 days 05/10/18 11:41 Blood - Peripheral Anaerobic Blood Culture - Final No growth in 5 days - Procedures Date: 05/13/18 09:47 Initialization Date: 05/13/18 09:47 - Preoperative Diagnosis (1) Infection of left knee Date of procedure: 05/13/18 Procedure: Left knee arthrotomy with irrigation and debridement for septic arthritis Anesthesia: GETA Surgeon: Davion Kapadia MD Assessment and Plan - Plan Elevated Troponin with atypical chest pain, Pleuritic in nature, findings suggestive of septic Emboli in the lungs, questionable Infective endocarditis, ID specialist following, patient is IDU, Prior history of MRSA, skin abscess, CT lumbar no evidence of lesion, recommended IV Cefepime for GNR and PSAE coverage, IV Vancomycin, awaiting SARAH result, due to Lumbar pain that continued was performed Lumbar MRI as recommended by ID specialist no evidence of discitis or other acute process, areas of focally altered peripheral signal intensity and enhancement in the kidneys which may be areas of focal Pyelonephritis or renal cortical infarctions. 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 LE weakness is concerning for discitis infectious. Repeat BC to document clearing, negative blood cultures from 05/03 and 05/05. ID specialist recommended to continue Ancef, Stopped Teflaro, continue IV Gentamicin for Synergy. for six weeks starting with the first blood culture negative. will continue Cefazolin 2 grams every six hours until June 13 and Gentamicin to be removed, PICC line placement today, due to that developed Fever had multiple repeated tests, did not found difference improving his fever, as per ID to get MRI of the Pelvis and Left knee. MRI showed fluid collection suspicious of infection, left NPO and now status post Left knee arthrotomy with irrigation and debridement for septic arthritis. continue Ancef, Diflucan. Continue Hemovac in place on left knee, improving left ankle edema. Left leg pain . Plan for MRI Elevated troponin continue with Tachycardia Cardiology following. Secondary to endocarditis, septic emboli and overall illness Cardiology following, has large vegetation on tricuspid valve and moderate to large on mitral valve, Moderate TR CT surgery consulted by employment training specialist. Non surgical candidate. Poor prognosis. IDU, Opiate dependency, avoid opioids and narcotics, EtOH dependence no signs of withdrawal. Multiple infarcts of spleen likely infectious emboli, continue IV antibiotics. Elevated LFTs history of IDU, CT abd and Pelvis with contrast, (04/30) Areas of low-density are seen in the spleen could be lacerations versus infarcts. No hemoperitoneum. Bilateral renal low-density likely benign. Hepatitis C genotype and quantitative, ID following. DVT GI prophylaxis -Teds SCDs -No pharmacological DVT prophylaxis due to thrombocytopenia -IV Pepcid Encourage activity. No changes to anterior assessment. Code Status: Full Code. Discussed Condition With: Patient, nurse Discharge Planning: once cleared again by ID specialist. Plan for MRI left leg
--- NOTE | 2018-05-16 14:22 | P.PNID ---
Subjective Remarks: Patient is a 32-year-old male, brought into the hospital for further evaluation of chest pain. Patient is under custody and has been in [facility] since April 11. According to the patient several days into his incarceration, he started experiencing lower chest pain that is pleuritic in nature. He also started complaining of pain on his lumbar region more on the left side. He has not been coughing. He apparently has been having fevers. Patient has known IV drug use, and the last time he used it was the day before he got incarcerated. Has not any nausea or vomiting. Denies any diarrhea or urinary complaints. He has no prior history of endocarditis, but has had problem with skin abscesses. There is also mention that he has had previous HIV and hepatitis testing and they were both negative and this was from last year. Patient is afebrile. His hemodynamics are stable. His WBC is normal. Patient had CT of the chest which is showing multiple bilateral pulmonary nodules some of which are cavitating. CT of the abdomen and pelvis is showing some findings possibly of splenic infarcts. His blood cultures are currently pending. Infectious disease consultation has been requested to evaluate the patient with possible endocarditis. Notes reviewed Temps ok S/P I and D L knee 05/13; cultures negative Now complaining more of his L ankle being swollen Creatinine better Last (+) BC 05/02 SARAH with MV vegetations and large TV vegetation, and possible mod TR Dose not want to move his LLE due to pain Antibiotics: Ancef Diflucan Lines: PICC Past Medical History: Back pain IV drug abuse Right foot injury Skin abscess H/O foot surgery Allergies/Adverse Reactions: Allergies acetaminophen Allergy (Intermediate, Verified 07/08/17 16:38) STOMACH UPSET Objective Vital Signs 05/15/18 16:00 05/15/18 20:00 05/16/18 00:00 Temperature 97.7 F 97.6 F 98.2 F Pulse Rate 103 H 107 H 108 H Respiratory Rate 18 20 20 Blood Pressure 133/82 129/87 130/82 Pulse Oximetry 99 98 98 05/16/18 04:00 05/16/18 08:00 05/16/18 09:21 Temperature 97.8 F 98.5 F Pulse Rate 106 H 102 H 83 Respiratory Rate 20 19 Blood Pressure 136/87 129/89 Pulse Oximetry 97 99 05/16/18 12:00 Temperature 97.4 F L Pulse Rate 99 H Respiratory Rate 19 Blood Pressure 131/84 Pulse Oximetry 98 Intake & Output 05/15/18 05/16/18 05/16/18 18:59 06:59 18:59 Intake Total 2420 / 2420 300 / 300 100 / 100 Output Total 950 / 950 2785 / 2785 Balance 1470 / 1470 -2485 / -2485 100 / 100 Weight 51.5 kg Intake: IV 1200 / 1200 300 / 300 100 / 100 NS Inj 1,000 ML @ 84 mls/hr IV. 1000 / 1000 0 / 0 CONT .[id number] [facility] Rx#:[id number] LR 1000 mL Inj 1,000 ML @ 30 200 / 200 mls/hr IV.SIG .Q24H [facility] Rx#: [id number] Ancef Inj 2,000 MG In NS Inj 80 200 / 200 100 / 100 100 / 100 ML @ 200 mls/hr IV.SIG Q8H [facility] Rx#:[id number] Oral 1220 / 1220 Output: Urine 950 / 950 2775 / 2775 Wound Drainage # 1 Left Lateral Knee Other: Date of Last Bowel Movement 05/13/18 05/15/18 05/16/18 # Bowel Movements 0 # Incontinent Bowel Movements 1 05/11/18 10:40 Blood - Peripheral Aerobic Blood Culture - Final No growth in 5 days 05/11/18 10:40 Blood - Peripheral Anaerobic Blood Culture - Final No growth in 5 days 05/13/18 09:40 Fluid - Other Gram Stain - Final 05/13/18 09:40 Fluid - Other Wound Culture - Final No growth in 72 hours (aerobically and anaerobically ) 05/13/18 09:40 Tissue - Knee Gram Stain - Final 05/13/18 09:40 Tissue - Knee Wound Culture - Final No growth in 72 hours (aerobically and anaerobically ) 05/10/18 11:41 Blood - Peripheral Aerobic Blood Culture - Final No growth in 5 days 05/10/18 11:41 Blood - Peripheral Anaerobic Blood Culture - Final No growth in 5 days 05/13/18 09:40 Fluid - Other Acid Fast Bacilli Smear - Final No acid fast bacilli seen 05/13/18 09:40 Fluid - Other Mycobacterial Culture - Pending 05/13/18 09:40 Tissue - Knee Acid Fast Bacilli Smear - Final No acid fast bacilli seen 05/13/18 09:40 Tissue - Knee Mycobacterial Culture - Pending 05/10/18 14:21 Clean Catch Urine Urine Culture - Final Olga Lidia tropicalis Trichosporon beigelii 05/13/18 09:40 Tissue - Knee Fungal Smear - Final No fungal elements seen 05/13/18 09:40 Tissue - Knee Fungal Culture - Pending 05/13/18 09:40 Fluid - Other Fungal Smear - Final No fungal elements seen 05/13/18 09:40 Fluid - Other Fungal Culture - Pending Lab - Hematology Results 05/15/18 05:42 WBC 12.7 H RBC 3.03 L Hgb 8.1 L Hct 24.5 L MCV 81.0 MCH 26.7 L MCHC 33.0 RDW 16.0 Plt Count 671 H MPV 6.0 L Neut % (Auto) 79.6 H Lymph % (Auto) 13.4 [place] % (Auto) 6.0 Eos % (Auto) 0.5 Baso % (Auto) 0.5 Neut # (Auto) 10.1 H Lymph # (Auto) 1.7 [place] # (Auto) 0.8 Eos # (Auto) 0.1 Baso # (Auto) 0.1 WBC Differential . Differential Comment Auto diff final Imaging: ITS Impressions Abdomen/Pelvis CT 04/30/18 01:58 CONCLUSION: 1. Areas of low-density are seen in the spleen could be lacerations versus infarcts. No hemoperitoneum. 2. Bilateral renal low-density likely benign. 3. Right pleural effusion. Lumbar Spine CT 04/30/18 01:58 CONCLUSION: 1. Disc bulges at L3-4, L4-5 and L5-S1 levels. No canal stenosis. 2. No fracture or spondylolisthesis. Thoracic Spine CT 04/30/18 01:58 CONCLUSION: 1. Unremarkable thoracic spine. Chest CT 04/30/18 03:09 CONCLUSION: 1. Numerous bilateral pulmonary nodules many of which are cavitated, likely septic emboli. 2. Small moderate right pleural effusion with partial loculation. Lumbar Spine MRI 05/01/18 00:00 CONCLUSION: 1. No evidence of discitis or other acute process in the lumbar spine. 2. Areas of focally altered peripheral signal intensity and enhancement in the kidneys which may be areas of focal pyelonephritis or renal cortical infarctions Knee X-Ray 05/02/18 00:00 CONCLUSION: No acute findings. Chest X-Ray 05/10/18 00:00 CONCLUSION: Small right pleural parenchymal density, less prominent compared to previous study Venous Doppler Study 05/10/18 00:00 CONCLUSION: No venous thrombosis is identified in the left lower extremity. Knee MRI 05/12/18 00:00 CONCLUSION: 1. Large joint effusion with intense enhancement suspicious for inflammatory process. Pelvis MRI 05/12/18 00:00 CONCLUSION: 1. Abnormal left SI joint suspicious for inflammatory process 2. Trace joint effusion around both hips without synovial enhancement. 3. Generalized subcutaneous edema. Physical Exam: GENERAL: Resting, NAD SKIN: Warm and dry. No generalized rash HEAD: Atraumatic. Normocephalic. No temporal wasting, or tenderness. EYES: [place] conjunctiva. Pupils equal, round and reactive to light. Extraocular movements full and intact. No scleral icterus. No injection or drainage. EARS, NOSE AND THROAT: Nose without bleeding or purulent nasal discharge. Mucous membranes pink and moist. No oral lesions noted. NECK: Trachea midline. Supple and not tender, no meningeal signs CARDIOVASCULAR: Tachycardic. No murmurs, rubs or gallops heard RESPIRATORY: Clear to auscultation. Breath sounds equal bilaterally. No rales , wheezing or rhonchi ABDOMEN: Soft, flat, non-tender, nondistended. Bowel sounds present and normoactive. No guarding. No rebound. No organomegaly. EXTREMITIES: Has dressing on his L knee, dry and intact. Has more swelling in his L ankle, and pain with any movement NEUROLOGICAL: Non-focal PSYCHIATRIC: calm and cooperative. LINE: No evidence of infection Assessment and Plan - Plan Impressions Chest pain, pleuritic, with findings suggestive of septic emboli in lungs TV and MV IE, BC with Staph aureus MSSA Septic L knee L SI joint inflammatory reaction on MTI, prob seeding as well Bilateral renal infarcts . Hx multiple skin abscesses Prior Hx MRSA infection in his skin abscess Active IVDU Fevers, recurrent Candiduria Renal insufficiency, creatinine rising - ?due to gent - better ?L ankle infection Recommendation Continue IV Ancef Follow new C/S Follow temps Continue Diflucan, to finish 05/19 Monitor progress MRI L ankle joint Follow creatinine Will need to reevaluate course of Abx with new problems identified
[2018-05-16] MEDS ORDERED: Gadobutrol PF 7.5 MMOL/7.5 ML Vial (for RAD) IV.SIG ONE (15:00)
--- NOTE | 2018-05-16 16:18 | MR ---
EXAM DATE: 05/16/2018 4:04 PM EDT AGE/SEX: 32 years / Male INDICATIONS: . Pain and swelling left ankle. CLINICAL DATA: This is the patient's initial encounter. Patient reports that signs and symptoms have been present for 3 days and indicates a pain score of 4/10. MEDICAL/SURGICAL HISTORY: None. . I/D left knee. COMPARISON: No prior exams available for comparison. TECHNIQUE: Multiplanar, multisequence MRI examination was performed with contrast and after the intr avenous administration of 6 ml Gadavist (gadobutrol) contrast as a single exam dose. FINDINGS: There is a diffuse mottled pattern to the medullary cavity and both the distal tibia and talus as wel l as the tarsal bones. There is subcutaneous edema but no evidence of abscess following the demonstra tion of contrast. There is diffuse synovial enhancement involving both the tibiotalar joint as well a s the tibiofibular joint. There are no findings of internal derangement. The flexor and peroneal tend ons are intact. The plantar fascia is also intact. CONCLUSION: 1. Nonspecific soft tissue swelling and synovitis involving the ankle joint including the tibiotalar and talofibular compartments. There is no evidence of abscess or osteomyelitis. 2. No internal derangement is seen. Electronically signed by: Zac Langford MD 05/16/2018 4:17 PM EDT
[2018-05-17] MEDS: ceFAZolin Inj 2,000 MG in Sodium Chlor 0.9% Inj 80 ML IV.SIG SCH ×3 (02:10→17:07)
[2018-05-17] MEDS: Acetaminophen 325 MG Tablet PO PRN (06:12)
[2018-05-17 07:11] LABS: Baso # (Auto) 0.1 th/mm3 (0.0-0.2); Baso % (Auto) 0.6 % (0.0-2.0); Eos # (Auto) 0.2 th/mm3 (0.0-0.4); Eos % (Auto) 1.1 % (0.0-4.0); Hematocrit 26.3 % (39.0-51.0); Hemoglobin 8.7 gm/dL (13.0-17.0); Lymph # (Auto) 1.9 th/mm3 (1.0-4.8); Lymph % (Auto) 12.7 % (9.0-44.0); Mean Corpuscular HGB Conc 33.1 % (32.0-36.0); Mean Corpuscular Hemoglobin 26.8 pg (27.0-34.0); Mean Corpuscular Volume 81.1 fL (80.0-100.0); Mean Platelet Volume 5.9 fL (7.0-11.0); Mono # (Auto) 0.8 th/mm3 (0.0-0.9); Mono % (Auto) 5.5 % (0.0-8.0); Neut # (Auto) 11.8 th/mm3 (1.8-7.7); Neut % (Auto) 80.1 % (16.0-70.0); Platelet Count 612 th/mm3 (150-450); Red Blood Count 3.24 mil/mm3 (4.50-5.90); White Blood Count 14.8 th/mm3 (4.0-11.0)
[2018-05-17 07:35] LABS: Calcium 8.6 mg/dL (8.5-10.1); Carbon Dioxide 25.7 meq/L (21.0-32.0); Potassium 3.9 meq/L (3.5-5.1)
[2018-05-17] MEDS ORDERED: Ibuprofen 400 MG Tablet PO PRN (08:16)
[2018-05-17] MEDS: Famotidine PF Inj 20 MG/2 ML Vial IV.PUSH SCH ×2 (09:03→21:06)
[2018-05-17] MEDS: Heparin Central Flush 100 UNIT/ML 5 ML Vial IV.FLUSH SCH (09:03)
[2018-05-17] MEDS: levoFLOXacin 750 MG Tablet PO SCH (09:03)
[2018-05-17] MEDS: Senna/Docusate Sodium 8.6/50 MG Tablet PO SCH ×2 (09:03→21:06)
[2018-05-17] MEDS: Fluconazole 100 MG Tablet PO SCH (09:03)
--- NOTE | 2018-05-17 09:50 | P.PN ---
Subjective Interval history: MRI of the leg no acute abnormality. We will do ultrasound Doppler to rule out DVT. Patient still complains of pain. Will start ibuprofen. No tachycardia. Blood pressure is better controlled. No chest pain or shortness of breath. He is saturating well on room air. Physical Exam Vital signs: Vital Signs 05/16/18 12:00 05/16/18 16:00 05/16/18 20:00 Temperature 97.4 F L 97.4 F L 97.6 F Pulse Rate 99 H 113 H 105 H Respiratory Rate 19 19 17 Blood Pressure 131/84 124/75 136/77 Pulse Oximetry 98 98 99 05/17/18 00:00 05/17/18 04:00 05/17/18 08:00 Temperature 97.6 F 98.1 F 97.9 F Pulse Rate 104 H 97 H 107 H Respiratory Rate 17 17 17 Blood Pressure 126/81 119/84 120/84 Pulse Oximetry 98 99 98 Intake & Output 05/16/18 05/17/18 05/17/18 18:59 06:59 18:59 Intake Total 1300 / 1300 1160 / 1160 Output Total 1000 / 1000 900 / 900 Balance 300 / 300 260 / 260 Weight 51.5 kg Intake: IV 100 / 100 200 / 200 NS Inj 1,000 ML @ 84 mls/hr IV. 0 / 0 CONT .[id number] FORD Rx#:[id number] Ancef Inj 2,000 MG In NS Inj 80 100 / 100 200 / 200 ML @ 200 mls/hr IV.SIG Q8H FORD Rx#:[id number] Oral 1200 / 1200 960 / 960 Output: Urine 1000 / 1000 900 / 900 Other: Date of Last Bowel Movement 05/16/18 05/16/18 Narrative: GENERAL: NAD, AAOx3 SKIN: Warm and dry. HEAD: Atraumatic. Normocephalic. EYES: Pupils equal and round. No scleral icterus. No injection or drainage. ENT: No nasal bleeding or discharge. Mucous membranes pink and moist. NECK: Trachea midline. No JVD. CARDIOVASCULAR: Regular rhythm, tachycardic RESPIRATORY: breath sounds bilateral, no wheezing or crackles. GASTROINTESTINAL: Abdomen soft, non-tender MUSCULOSKELETAL: Extremities without clubbing, cyanosis, Edema on left ankle, left knee dressed and hemovac in place. NEUROLOGICAL: Awake and alert. No obvious cranial nerve deficits. PSYCHIATRIC: Appropriate mood and affect Results - Labs CBC & Chem 7: 05/17/18 06:15 05/17/18 06:15 Laboratory Results - last 24 hr 05/17/18 05/17/18 06:15 06:15 WBC 14.8 H RBC 3.24 L Hgb 8.7 L Hct 26.3 L MCV 81.1 MCH 26.8 L MCHC 33.1 RDW 16.0 Plt Count 612 H MPV 5.9 L Neut % (Auto) 80.1 H Lymph % (Auto) 12.7 [place] % (Auto) 5.5 Eos % (Auto) 1.1 Baso % (Auto) 0.6 Neut # (Auto) 11.8 H Lymph # (Auto) 1.9 [place] # (Auto) 0.8 Eos # (Auto) 0.2 Baso # (Auto) 0.1 WBC Differential . Differential Comment Auto diff final Sodium 133 L Potassium 3.9 Chloride 98 Carbon Dioxide 25.7 Anion Gap 9 BUN 28 H Creatinine 1.23 Estimated GFR 67 L Random Glucose 93 Calcium 8.6 Microbiology 05/11/18 10:40 Blood - Peripheral Aerobic Blood Culture - Final No growth in 5 days 05/11/18 10:40 Blood - Peripheral Anaerobic Blood Culture - Final No growth in 5 days 05/13/18 09:40 Fluid - Other Gram Stain - Final 05/13/18 09:40 Fluid - Other Wound Culture - Final No growth in 72 hours (aerobically and anaerobically ) 05/13/18 09:40 Tissue - Knee Gram Stain - Final 05/13/18 09:40 Tissue - Knee Wound Culture - Final No growth in 72 hours (aerobically and anaerobically ) - Imaging Impressions Ankle MRI 05/16/18 00:00 CONCLUSION: 1. Nonspecific soft tissue swelling and synovitis involving the ankle joint including the tibiotalar and talofibular compartments. There is no evidence of abscess or osteomyelitis. 2. No internal derangement is seen. - Procedures Date: 05/13/18 09:47 Initialization Date: 05/13/18 09:47 - Preoperative Diagnosis (1) Infection of left knee Date of procedure: 05/13/18 Procedure: Left knee arthrotomy with irrigation and debridement for septic arthritis Anesthesia: GETA Surgeon: Davion Kapadia MD Assessment and Plan - Plan Elevated Troponin with atypical chest pain, Pleuritic in nature, findings suggestive of septic Emboli in the lungs, questionable Infective endocarditis, ID specialist following, patient is IDU, Prior history of MRSA, skin abscess, CT lumbar no evidence of lesion, recommended IV Cefepime for GNR and PSAE coverage, IV Vancomycin, awaiting SARAH result, due to Lumbar pain that continued was performed Lumbar MRI as recommended by ID specialist no evidence of discitis or other acute process, areas of focally altered peripheral signal intensity and enhancement in the kidneys which may be areas of focal Pyelonephritis or renal cortical infarctions. 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 LE weakness is concerning for discitis infectious. Repeat BC to document clearing, negative blood cultures from 05/03 and 05/05. ID specialist recommended to continue Ancef, Stopped Teflaro, continue IV Gentamicin for Synergy. for six weeks starting with the first blood culture negative. will continue Cefazolin 2 grams every six hours until June 13 and Gentamicin to be removed, PICC line placement today, due to that developed Fever had multiple repeated tests, did not found difference improving his fever, as per ID to get MRI of the Pelvis and Left knee. MRI showed fluid collection suspicious of infection, left NPO and now status post Left knee arthrotomy with irrigation and debridement for septic arthritis. continue Ancef, Diflucan. Continue Hemovac in place on left knee, improving left ankle edema. Left leg pain . Had MRI of the left leg and is normal. Plan for Doppler ultrasound to rule out DVT. Tylenol for pain, add ibuprofen prn , avoid narcotics. No withdrawal symptoms. Elevated troponin continue with Tachycardia Cardiology following. Secondary to endocarditis, septic emboli and overall illness Cardiology following, has large vegetation on tricuspid valve and moderate to large on mitral valve, Moderate TR CT surgery consulted by event set up specialist. Non surgical candidate. Poor prognosis. IDU, Opiate dependency, avoid opioids and narcotics. EtOH dependence no signs of withdrawal. Multiple infarcts of spleen likely infectious emboli, continue IV antibiotics. Elevated LFTs history of IDU, CT abd and Pelvis with contrast, (8/15) Areas of low-density are seen in the spleen could be lacerations versus infarcts. No hemoperitoneum. Bilateral renal low-density likely benign. Hepatitis C genotype and quantitative, ID following. DVT GI prophylaxis -Teds SCDs -No pharmacological DVT prophylaxis due to thrombocytopenia -IV Pepcid Encourage activity. No changes to anterior assessment. Code Status: Full Code. Discussed Condition With: Patient, nurse Discharge Planning: once cleared again by ID specialist. Had MRI of the left leg. Plan for Doppler ultrasound to rule out DVT
--- NOTE | 2018-05-17 11:17 | US ---
EXAM DATE: 05/17/2018 11:10 AM EDT AGE/SEX: 32 years / Male INDICATIONS: leg pain. CLINICAL DATA: This is the patient's initial encounter. Patient reports that signs and symptoms have been present for 1 day and indicates a pain score of 5/10. MEDICAL/SURGICAL HISTORY: . Back pain. IV drug abuse. Right foot injury. Skin abscess. MRSA. . Foot surgery. COMPARISON: [facility] [place], MR KNEE LEFT W & W/O CONTRAST, 05/12/2018. . TECHNIQUE: Venous ultrasound of both lower extremities was performed from the inguinal ligament to t he proximal calf. Real-time, color Doppler and spectral tracing, compression and augmentation techni ques were used. FINDINGS: Right Leg: Normal compression of the deep venous system from the inguinal region to the proximal clyde f. No echogenic clot is seen. Normal response of the venous system to augmentation and respiration. Left Leg: Normal compression of the deep venous system from the inguinal region to the proximal calf . No echogenic clot is seen. Normal response of the venous system to augmentation and respiration. Other: None. CONCLUSION: 1. The study is negative for bilateral lower extremity deep venous thrombosis. Electronically signed by: Seamus Boykin MD 05/17/2018 11:16 AM EDT
[2018-05-18] MEDS: ceFAZolin Inj 2,000 MG in Sodium Chlor 0.9% Inj 80 ML IV.SIG SCH ×3 (01:17→17:09)
[2018-05-18] MEDS: Heparin Central Flush 100 UNIT/ML 5 ML Vial IV.FLUSH SCH (09:06)
[2018-05-18] MEDS: Senna/Docusate Sodium 8.6/50 MG Tablet PO SCH ×2 (09:07→20:28)
[2018-05-18] MEDS: Fluconazole 100 MG Tablet PO SCH (09:07)
[2018-05-18] MEDS: levoFLOXacin 750 MG Tablet PO SCH (09:07)
[2018-05-18] MEDS: Famotidine PF Inj 20 MG/2 ML Vial IV.PUSH SCH ×2 (09:07→20:28)
--- NOTE | 2018-05-18 11:56 | P.PN ---
Subjective Interval history: Patient is in bed appears sleepy. Guards at bedside. Patient still with pain in his left leg. There is no erythema there is noticed some swelling. DVT not seen on Doppler ultrasound and MRI was negative discussed with the patient. No fever or chills overnight. He is eating well. No chest pain or shortness of breath. He is saturating well on room air. Physical Exam Vital signs: Vital Signs 05/17/18 12:00 05/17/18 16:00 05/17/18 20:00 Temperature 97.5 F L 98.1 F 98.2 F Pulse Rate 101 H 114 H Respiratory Rate 18 18 17 Blood Pressure 125/78 110/73 118/72 Pulse Oximetry 98 100 97 05/18/18 00:00 05/18/18 04:00 05/18/18 08:00 Temperature 99.6 F 98.7 F 98.0 F Pulse Rate 109 H 103 H 109 H Respiratory Rate 17 17 17 Blood Pressure 124/79 127/80 123/80 Pulse Oximetry 97 98 98 Intake & Output 05/17/18 05/18/18 05/18/18 18:59 06:59 18:59 Intake Total 100 / 100 1160 / 1160 Output Total 1200 / 1200 Balance 100 / 100 -40 / -40 Intake: IV 100 / 100 200 / 200 Ancef Inj 2,000 MG In NS Inj 80 100 / 100 200 / 200 ML @ 200 mls/hr IV.SIG Q8H FORD Rx#:[id number] Oral 960 / 960 Output: Urine 1200 / 1200 Other: # Voids 5 Date of Last Bowel Movement 05/17/18 # Bowel Movements 1 Narrative: GENERAL: NAD, AAOx3 SKIN: Warm and dry. HEAD: Atraumatic. Normocephalic. EYES: Pupils equal and round. No scleral icterus. No injection or drainage. ENT: No nasal bleeding or discharge. Mucous membranes pink and moist. NECK: Trachea midline. No JVD. CARDIOVASCULAR: Regular rhythm, tachycardic RESPIRATORY: breath sounds bilateral, no wheezing or crackles. GASTROINTESTINAL: Abdomen soft, non-tender MUSCULOSKELETAL: Extremities without clubbing, cyanosis, Edema on left ankle, left knee dressed and hemovac in place. NEUROLOGICAL: Awake and alert. No obvious cranial nerve deficits. PSYCHIATRIC: Appropriate mood and affect Results - Labs CBC & Chem 7: 05/17/18 06:15 05/17/18 06:15 - Procedures Date: 05/13/18 09:47 Initialization Date: 05/13/18 09:47 - Preoperative Diagnosis (1) Infection of left knee Date of procedure: 05/13/18 Procedure: Left knee arthrotomy with irrigation and debridement for septic arthritis Anesthesia: GETA Surgeon: Davion Kapadia MD Assessment and Plan - Plan Elevated Troponin with atypical chest pain, Pleuritic in nature, findings suggestive of septic Emboli in the lungs, questionable Infective endocarditis, ID specialist following, patient is IDU, Prior history of MRSA, skin abscess, CT lumbar no evidence of lesion, recommended IV Cefepime for GNR and PSAE coverage, IV Vancomycin, awaiting SARAH result, due to Lumbar pain that continued was performed Lumbar MRI as recommended by ID specialist no evidence of discitis or other acute process, areas of focally altered peripheral signal intensity and enhancement in the kidneys which may be areas of focal Pyelonephritis or renal cortical infarctions. 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 LE weakness is concerning for discitis infectious. Repeat BC to document clearing, negative blood cultures from 05/03 and 05/05. ID specialist recommended to continue Ancef, Stopped Teflaro, continue IV Gentamicin for Synergy. for six weeks starting with the first blood culture negative. will continue Cefazolin 2 grams every six hours until June 13 and Gentamicin to be removed, PICC line placement today, due to that developed Fever had multiple repeated tests, did not found difference improving his fever, as per ID to get MRI of the Pelvis and Left knee. MRI showed fluid collection suspicious of infection, left NPO and now status post Left knee arthrotomy with irrigation and debridement for septic arthritis. continue Ancef, Diflucan. Continue Hemovac in place on left knee, improving left ankle edema. Left leg pain . Had MRI of the left leg and is normal. Plan for Doppler ultrasound to rule out DVT. Tylenol for pain, add ibuprofen prn , avoid narcotics. No withdrawal symptoms. Elevated troponin continue with Tachycardia Cardiology following. Secondary to endocarditis, septic emboli and overall illness Cardiology following, has large vegetation on tricuspid valve and moderate to large on mitral valve, Moderate TR CT surgery consulted by [facility] operations specialist. Non surgical candidate. Poor prognosis. IDU, Opiate dependency, avoid opioids and narcotics. EtOH dependence no signs of withdrawal. Multiple infarcts of spleen likely infectious emboli, continue IV antibiotics. Elevated LFTs history of IDU, CT abd and Pelvis with contrast, (8/) Areas of low-density are seen in the spleen could be lacerations versus infarcts. No hemoperitoneum. Bilateral renal low-density likely benign. Hepatitis C genotype and quantitative, ID following. DVT GI prophylaxis -Teds SCDs -No pharmacological DVT prophylaxis due to thrombocytopenia -IV Pepcid Encourage activity. No changes to anterior assessment. Code Status: Full Code. Discussed Condition With: Patient, nurse Discharge Planning: once cleared again by ID specialist. Had MRI of the left leg. Plan for Doppler ultrasound to rule out DVT
[2018-05-19] MEDS: ceFAZolin Inj 2,000 MG in Sodium Chlor 0.9% Inj 80 ML IV.SIG SCH ×2 (00:58→09:02)
[2018-05-19 04:17] VITALS: O2SAT 97
--- NOTE | 2018-05-19 09:00 | P.PNID ---
Subjective Remarks: Patient is a 32-year-old male, brought into the hospital for further evaluation of chest pain. Patient is under custody and has been in alf since April 11. According to the patient several days into his incarceration, he started experiencing lower chest pain that is pleuritic in nature. He also started complaining of pain on his lumbar region more on the left side. He has not been coughing. He apparently has been having fevers. Patient has known IV drug use, and the last time he used it was the day before he got incarcerated. Has not any nausea or vomiting. Denies any diarrhea or urinary complaints. He has no prior history of endocarditis, but has had problem with skin abscesses. There is also mention that he has had previous HIV and hepatitis testing and they were both negative and this was from last year. Patient is afebrile. His hemodynamics are stable. His WBC is normal. Patient had CT of the chest which is showing multiple bilateral pulmonary nodules some of which are cavitating. CT of the abdomen and pelvis is showing some findings possibly of splenic infarcts. His blood cultures are currently pending. Infectious disease consultation has been requested to evaluate the patient with possible endocarditis. Notes reviewed Temps ok S/P I and D L knee 05/13; cultures negative ANkle MRI, no evidence of infection repeat US no DVT BLE Creatinine better Repeat UA 05/14 normal Last (+) BC 05/02 SARAH with MV vegetations and large TV vegetation, and possible mod TR Antibiotics: Ancef Diflucan Lines: PICC Past Medical History: Back pain IV drug abuse Right foot injury Skin abscess H/O foot surgery Allergies/Adverse Reactions: Allergies acetaminophen Allergy (Intermediate, Verified 07/08/17 16:38) STOMACH UPSET Objective Vital Signs 05/18/18 12:00 05/18/18 16:00 05/18/18 20:00 Temperature 99.7 F H 98.3 F 98.8 F Pulse Rate 119 H 109 H 117 H Respiratory Rate 18 17 18 Blood Pressure 123/77 118/70 168/81 H Pulse Oximetry 97 98 98 05/19/18 00:00 05/19/18 04:00 Temperature 99.7 F H 99.1 F Pulse Rate 111 H 109 H Respiratory Rate 17 17 Blood Pressure 130/80 131/82 Pulse Oximetry 98 97 Intake & Output 05/18/18 05/19/18 05/19/18 18:59 06:59 18:59 Intake Total 1000 / 1000 1300 / 1300 Output Total 900 / 900 1250 / 1250 Balance 100 / 100 50 / 50 Weight 51.5 kg Intake: IV 200 / 200 100 / 100 Ancef Inj 2,000 MG In NS Inj 80 200 / 200 100 / 100 ML @ 200 mls/hr IV.SIG Q8H FORD Rx#:[id number] Oral 800 / 800 1200 / 1200 Output: Urine 900 / 900 1250 / 1250 Other: # Bowel Movements 1 05/11/18 10:40 Blood - Peripheral Aerobic Blood Culture - Final No growth in 5 days 05/11/18 10:40 Blood - Peripheral Anaerobic Blood Culture - Final No growth in 5 days 05/13/18 09:40 Fluid - Other Gram Stain - Final 05/13/18 09:40 Fluid - Other Wound Culture - Final No growth in 72 hours (aerobically and anaerobically ) 05/13/18 09:40 Tissue - Knee Gram Stain - Final 05/13/18 09:40 Tissue - Knee Wound Culture - Final No growth in 72 hours (aerobically and anaerobically ) Imaging: ITS Impressions Abdomen/Pelvis CT 04/30/18 01:58 CONCLUSION: 1. Areas of low-density are seen in the spleen could be lacerations versus infarcts. No hemoperitoneum. 2. Bilateral renal low-density likely benign. 3. Right pleural effusion. Lumbar Spine CT 04/30/18 01:58 CONCLUSION: 1. Disc bulges at L3-4, L4-5 and L5-S1 levels. No canal stenosis. 2. No fracture or spondylolisthesis. Thoracic Spine CT 04/30/18 01:58 CONCLUSION: 1. Unremarkable thoracic spine. Chest CT 04/30/18 03:09 CONCLUSION: 1. Numerous bilateral pulmonary nodules many of which are cavitated, likely septic emboli. 2. Small moderate right pleural effusion with partial loculation. Lumbar Spine MRI 05/01/18 00:00 CONCLUSION: 1. No evidence of discitis or other acute process in the lumbar spine. 2. Areas of focally altered peripheral signal intensity and enhancement in the kidneys which may be areas of focal pyelonephritis or renal cortical infarctions Knee X-Ray 05/02/18 00:00 CONCLUSION: No acute findings. Chest X-Ray 05/10/18 00:00 CONCLUSION: Small right pleural parenchymal density, less prominent compared to previous study Knee MRI 05/12/18 00:00 CONCLUSION: 1. Large joint effusion with intense enhancement suspicious for inflammatory process. Pelvis MRI 05/12/18 00:00 CONCLUSION: 1. Abnormal left SI joint suspicious for inflammatory process 2. Trace joint effusion around both hips without synovial enhancement. 3. Generalized subcutaneous edema. Ankle MRI 05/16/18 00:00 CONCLUSION: 1. Nonspecific soft tissue swelling and synovitis involving the ankle joint including the tibiotalar and talofibular compartments. There is no evidence of abscess or osteomyelitis. 2. No internal derangement is seen. Venous Doppler Study 05/17/18 00:00 CONCLUSION: 1. The study is negative for bilateral lower extremity deep venous thrombosis. Physical Exam: GENERAL: Resting, NAD SKIN: Warm and dry. No generalized rash HEAD: Atraumatic. Normocephalic. No temporal wasting, or tenderness. EYES: [place] conjunctiva. Pupils equal, round and reactive to light. Extraocular movements full and intact. No scleral icterus. No injection or drainage. EARS, NOSE AND THROAT: Nose without bleeding or purulent nasal discharge. Mucous membranes pink and moist. No oral lesions noted. NECK: Trachea midline. Supple and not tender, no meningeal signs CARDIOVASCULAR: Tachycardic. No murmurs, rubs or gallops heard RESPIRATORY: Clear to auscultation. Breath sounds equal bilaterally. No rales , wheezing or rhonchi ABDOMEN: Soft, flat, non-tender, nondistended. Bowel sounds present and normoactive. No guarding. No rebound. No organomegaly. EXTREMITIES: Has dressing on his L knee, dry and intact. Swelling L ankle same. LLE bigger compared to RLE, stable NEUROLOGICAL: Non-focal PSYCHIATRIC: calm and cooperative. LINE: No evidence of infection Assessment and Plan - Plan Impressions Chest pain, pleuritic, with findings suggestive of septic emboli in lungs TV and MV IE, BC with Staph aureus MSSA Septic L knee L SI joint inflammatory reaction on MTI, prob seeding as well Bilateral renal infarcts . Hx multiple skin abscesses Prior Hx MRSA infection in his skin abscess Active IVDU Fevers, recurrent Candiduria Renal insufficiency, creatinine rising - ?due to gent - better Recommendation Continue IV Ancef - plan to give until June 23 - neds labs weekly while on IV Abx: CBC, creatinine Continue Diflucan, to finish 05/19 Clinically stable from ID standpoint He could continue and complete his Rx in [place] [facility]
[2018-05-19] MEDS: Fluconazole 100 MG Tablet PO SCH (09:03)
[2018-05-19] MEDS: Acetaminophen 325 MG Tablet PO PRN (09:03)
[2018-05-19] MEDS: Heparin Central Flush 100 UNIT/ML 5 ML Vial IV.FLUSH SCH (09:04)
[2018-05-19] MEDS: Senna/Docusate Sodium 8.6/50 MG Tablet PO SCH (09:05)
[2018-05-19] MEDS: Famotidine PF Inj 20 MG/2 ML Vial IV.PUSH SCH (09:05)
--- NOTE | 2018-05-19 09:49 | P.PNOP ---
Subjective Interval history: The patient is awake and alert and answers questions appropriately. His left lower extremity pain is essentially unchanged. He has no other specific complaint. Physical Exam Vital signs: Vital Signs 05/18/18 12:00 05/18/18 16:00 05/18/18 20:00 Temperature 99.7 F H 98.3 F 98.8 F Pulse Rate 119 H 109 H 117 H Respiratory Rate 18 17 18 Blood Pressure 123/77 118/70 168/81 H Pulse Oximetry 97 98 98 05/19/18 00:00 05/19/18 04:00 Temperature 99.7 F H 99.1 F Pulse Rate 111 H 109 H Respiratory Rate 17 17 Blood Pressure 130/80 131/82 Pulse Oximetry 98 97 Intake & Output 05/18/18 05/19/18 05/19/18 18:59 06:59 18:59 Intake Total 1000 / 1000 1300 / 1300 Output Total 900 / 900 1250 / 1250 Balance 100 / 100 50 / 50 Weight 51.5 kg Intake: IV 200 / 200 100 / 100 Ancef Inj 2,000 MG In NS Inj 80 200 / 200 100 / 100 ML @ 200 mls/hr IV.SIG Q8H FORD Rx#:[id number] Oral 800 / 800 1200 / 1200 Output: Urine 900 / 900 1250 / 1250 Other: # Bowel Movements 1 Narrative: The left knee dressing is dry and intact. There is no significant swelling of the calf or lower extremity. There is a fullness to the synovium of the left knee. He has a negative Homans sign. Neurologically no focal deficit. Results - Labs CBC & Chem 7: 05/17/18 06:15 05/17/18 06:15 - Procedures Date: 05/13/18 09:47 Initialization Date: 05/13/18 09:47 - Preoperative Diagnosis (1) Infection of left knee Date of procedure: 05/13/18 Procedure: Left knee arthrotomy with irrigation and debridement for septic arthritis Anesthesia: GETA Surgeon: Davion Kapadia MD Assessment and Plan - Ortho Post Op Day # 6 - Assessment and Plan 1) Left Knee Effusion s/p I&D - POD 6 Elevated Troponin with atypical chest pain, Pleuritic in nature, findings suggestive of septic Emboli in the lungs, questionable Infective endocarditis, ID specialist following, patient is IDU, Prior history of MRSA, skin abscess, CT lumbar no evidence of lesion, recommended IV Cefepime for GNR and PSAE coverage, IV Vancomycin, awaiting SARAH result, due to Lumbar pain that continued was performed Lumbar MRI as recommended by ID specialist no evidence of discitis or other acute process, areas of focally altered peripheral signal intensity and enhancement in the kidneys which may be areas of focal Pyelonephritis or renal cortical infarctions. 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 LE weakness is concerning for discitis infectious. Repeat BC to document clearing, negative blood cultures from 05/03 and 05/05. ID specialist recommended to continue Ancef, Stopped Teflaro, continue IV Gentamicin for Synergy. for six weeks starting with the first blood culture negative. will continue Cefazolin 2 grams every six hours until June 13 and Gentamicin to be removed, PICC line placement today, due to that developed Fever had multiple repeated tests, did not found difference improving his fever, as per ID to get MRI of the Pelvis and Left knee. MRI showed fluid collection suspicious of infection, left NPO and now status post Left knee arthrotomy with irrigation and debridement for septic arthritis. continue Ancef, Diflucan. Continue Hemovac in place on left knee, improving left ankle edema. Left leg pain . Had MRI of the left leg and is normal. Plan for Doppler ultrasound to rule out DVT. Tylenol for pain, add ibuprofen prn , avoid narcotics. No withdrawal symptoms. Elevated troponin continue with Tachycardia Cardiology following. Secondary to endocarditis, septic emboli and overall illness Cardiology following, has large vegetation on tricuspid valve and moderate to large on mitral valve, Moderate TR CT surgery consulted by digital strategy specialist. Non surgical candidate. Poor prognosis. IDU, Opiate dependency, avoid opioids and narcotics. EtOH dependence no signs of withdrawal. Multiple infarcts of spleen likely infectious emboli, continue IV antibiotics. Elevated LFTs history of IDU, CT abd and Pelvis with contrast, (04/30) Areas of low-density are seen in the spleen could be lacerations versus infarcts. No hemoperitoneum. Bilateral renal low-density likely benign. Hepatitis C genotype and quantitative, ID following. DVT GI prophylaxis -Teds SCDs -No pharmacological DVT prophylaxis due to thrombocytopenia -IV Pepcid Encourage activity. No changes to anterior assessment. Code Status: Full Code. Discussed Condition With: Patient, nurse Discharge Planning: once cleared again by ID specialist. Had MRI of the left leg. Plan for Doppler ultrasound to rule out DVT
--- NOTE | 2018-05-19 10:48 | P.PN ---
Subjective Interval history: In nad The same Afebrile Cleared by consultants for DC Can have IV abx at skilled nursing DC today spoke with CHARO Lopez Physical Exam Vital signs: Vital Signs 05/18/18 12:00 05/18/18 16:00 05/18/18 20:00 Temperature 99.7 F H 98.3 F 98.8 F Pulse Rate 119 H 109 H 117 H Respiratory Rate 18 17 18 Blood Pressure 123/77 118/70 168/81 H Pulse Oximetry 97 98 98 05/19/18 00:00 05/19/18 04:00 Temperature 99.7 F H 99.1 F Pulse Rate 111 H 109 H Respiratory Rate 17 17 Blood Pressure 130/80 131/82 Pulse Oximetry 98 97 Intake & Output 05/18/18 05/19/18 05/19/18 18:59 06:59 18:59 Intake Total 1000 / 1000 1300 / 1300 Output Total 900 / 900 1250 / 1250 Balance 100 / 100 50 / 50 Weight 51.5 kg Intake: IV 200 / 200 100 / 100 Ancef Inj 2,000 MG In NS Inj 80 200 / 200 100 / 100 ML @ 200 mls/hr IV.SIG Q8H FORD Rx#:[id number] Oral 800 / 800 1200 / 1200 Output: Urine 900 / 900 1250 / 1250 Other: # Bowel Movements 1 Narrative: GENERAL: NAD, AAOx3 CARDIOVASCULAR: Regular rhythm, tachycardic RESPIRATORY: breath sounds bilateral, no wheezing or crackles. GASTROINTESTINAL: Abdomen soft, non-tender MUSCULOSKELETAL: Extremities without clubbing, cyanosis, Edema on left ankle, left knee dressed and hemovac in place. NEUROLOGICAL: Awake and alert. No obvious cranial nerve deficits. PSYCHIATRIC: Appropriate mood and affect Results - Labs CBC & Chem 7: 05/17/18 06:15 05/17/18 06:15 - Procedures Date: 05/13/18 09:47 Initialization Date: 05/13/18 09:47 - Preoperative Diagnosis (1) Infection of left knee Date of procedure: 05/13/18 Procedure: Left knee arthrotomy with irrigation and debridement for septic arthritis Anesthesia: GETA Surgeon: Davion Kapadia MD Assessment and Plan - Plan Elevated Troponin with atypical chest pain, Pleuritic in nature, findings suggestive of septic Emboli in the lungs, questionable Infective endocarditis, ID specialist following, patient is IDU, Prior history of MRSA, skin abscess, CT lumbar no evidence of lesion, recommended IV Cefepime for GNR and PSAE coverage, IV Vancomycin, awaiting SARAH result, due to Lumbar pain that continued was performed Lumbar MRI as recommended by ID specialist no evidence of discitis or other acute process, areas of focally altered peripheral signal intensity and enhancement in the kidneys which may be areas of focal Pyelonephritis or renal cortical infarctions. 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 LE weakness is concerning for discitis infectious. Repeat BC to document clearing, negative blood cultures from 05/03 and 05/05. ID specialist recommended to continue Ancef, Stopped Teflaro, continue IV Gentamicin for Synergy. for six weeks starting with the first blood culture negative. will continue Cefazolin 2 grams every six hours until June 13 and Gentamicin to be removed, PICC line placement today, due to that developed Fever had multiple repeated tests, did not found difference improving his fever, as per ID to get MRI of the Pelvis and Left knee. MRI showed fluid collection suspicious of infection, left NPO and now status post Left knee arthrotomy with irrigation and debridement for septic arthritis. continue Ancef, Diflucan. Continue Hemovac in place on left knee, improving left ankle edema. Left leg pain . Had MRI of the left leg and is normal. Plan for Doppler ultrasound to rule out DVT. Tylenol for pain, add ibuprofen prn , avoid narcotics. No withdrawal symptoms. Elevated troponin continue with Tachycardia Cardiology following. Secondary to endocarditis, septic emboli and overall illness Cardiology following, has large vegetation on tricuspid valve and moderate to large on mitral valve, Moderate TR CT surgery consulted by marketing analytics specialist. Non surgical candidate. Poor prognosis. IDU, Opiate dependency, avoid opioids and narcotics. EtOH dependence no signs of withdrawal. Multiple infarcts of spleen likely infectious emboli, continue IV antibiotics. Elevated LFTs history of IDU, CT abd and Pelvis with contrast, (04/30) Areas of low-density are seen in the spleen could be lacerations versus infarcts. No hemoperitoneum. Bilateral renal low-density likely benign. Hepatitis C genotype and quantitative, ID following. DVT GI prophylaxis -Teds SCDs -No pharmacological DVT prophylaxis due to thrombocytopenia -IV Pepcid Encourage activity. No changes to anterior assessment. Code Status: Full Code. Discussed Condition With: Patient, nurse Discharge Planning: once cleared again by ID specialist. Had MRI of the left leg. Plan for Doppler ultrasound to rule out DVT DC plan : DC today can have abx IV at skilled nursing. Cleared by consultants
--- NOTE | 2018-05-19 11:11 | P.DS ---
Date of admission: 04/30/18 03:59 Primary care physician: No Primary Care Physician Brief History from admission: 32 year old male presents with a history of right-sided chest pain, left-sided low back pain that he reports began at approximately the same time, 2-3 days after detoxing from [facility]iate [facility] [place] [facility]. He reports that he was in incarcerated on April 11 and last used heroin and opiates on April 10. He reports that approximately 2 days into his incarceration he began to have detox symptoms which mainly included numerous episodes of diarrhea. Since then he developed this right-sided lower chest wall pain anteriorly and left-sided low back pain just above the left buttock. He reports that he has had a cough productive of green sputum. He also has had fevers with a T-max in penitentiary of 101. He is not currently on any antibiotic. He has been taking ibuprofen and Flexeril at the [facility]itentiary. He denies having any prior history of hepatitis or HIV. He denies having any prior history of endocarditis. He reports that he has had skin infections and abscesses in the past related to staph from IV drug use. He denies having any rashes currently. On review of systems otherwise, the patient denies having any neck pain, shortness of breath, abdominal pain, vomiting,urinary symptoms, or neurologic symptoms. The patient last moved his bowels earlier today with a formed stool. He denies having any numbness or tingling to his extremities. He denies having any weakness of his extremities. He reports that he has generalized weakness. He was also noted at the [facility]iary to have incontinence of urine. DS: Diagnosis - Discharge Diagnosis (1) Acute septic pulmonary embolism Status: Acute (2) Elevated troponin Status: Acute (3) Endocarditis Status: Acute (4) Infection of left knee Status: Acute DS: Medications - Discharge Medications Prescriptions: cefazolin 2,000 mg IV Q6H 35 Days #35 ea DS: Summary Hospital Course: Elevated Troponin with atypical chest pain, Pleuritic in nature, findings suggestive of septic Emboli in the lungs, questionable Infective endocarditis, ID specialist following, patient is IDU, Prior history of MRSA, skin abscess, CT lumbar no evidence of lesion, recommended IV Cefepime for GNR and PSAE coverage, IV Vancomycin, awaiting SARAH result, due to Lumbar pain that continued was performed Lumbar MRI as recommended by ID specialist no evidence of discitis or other acute process, areas of focally altered peripheral signal intensity and enhancement in the kidneys which may be areas of focal Pyelonephritis or renal cortical infarctions. 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 LE weakness is concerning for discitis infectious. Repeat BC to document clearing, negative blood cultures from 05/03 and 05/05. ID specialist recommended to continue Ancef, Stopped Teflaro, continue IV Gentamicin for Synergy. for six weeks starting with the first blood culture negative. will continue Cefazolin 2 grams every six hours until June 13 and Gentamicin to be removed, PICC line placement today, due to that developed Fever had multiple repeated tests, did not found difference improving his fever, as per ID to get MRI of the Pelvis and Left knee. MRI showed fluid collection suspicious of infection, left NPO and now status post Left knee arthrotomy with irrigation and debridement for septic arthritis. continue Ancef, Diflucan. Continue Hemovac in place on left knee, improving left ankle edema. Left leg pain . Had MRI of the left leg and is normal. Doppler ultrasound no DVT. Tylenol for pain, add ibuprofen prn , avoid narcotics. No withdrawal symptoms. Elevated troponin continue with Tachycardia Cardiology following. Secondary to endocarditis, septic emboli and overall illness Cardiology following, has large vegetation on tricuspid valve and moderate to large on mitral valve, Moderate TR CT surgery consulted by job service specialist. Non surgical candidate. Poor prognosis. IDU, Opiate dependency, avoid opioids and narcotics. EtOH dependence no signs of withdrawal. Multiple infarcts of spleen likely infectious emboli, continue IV antibiotics. Elevated LFTs history of IDU, CT abd and Pelvis with contrast, (04/30) Areas of low-density are seen in the spleen could be lacerations versus infarcts. No hemoperitoneum. Bilateral renal low-density likely benign. Hepatitis C genotype and quantitative, ID following. DVT GI prophylaxis -Teds SCDs -No pharmacological DVT prophylaxis due to thrombocytopenia -IV Pepcid Encourage activity. No changes to anterior assessment. Code Status: Full Code. Discussed Condition With: Patient, nurse DC plan : DC today [facility]. Cleared by consultants Last dose of ancel Jun 23, 2018. Has a PICC line - Time Spent with Patient Total time spent providing and/or coordinating discharge services: Greater than 30 minutes Exam Vital signs: Vital Signs 05/18/18 12:00 05/18/18 16:00 05/18/18 20:00 Temperature 99.7 F H 98.3 F 98.8 F Pulse Rate 119 H 109 H 117 H Respiratory Rate 18 17 18 Blood Pressure 123/77 118/70 168/81 H Pulse Oximetry 97 98 98 05/19/18 00:00 05/19/18 04:00 Temperature 99.7 F H 99.1 F Pulse Rate 111 H 109 H Respiratory Rate 17 17 Blood Pressure 130/80 131/82 Pulse Oximetry 98 97 Intake & Output 05/18/18 05/19/18 05/19/18 18:59 06:59 18:59 Intake Total 1000 / 1000 1300 / 1300 Output Total 900 / 900 1250 / 1250 Balance 100 / 100 50 / 50 Weight 51.5 kg Intake: IV 200 / 200 100 / 100 Ancef Inj 2,000 MG In NS Inj 80 200 / 200 100 / 100 ML @ 200 mls/hr IV.SIG Q8H FORD Rx#:[id number] Oral 800 / 800 1200 / 1200 Output: Urine 900 / 900 1250 / 1250 Other: # Bowel Movements 1 Narrative: GENERAL: NAD, AAOx3 CARDIOVASCULAR: Regular rhythm, tachycardic RESPIRATORY: breath sounds bilateral, no wheezing or crackles. GASTROINTESTINAL: Abdomen soft, non-tender MUSCULOSKELETAL: Extremities without clubbing, cyanosis, Edema on left ankle, left knee dressed and hemovac in place. NEUROLOGICAL: Awake and alert. No obvious cranial nerve deficits. PSYCHIATRIC: Appropriate mood and affect Results Procedures completed during hospitalization: Date: 05/13/18 09:47 Initialization Date: 05/13/18 09:47 - Preoperative Diagnosis (1) Infection of left knee Date of procedure: 05/13/18 Procedure: Left knee arthrotomy with irrigation and debridement for septic arthritis Anesthesia: GETA Surgeon: Davion Kapadia MD Pending studies at discharge: Pending at discharge 05/13/18 Surgical [PTH] Routine - Impressions ITS Impressions Abdomen/Pelvis CT 04/30/18 01:58 CONCLUSION: 1. Areas of low-density are seen in the spleen could be lacerations versus infarcts. No hemoperitoneum. 2. Bilateral renal low-density likely benign. 3. Right pleural effusion. Lumbar Spine CT 04/30/18 01:58 CONCLUSION: 1. Disc bulges at L3-4, L4-5 and L5-S1 levels. No canal stenosis. 2. No fracture or spondylolisthesis. Thoracic Spine CT 04/30/18 01:58 CONCLUSION: 1. Unremarkable thoracic spine. Chest CT 04/30/18 03:09 CONCLUSION: 1. Numerous bilateral pulmonary nodules many of which are cavitated, likely septic emboli. 2. Small moderate right pleural effusion with partial loculation. Lumbar Spine MRI 05/01/18 00:00 CONCLUSION: 1. No evidence of discitis or other acute process in the lumbar spine. 2. Areas of focally altered peripheral signal intensity and enhancement in the kidneys which may be areas of focal pyelonephritis or renal cortical infarctions Knee X-Ray 05/02/18 00:00 CONCLUSION: No acute findings. Chest X-Ray 05/10/18 00:00 CONCLUSION: Small right pleural parenchymal density, less prominent compared to previous study Knee MRI 05/12/18 00:00 CONCLUSION: 1. Large joint effusion with intense enhancement suspicious for inflammatory process. Pelvis MRI 05/12/18 00:00 CONCLUSION: 1. Abnormal left SI joint suspicious for inflammatory process 2. Trace joint effusion around both hips without synovial enhancement. 3. Generalized subcutaneous edema. Ankle MRI 05/16/18 00:00 CONCLUSION: 1. Nonspecific soft tissue swelling and synovitis involving the ankle joint including the tibiotalar and talofibular compartments. There is no evidence of abscess or osteomyelitis. 2. No internal derangement is seen. Venous Doppler Study 05/17/18 00:00 CONCLUSION: 1. The study is negative for bilateral lower extremity deep venous thrombosis. Discharge Plan - Discharge Disposition Patient Disposition: 70 Transfer To Other Facility - Discharge Condition Condition: Stable - Discharge Order Discharge Orders: Discharge Order (Routine); Ordered 05/19/18 Ordered By: Les Yates - Discharge Details Anticipated Discharge Date: 05/10/18 Discharge Comment: Follow up with PCP and follow Infectious disease specialist recommendations. - Physicians Team Primary Care Provider: Primary Care Physici,Tammie Attending Provider: Charley Briones Other Providers: Zia Mesa MD ; Daljit Centeno MD ; Zena Raines MD ; Jewels Navarrete MD ; Davion Kapadia MD ; Eduard Beckham MD
[2018-05-19 12:59] VITALS: PULSE 104
[2018-05-19 13:02] VITALS: BP 123/88; RESP 18; TEMP 97.7
== END 2018-05-19 13:59 ==
LOC: NEPC 00:55 → NEDA 03:59 → N03 05:38 → N07 05-04 15:35
PROVIDERS: ADMIT Hospitalist; ATTEND Hospitalist